=== PATIENT | female | born 1980 | race Caucasian/White ===

== ENCOUNTER → 2018-07-24 10:56 | Outpatient (CLI) | payer MEDICAID, SELFPAY ==
[2018-07-24 11:27] LABS: Hemoglobin A1C 5.3 % (0.0-7.0)
[2018-07-24 20:02] LABS: Alanine Aminotransferase 103 U/L (12-78); Albumin Level 3.3 gm/dL (3.4-5.0); Albumin/Globulin Ratio 0.9 (1.1-1.8); Alkaline Phosphatase 81 U/L (46-116); Anion Gap 16.6 mEq/L (5-15); Aspartate Amino Transferase 49 U/L (15-37); Bilirubin,Total 0.5 mg/dL (0.2-1.0); Blood Urea Nitrogen 13 mg/dL (7-18); Calcium 8.5 mg/dL (8.5-10.1); Carbon Dioxide 24 mmol/L (21.0-32.0); Chloride 104 mmol/L (98-107); Chol/HDL Ratio 2.3 (1-3.5); Cholesterol 99 mg/dL (140-200); Creatinine,Serum 0.69 mg/dL (0.55-1.02); Estimated Glomerular Filt Rate 94 ml/min (>60); GFR (African American) 114 ML/MIN (>60); Globulin 3.5 gm/dl (1.3-3.2); Glucose 91 mg/dL (74-106); HDL Cholesterol 44 mg/dL (29-89); LDL Cholesterol 49 mg/dL (0-130); Potassium 4.6 mmoL/L (3.5-5.1); Sodium 140 mmol/L (136-145); Total Protein,Serum 6.8 gm/dL (6.4-8.2); Triglycerides 32 mg/dL (30-200); VLDL Cholesterol 6 mg/dL (0-40)
[2018-07-26 12:36] LABS: Hepatitis C Antibody >11.0 s/co ratio (0.0-0.9)
[2018-07-28 08:26] LABS: HCV Genotype Charge YES; Hepatitis C Genotype 3 (.)
== END ==
PROVIDERS: Visit Provider Family Medicine
DX: B18.2 Chronic viral hepatitis C (principal); E66.01 Morbid (severe) obesity due to excess calories; Z13.220 Encounter for screening for lipoid disorders
CPT/HCPCS: 36415; 80053; 80061; 83036; 87380; 87522; 87902

== ENCOUNTER → 2018-08-14 16:25 | Outpatient (CLI) | payer MEDICAID, SELFPAY ==
--- NOTE | 2018-08-14 16:28 | MM_ITS ---
MM Dig screening mamm BI w/CAD ORDERING PHYSICIAN : Buster Stewart MD PATIENT AGE: 38 years GENDER: Female COMPARISON: No previous studies for comparison. Baseline mammogram. INDICATION: ITS.REASON: SCREENING no hormones no new complaints Family history. Mother with breast cancer in her 50s TECHNIQUE: Standard CC and MLO images were obtained. R2 CAD reviewed. Additional nipple profile cc views bilaterally are helpful FINDINGS: Normal residual fibroglandular elements with moderate fatty replacement the lower density breast overall with no focal area of significant concern either breast. RIGHT BREAST:No areas of concern LEFT BREAST:Small focal Area of density seen on initial cc view is not evident on MLO nor on the repeat nipple profile cc view.- And thus I believe is merely a summation shadow.. Otherwise unremarkable left breast IMPRESSION: No areas of significant concern No significant findings. Bilateral follow-up in one year recommended. BI-RADS Category: 2 Benign Finding(s) RECOMMENDED FOLLOW-UP: 1YR 1 YEAR FOLLOW-UP (A letter has been sent to the patient regarding results of the study.)
== END ==
PROVIDERS: PCP Family Medicine; Visit Provider Family Medicine
DX: Z12.31 Encounter for screening mammogram for malignant neoplasm of breast (principal)
CPT/HCPCS: 77067

== ENCOUNTER 2018-10-07 15:43 | Observation (INO) ==
--- NOTE | 2018-10-07 16:10 | Emergency Department Note ---
ED Disposition Clinical Impression: HCV (hepatitis C virus), Hx of intravenous drug use in remission, Unstable angina Disposition: Still a Patient Condition on Discharge: Fair Referrals: Buster Stewart MD [Primary Care Provider] - - Critical Care Critical Care Time: No Attestation: On , the high probability of a clinically significant, sudden or life threatening deterioration of the following system(s) required my full and direct attention, intervention and personal management. The time I documented below is in addition to time spent performing reported procedures but includes the following listed in this critical care notation. Medical Decision Making - Aly Inquiry Pt receiving controlled substance: No Aly was queried for this patient: No Vital Signs: 10/07/18 16:00 10/07/18 16:25 10/07/18 16:30 Temperature 98 F Temperature Source Oral Pulse Rate [Left Radial] 85 100 H 98 H Respiratory Rate 26 H 16 Blood Pressure [Right Arm] 129/90 113/78 112/60 Blood Pressure Mean [Right Arm] 103 89 77 Blood Pressure Source [Right Arm] Automatic Cuff Automatic Cuff Automatic Cuff Blood Pressure Position [Right Arm] Sitting Sitting Sitting 02 Sat by Pulse Oximetry 99 98 98 Oxygen Delivery Method Room Air Room Air Room Air 10/07/18 16:49 10/07/18 17:05 Temperature Temperature Source Pulse Rate [Left Radial] 77 70 Respiratory Rate 20 Blood Pressure [Right Arm] 100/66 L 118/77 Blood Pressure Mean [Right Arm] 77 90 Blood Pressure Source [Right Arm] Automatic Cuff Automatic Cuff Blood Pressure Position [Right Arm] Sitting Sitting 02 Sat by Pulse Oximetry 98 97 Oxygen Delivery Method Room Air Room Air - Lab Data Lab Results 10/07/18 15:50: WBC 5.2, RBC 5.13, Hgb 14.9, Hct 44.7, MCV 87.3, MCH 29.0, MCHC 33.2, RDW 13.3, Plt Count 202, MPV 7.4, Neut % (Auto) 61.2, Lymph % (Auto) 30.1, Emanuel % (Auto) 6.3, Eos % (Auto) 1.7, Baso % (Auto) 0.7, Neut # (Auto) 3.2, Lymph # (Auto) 1.6, Emanuel # (Auto) 0.3, Eos # (Auto) 0.1, Baso # (Auto) 0.0 10/07/18 15:50: D-Dimer < 100 10/07/18 15:50: Sodium 137, Potassium 4.1, Chloride 103, Carbon Dioxide 26, Anion Gap 12.1, BUN 17, Creatinine 0.80, Estimated Creat Clear 84, Estimated GFR 79, Est GFR ( Amer) 96, Glucose 78, Calcium 8.4 L, Total Bilirubin 0.4, AST 54 H, ALT 125 H, Alkaline Phosphatase 91, Troponin I < 0.02, Total Protein 6.9, Albumin 3.0 L, Globulin 3.9 H, Albumin/Globulin Ratio 0.8 L 10/07/18 15:50: B-Natriuretic Peptide 120 H 10/07/18 15:50: C-Reactive Protein 0.3 10/07/18 15:50: ESR 11 10/07/18 15:50: PT 9.4, INR 0.91, APTT 24.7 10/07/18 15:50: TSH 1.62, Free T4 1.01 10/07/18 17:12: Specimen Source R/r, O2 % R/a, ABG pH 7.45, ABG pCO2 39.9, ABG pO2 72.1 L, ABG HCO3 27.3 H, ABG Total CO2 28.5 H, ABG O2 Saturation 95, ABG Base Excess 3.4 H, Bryan Test Y 10/07/18 17:15: Troponin I < 0.02 Result diagrams: 10/07/18 15:50 10/07/18 15:50 Orders (Tests/Meds): ED MEDICATIONS Generic Name Dose Route Start Last Admin Trade Name Freq PRN Reason Stop Dose Admin Heparin Sodium/Dextrose 500 mls @ 20 mls/hr 10/07/18 18:15 Heparin 25,000 Units In D5w 500ml Premix IV 11/06/18 18:14 .Q25H JUANA 1,000 UNITS/HR Sodium Chloride 10 ml 10/07/18 16:06 10/07/18 16:42 Saline Flush 10ml Syringe IV 11/06/18 16:05 10 ml NEEDED PRN Administration Maintain IV Site Discontinued Medications Generic Name Dose Route Start Last Admin Trade Name Freq PRN Reason Stop Dose Admin Albuterol Sulfate 2.5 mg 10/07/18 15:58 10/07/18 16:14 Albuterol 0.083% 2.5mg/3ml Neb IH 10/07/18 15:59 2.5 mg ONCE ONE Administration Aspirin 324 mg 10/07/18 16:24 10/07/18 16:25 Aspirin 81mg Chewable Tablet PO 10/07/18 16:25 324 mg ONCE ONE Administration Famotidine 20 mg 10/07/18 17:16 10/07/18 17:23 Pepcid 20mg/2ml Vial IV 10/07/18 17:17 20 mg ONCE ONE Administration Heparin Sodium (Porcine) 5,000 unit 10/07/18 17:45 10/07/18 18:03 Heparin Sodium 5,000 Units/Ml Vial IV 10/07/18 17:46 Not Given ONCE ONE Heparin Sodium (Porcine) 4,000 unit 10/07/18 18:01 Heparin Sodium 5,000 Units/Ml Vial IV 10/07/18 18:02 ONCE ONE Heparin Sodium/Dextrose 500 mls @ 24 mls/hr 10/07/18 17:45 10/07/18 18:03 Heparin 25,000 Units In D5w 500ml Premix IV 11/06/18 17:44 Not Given .[id number] JUANA 1,200 UNITS/HR Ketorolac Tromethamine 30 mg 10/07/18 17:16 10/07/18 17:23 Toradol 30mg/Ml Vial IV 10/07/18 17:17 30 mg ONCE ONE Administration Methylprednisolone Sodium Succinate 125 mg 10/07/18 15:58 10/07/18 16:24 Solu-Medrol 125mg/2ml Vial IV 10/07/18 15:59 125 mg ONCE ONE Administration Morphine Sulfate 1 mg 10/07/18 16:34 10/07/18 16:42 Morphine 2mg/Ml Syringe IV 10/07/18 16:35 1 mg ONCE ONE Administration Morphine Sulfate 1 mg 10/07/18 18:11 10/07/18 18:16 Morphine 2mg/Ml Syringe IV 10/07/18 18:12 1 mg ONCE ONE Administration Nitroglycerin 0.4 mg 10/07/18 16:25 10/07/18 16:23 Nitrostat 0.4mg Sl Tablet SL 10/07/18 16:26 0.4 mg ONCE ONE Administration Ondansetron HCl 4 mg 10/07/18 15:59 10/07/18 15:59 Zofran 4mg/2ml Vial IV 10/07/18 16:00 4 mg ONCE ONE Administration Ondansetron HCl 4 mg 10/07/18 16:51 10/07/18 16:58 Zofran 4mg/2ml Vial IV 10/07/18 16:52 4 mg ONCE ONE Administration ORDERS Category Date Time Status ABG [Arterial Blood Gas] Stat RT 10/07/18 17:05 Ordered - Radiology Data #1 Image(s): Chest Image Reviewed: Yes I have reviewed radiologist's interpretation Preliminary Findings: Normal/NAD IMPRESSION: Negative chest, no acute finding Medical Decision Narrative: The patient received Solu-Medrol and DuoNeb with no improvement of her shortness of breath and chest pressure. She was given aspirin followed by nitroglycerin with worsening of her chest tightness. The patient given morphine with no relief herblood pressure became 100/50. Repeated EKG was unchanged first set of enzymes were negative. I called drive man aviation project manager Dr. De La O who recommended that the patient to be given Toradol repeat EKG and second set of troponins. 171 second EKG showed tall T waves in the upper lateral leads with no acute ST segment changes, Toradol did not relieve her chest pressure and her second set of troponin was negative at 0.02. 1815 the patient continued to complain of chest pressure rated 10/10 radiating to the left upper extremity, I notified Dr. De La O who recommended to take the patient to the [facility] due to persistent symptoms and failure of medical management. Resp/SOB HPI - General Chief Complaint: Chest Pain Stated Complaint: chest pain Time Seen by Provider: 10/07/18 16:00 Mode of Arrival: Ambulatory Limitations: No Limitations Description of Symptoms (Recalled from ER Triage Doc. 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 states pain worse with mo vement. pt denies cough, calf pain states mother with hx of "massive" SC at age 40. cpta none - History of Present Illness 38 years old white female with history of IVD use, depression and HCV. She denies current use of tobacco products. Today while she is sitting in the kitchen peeling potatoes being exposed to secondhand smoke by her significant other she developed sudden onset shortness of breath without wheezing, she felt chest pressure radiating to the left upper extremity, she arrived to the ED by private vehicle and underwent a normal EKG. The patient rated his chest pressure as 10/10. She was given a albuterol neb treatment with no improvement. MD Complaint: shortness of breath Onset (ago): minute(s) (20 minutes prior to arrival.) Severity: severe Consistency/Duration: constant Relieving factors: nothing, rest Exacerbating factors: nothing, exertion Known history of: IVDU Associated symptoms: chest pain Treatment prior to arrival: none - Related Data Home Medications Medication Instructions Recorded Confirmed Gabapentin [Gabapentin 300mg Cap] 300 mg PO TID 10/07/18 10/07/18 PARoxetine HCl [Paxil 20mg Tablet] 20 mg PO DAILY 10/07/18 10/07/18 Allergies Allergy/AdvReac Type Severity Reaction Status Date / Time ANACIN Allergy Mild I-HIVES Uncoded 06/11/18 20:00 From CLARITIN Allergy Unknown I-RASH Uncoded 09/06/17 14:35 [facility] History - Hepatitis A Screen Drug use history?: Yes High risk sexual behaviors?: No History of sexually transmitted infection?: No Currently employed?: No Childcare worker?: No Do you have indoor plumbing?: Yes Do you have electricity?: Yes Attestation statement:: This patient has been screened for Hepatitis A risk factors. I have reviewed the patient's past medical history: Yes Medical History: Denies:: Cancer, Diabetes Mellitus Type 1, Diabetes Mellitus Type 2, MRSA Amputation: No - Social History Alcohol Intake: never Occupational Status: other - Psychiatric History Expresses thoughts of harming self/others: None Suicide Plan Description: No Plan ROS Obtained: Yes All systems reviewed & no additional complaints Physical Exam - General General appearance: alert, in no apparent distress - Head Head exam: atraumatic, normocephalic, normal inspection - Eye Eye exam: Present: normal appearance, PERRL, EOMI. Absent: scleral icterus, nystagmus - ENT ENT exam: Present: normal exam, normal oropharynx, mucous membranes moist, TM's normal bilaterally, normal external ear exam - Neck Neck exam: Present: normal inspection, full ROM, trachea midline. Absent: tenderness, meningismus, lymphadenopathy - Chest Chest inspection: Present: normal inspection, symmetric chest wall rise. Absent: tenderness - Respiratory Respiratory exam: Present: normal lung sounds bilaterally. Absent: respiratory distress, wheezes - Cardiovascular Cardiovascular exam: Present: regular rate, normal rhythm, normal heart sounds. Absent: JVD - Abdominal Exam Abdominal exam: Present: soft, normal bowel sounds. Absent: distention, tenderness, guarding, rebound, rigidity - Extremities Exam Extremities exam: Present: normal inspection, full ROM, normal capillary refill, pedal edema. Absent: tenderness, calf tenderness - Back Exam Back exam: Present: normal inspection. Absent: tenderness, CVA tenderness (R), CVA tenderness (L) - Neurological Exam Neurological exam: Present: alert, oriented X3, CN II-XII intact, motor sensory deficit, reflexes normal - Psychiatric Psychiatric exam: Present: normal affect, normal mood - Skin Skin exam: Present: warm, dry, intact, normal color - Lymphatic Lymphatic Findings: no adenopathy
[2018-10-07 16:15] LABS: Basophils % 0.7 % (0.1-2.0); Eosinophils # 0.1 K/mm3 (0.0-0.4); Eosinophils % 1.7 % (0.1-12.0); Hematocrit 44.7 % (37.0-47.0); Hemoglobin 14.9 g/dL (12.2-16.2); Lymphocytes # 1.6 K/mm3 (0.7-4.5); Lymphocytes % 30.1 % (10-50); Mean Corpuscular HGB Conc 33.2 g/dL (31.8-35.4); Mean Corpuscular Volume 87.3 fl (81-99); Mean Platelet Volume 7.4 fl (7.4-10.4); Monocytes # 0.3 K/mm3 (0.1-1.0); Monocytes % 6.3 % (1.7-9.3); Neutrophils # 3.2 K/mm3 (1.8-7.8); Neutrophils % 61.2 % (37.0-80.0); Platelet Count 202 K/mm3 (142-424); Red Blood Count 5.13 M/mm3 (4.20-5.40); Red Cell Distribution Width 13.3 % (11.5-17.5); White Blood Count 5.2 K/mm3 (4.8-10.8)
[2018-10-07 16:29] LABS: Alanine Aminotransferase 125 U/L (12-78); Albumin/Globulin Ratio 0.8 (1.1-1.8); Alkaline Phosphatase 91 U/L (46-116); Anion Gap 12.1 mEq/L (5-15); Aspartate Amino Transferase 54 U/L (15-37); Bilirubin,Total 0.4 mg/dL (0.2-1.0); Blood Urea Nitrogen 17 mg/dL (7-18); Calcium 8.4 mg/dL (8.5-10.1); Carbon Dioxide 26 mmol/L (21.0-32.0); Chloride 103 mmol/L (98-107); Globulin 3.9 gm/dl (1.3-3.2); Glucose 78 mg/dL (74-106); Potassium 4.1 mmoL/L (3.5-5.1); Sodium 137 mmol/L (136-145); Total Protein,Serum 6.9 gm/dL (6.4-8.2)
[2018-10-07 17:14] LABS: ABG Base Excess 3.4 mmol/L (-2.4-2.3); ABG HCO3 27.3 mmhg (22.0-26.0); ABG Oxygen Saturation 95 % (90-100); ABG PCO2 39.9 mmhg (35.0-45.0); ABG PH 7.45 mmol/L (7.35-7.45); ABG PO2 72.1 mmhg (80-100); ABG TCO2 28.5 mmhg (23-27); Allen's Test Y; Oxygen R/A %
[2018-10-07 17:28] LABS: Activated Partial Thrombo Time 24.7 seconds (23.6-34.0); INR 0.91 (0.9-1.1); Prothrombin Time 9.4 seconds (9.4-11.8)
[2018-10-07 17:43] LABS: Free T4 (Free Thyroxine) 1.01 ng/dl (0.76-1.46); Thyroid Stimulating Hormone 1.62 uIU/ml (0.358-3.740)
[2018-10-08 05:50] LABS: Basophils % 0.1 % (0.1-2.0); Eosinophils % 0.1 % (0.1-12.0); Hematocrit 43.2 % (37.0-47.0); Hemoglobin 13.7 g/dL (12.2-16.2); Lymphocytes # 0.9 K/mm3 (0.7-4.5); Lymphocytes % 14.4 % (10-50); Mean Corpuscular HGB Conc 31.8 g/dL (31.8-35.4); Mean Corpuscular Hemoglobin 28.1 pg (27.0-31.2); Mean Corpuscular Volume 88.3 fl (81-99); Mean Platelet Volume 7.9 fl (7.4-10.4); Monocytes # 0.1 K/mm3 (0.1-1.0); Monocytes % 1.5 % (1.7-9.3); Neutrophils # 4.9 K/mm3 (1.8-7.8); Neutrophils % 83.8 % (37.0-80.0); Platelet Count 181 K/mm3 (142-424); Red Blood Count 4.88 M/mm3 (4.20-5.40); Red Cell Distribution Width 13.5 % (11.5-17.5); White Blood Count 5.9 K/mm3 (4.8-10.8)
[2018-10-08 06:18] LABS: Anion Gap 14.2 mEq/L (5-15); Potassium 4.2 mmoL/L (3.5-5.1)
--- NOTE | 2018-10-08 07:34 | H&P/Discharge Summary ---
General - General Admission date:: 10/07/18 Discharge date: 10/08/18 *Admission Date: 10/07/18 *Chief complaint: Chest pain *History of present illness: 2-year-old female with history of intravenous drug use and known diagnosis of hepatitis C presented to the emergency department yesterday evening after sudden onset of severe left-sided chest pain rating around the left of the chest and through the chest and back. Despite multiple measures in the emergency department to relieve pain including morphine, Toradol, nitroglycerin all attempts were unsuccessful. Patient eventually underwent left heart catheterization yesterday evening has been admitted posteriorly for further observation. She denies any obstructive urinary disease. She continues to have chest tightness this morning and at times has rated it as 10 out of 10. Patient herself claims a history of myocardial infarction when she was in her 30s. Apparently that was related to some drug use. [facility] History Medical History: Reports:: Myocardial Infarction (2008) Denies:: Cancer, Diabetes Mellitus Type 1, Diabetes Mellitus Type 2, MRSA Have you ever received a pneumonia vaccine?: No Have you received a flu vaccine this season?: Yes Comment:: Hepatitis C, history of depression, History of IV drug use Other Surgeries: Yes: Cholecystectomy, , Hysterectomy-Total Amputation: No - *Social History Educational Level: Completed High School Smoking Status: Former smoker Tobacco Type: cigarettes # Packs/Day (cigarettes): 1 #Yrs smoked (if former smoker): 5 Alcohol Intake: never Substance Use Type: opiates Occupational Status: unemployed Travel in the last 8 weeks: None - Psychiatric History Expresses thoughts of harming self/others: None Suicide Plan Description: No Plan *Family Hx:: Cancer, Coronary Artery Disease, Diabetes, Heart Attack, Hyperlipidemia, Hypertension, Kidney Disease, Stroke, Thyroid Disorder Review of Systems - Constitutional Denies body ache(s), Denies chills - Eyes Denies blurry vision, Denies change in vision - *Cardiovascular Reports chest pain, Reports chest pain at rest, Reports chest pain with activity - *Respiratory Denies change in phlegm color, Denies chest congestion, Denies cough, Denies shortness of breath Exam Vital signs and Labs for Last 24 Hours: Temp Pulse Resp BP Pulse Ox 98.1 F 67 20 113/69 91 L 10/08/18 04:14 10/08/18 04:14 10/08/18 04:14 10/08/18 04:14 10/08/18 04:14 Laboratory Results - last 24 hr 10/07/18 15:50: WBC 5.2, RBC 5.13, Hgb 14.9, Hct 44.7, MCV 87.3, MCH 29.0, MCHC 33.2, RDW 13.3, Plt Count 202, MPV 7.4, Neut % (Auto) 61.2, Lymph % (Auto) 30.1, [place] % (Auto) 6.3, Eos % (Auto) 1.7, Baso % (Auto) 0.7, Neut # (Auto) 3.2, Lymph # (Auto) 1.6, [place] # (Auto) 0.3, Eos # (Auto) 0.1, Baso # (Auto) 0.0 10/07/18 15:50: D-Dimer < 100 10/07/18 15:50: Sodium 137, Potassium 4.1, Chloride 103, Carbon Dioxide 26, Anion Gap 12.1, BUN 17, Creatinine 0.80, Estimated Creat Clear 84, Estimated GFR 79, Est GFR ( Amer) 96, Glucose 78, Calcium 8.4 L, Total Bilirubin 0.4, A ST 54 H, ALT 125 H, Alkaline Phosphatase 91, Troponin I < 0.02, Total Protein 6.9, Albumin 3.0 L, Globulin 3.9 H, Albumin/Globulin Ratio 0.8 L 10/07/18 15:50: B-Natriuretic Peptide 120 H 10/07/18 15:50: C-Reactive Protein 0.3 10/07/18 15:50: ESR 11 10/07/18 15:50: PT 9.4, INR 0.91, APTT 24.7 10/07/18 15:50: TSH 1.62, Free T4 1.01 10/07/18 17:12: Specimen Source R/r, O2 % R/a, ABG pH 7.45, ABG pCO2 39.9, ABG pO2 72.1 L, ABG HCO3 27.3 H, ABG Total CO2 28.5 H, ABG O2 Saturation 95, ABG Base Excess 3.4 H, Bryan Test Y 10/07/18 17:15: Troponin I < 0.02 10/08/18 05:20: WBC 5.9, RBC 4.88, Hgb 13.7, Hct 43.2, MCV 88.3, MCH 28.1, MCHC 31.8, RDW 13.5, Plt Count 181, MPV 7.9, Neut % (Auto) 83.8 H, Lymph % (Auto) 14.4, [place] % (Auto) 1.5 L, Eos % (Auto) 0.1, Baso % (Auto) 0.1, Neut # (Auto) 4.9, Lymph # (Auto) 0.9, [place] # (Auto) 0.1, Eos # (Auto) 0.0, Baso # (Auto) 0.0 10/08/18 05:20: Sodium 138, Potassium 4.2, Chloride 105, Carbon Dioxide 23, Anion Gap 14.2, BUN 18, Creatinine 0.78, Estimated Creat Clear 86, Estimated GFR 82, Est GFR ( Amer) 99, Glucose 150 H D, Calcium 8.0 L, Magnesium 1.7, Triglycerides 38, Cholesterol 114 L, LDL Cholesterol 49, VLDL Cholesterol 8, HDL Cholesterol 57, Cholesterol/HDL Ratio 2.0 I & O for Last 24 hours: Intake & Output 10/05/18 10/06/18 10/07/18 10/08/18 11:59 11:59 11:59 11:59 Intake Total 240 / 240 Balance 240 / 240 Weight 274 lb 2 oz Narrative: Patient appears comfortable sitting in bed. ENT exam reveals a moist oropharynx. The neck is without carotid bruit lymphadenopathy. Lungs are clear to auscultation. Heart has a regular rate and rhythm. Chest examination reveals some mild tenderness at the third caudal junction but patient indicates this is not her source of pain. Abdomen is soft, nontender, nondistended and obese. Neurologically there are no deficits. Hospital Course Hospital Course: Went cardiac catheterization without findings of obstructive disease. The following morning because of the patient's persistent complaint of pain CT angiogram was performed. Patient did have mild hypoxemia on blood gas on presentation, however her d-dimer was negative. CT scan revealed normal pulmonary vasclature without embolism. Patient continued to complain of pain that was not releived with NSAIDs, narcotics, or GI cocktail. As life threatening causes of chest pain had been ruled out patient was discharged to home and will follow up as an outpatient. Results Labs on day of discharge: Labs from last 24 hours 10/08/18 10/08/18 10/07/18 05:20 05:20 17:15 WBC 5.9 RBC 4.88 Hgb 13.7 Hct 43.2 MCV 88.3 MCH 28.1 MCHC 31.8 RDW 13.5 Plt Count 181 MPV 7.9 Neut % (Auto) 83.8 H Lymph % (Auto) 14.4 [place] % (Auto) 1.5 L Eos % (Auto) 0.1 Baso % (Auto) 0.1 Neut # (Auto) 4.9 Lymph # (Auto) 0.9 [place] # (Auto) 0.1 Eos # (Auto) 0.0 Baso # (Auto) 0.0 ESR PT INR APTT D-Dimer Specimen Source O2 % ABG pH ABG pCO2 ABG pO2 ABG HCO3 ABG Total CO2 ABG O2 Saturation ABG Base Excess Bryan Test Sodium 138 Potassium 4.2 Chloride 105 Carbon Dioxide 23 Anion Gap 14.2 BUN 18 Creatinine 0.78 Estimated Creat Clear 86 Estimated GFR 82 Est GFR ( Amer) 99 Glucose 150 H D Calcium 8.0 L Magnesium 1.7 Total Bilirubin AST ALT Alkaline Phosphatase Troponin I < 0.02 C-Reactive Protein B-Natriuretic Peptide Total Protein Albumin Globulin Albumin/Globulin Ratio Triglycerides 38 Cholesterol 114 L LDL Cholesterol 49 VLDL Cholesterol 8 HDL Cholesterol 57 Cholesterol/HDL Ratio 2.0 TSH Free T4 10/07/18 10/07/18 10/07/18 17:12 15:50 15:50 WBC RBC Hgb Hct MCV MCH MCHC RDW Plt Count MPV Neut % (Auto) Lymph % (Auto) [place] % (Auto) Eos % (Auto) Baso % (Auto) Neut # (Auto) Lymph # (Auto) [place] # (Auto) Eos # (Auto) Baso # (Auto) ESR PT 9.4 INR 0.91 APTT 24.7 D-Dimer Specimen Source R/r O2 % R/a ABG pH 7.45 ABG pCO2 39.9 ABG pO2 72.1 L ABG HCO3 27.3 H ABG Total CO2 28.5 H ABG O2 Saturation 95 ABG Base Excess 3.4 H Bryan Test Y Sodium Potassium Chloride Carbon Dioxide Anion Gap BUN Creatinine Estimated Creat Clear Estimated GFR Est GFR ( Amer) Glucose Calcium Magnesium Total Bilirubin AST ALT Alkaline Phosphatase Troponin I C-Reactive Protein B-Natriuretic Peptide Total Protein Albumin Globulin Albumin/Globulin Ratio Triglycerides Cholesterol LDL Cholesterol VLDL Cholesterol HDL Cholesterol Cholesterol/HDL Ratio TSH 1.62 Free T4 1.01 10/07/18 10/07/18 10/07/18 15:50 15:50 15:50 WBC RBC Hgb Hct MCV MCH MCHC RDW Plt Count MPV Neut % (Auto) Lymph % (Auto) [place] % (Auto) Eos % (Auto) Baso % (Auto) Neut # (Auto) Lymph # (Auto) [place] # (Auto) Eos # (Auto) Baso # (Auto) ESR 11 PT INR APTT D-Dimer Specimen Source O2 % ABG pH ABG pCO2 ABG pO2 ABG HCO3 ABG Total CO2 ABG O2 Saturation ABG Base Excess Bryan Test Sodium Potassium Chloride Carbon Dioxide Anion Gap BUN Creatinine Estimated Creat Clear Estimated GFR Est GFR ( Amer) Glucose Calcium Magnesium Total Bilirubin AST ALT Alkaline Phosphatase Troponin I C-Reactive Protein 0.3 B-Natriuretic Peptide 120 H Total Protein Albumin Globulin Albumin/Globulin Ratio Triglycerides Cholesterol LDL Cholesterol VLDL Cholesterol HDL Cholesterol Cholesterol/HDL Ratio TSH Free T4 10/07/18 10/07/18 10/07/18 15:50 15:50 15:50 WBC 5.2 RBC 5.13 Hgb 14.9 Hct 44.7 MCV 87.3 MCH 29.0 MCHC 33.2 RDW 13.3 Plt Count 202 MPV 7.4 Neut % (Auto) 61.2 Lymph % (Auto) 30.1 [place] % (Auto) 6.3 Eos % (Auto) 1.7 Baso % (Auto) 0.7 Neut # (Auto) 3.2 Lymph # (Auto) 1.6 [place] # (Auto) 0.3 Eos # (Auto) 0.1 Baso # (Auto) 0.0 ESR PT INR APTT D-Dimer < 100 Specimen Source O2 % ABG pH ABG pCO2 ABG pO2 ABG HCO3 ABG Total CO2 ABG O2 Saturation ABG Base Excess Bryan Test Sodium 137 Potassium 4.1 Chloride 103 Carbon Dioxide 26 Anion Gap 12.1 BUN 17 Creatinine 0.80 Estimated Creat Clear 84 Estimated GFR 79 Est GFR ( Amer) 96 Glucose 78 Calcium 8.4 L Magnesium Total Bilirubin 0.4 AST 54 H ALT 125 H Alkaline Phosphatase 91 Troponin I < 0.02 C-Reactive Protein B-Natriuretic Peptide Total Protein 6.9 Albumin 3.0 L Globulin 3.9 H Albumin/Globulin Ratio 0.8 L Triglycerides Cholesterol LDL Cholesterol VLDL Cholesterol HDL Cholesterol Cholesterol/HDL Ratio TSH Free T4 DS: Diagnosis - Discharge Diagnosis (1) Chest pain Status: Acute (2) History of myocardial infarction Status: Acute (3) HCV (hepatitis C virus) Status: Acute (4) Hx of intravenous drug use in remission Status: Acute Discharge Medications - Medications for Discharge Home Medication List at Discharge: Continue RX: PARoxetine HCl [Paxil 20mg Tablet] 20 mg PO DAILY RX: Gabapentin [Gabapentin 300mg Cap] 300 mg PO TID RX: Omeprazole Magnesium [Prilosec Otc 20mg Tab] 20 mg PO DAILY Disposition Disposition: Home, Self-Care
--- NOTE | 2018-10-08 10:58 | Pharmacy Consult Notes ---
[facility] Pharmacy VTE Monitoring - Patient Demographics Admission date: 10/07/18 Report Date: 10/08/18 Time: 10:58 Allergies/Adverse Reactions: Patient Allergies ANACIN Allergy (Mild, Uncoded 06/11/18 20:00) I-HIVES From CLARITIN Allergy (Unknown, Uncoded 09/06/17 14:35) I-RASH Height: 1.65 m Weight: 124.341 kg Patient Problems: Current Active Problems HCV (hepatitis C virus) (Acute) Hx of intravenous drug use in remission (Acute) Unstable angina (Acute) Chest pain (Acute) History of myocardial infarction (Acute) - VTE Risk Labs: VTE Related Lab Results Hgb 13.7 g/dL (12.2-16.2) 10/08/18 05:20 Hct 43.2 % (37.0-47.0) 10/08/18 05:20 Plt Count 181 K/mm3 (142-424) 10/08/18 05:20 PT 9.4 seconds (9.4-11.8) 10/07/18 15:50 INR 0.91 (0.9-1.1) 10/07/18 15:50 APTT 24.7 seconds (23.6-34.0) 10/07/18 15:50 BUN 18 mg/dL (7-18) 10/08/18 05:20 Creatinine 0.78 mg/dL (0.55-1.02) 10/08/18 05:20 Estimated Creat Clear 86 mL/min (50-200) 10/08/18 05:20 Was VTE Risk Assessment Performed: Yes VTE Score: 2 VTE Risk Level: Low Risk - Prophylaxis VTE Prophylaxis Ordered?: Yes Types of VTE Prophylaxis: TEDS Knee High Location of Applied Device: Bilateral Lower Extremeties - VTE Diagnosis Confirmed Treatment or plan recommended: Continue Current Treatment
== END 2018-10-08 13:20 | disposition home or self-care (01) ==
LOC: ER 15:43 → CATHLAB 18:40 → 2ND 18:40 → ER 18:48
PROVIDERS: ADMIT Emergency Medicine; ATTEND Family Medicine
CPT/HCPCS: 36415; 71010; 71045; 71275; 80048; 80053; 80061; 82803; 83735; 83880; 84439; 84443; 84484; 85025; 85378; 85610; 85651; 85730; 86140; 90732; 93005; 93458; 96365; 96375; 99152; 99285; C1725; C1760; C1769; G0378; J1644; J2405; Q9967

== ENCOUNTER → 2019-02-21 13:48 | Outpatient (CLI) | payer MEDICAID, SELFPAY ==
[2019-02-21 14:15] LABS: Basophils # 0.1 K/mm3 (0-0.2); Basophils % 0.7 % (0.1-2.0); Eosinophils # 0.1 K/mm3 (0.0-0.4); Eosinophils % 1.1 % (0.1-12.0); Hematocrit 42.3 % (37.0-47.0); Hemoglobin 13.6 g/dL (12.2-16.2); Lymphocytes # 1.8 K/mm3 (0.7-4.5); Mean Corpuscular HGB Conc 32.1 g/dL (31.8-35.4); Mean Corpuscular Hemoglobin 27.9 pg (27.0-31.2); Mean Corpuscular Volume 86.9 fl (81-99); Mean Platelet Volume 7.6 fl (7.4-10.4); Monocytes # 0.5 K/mm3 (0.1-1.0); Monocytes % 6.6 % (1.7-9.3); Neutrophils # 4.5 K/mm3 (1.8-7.8); Neutrophils % 65.5 % (37.0-80.0); Platelet Count 227 K/mm3 (142-424); Red Blood Count 4.87 M/mm3 (4.20-5.40); Red Cell Distribution Width 14.4 % (11.5-17.5); White Blood Count 6.9 K/mm3 (4.8-10.8)
[2019-02-21 15:55] LABS: Alanine Aminotransferase 98 U/L (12-78); Albumin Level 3.6 gm/dL (3.4-5.0); Alkaline Phosphatase 71 U/L (46-116); Anion Gap 14.6 mEq/L (5-15); Aspartate Amino Transferase 50 U/L (15-37); Bilirubin,Total 1.5 mg/dL (0.2-1.0); Blood Urea Nitrogen 21 mg/dL (7-18); Calcium 8.6 mg/dL (8.5-10.1); Carbon Dioxide 24 mmol/L (21.0-32.0); Chloride 103 mmol/L (98-107); Chol/HDL Ratio 2.3 (1-3.5); Cholesterol 100 mg/dL (140-200); Creatinine,Serum 1.07 mg/dL (0.55-1.02); Estimated Glomerular Filt Rate 57 ml/min (>60); Free T4 (Free Thyroxine) 1.49 ng/dl (0.76-1.46); GFR (African American) 69 ML/MIN (>60); Globulin 3.5 gm/dl (1.3-3.2); Glucose 104 mg/dL (74-106); HDL Cholesterol 44 mg/dL (29-89); LDL Cholesterol 47 mg/dL (0-130); Potassium 3.6 mmoL/L (3.5-5.1); Sodium 138 mmol/L (136-145); Total Protein,Serum 7.1 gm/dL (6.4-8.2); Triglycerides 43 mg/dL (30-200); VLDL Cholesterol 9 mg/dL (0-40)
[2019-02-23 20:47] LABS: Folate 19.3 ng/mL (>3.0); Vitamin B12 377 pg/mL (232-1245); Vitamin D 25 Hydroxy 18.2 ng/mL (30.0-100.0)
== END ==
PROVIDERS: Visit Provider Nurse Practitioner
DX: B18.2 Chronic viral hepatitis C (principal)
CPT/HCPCS: 36415; 80053; 80061; 82607; 82652; 82746; 83036; 84439; 84443; 85025

== ENCOUNTER 2020-01-03 15:02 | Emergency (ER) | payer OTHER, SELFPAY ==
[2020-01-03 15:04] VITALS: BP 116/83; PULSE 85; RESP 19; TEMP 36.7; O2SAT 97; BMI 38.2
--- NOTE | 2020-01-03 15:10 | HMH.EDUTC ---
[facility] [place] Clinical Impression: Right knee sprain Qualifiers: Encounter type: initial encounter Involved ligament of knee: unspecified ligament Qualified Code(s): S83.91XA - Sprain of unspecified site of right knee, initial encounter Disposition: Home, Self-Care Condition on Discharge: Good Instructions: Knee Sprain, DI for Knee Sprain Additional Instructions: Rest the extremity, apply ice for 15 minutes as tolerated three or four times per day, Wear the knee immobilizer, Elevate the extremity as tolerated while you are resting. Take ibuprofen for pain. I sent in a prescription to your pharmacy. Follow up with Dr. Marlow. I put in a referral but you need to call his office and schedule an appointment. Follow up with your regular doctor. GO TO THE ER FOR ANY WORSENING SYMPTOMS Prescriptions: Ibuprofen [Ibuprofen 800mg Tablet] 800 mg PO Q8HP PRN #30 tab PRN Reason: Moderate Pain Transmission Status: Received by [facility] Referrals: Buster Stewart MD [Primary Care Provider] - Mike Marlow MD [Staff Physician] - Forms: Work/School Release Time of Disposition: 16:01 Medical Decision Making - Medical Records Medical records reviewed: No: I reviewed the patient's medical records. - Aly Inquiry Pt receiving controlled substance: No Vital Signs: 01/03/20 15:04 01/03/20 16:06 Temperature 98.0 F 98.0 F Temperature Source Oral Oral Pulse Rate 85 Pulse Rate [Radial] 85 Respiratory Rate 19 19 Blood Pressure 116/83 Blood Pressure [Right Arm] 116/83 Blood Pressure Mean [Right Arm] 94 Blood Pressure Source Automatic Cuff Blood Pressure Source [Right Arm] Automatic Cuff Blood Pressure Position Sitting Blood Pressure Position [Right Arm] Sitting 02 Sat by Pulse Oximetry 97 Oxygen Delivery Method Room Air Room Air - Radiology Data #1 Image(s): Knee Image Reviewed: Yes I reviewed the patient's radiology image, Yes I have reviewed radiologist's interpretation Preliminary Findings: No Fracture Seen FINDINGS: No fracture or dislocation. No lytic or blastic change. There is normal mineralization. There are moderate osteoarthritic changes involving all 3 compartments Other findings:None. IMPRESSION: Moderate osteoarthritis [facility] [place] - General Stated complaint: hurt right knee Time Seen by Provider: 01/03/20 15:34 - History of Present Illness Provider Complaint: She states that yesterday day she twisted her left knee while getting out of her car. Since then her knee has been unstable and it has hurt to walk on it. - Related Data Home Medications Medication Instructions Recorded Confirmed Gabapentin [Gabapentin 300mg Cap] 600 mg PO TID 10/07/18 10/16/18 Omeprazole Magnesium [Prilosec Otc 40 mg PO DAILY 10/07/18 10/16/18 20mg Tab] Previous Rx's Medication Instructions Recorded Ciprofloxacin HCl [Cipro 500mg 500 mg PO BID 7 Days #14 tab 09/26/19 Tab] Ondansetron [Zofran 4mg ODT] 4 mg PO Q8HP PRN #20 tab.rapdis 09/26/19 Phenazopyridine HCl [Pyridium 200 pow PO TID #6 tab 09/26/19 200mg Tablet] Ibuprofen [Ibuprofen 800mg 800 mg PO Q8HP PRN #30 tab 01/03/20 Tablet] Allergies Allergy/AdvReac Type Severity Reaction Status Date / Time ANACIN Allergy Mild I-HIVES Uncoded 06/11/18 20:00 From CLARITIN Allergy Unknown I-RASH Uncoded 09/06/17 14:35 [facility] History - Hepatitis A Screen Attestation statement:: This patient has been screened for Hepatitis A risk factors. I have reviewed the patient's past medical history: Yes Medical History: Reports:: Gastroesophageal Reflux Disease(GERD), Myocardial Infarction Denies:: Cancer, Diabetes Mellitus Type 1, Diabetes Mellitus Type 2, Internal Pacemaker, MRSA Comment: Hepatitis C, history of depression, History of IV drug use Laterality Cases: Bilateral: Tonsillectomy Other Surgeries: Yes: Cholecystectomy, , Hysterectomy-Total. No: Pacemaker Amp
--- NOTE | 2020-01-03 15:16 | XR_ITS ---
PROCEDURE: XR KNEE RT 4V CLINICAL INDICATION: pain COMPARISON: No exams were available for comparison FINDINGS: No fracture or dislocation. No lytic or blastic change. There is normal mineralization. There are moderate osteoarthritic changes involving all 3 compartments Other findings:None. IMPRESSION: Moderate osteoarthritis Dictated by: Bryan Cooper MD 01/03/2020 15:53 Electronically signed by Bryan Cooper MD in [place] 01/03/2020 15:53
[2020-01-03 16:06] VITALS: BP 116/83; PULSE 85; RESP 19; TEMP 36.7; O2SAT 97
== END 2020-01-03 16:08 | disposition home or self-care (01) ==
PROVIDERS: Emergency Provider Nurse Practitioner Family; PCP Family Medicine
DX: S83.91XA Sprain of unspecified site of right knee, initial encounter (principal); X50.1XXA Overexertion from prolonged static or awkward postures, initial encounter; Y92.89 Other specified places as the place of occurrence of the external cause; K21.9 Gastro-esophageal reflux disease without esophagitis; Z87.891 Personal history of nicotine dependence; Z90.09 Acquired absence of other part of head and neck; Z90.49 Acquired absence of other specified parts of digestive tract; Z90.79 Acquired absence of other genital organ(s)
CPT/HCPCS: 29505; 73564; 99202

== ENCOUNTER → 2020-02-25 09:14 | Outpatient (CLI) | payer OTHER, SELFPAY | PROVIDERS: Visit Provider Family Medicine | DX: B19.20 Unspecified viral hepatitis C without hepatic coma (principal) ==

== ENCOUNTER → 2020-03-31 10:03 | Outpatient (CLI) | payer OTHER, SELFPAY ==
[2020-04-01 08:25] LABS: Hepatitis C Antibody >11.0 s/co ratio (0.0-0.9)
[2020-04-13 18:11] LABS: HCV Genotype 3
== END ==
PROVIDERS: Visit Provider Family Medicine
DX: B18.2 Chronic viral hepatitis C (principal)
CPT/HCPCS: 36415; 87380; 87522

== ENCOUNTER 2020-05-31 17:46 | Emergency (ER) | payer OTHER, SELFPAY ==
[2020-05-31 18:18] VITALS: BP 132/68; PULSE 107; RESP 20; TEMP 36.8; O2SAT 100; BMI 41.2
--- NOTE | 2020-05-31 18:36 | HMH.EDUTC ---
[facility] [place] Disposition Clinical Impression: Right flank pain, History of kidney stones Disposition: Home, Self-Care Condition on Discharge: Good Instructions: DI for Kidney Stones, DI for Abdominal Pain-Adult Additional Instructions: Drink plenty of water. If your symptoms get any worse or are not getting better within 24 hours please return and go thru the ER. Follow up with your primary care physician. GO TO THE ER FOR ANY WORSENING SYMPTOMS OR CONCERNS Prescriptions: Ibuprofen [Ibuprofen 800mg Tablet] 800 mg PO Q8HP PRN #30 tab PRN Reason: Moderate Pain Transmission Status: Received by [id number] Ciprofloxacin HCl [Cipro 500mg Tab] 500 mg PO BID 7 Days #14 tab Transmission Status: Received by [id number] Referrals: Buster Stewart MD [Primary Care Provider] - Forms: Work/School Release Time of Disposition: 18:50 Medical Decision Making - Medical Records Medical records reviewed: No: I reviewed the patient's medical records. - Aly Inquiry Pt receiving controlled substance: No Vital Signs: 05/31/20 18:18 05/31/20 18:51 Temperature 98.3 F 98 F Temperature Source Oral Pulse Rate 107 H Pulse Rate [Right Brachial] 107 H Respiratory Rate 20 20 Blood Pressure 132/68 Blood Pressure [Right Arm] 132/68 Blood Pressure Mean [Right Arm] 89 Blood Pressure Source [Right Arm] Automatic Cuff Blood Pressure Position [Right Arm] Sitting 02 Sat by Pulse Oximetry 100 Oxygen Delivery Method Room Air - Lab Data Lab results reviewed: Yes: I reviewed the patient's lab results. Lab Results 05/31/20 18:27: Urine Color Yellow, Urine Appearance Clear, Urine pH 6.0, Ur Specific [place] 1.025, Urine Protein Negative, Urine Glucose (UA) Negative, Urine Ketones Negative, Urine Blood Negative, Urine Nitrate Negative, Urine Bilirubin Negative, Urine Urobilinogen 0.2, Ur Leukocyte Esterase Negative Orders (Tests/Meds): ED MEDICATIONS Discontinued Medications Generic Name Dose Route Start Last Admin Trade Name Freq PRN Reason Stop Dose Admin Ketorolac Tromethamine 60 mg 05/31/20 18:44 05/31/20 18:49 Toradol 60mg/2ml Vial IM 05/31/20 18:45 60 mg ONCE ONE Administration Medical Decision Narrative: She does not want to be transferred to the ER at this time for further evaluation. She states that she has had multiple kidney stones in the past and this feels just like they have in the past. She would like a shot of toradol and to be allowed to go home to lie down. [facility] [place] HPI - General Stated complaint: possible kidney stones Time Seen by Provider: 05/31/20 18:36 Mode of Arrival: Ambulatory Source of Information: Patient Limitations: No Limitations Description of Symptoms (Recalled from Triage Doc. by RN): PATIENT C/O RIGHT LOWER BACK AND FLANK PAIN WITH NAUSEA; STATES SHE BELIEVES SHE HAS KIDNEY STONES OR A UTI HEENT Symptoms (Recalled from RN notes): No Resp Symptoms (Recalled from RN notes): No Skin Symptoms (Recalled from RN notes): No MS Symptoms (Recalled from RN notes): No Functional Status (Recalled from RN notes): WNL - History of Present Illness Provider Complaint: She c/o 2 to 3 days of left lower back pain. She states the pain radiates around to her right front abd. at times. She has a history of having kidney stones several times in the past. - Related Data Home Medications Medication Instructions Recorded Confirmed Gabapentin [Gabapentin 300mg Cap] 600 mg PO TID 10/07/18 10/16/18 Omeprazole Magnesium [Prilosec Otc 40 mg PO DAILY 10/07/18 10/16/18 20mg Tab] Previous Rx's Medication Instructions Recorded Ciprofloxacin HCl [Cipro 500mg 500 mg PO BID 7 Days #14 tab 09/26/19 Tab] Ondansetron [Zofran 4mg ODT] 4 mg PO Q8HP PRN #20 tab.rapdis 09/26/19 Phenazopyridine HCl [Pyridium 200 pow PO TID #6 tab 09/26/19 200mg Tablet] Ibuprofen [Ibuprofen 800mg 800 mg PO Q8HP PRN #30 tab 01/03/20 Tablet] Cipro
[2020-05-31 18:42] LABS: Apearance,Urine Clear (Clear); Color,Urine Yellow (Yellow)
[2020-05-31 18:43] LABS: Bilirubin,Urine Negative (Negative); Blood, Urine Negative (Negative); Glucose,Urine (UA) Negative (Negative); Ketones,Urine Negative (Negative); Protein,Urine Negative (Negative); Specific Gravity, Urine 1.025 (1.005-1.030); UTC Leukocyte Esterase,Urine Negative (Negative); Urobilinogen,Urine 0.2 EU/dl (0.2)
[2020-05-31 18:44] LABS: UTC Nitrate,Urine Negative (Negative)
[2020-05-31 18:51] VITALS: BP 132/68; PULSE 107; RESP 20; TEMP 36.6; O2SAT 100
== END 2020-05-31 19:05 | disposition home or self-care (01) ==
PROVIDERS: Emergency Provider Nurse Practitioner Family; PCP Family Medicine
DX: R10.31 Right lower quadrant pain (principal); Z87.442 Personal history of urinary calculi; I25.2 Old myocardial infarction; K21.9 Gastro-esophageal reflux disease without esophagitis; K73.9 Chronic hepatitis, unspecified; Z79.899 Other long term (current) drug therapy; F11.11 Opioid abuse, in remission; Z87.891 Personal history of nicotine dependence; Z90.09 Acquired absence of other part of head and neck; Z90.710 Acquired absence of both cervix and uterus; Z90.49 Acquired absence of other specified parts of digestive tract
CPT/HCPCS: 81003; 96372; 99202

== ENCOUNTER 2020-08-30 13:32 | Emergency (ER) | payer OTHER, SELFPAY ==
[2020-08-30 13:41] VITALS: BP 115/73; PULSE 97; RESP 18; TEMP 36.9; O2SAT 97; BMI 40.4
--- NOTE | 2020-08-30 13:58 | XR_ITS ---
PROCEDURE: XR FOREARM LT 2V CLINICAL INDICATION: jammed arm last night COMPARISON: CR XR KNEE RT 4V from 01/03/2020 FINDINGS: No fracture or dislocation. No lytic or blastic change. There is normal mineralization. The joint spaces are well-preserved. No significant degenerative/arthritic changes. No erosive changes evident. Other findings:None. IMPRESSION: No acute findings. Dictated by: Dr. Jer Moody MD 08/30/2020 15:20 Dr. Jer Moody MD in [place] 08/30/2020 15:20
--- NOTE | 2020-08-30 14:00 | HMH.EDUTC ---
[facility] [place] Clinical Impression: Viral upper respiratory illness Disposition: Home, Self-Care Condition on Discharge: Good Instructions: DI for Viral Upper Respiratory Infection -- Adult, Preventing the Spread of Coronavirus Discharge Instructions Additional Instructions: *Monitor Temp, Over the counter Motrin or Tylenol as directed/as needed Tylenol every 4 hours and Motrin every 6 hours (as long as your family doctor has told you that you can take it) for fever or pain. and straight to ER if unable to lower temp less than 101.0 after medication given *Warm salt water gargles may help to soothe the throat *Throat Lozenges *Warm fluids like tea with honey may help to soothe the throat *Sleep elevated *Humidifier/Vaporizer Follow up IMMEDIATELY for new or worsening symptoms or no Noticeable improvement over the next 48-72 hours. 911 for difficulty breathing or swallowing You were tested for today for COVID19 your test result should be back in the next 24-48 hours, you may call to the [facility] to see if your test results are back in the next 48 hours [phone] [facility] hours are 9am-9pm You was given a handout with instructions for Self Quarantine and Self isolation for while you wait on test results and what to do if they are positive If you are positive the Health Dept will be contacting you also Referrals: Erlin Baron MD [Primary Care Provider] - As needed Forms: Work/School Release Time of Disposition: 14:27 Medical Decision Making - Aly Inquiry Pt receiving controlled substance: No Aly was queried for this patient: No Vital Signs: 08/30/20 13:41 Temperature 98.4 F Temperature Source Oral Pulse Rate [Radial] 97 H Respiratory Rate 18 Blood Pressure [Right Arm] 115/73 Blood Pressure Mean [Right Arm] 87 Blood Pressure Source [Right Arm] Automatic Cuff Blood Pressure Position [Right Arm] Sitting 02 Sat by Pulse Oximetry 97 Oxygen Delivery Method Room Air Orders (Tests/Meds): ORDERS Category Date Time Status Forearm XR left 2 views [XR forearm LT 2V] Stat Exams 08/30/20 13:58 Taken Covid-19 Nasal PCR Sendout Stat Lab 08/30/20 13:40 Received - Radiology Data #1 Image(s): Forearm Image Reviewed: Yes I reviewed the patient's radiology image Preliminary Findings: No Fracture Seen [facility] [place] - General Stated complaint: ROSEN,SOB,Pain shoulder,back Time Seen by Provider: 08/30/20 14:00 Mode of Arrival: Ambulatory Source of Information: Patient Limitations: No Limitations Description of Symptoms (Recalled from Triage Doc. by RN): ROSEN, SOB, congestion x 3 days, left shoulder pain since tuesdayENT Symptoms (Recalled from RN notes): Yes Resp Symptoms (Recalled from RN notes): No Skin Symptoms (Recalled from RN notes): No MS Symptoms (Recalled from RN notes): No Functional Status (Recalled from RN notes): wnl - History of Present Illness Provider Complaint: Patient states that she has not been feeling well for several days State sthat she has been having body aches, chills and feeling like she may have had a fever States that she has had some clear drainage from her nose. State that last night at work she jammed her left arm and ever since has been having pain in her left forearm that shoots pain up to her shoulder State that she has had muscle problems in her shoulder before but pain is mostly in her forearm and feels like it may be pinched nerve - Related Data Home Medications Medication Instructions Recorded Confirmed phentermine 37.5 mg capsule 37.5 mg PO DAILY 07/23/20 08/06/20 Previous Rx's Medication Instructions Recorded escitalopram oxalate 10 mg tablet 10 mg PO DAILY #30 tab 07/23/20 gabapentin 300 mg capsule 600 mg PO TID #90 cap 07/23/20 hydroxyzine pamoate 25 mg capsule 25 mg PO TID PRN #60 cap 07/23/20 naproxen 500 mg tablet 500 mg PO BID #30 tab 08/06/20 prednisone 20 mg tablet 20 mg PO BID 5 Days #10 tab 08/06/20 omeprazole magnesium 20 mg 40 mg PO D
[2020-08-30 14:28] VITALS: BP 115/73; PULSE 97; RESP 18; TEMP 36.9; O2SAT 97
[2020-08-31 09:07] LABS: Covid-19 Nasal PCR Sendout UK Not Detected
== END 2020-08-30 14:32 | disposition home or self-care (01) ==
PROVIDERS: Emergency Provider Nurse Practitioner; PCP Emergency Medicine
DX: Z20.828 Contact with and (suspected) exposure to other viral communicable diseases (principal); J06.9 Acute upper respiratory infection, unspecified; K21.9 Gastro-esophageal reflux disease without esophagitis; I25.2 Old myocardial infarction; Z87.891 Personal history of nicotine dependence; Z90.49 Acquired absence of other specified parts of digestive tract; Z90.710 Acquired absence of both cervix and uterus; Z79.899 Other long term (current) drug therapy
CPT/HCPCS: 73090; 99202; U0003

== ENCOUNTER 2020-09-04 14:33 | Emergency (ER) | payer OTHER, SELFPAY ==
--- NOTE | 2020-09-04 14:24 | ECG_ITS ---
APPROVED REPORT Exam: Resting ECG HR:105 bpm ECG Measurements Heart Rate 105 AXES MT 116 P 67 QRSd 88 QRS 27 QT 324 T 42 QTc 428 Conclusion Sinus tachycardia Otherwise normal ECG Electronically signed by : Buster Diop, 09/05/2020 07:09:39
[2020-09-04 14:33] VITALS: BP 114/79; PULSE 100; RESP 18; TEMP 37.1; O2SAT 96; BMI 45.7
--- NOTE | 2020-09-04 14:34 | XR_ITS ---
PROCEDURE: XR CHEST 2V CLINICAL HISTORY: chest pain COMPARISON: CR CXR1 CHEST-PORTABLE from 03/25/2014 CR CXR1VP XR chest portable from 10/07/[address] angio chest from 10/08/2018 CR XR CHEST 2V from 08/07/2019 FINDINGS: The cardiomediastinal silhouette and pulmonary vascularity are within normal limits. The lungs are clear without infiltrates, suspicious nodules, or pleural effusions. No acute bony abnormalities. IMPRESSION: No acute findings. Dictated by: Bryan Cooper MD 09/04/2020 15:10 Bryan Cooper MD in [place] 09/04/2020 15:10
[2020-09-04 15:00] LABS: Basophils # 0.1 K/mm3 (0-0.2); Basophils % 0.8 % (0.1-2.0); Eosinophils # 0.2 K/mm3 (0.0-0.4); Eosinophils % 3.2 % (0.1-12.0); Hematocrit 45.4 % (37.0-47.0); Hemoglobin 15.3 g/dL (12.2-16.2); Lymphocytes # 1.5 K/mm3 (0.7-4.5); Lymphocytes % 25.5 % (10-50); Mean Corpuscular HGB Conc 33.8 g/dL (31.8-35.4); Mean Corpuscular Hemoglobin 29.1 pg (27.0-31.2); Mean Corpuscular Volume 86.2 fl (81-99); Monocytes # 0.4 K/mm3 (0.1-1.0); Monocytes % 6.1 % (1.7-9.3); Neutrophils # 3.7 K/mm3 (1.8-7.8); Neutrophils % 64.3 % (37.0-80.0); Platelet Count 192 K/mm3 (142-424); Red Blood Count 5.27 M/mm3 (4.20-5.40); Red Cell Distribution Width 14.7 % (11.5-17.5); White Blood Count 5.8 K/mm3 (4.8-10.8)
[2020-09-04 15:01] LABS: Chloride 107 mmol/L (98-107); Potassium 4.1 mmoL/L (3.5-5.1); Sodium 137 mmol/L (136-145)
[2020-09-04 15:04] LABS: Alanine Aminotransferase 55 U/L (12-78); Albumin Level 3.7 g/dl (3.5-5.0); Albumin/Globulin Ratio 1.2 (1.1-1.8); Alkaline Phosphatase 71 U/L (38-126); Anion Gap 11.1 mEq/L (5-15); Aspartate Amino Transferase 44 U/L (14-36); Bilirubin,Total 0.5 mg/dl (0.2-1.3); Blood Urea Nitrogen 16 mg/dl (7-17); Carbon Dioxide 23 mmol/L (22.0-30.0); Creatinine Clearance Estimated 83 mL/min (50-200); Estimated Glomerular Filt Rate 92 ml/min (>60); GFR (African American) 111 ML/MIN (>60); Globulin 3.2 g/dL (1.3-3.2); Glucose 98 mg/dl (74-100); Lipase 67 U/L (23-300); Total Protein,Serum 6.9 g/dl (6.3-8.2)
[2020-09-04 15:20] LABS: Troponin I < 0.01 ng/ml (0.00-0.034)
--- NOTE | 2020-09-04 15:27 | HMH.EDCP ---
ED Disposition Clinical Impression: Chest pain Qualifiers: Chest pain type: unspecified Qualified Code(s): R07.9 - Chest pain, unspecified Disposition: Home, Self-Care Condition on Discharge: Good Instructions: DI for Atypical Chest Pain Referrals: Reynaldo De La O MD [Staff Physician] - 3 days - Critical Care Critical Care Time: No Attestation: On , the high probability of a clinically significant, sudden or life threatening deterioration of the following system(s) required my full and direct attention, intervention and personal management. The time I documented below is in addition to time spent performing reported procedures but includes the following listed in this critical care notation. Medical Decision Making - Medical Records Medical records reviewed: Yes: I reviewed the patient's medical records. - Aly Inquiry Pt receiving controlled substance: No Vital Signs: 09/04/20 14:33 Temperature 98.7 F Temperature Source Oral Pulse Rate [Left Radial] 100 H Respiratory Rate 18 Blood Pressure [Right Arm] 114/79 Blood Pressure Mean [Right Arm] 90 02 Sat by Pulse Oximetry 96 Oxygen Delivery Method Room Air - Lab Data Lab results reviewed: Yes: I reviewed the patient's lab results. Lab Results 09/04/20 14:30: WBC 5.8, RBC 5.27, Hgb 15.3, Hct 45.4, MCV 86.2, MCH 29.1, MCHC 33.8, RDW 14.7, Plt Count 192, MPV 8.0, Neut % (Auto) 64.3, Lymph % (Auto) 25.5, [place] % (Auto) 6.1, Eos % (Auto) 3.2, Baso % (Auto) 0.8, Neut # (Auto) 3.7, Lymph # (Auto) 1.5, [place] # (Auto) 0.4, Eos # (Auto) 0.2, Baso # (Auto) 0.1 09/04/20 14:30: Sodium 137, Potassium 4.1, Chloride 107, Carbon Dioxide 23, Anion Gap 11.1, BUN 16, Creatinine 0.70, Estimated Creat Clear 83, Estimated GFR 92, Est GFR ( Amer) 111, Glucose 98, Calcium 9.0, Total Bilirubin 0.5, AST 44 H, ALT 55, Alkaline Phosphatase 71, Total Protein 6.9, Albumin 3.7, Globulin 3.2, Albumin/Globulin Ratio 1.2 09/04/20 14:30: Troponin I < 0.01, Lipase 67 Result diagrams: 09/04/20 14:30 09/04/20 14:30 Orders (Tests/Meds): ED MEDICATIONS Generic Name Dose Route Start Last Admin Trade Name Freq PRN Reason Stop Dose Admin Nitroglycerin 0.4 mg 09/04/20 14:34 Nitroglycerin 0.4mg Sl Tablet SL 09/05/20 14:34 Q5MINP PRN Chest Pain ORDERS Category Date Time Status Troponin I Q3H Lab 09/04/20 17:45 Ordered Troponin I Q3H Lab 09/04/20 20:45 Ordered ECG Request by /Nse Stat Y 09/04/20 14:34 Ordered - Radiology Data #1 Image(s): Chest Image Reviewed: Yes I reviewed the patient's radiology results, Yes I reviewed the patient's radiology image Preliminary Findings: Normal/NAD - JONY Score for Non-Stemi Age of Patient: 40-49 years old Heart Rate: 90-109 bpm Systolic Blood Pressure: 100-119 mmHg Serum Creatinine: 0.40-0.79 mg/dl CHF [place] Class: I-No CHF Other Risk Factors: None Non-Stemi Risk Score: 87 Medical Decision Narrative: Patient with 3 to 4 days of symptoms, negative troponin and EKG with no signs of acute ischemia. Chest x-ray shows no signs of pneumonia, pneumothorax, widened mediastinum would suggest dissection and no florid pulmonary edema. She is PERC negative with a heart rate of 94 on my exam. With 3 to 4 days of symptoms, she certainly should have an elevated troponin at this time and does not need a repeat. HEART score of <3, which puts her at a very low risk of major adverse cardiac event within the next 30 days. Low risk jony score. Discharged home to follow-up outpatient with Dr. De La O. Chest Pain HPI - General Chief Complaint: Chest Pain Stated Complaint: chest pain Time Seen by Provider: 09/04/20 15:28 Mode of Arrival: Ambulatory Limitations: No Limitations Description of Symptoms (Recalled from ER Triage Doc. by RN): c/o chest pain that started last night and continued into the day. Feels like something is sitting on her chest. - History of Present Illness HPI narrative: This is a 40-ye
[2020-09-04 15:49] VITALS: BP 113/70; PULSE 95; RESP 18; O2SAT 98
[2020-09-04 16:21] VITALS: BP 107/60; PULSE 99; RESP 19; TEMP 37.1; O2SAT 100
== END 2020-09-04 16:24 | disposition home or self-care (01) ==
PROVIDERS: Emergency Provider Emergency Medicine; PCP Emergency Medicine
DX: R07.9 Chest pain, unspecified (principal); K21.9 Gastro-esophageal reflux disease without esophagitis; I25.2 Old myocardial infarction; Z79.899 Other long term (current) drug therapy; Z87.891 Personal history of nicotine dependence; Z90.710 Acquired absence of both cervix and uterus; Z90.49 Acquired absence of other specified parts of digestive tract
CPT/HCPCS: 71046; 80053; 83690; 84484; 85025; 93005; 99283

== ENCOUNTER 2020-12-19 14:28 | Emergency (ER) | payer OTHER, SELFPAY ==
[2020-12-19 14:53] VITALS: BP 126/79; PULSE 107; RESP 16; TEMP 36.6; O2SAT 97; BMI 36.6
[2020-12-19 15:01] VITALS: BP 142/83; PULSE 105; RESP 18; TEMP 36.7; O2SAT 98; BMI 38.2
--- NOTE | 2020-12-19 15:16 | HMH.EDSKAF ---
ED Disposition Clinical Impression: Cellulitis Qualifiers: Site of cellulitis: extremity Site of cellulitis of extremity: upper extremity Laterality: left Qualified Code(s): L03.114 - Cellulitis of left upper limb Disposition: Home, Self-Care Condition on Discharge: Good Instructions: Cellulitis Prescriptions: Sulfamethoxazole/Trimethoprim [Bactrim DS tablet] 1 each PO BID 10 Days #20 tab Transmission Status: Pending to [facility] # cephALEXin [Cephalexin 500mg Tab] 500 mg PO QID 10 Days #40 tab Transmission Status: Pending to [facility] # Referrals: Porter Rose APRN [Primary Care Provider] - - Critical Care Critical Care Time: No Attestation: On 12/19/20, the high probability of a clinically significant, sudden or life threatening deterioration of the following system(s) required my full and direct attention, intervention and personal management. The time I documented below is in addition to time spent performing reported procedures but includes the following listed in this critical care notation. Medical Decision Making - Medical Records Medical records reviewed: Yes: I reviewed the patient's medical records. - Aly Inquiry Pt receiving controlled substance: No Vital Signs: 12/19/20 14:53 12/19/20 15:01 Temperature 97.9 F 98.1 F Temperature Source Tympanic Oral Pulse Rate [Right] 107 H 105 H Respiratory Rate 16 18 Blood Pressure [Right Arm] 126/79 142/83 H Blood Pressure Mean [Right Arm] 94 102 Blood Pressure Source [Right Arm] Automatic Cuff Blood Pressure Position [Right Arm] Sitting 02 Sat by Pulse Oximetry 97 98 Oxygen Delivery Method Room Air Medical Decision Narrative: This is a 40-year-old female presented to the emergency department with some swelling in her left arm. Findings are consistent with cellulitis. I did perform bedside ultrasound, however there is no large area of purulent material. There is some scar tissue from where the patient has been squeezing the lesion. The patient was instructed to discontinue doing this. No evidence of fever at this time. Patient be placed on dual antibiotic therapy. She is to complete all of her antibiotics. She does need repeat wound evaluation and 3 days. Patient was given strict return precautions. Verbalized understanding. Skin/Abscess/FB HPI - General Chief complaint: Skin/Abscess/Foreign Body Stated complaint: possible spider on Lt arm Time Seen by Provider: 12/19/20 15:00 Mode of Arrival: Family Vehicle Source of Information: Patient Limitations: No Limitations Description of Symptoms (Recalled from ER Triage Doc. by RN): PATIENT PRESENTS TO ED WITH AN ABSCESS IN HER LEFT ACTECUBITAL. PT DENIES IV DRUG USE. PT REPORTS SHE HAS A HX OF IV DRUG USE BUT REPORTS SHE HAS NOT USED SINCE 2012. UPON ASSESSMENT, PATIENT HAS REDNESS AND SWELLING IN THE AREA WITH YELLLOW PURLENT DRAINAGE. PT BELIEVES IT WAS A SPIDER BITE - History of Present Illness HPI narrative: This is a 40-year-old female presented to the emergency department with an abscess on her left arm. The patient states that has been there for last 3 days. She noticed some redness and a small head on her left arm that she thought was a pimple. She has been squeezing it over the last few days and has gotten a little bit of pus. She came in today because she has been having some pain. She denies any inoculation to the area. She does have a history of IV drug use, however states that she has been clean since 2012. She denies any fevers or chills. No chest pain or shortness of breath. No abdominal pain or vomiting. No headache or change in vision. - Related Data Home Medications Medication Instructions Recorded Confirmed phentermine 37.5 mg capsule 37.5 mg PO DAILY 07/23/20 08/06/20 Previous Rx's Medication Instructions Recorded escitalopram oxalate 10 mg tablet 10 mg PO DAILY #30 tab 07/23/20 gabapentin 300 mg capsule 600 mg PO T
[2020-12-19 15:45] VITALS: BP 126/69; PULSE 104; RESP 18; TEMP 36.8; O2SAT 99
== END 2020-12-19 15:47 | disposition home or self-care (01) ==
LOC: UTC 14:31 → ER 14:56
PROVIDERS: Emergency Provider Emergency Medicine; PCP Nurse Practitioner Family
DX: L03.114 Cellulitis of left upper limb (principal); K21.9 Gastro-esophageal reflux disease without esophagitis; I25.2 Old myocardial infarction; B19.20 Unspecified viral hepatitis C without hepatic coma; Z87.891 Personal history of nicotine dependence; Z87.898 Personal history of other specified conditions
CPT/HCPCS: 87070; 87077; 87186; 87205; 99282

== ENCOUNTER 2021-04-10 11:49 | Emergency (ER) | payer OTHER, SELFPAY ==
--- NOTE | 2021-04-10 12:20 | XR_ITS ---
PROCEDURE: XR CLAVICLE LT CLINICAL INDICATION: PAIN COMPARISON: No exams were available for comparison FINDINGS: No fracture or dislocation. No lytic or blastic change. There is normal mineralization. Minor degenerative changes of the acromioclavicular joint. Visualized left hemithorax is unremarkable. IMPRESSION: No acute findings. Dictated by: Leonarda Marlow 04/10/2021 13:08 Leonarda Marlow in [place] 04/10/2021 13:08
[2021-04-10 12:26] VITALS: BP 125/66; PULSE 110; RESP 16; TEMP 36.8; O2SAT 100; BMI 40.2
--- NOTE | 2021-04-10 12:41 | HMH.EDUTC ---
[facility] [place]ression: Pain of left clavicle Disposition: Home, Self-Care Condition on Discharge: Good Instructions: How To Perform RICE (Rest, Ice, Compress, Elevate), How to Use a Sling Additional Instructions: *RICE, Rest the extremity, Ice 15-20 minutes 3-4 times daily, Compress- wear the jo wrap as discussed as much as possible to help reduce swelling and pain, Elevate the extremity when at rest *Sling is for support and help control swelling, use it except in the shower. Be sure that is not to tight but not to loose either *Elevate when resting *Ibuprofen 600-800mg every 6-8 hours as needed for pain an inflammation. If need something more can take Tylenol in between doses of Ibuprofen to help Immediately follow up with your family doctor for new or worsening of symptoms, or no noticeable improvement over the next 3-5 days Call back to the [facility] later today for the official reading of your xray Return if needed Follow up with your Family Doctor if no improvement or any worsening of symptoms Referrals: Erlin Baron MD [Primary Care Provider] - As needed Time of Disposition: 12:59 Medical Decision Making - Aly Inquiry Pt receiving controlled substance: No Aly was queried for this patient: No Vital Signs: 04/10/21 12:26 Temperature 98.3 F Temperature Source Oral Pulse Rate [Right] 110 H Respiratory Rate 16 Blood Pressure [Right Arm] 125/66 Blood Pressure Mean [Right Arm] 85 Blood Pressure Source [Right Arm] Automatic Cuff Blood Pressure Position [Right Arm] Sitting 02 Sat by Pulse Oximetry 100 Oxygen Delivery Method Room Air Orders (Tests/Meds): ORDERS Category Date Time Status XR clavicle LT Stat Exams 04/10/21 12:20 Ordered - Radiology Data #1 Image(s): Clavicle Image Reviewed: Yes I reviewed the patient's radiology image Preliminary Findings: No Fracture [place] [facility] [place] - General Stated complaint: collar bone pain Time Seen by Provider: 04/10/21 12:41 Mode of Arrival: Ambulatory Source of Information: Patient Limitations: No Limitations Description of Symptoms (Recalled from Triage Doc. by RN): pt advises she was hanging clothes this am and felt a pop on her left side and thinks she injuried her collarbone HEENT Symptoms (Recalled from RN notes): No Resp Symptoms (Recalled from RN notes): No Skin Symptoms (Recalled from RN notes): No MS Symptoms (Recalled from RN notes): Yes (left collarbone pain) Functional Status (Recalled from RN notes): na - History of Present Illness Provider Complaint: Patient state that she was hanging her laundry and shaking it out when she felt a pop in her left collar bone area and states that she has been having pain there ever since Denies any other injury States that she broke her collar bone in almost the same place when she was a child - Related Data Home Medications Medication Instructions Recorded Confirmed phentermine 37.5 mg capsule 37.5 mg PO DAILY 07/23/20 08/06/20 Previous Rx's Medication Instructions Recorded escitalopram oxalate 10 mg tablet 10 mg PO DAILY #30 tab 07/23/20 gabapentin 300 mg capsule 600 mg PO TID #90 cap 07/23/20 hydroxyzine pamoate 25 mg capsule 25 mg PO TID PRN #60 cap 07/23/20 naproxen 500 mg tablet 500 mg PO BID #30 tab 08/06/20 prednisone 20 mg tablet 20 mg PO BID 5 Days #10 tab 08/06/20 Sulfamethoxazole/Trimethoprim 1 each PO BID 10 Days #20 tab 12/19/20 [Bactrim DS tablet] cephALEXin [Cephalexin 500mg Tab] 500 mg PO QID 10 Days #40 tab 12/19/20 omeprazole magnesium 20 mg 40 mg PO DAILY 30 Days #60 tab 12/29/20 tablet,delayed release Allergies Allergy/AdvReac Type Severity Reaction Status Date / Time aspirin [From Anacin] Allergy Verified 04/10/21 12:29 caffeine [From Anacin] Allergy Verified 04/10/21 12:29 loratadine [From Claritin] Allergy Verified 04/10/21 12:29 - Worker's Comp Is this a Worker's Comp case?: No [facility] History - Hepatitis A Screen Drug us
[2021-04-10 13:03] VITALS: BP 124/64; PULSE 84; RESP 16; TEMP 36.8; O2SAT 98
== END 2021-04-10 13:05 | disposition home or self-care (01) ==
PROVIDERS: Emergency Provider Nurse Practitioner; PCP Emergency Medicine
DX: M25.512 Pain in left shoulder (principal); X50.0XXA Overexertion from strenuous movement or load, initial encounter; Y92.018 Other place in single-family (private) house as the place of occurrence of the external cause; K21.9 Gastro-esophageal reflux disease without esophagitis; Z87.891 Personal history of nicotine dependence
CPT/HCPCS: 73000; 99202; G0463

== ENCOUNTER 2021-04-30 10:33 | Emergency (ER) | payer OTHER, SELFPAY ==
[2021-04-30 10:34] VITALS: BP 131/76; PULSE 93; RESP 19; TEMP 36.8; O2SAT 98; BMI 43.6
--- NOTE | 2021-04-30 11:11 | HMH.EDUTC ---
[facility] [place] Clinical Impression: Exposure to COVID-19 virus Disposition: Home, Self-Care Condition on Discharge: Good Instructions: DI for COVID-19 (Suspected or Confirmed ), Preventing the Spread of Coronavirus Discharge Instructions Additional Instructions: *Monitor Temp, Over the counter Motrin or Tylenol as directed/as needed Tylenol every 4 hours and Motrin every 6 hours (as long as your family doctor has told you that you can take it) for fever or pain. and straight to ER if unable to lower temp less than 101.0 after medication given Drink extra fluids with and between meals. If you have difficulty drinking, try very small amounts of water or suck on ice chips. ? Avoid fruit juices, as these do not replace minerals and can actually increase diarrhea. ? Children and adults can use sports drinks to replenish electrolytes. Younger children and infants should use products formulated for children, like oral rehydration solutions. ? Eat food in small amounts and let your stomach recover. ? Get lots of rest. You may feel tired or weak. ? No greasy or fried foods for the next 24-48 hours BRAT diet Bananas Rice Apples and [place] ? Make sure to drink plenty of liquids ? Return if needed ? Straight to ER if any life threatening symptoms ? Zofran as prescribed ? Follow up with family doctor in the next 48-72 hours if no improvement or any worsening of symptoms Follow up IMMEDIATELY for new or worsening symptoms or no Noticeable improvement over the next 48-72 hours. 911 for difficulty breathing or swallowing You were tested for today for COVID19 your test result should be back in the next 24-48 hours, you may call to the [facility] to see if your test results are back in the next 48 hours [phone] [facility] hours are 9am-9pm You was given a handout with instructions for Self Quarantine and Self isolation for while you wait on test results and what to do if they are positive If you are positive the Health Dept will be contacting you also Prescriptions: Ondansetron [Zofran 4mg ODT] 4 mg PO TIDP PRN #10 tab PRN Reason: Nausea Transmission Status: Pending to [id number] Referrals: Erlin Baron MD [Primary Care Provider] - As needed Forms: Work/School Release Time of Disposition: 11:21 Medical Decision Making - Aly Inquiry Pt receiving controlled substance: No Aly was queried for this patient: No Vital Signs: 04/30/21 10:34 Temperature 98.3 F Temperature Source Oral Pulse Rate [Left Radial] 93 H Respiratory Rate 19 Blood Pressure [Right Arm] 131/76 Blood Pressure Mean [Right Arm] 94 Blood Pressure Source [Right Arm] Automatic Cuff Blood Pressure Position [Right Arm] Sitting 02 Sat by Pulse Oximetry 98 Oxygen Delivery Method Room Air Orders (Tests/Meds): ORDERS Category Date Time Status Covid-19 Nasal PCR ([facility]) Routine Lab 04/30/21 10:50 Received [facility] [place] HPI - General Stated complaint: covid exposure, symptoms Time Seen by Provider: 04/30/21 11:11 Mode of Arrival: Ambulatory Source of Information: Patient Limitations: No Limitations Description of Symptoms (Recalled from Triage Doc. by RN): C/O tiredness, aches all over, nausea, ROSEN for 2 days, exposed on Tuesday HE Symptoms (Recalled from RN notes): Yes Resp Symptoms (Recalled from RN notes): No Skin Symptoms (Recalled from RN notes): No MS Symptoms (Recalled from RN notes): No Functional Status (Recalled from RN notes): na - History of Present Illness Provider Complaint: Patient state that she was around someone several days ago that tested positive for COVID State that for the last couple of days she has been feeling tired and achy all over, headache and having some nausea States that today she was having some chills so she came in to get tested for COVID - Related Data Home Medications Medication Instructions Recorded Confirmed phentermine 37.5 mg capsule 37.5 mg PO DAILY 07/23/20 08/06/20 Previous Rx's Medicatio
[2021-04-30 11:33] VITALS: BP 131/76; PULSE 93; RESP 19; TEMP 36.8; O2SAT 98
== END 2021-04-30 11:34 | disposition home or self-care (01) ==
PROVIDERS: Emergency Provider Nurse Practitioner; PCP Emergency Medicine
DX: Z20.822 Contact with and (suspected) exposure to COVID-19 (principal); R11.0 Nausea; R53.1 Weakness; K21.9 Gastro-esophageal reflux disease without esophagitis; I25.2 Old myocardial infarction; Z79.899 Other long term (current) drug therapy
CPT/HCPCS: 99202; G0463; U0003

== ENCOUNTER 2021-05-26 15:01 | Emergency (ER) | payer OTHER, SELFPAY ==
[2021-05-26 15:31] VITALS: BP 128/85; PULSE 102; RESP 18; TEMP 36.8; O2SAT 99; BMI 41.2
--- NOTE | 2021-05-26 15:45 | XR_ITS ---
PROCEDURE: XR FOOT LT MIN 3V CLINICAL INDICATION: FALL Pain COMPARISON: No exams were available for comparison FINDINGS: No fracture or dislocation. No lytic or blastic change. There is normal mineralization. There is a small calcaneal spur. Small anterior osteophytes are present at the navicular cuneiform joint. Mild degenerative changes 1st MTP joint Other findings:None. IMPRESSION: Chronic changes, no acute finding Dictated by: Bryan Cooper MD 05/26/2021 16:44 Bryan Cooper MD in [place] 05/26/2021 16:44
--- NOTE | 2021-05-26 15:45 | XR_ITS ---
PROCEDURE: XR ANKLE LT MIN 3V CLINICAL INDICATION: FALL COMPARISON: No exams were available for comparison FINDINGS: No fracture or dislocation. No lytic or blastic change. There is normal mineralization. The joint spaces are well-preserved. No significant degenerative/arthritic changes. No erosive changes evident. Other findings:None. IMPRESSION: No acute findings. Dictated by: Bryan Cooper MD 05/26/2021 16:45 Bryan Cooper MD in [place] 05/26/2021 16:45
[2021-05-26 16:54] VITALS: BP 129/87; PULSE 107; RESP 16; TEMP 37.1; O2SAT 99; BMI 41.3
--- NOTE | 2021-05-26 17:37 | HMH.EDUTC ---
[facility] [place] Dis[place] Clinical Impression: Left ankle sprain Qualifiers: Encounter type: initial encounter Involved ligament of ankle: unspecified ligament Qualified Code(s): S93.402A - Sprain of unspecified ligament of left ankle, initial encounter Disposition: Home, Self-Care Condition on Discharge: Good Instructions: Ankle Sprain, DI for Ankle Sprain Additional Instructions: Rest the extremity, apply ice for 15 minutes as tolerated three or four times per day, Elevate the extremity as tolerated while you are resting. Take ibuprofen for pain. Follow up with Dr. Jay (podiatry). I put in a referral but you need to call her office and schedule an appointment. Follow up with your regular doctor. GO TO THE ER FOR ANY WORSENING SYMPTOMS Prescriptions: Ibuprofen [Ibuprofen 600mg Tablet] 600 mg PO Q6HP PRN #30 tab PRN Reason: Mild Pain Transmission Status: Received by [id number] Referrals: Erlin Baron MD [Primary Care Provider] - Albertina Jay DPM [Staff Physician] - Forms: Work/School Release Time of Disposition: 17:59 Medical Decision Making - Medical Records Medical records reviewed: No: I reviewed the patient's medical records. - Aly Inquiry Pt receiving controlled substance: No Vital Signs: 05/26/21 15:31 05/26/21 16:54 05/26/21 18:18 Temperature 98.3 F 98.7 F 98.7 F Temperature Source Oral Oral Pulse Rate 107 H Pulse Rate [Left Radial] 102 H 107 H Respiratory Rate 18 16 16 Blood Pressure 129/87 Blood Pressure [Left Arm] 128/85 129/87 Blood Pressure Mean [Left Arm] 99 101 Blood Pressure Source [Left Arm] Automatic Cuff Blood Pressure Position [Left Arm] Sitting 02 Sat by Pulse Oximetry 99 99 Oxygen Delivery Method Room Air Orders (Tests/Meds): ED MEDICATIONS Discontinued Medications Generic Name Dose Route Start Last Admin Trade Name Freq PRN Reason Stop Dose Admin Ketorolac Tromethamine 60 mg 05/26/21 17:46 05/26/21 18:00 Ketorolac 60mg/2ml Vial IM 05/26/21 17:47 60 mg ONCE ONE Administration - Radiology Data #1 Image(s): Ankle Image Reviewed: Yes I reviewed the patient's radiology image, Yes I have reviewed radiologist's interpretation Preliminary Findings: No Fracture Seen #2 Image(s): Foot/Toes Image Reviewed: Yes I reviewed the patient's radiology image, Yes I have reviewed radiologist's interpretation Preliminary Findings: No Fracture Seen [facility] [place] HPI - General Stated complaint: left foot pain no ao Time Seen by Provider: 05/26/21 17:00 Mode of Arrival: Wheelchair Source of Information: Patient Limitations: No Limitations Description of Symptoms (Recalled from Triage Doc. by RN): pt states she is having sharp shooting pain in her L heel and ankle. this pain shoots up to her L foot. no injury noted. pt states the pain is worse when weight bearing. resting pain 8. HEENT Symptoms (Recalled from RN notes): No Resp Symptoms (Recalled from RN notes): No Skin Symptoms (Recalled from RN notes): No MS Symptoms (Recalled from RN notes): Yes (L heel and ankle pain) Functional Status (Recalled from RN notes): na - History of Present Illness Provider Complaint: She states that 2 days ago she stepped down from her steps to the ground and somehow pulled something in her left ankle. Since then she has had left ankle pain. The pain has got worse today. When she tries to walk or bear weight on it it hurts very bad. - Related Data Home Medications Medication Instructions Recorded Confirmed phentermine 37.5 mg capsule 37.5 mg PO DAILY 07/23/20 08/06/20 Previous Rx's Medication Instructions Recorded escitalopram oxalate 10 mg tablet 10 mg PO DAILY #30 tab 07/23/20 gabapentin 300 mg capsule 600 mg PO TID #90 cap 07/23/20 hydroxyzine pamoate 25 mg capsule 25 mg PO TID PRN #60 cap 07/23/20 naproxen 500 mg tablet 500 mg PO BID #30 tab 08/06/20 prednisone 20 mg tablet 20 mg PO BID 5 Days #10 tab 08/06/20 S
[2021-05-26 18:18] VITALS: BP 129/87; PULSE 107; RESP 16; TEMP 37.1
== END 2021-05-26 18:18 | disposition home or self-care (01) ==
PROVIDERS: Emergency Provider Nurse Practitioner Family; PCP Emergency Medicine
DX: S93.402A Sprain of unspecified ligament of left ankle, initial encounter (principal); K21.9 Gastro-esophageal reflux disease without esophagitis; I25.2 Old myocardial infarction; X50.9XXA Other and unspecified overexertion or strenuous movements or postures, initial encounter; Y92.89 Other specified places as the place of occurrence of the external cause
CPT/HCPCS: 73610; 73630; 96372; 99202; G0463

== ENCOUNTER → 2021-06-10 13:17 | Outpatient (CLI) | payer OTHER, SELFPAY | PROVIDERS: PCP Emergency Medicine; Visit Provider Podiatrist | DX: M76.62 Achilles tendinitis, left leg (principal) ==

== ENCOUNTER → 2021-06-12 12:34 | Outpatient (CLI) | payer OTHER, SELFPAY ==
--- NOTE | 2021-06-12 12:44 | MR_ITS ---
PROCEDURE INFORMATION: Exam: MR Left Lower Extremity Joint Without and With Contrast; Ankle Exam date and time: 06/12/2021 12:44 PM Age: 41 years old Clinical indication: Pain; Ankle; Left; Additional info: Achilles tendon pain. Lt ankle pain with swelling. Lt heel pain. Shooting pains up leg. Symptoms x1wk. 22ml prohance given. 17ml lot: [id number] exp: Mar 2023 5ml lot: [id number] exp: Nov 2022 prior x-ray 05-26-21 TECHNIQUE: Imaging protocol: MR of the Left lower extremity without and with contrast. Exam focused on the ankle. Contrast material: PROHANCE; Contrast volume: 22 ml; Contrast route: IV; COMPARISON: CR XR ANKLE LT MIN 3V 05/26/2021 3:50 PM FINDINGS: Bones and cartilage: There is an os trigonum measuring 6 x 10 x 6 mm. There is abnormal marrow edema in the os trigonum, as well as in the talus and calcaneus centered around the posterior subtalar joint. No fracture. Joint spaces: There is posterior subtalar joint synovitis with trace joint fluid present. LIGAMENTS: Distal tibiofibular syndesmosis: Unremarkable. No tear. Anterior talofibular ligament: Unremarkable. No tear. Posterior talofibular ligament: Unremarkable. No tear. Calcaneofibular ligament: Unremarkable. No tear. Deltoid ligament complex: Unremarkable. No tear. TENDONS: Flexor tendons of foot: There is a small amount of fluid within the flexor hallucis longus tendon sheath at the level of the ankle joint, with associated postcontrast enhancement, compatible with mild tenosynovitis. No tendon tear. Tibialis posterior tendon: Unremarkable as visualized. Peroneal tendons: Unremarkable as visualized. Extensor tendons of foot: Unremarkable as visualized. Tibialis anterior tendon: Unremarkable as visualized. Achilles tendon: Unremarkable as visualized. Tarsal canal (Sinus tarsi): There is edema within the posterior portion of the sinus tarsi, without loss of the accompanying T1 fat signal. This is probably related to posterior subtalar joint synovitis. Tarsal tunnel: Unremarkable. Muscles: Unremarkable. Soft tissues: There is abnormal soft tissue edema/enhancement around the os trigonum extending into Kager's fat pad. No organized fluid collection. Plantar fascia: Plantar fascia is unremarkable. IMPRESSION: 1. Constellation of findings compatible with posterior ankle impingement. Marrow edema is present within the os trigonum, posterior talus, and posterior calcaneus. Posterior subtalar joint synovitis. Mild flexor hallucis longus tenosynovitis. 2. Normal Achilles tendon, with neither tendinosis nor tear.
== END ==
PROVIDERS: PCP Emergency Medicine; Visit Provider Podiatrist
DX: M25.372 Other instability, left ankle (principal); M25.472 Effusion, left ankle; M76.62 Achilles tendinitis, left leg; S86.012A Strain of left Achilles tendon, initial encounter
CPT/HCPCS: 73723; A9576

== ENCOUNTER 2021-06-28 16:07 | Emergency (ER) | payer OTHER, SELFPAY ==
[2021-06-28 16:08] VITALS: BP 145/88; PULSE 102; RESP 18; TEMP 36.8; O2SAT 98; BMI 40.4
[2021-06-28 16:22] VITALS: PULSE 97; RESP 22; TEMP 36.9; O2SAT 100; BMI 41.2
--- NOTE | 2021-06-28 17:50 | HMH.EDUTC ---
[facility] [place]ression: Laceration of left thumb Qualifiers: Encounter type: initial encounter Damage to nail status: without damage Foreign body presence: without foreign body Qualified Code(s): S61.012A - Laceration without foreign body of left thumb without damage to nail, initial encounter Disposition: Home, Self-Care Condition on Discharge: Good Instructions: How to Care for a Laceration After Repair, DI for Laceration Repair -- Simple Additional Instructions: Keep the wound clean and dry. Keep a dressing on it if you are going to be getting it dirty. Watch the for signs of infection, such as redness, swelling, drainage, fever. etc. Take tylenol or ibuprofen for pain. Follow up with your regular doctor. Return in 10 days to have the sutures removed. GO TO THE ER FOR ANY WORSENING SYMPTOMS OR CONCERNS. Prescriptions: cephALEXin [cephALEXin 500mg capsule] 500 mg PO Q6H 7 Days #28 cap Transmission Status: Pending to [id number] Referrals: Erlin Baron MD [Primary Care Provider] - Forms: Work/School Release Time of Disposition: 18:07 Medical Decision Making - Medical Records Medical records reviewed: No: I reviewed the patient's medical records. - Aly Inquiry Pt receiving controlled substance: No Vital Signs: 06/28/21 16:08 06/28/21 16:22 Temperature 98.2 F 98.4 F Temperature Source Oral Oral Pulse Rate [Right Radial] 102 H 97 H Respiratory Rate 18 22 Blood Pressure [Right Arm] 145/88 H Blood Pressure Mean [Right Arm] 107 02 Sat by Pulse Oximetry 98 100 Orders (Tests/Meds): ED MEDICATIONS Discontinued Medications Generic Name Dose Route Start Last Admin Trade Name Freq PRN Reason Stop Dose Admin Lidocaine HCl 5 ml 06/28/21 16:25 Lidocaine 1% 5ml Pf Vial IJ 06/28/21 16:26 ONCE ONE Tetanus/Reduced Diphtheria/Acell Pertussis 0.5 ml 06/28/21 16:25 06/28/21 16:32 Tet/Diphth/Pert-Adult 0.5ml Syringe IM 06/28/21 16:26 0.5 ml .ONCE ONE Administration [facility] [place] - General Stated complaint: AO finger busted in car door Time Seen by Provider: 06/28/21 17:50 Mode of Arrival: Ambulatory Source of Information: Patient Limitations: No Limitations Description of Symptoms (Recalled from Triage Doc. by RN): pt went to oper her car door and something sharp on the handle caught her L thumb. pt has a lac on the inside of her thumb HEENT Symptoms (Recalled from RN notes): No Resp Symptoms (Recalled from RN notes): No Skin Symptoms (Recalled from RN notes): Yes (lac to L thumb) MS Symptoms (Recalled from RN notes): No Functional Status (Recalled from RN notes): na - History of Present Illness Provider Complaint: She was leaving her home on her way to work when something sharp on her car door handle caught her left thumb and cut it. She has a laceration on the medial aspect of her left thumb. Her tetanus immunization is up to date. - Related Data Home Medications Medication Instructions Recorded Confirmed phentermine 37.5 mg capsule 37.5 mg PO DAILY 07/23/20 06/15/21 Previous Rx's Medication Instructions Recorded escitalopram oxalate 10 mg tablet 10 mg PO DAILY #30 tab 07/23/20 gabapentin 300 mg capsule 600 mg PO TID #90 cap 07/23/20 hydroxyzine pamoate 25 mg capsule 25 mg PO TID PRN #60 cap 07/23/20 naproxen 500 mg tablet 500 mg PO BID #30 tab 08/06/20 prednisone 20 mg tablet 20 mg PO BID 5 Days #10 tab 08/06/20 omeprazole 40 mg capsule,delayed See Rx Instructions .ROUTE 04/13/21 release .COMPLEX #90 cap Ondansetron [Zofran 4mg ODT] 4 mg PO TIDP PRN #10 tab 04/30/21 ondansetron HCl 4 mg tablet 4 mg PO Q8H #30 tab 06/02/21 diazepam 2 mg tablet 2 mg PO ONCE #1 tab 06/11/21 meloxicam 7.5 mg tablet 7.5 mg PO DAILY 30 Days #30 tab 06/15/21 tramadol 50 mg tablet 50 mg PO BID PRN 10 Days #20 tab 06/15/21 cephALEXin [cephALEXin 500mg 500 mg PO Q6H 7 Days #28 cap 06/28/21 capsule] Allergies Allergy/AdvRe
[2021-06-28 18:03] VITALS: BP 145/88; PULSE 87; RESP 16; TEMP 36.6
== END 2021-06-28 18:21 | disposition home or self-care (01) ==
PROVIDERS: Emergency Provider Nurse Practitioner Family; PCP Emergency Medicine
DX: S61.012A Laceration without foreign body of left thumb without damage to nail, initial encounter (principal); Z23 Encounter for immunization; Z88.6 Allergy status to analgesic agent; Z88.8 Allergy status to other drugs, medicaments and biological substances; Z91.018 Allergy to other foods
CPT/HCPCS: 12002; 90715; 99202; G0463

== ENCOUNTER → 2021-07-13 08:44 | Outpatient (CLI) | payer OTHER, SELFPAY | PROVIDERS: PCP Emergency Medicine; Visit Provider Nurse Practitioner | DX: Z20.822 Contact with and (suspected) exposure to COVID-19 (principal) | CPT/HCPCS: C9803; U0003; U0005 ==

== ENCOUNTER → 2021-07-18 18:27 | Outpatient (CLI) | payer OTHER, SELFPAY | PROVIDERS: PCP Emergency Medicine; Visit Provider Nurse Practitioner Family | DX: Z20.822 Contact with and (suspected) exposure to COVID-19 (principal) | CPT/HCPCS: C9803; U0003; U0005 ==

== ENCOUNTER 2021-08-05 13:58 | Emergency (ER) | payer OTHER, SELFPAY ==
[2021-08-05 14:01] VITALS: BP 133/78; PULSE 87; RESP 22; TEMP 36.6; O2SAT 98; BMI 42.9
--- NOTE | 2021-08-05 14:27 | XR_ITS ---
PROCEDURE: XR ANKLE LT MIN 3V CLINICAL INDICATION: twisted after stepping off step to get into car COMPARISON: CR XR ANKLE LT MIN 3V from 05/26/2021 FINDINGS: No fracture or dislocation. No lytic or blastic change. There is normal mineralization. The joint spaces are well-preserved. No significant degenerative/arthritic changes. No erosive changes evident. Other findings:None. IMPRESSION: No acute findings. Dictated by: Bryan Cooper MD 08/05/2021 15:14 Bryan Cooper MD in [place] 08/05/2021 15:14
--- NOTE | 2021-08-05 14:27 | XR_ITS ---
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 No acute fracture or dislocation. The joint spaces are well-preserved. No significant degenerative/arthritic changes. No erosive changes evident. Other findings:None. IMPRESSION: No acute findings. Dictated by: Bryan Cooper MD 08/05/2021 15:13 Bryan Cooper MD in [place] 08/05/2021 15:13
--- NOTE | 2021-08-05 14:31 | XR_ITS ---
PROCEDURE: XR TIBIA FIBULA LT 2V CLINICAL INDICATION: pain COMPARISON: No exams were available for comparison FINDINGS: No fracture or dislocation. No lytic or blastic change. There is normal mineralization. Osteoarthritic changes are present involving all 3 compartments of the knee. 15 mm loose body noted in the popliteal fossa. Small benign-appearing cystic area along the proximal tibia centrally at 7 mm. Other findings:None. IMPRESSION: Degenerative changes with loose body at the popliteal fossa, no acute fracture Dictated by: Bryan Cooper MD 08/05/2021 15:11 Bryan Cooper MD in [place] 08/05/2021 15:11
--- NOTE | 2021-08-05 14:48 | HMH.EDEXTP ---
ED Disposition Clinical Impression: Ankle sprain and strain Disposition: Home, Self-Care Condition on Discharge: Fair Referrals: Erlin Baron MD [Primary Care Provider] - - Critical Care Critical Care Time: No Attestation: On 08/05/21, the high probability of a clinically significant, sudden or life threatening deterioration of the following system(s) required my full and direct attention, intervention and personal management. The time I documented below is in addition to time spent performing reported procedures but includes the following listed in this critical care notation. Medical Decision Making - Aly Inquiry Pt receiving controlled substance: No Vital Signs: 08/05/21 14:01 Temperature 97.9 F Temperature Source Oral Pulse Rate [Left Radial] 87 Respiratory Rate 22 Blood Pressure [Left Arm] 133/78 Blood Pressure Mean [Left Arm] 96 Blood Pressure Source [Left Arm] Automatic Cuff Blood Pressure Position [Left Arm] Sitting 02 Sat by Pulse Oximetry 98 Oxygen Delivery Method Room Air Medical Decision Narrative: Is a 41-year-old female with no past medical history presenting to the ED for left ankle pain. Patient is awake, alert, not in acute distress. Patient dynamically stable, afebrile. Patient's physical exam is remarkable for left ankle with tenderness to palpation, currently intact. X-rays of the left ankle, foot, leg were performed. X-rays were negative for any acute fractures. Patient was placed in a air splint. Patient was stable for discharge. Patient was given strict return precautions and follow-up instructions. Extremity Problem HPI - General Chief complaint: Extremity Injury, Lower Stated complaint: lt ankle pain/swollen Time Seen by Provider: 08/05/21 14:00 Mode of Arrival: Wheelchair Limitations: No Limitations Description of Symptoms (Recalled from ER Triage Doc. by RN): Pt c/o left ankle pain. States that approx 30 mins [employer] to ED, she rolled her ankle when stepping off a step to get to her car. Advises that it is shooting pain up my entire leg. It hasn't let up since it happened. I thought it would be better by now . - History of Present Illness HPI Narrative: Patient is a 41 yr old female with no past medical history presenting to the ED with left ankle pain. Patient states that earlier this month she had injured her left heel for which she was told she had a bruised heel and was placed in a hard soled boot. Patient states that after the hard soled boot was taken off she continued to have minor pain. Today when patient was stepping down from the curb she twisted her left ankle and is now having acute pain. She denies any other injuries she denies falling, she denies head trauma. Patient states that her pain is located around the ankle and she was unable to bear weight or ambulate. - Related Data Home Medications Medication Instructions Recorded Confirmed phentermine 37.5 mg capsule 37.5 mg PO DAILY 07/23/20 06/15/21 Previous Rx's Medication Instructions Recorded escitalopram oxalate 10 mg tablet 10 mg PO DAILY #30 tab 07/23/20 gabapentin 300 mg capsule 600 mg PO TID #90 cap 07/23/20 hydroxyzine pamoate 25 mg capsule 25 mg PO TID PRN #60 cap 07/23/20 naproxen 500 mg tablet 500 mg PO BID #30 tab 08/06/20 prednisone 20 mg tablet 20 mg PO BID 5 Days #10 tab 08/06/20 omeprazole 40 mg capsule,delayed See Rx Instructions .ROUTE 04/13/21 release .COMPLEX #90 cap Ondansetron [Zofran 4mg ODT] 4 mg PO TIDP PRN #10 tab 04/30/21 ondansetron HCl 4 mg tablet 4 mg PO Q8H #30 tab 06/02/21 diazepam 2 mg tablet 2 mg PO ONCE #1 tab 06/11/21 meloxicam 7.5 mg tablet 7.5 mg PO DAILY 30 Days #30 tab 06/15/21 tramadol 50 mg tablet 50 mg PO BID PRN 10 Days #20 tab 06/15/21 cephALEXin [cephALEXin 500mg 500 mg PO Q6H 7 Days #28 cap 06/28/21 capsule] Allergies Allergy/AdvReac Type Severity Reaction Status Date / Time aspirin [From Anacin] Allergy Verified 06/15/21 11:25
[2021-08-05 16:21] VITALS: BP 133/78; PULSE 87; RESP 20; TEMP 36.6; O2SAT 98
== END 2021-08-05 16:21 | disposition home or self-care (01) ==
PROVIDERS: Emergency Provider Emergency Medicine; PCP Emergency Medicine
DX: S93.402A Sprain of unspecified ligament of left ankle, initial encounter (principal); X50.1XXA Overexertion from prolonged static or awkward postures, initial encounter; Y92.89 Other specified places as the place of occurrence of the external cause; K21.9 Gastro-esophageal reflux disease without esophagitis; F41.8 Other specified anxiety disorders; I25.2 Old myocardial infarction; Z87.891 Personal history of nicotine dependence
CPT/HCPCS: 29515; 73590; 73610; 73630; 99282

== ENCOUNTER → 2021-09-07 11:15 | Outpatient (CLI) | payer OTHER, SELFPAY | PROVIDERS: PCP Emergency Medicine; Visit Provider Nurse Practitioner | DX: Z20.822 Contact with and (suspected) exposure to COVID-19 (principal) | CPT/HCPCS: C9803; U0003; U0005 ==

== ENCOUNTER → 2021-09-29 20:45 | Outpatient (CLI) | payer OTHER, SELFPAY ==
[2021-09-29 21:47] LABS: Basophils # 0.1 K/mm3 (0-0.2); Eosinophils # 0.1 K/mm3 (0.0-0.4); Eosinophils % 1.2 % (0.1-12.0); Hematocrit 49.9 % (37.0-47.0); Hemoglobin 15.7 g/dL (12.2-16.2); Lymphocytes # 1.2 K/mm3 (0.7-4.5); Lymphocytes % 21.3 % (10-50); Mean Corpuscular HGB Conc 31.5 g/dL (31.8-35.4); Mean Corpuscular Volume 88.7 fl (81-99); Mean Platelet Volume 9.3 fl (7.4-10.4); Monocytes # 0.3 K/mm3 (0.1-1.0); Monocytes % 5.9 % (1.7-9.3); Neutrophils % 70.5 % (37.0-80.0); Platelet Count 259 K/mm3 (142-424); Red Blood Count 5.62 M/mm3 (4.20-5.40); Red Cell Distribution Width 14.5 % (11.5-17.5); White Blood Count 5.7 K/mm3 (4.8-10.8)
[2021-09-29 22:06] LABS: Alanine Aminotransferase 67 U/L (12-78); Albumin Level 4.3 g/dl (3.5-5.0); Albumin/Globulin Ratio 1.4 (1.1-1.8); Alkaline Phosphatase 63 U/L (38-126); Anion Gap 14.1 mEq/L (5-15); Aspartate Amino Transferase 52 U/L (14-36); Bilirubin,Total 0.6 mg/dl (0.2-1.3); Blood Urea Nitrogen 14 mg/dl (7-17); Calcium 9.3 mg/dl (8.4-10.2); Carbon Dioxide 27 mmol/L (22.0-30.0); Chloride 100 mmol/L (98-107); Estimated Glomerular Filt Rate 91 ml/min (>60); GFR (African American) 111 ML/MIN (>60); Glucose 86 mg/dl (74-100); Potassium 4.1 mmoL/L (3.5-5.1); Sodium 137 mmol/L (136-145); Total Protein,Serum 7.3 g/dl (6.3-8.2)
[2021-10-02 07:18] LABS: Hep A Ab, IgM Negative (Negative); Hep A Ab, Total Positive (Negative); Hep B Core Ab, Total Positive (Negative); Hep B Surface Ab, Qual Reactive (.); Hepatitis B Surface Antigen Negative (Negative); Hepatitis C Antibody >11.0 s/co ratio (0.0-0.9)
[2021-10-02 21:08] LABS: ALT (SGPT) P5P 72 IU/L (0-40); Alpha 2-Macroglobulins, Qn 279 mg/dL (110-276); Apolipoprotein A-1 120 mg/dL (116-209); Bilirubin, Total 0.5 mg/dL (0.0-1.2); Fibrosis Score 0.26 (0.00-0.21); Fibrosis Stage F0-F1 (.); GGT 19 IU/L (0-60); Haptoglobin 141 mg/dL (42-296); Necroinflammat Activity Grade A1-A2 (.); Necroinflammat Activity Score 0.42 (0.00-0.17)
[2021-10-07 11:38] LABS: HCV Genotype Charge YES; Hepatitis C Genotype 3 (.)
== END ==
PROVIDERS: Visit Provider Emergency Medicine
DX: B19.20 Unspecified viral hepatitis C without hepatic coma (principal)
CPT/HCPCS: 80053; 81596; 85025; 86704; 86706; 86708; 87340; 87380; 87522; 87902

== ENCOUNTER → 2021-10-19 10:04 | Outpatient (CLI) | payer OTHER, SELFPAY ==
[2021-10-20 06:51] LABS: Covid-19 Nasal PCR Sendout Lex POSITIVE
== END ==
PROVIDERS: PCP Emergency Medicine; Visit Provider Nurse Practitioner
DX: U07.1 COVID-19 (principal)
CPT/HCPCS: C9803; U0004; U0005

== ENCOUNTER 2021-10-23 18:16 | Emergency (ER) | payer OTHER, SELFPAY ==
[2021-10-23 18:20] VITALS: BP 125/78; PULSE 89; RESP 18; TEMP 37.1; O2SAT 99; BMI 43.4
--- NOTE | 2021-10-23 19:05 | HMH.EDUTC ---
[facility] [place] Disposition Clinical Impression: COVID-19 Disposition: Home, Self-Care Condition on Discharge: Good Instructions: DI for COVID-19 (Suspected or Confirmed ), Preventing the Spread of Coronavirus Discharge Instructions Additional Instructions: Drink plenty of fluids. Take tylenol or ibuprofen for pain or fever. Take the medications as directed. Follow up with your regular doctor. GO TO THE ER FOR ANY WORSENING SYMPTOMS The cough medication (promethazine dm) will make you drowsy, so don't drive or operate heavy machinery after taking it. Prescriptions: Promethazine/Dextromethorphan [Promethazine-Dm Syrup] 5 ml PO Q6HP PRN #240 ml PRN Reason: Cough Transmission Status: Sent to [facility] Ondansetron [Zofran 4mg ODT] 4 mg PO Q8HP PRN #20 tab PRN Reason: Nausea Transmission Status: Sent to [facility] Naproxen [Naproxen 500mg tab] 500 mg PO BIDP PRN #30 tab PRN Reason: Moderate Pain Transmission Status: Pending to [facility] Referrals: Erlin Baron MD [Primary Care Provider] - Time of Disposition: 19:15 Medical Decision Making - Medical Records Medical records reviewed: No: I reviewed the patient's medical records. - Aly Inquiry Pt receiving controlled substance: No Vital Signs: 10/23/21 18:20 10/23/21 19:10 Temperature 98.7 F 98.7 F Temperature Source Oral Pulse Rate 89 Pulse Rate [Right Brachial] 89 Respiratory Rate 18 18 Blood Pressure 125/78 Blood Pressure [Right Arm] 125/78 Blood Pressure Mean [Right Arm] 93 Blood Pressure Source [Right Arm] Automatic Cuff Blood Pressure Position [Right Arm] Sitting 02 Sat by Pulse Oximetry 99 Oxygen Delivery Method Room Air Orders (Tests/Meds): ORDERS Category Date Time Status Covid-19 Nasal PCR ([facility]) Routine Lab 10/23/21 18:26 Received [facility] [place] HPI - General Stated complaint: covid test Time Seen by Provider: 10/23/21 19:10 Mode of Arrival: Ambulatory Source of Information: Patient Limitations: No Limitations Description of Symptoms (Recalled from Triage Doc. by RN): PATIENT NEEDING A FOLLOW-UP COVID TEST AFTER TESTING POSITIVE ON TUESDAY HEENT Symptoms (Recalled from RN notes): No Resp Symptoms (Recalled from RN notes): No Skin Symptoms (Recalled from RN notes): No MS Symptoms (Recalled from RN notes): No Functional Status (Recalled from RN notes): WNL - History of Present Illness Provider Complaint: She is here for a recheck on her covid-19 test. She states that she is feeling better. She needs a negative test to be allowed to go back to work. She does continue to have a cough at night and she has had nausea still. She has not ran a fever in 2 days. - Related Data Home Medications Medication Instructions Recorded Confirmed Gabapentin [Gabapentin 100mg Cap] 100 mg PO TID 10/23/21 10/23/21 Omeprazole 40 mg PO DAILY 10/23/21 10/23/21 ondansetron HCL [Zofran 4mg Tab*] 4 mg PO Q8H 10/23/21 10/23/21 Previous Rx's Medication Instructions Recorded Naproxen [Naproxen 500mg tab] 500 mg PO BIDP PRN #30 tab 10/23/21 Ondansetron [Zofran 4mg ODT] 4 mg PO Q8HP PRN #20 tab 10/23/21 Promethazine/Dextromethorphan 5 ml PO Q6HP PRN #240 ml 10/23/21 [Promethazine-Dm Syrup] Allergies Allergy/AdvReac Type Severity Reaction Status Date / Time aspirin [From Anacin] Allergy Verified 09/29/21 15:19 caffeine [From Anacin] Allergy Verified 09/29/21 15:19 loratadine [From Claritin] Allergy Verified 09/29/21 15:19 - Worker's Comp Is this a Worker's Comp case?: No [facility] History - Hepatitis A Screen Drug use history?: No High risk sexual behaviors?: No History of sexually transmitted infection?: No Currently employed?: No Childcare worker?: No Do you have indoor plumbing?: Yes Do you have electricity?: Yes Attestation statement:: This patient has been screened for Hepatitis A risk factors. I have reviewed the patient's past medical history: Yes Medic
[2021-10-23 19:10] VITALS: BP 125/78; PULSE 89; RESP 18; TEMP 37.1; O2SAT 99
== END 2021-10-23 19:30 | disposition home or self-care (01) ==
PROVIDERS: Emergency Provider Nurse Practitioner Family; PCP Emergency Medicine
DX: U07.1 COVID-19 (principal); K21.9 Gastro-esophageal reflux disease without esophagitis; F41.8 Other specified anxiety disorders; I25.2 Old myocardial infarction; Z87.891 Personal history of nicotine dependence
CPT/HCPCS: 99202; C9803; G0463; U0003; U0005

== ENCOUNTER 2022-01-24 18:05 | Emergency (ER) | payer OTHER, SELFPAY ==
[2022-01-24 18:21] VITALS: BP 136/86; PULSE 100; RESP 18; TEMP 37.2; O2SAT 97; BMI 40.2
--- NOTE | 2022-01-24 18:52 | HMH.EDUTC ---
[facility] [place] Disposition Clinical Impression: Abscess Cellulitis Qualifiers: Site of cellulitis: unspecified site Qualified Code(s): L03.90 - Cellulitis, unspecified Disposition: Home, Self-Care Condition on Discharge: Good Instructions: Cellulitis, DI for Skin Abscess Additional Instructions: *Start antibiotic(s) immediately and be sure to take as ordered for the FULL length of time although you may be feeling better or start to see improvement in the next 24-48 hours *Monitor closely. Outlined redness so that you can monitor easier. Follow up immediately for new or worsening symptoms including but not limited to redness, swelling, streaking from site fever or chills. *Warm compress 15 minutes 3-4 times day *Never squeeze or pop these on your own. Seek immediate medical attention next time this occurs *Monitor Temp. Tylenol every 4 hours as needed and ibuprofen every 6 hours as needed (as long as your primary care doctor has told you that it is ok to take both. For fever, aches, pain. ER if no less that 101 despite Tylenol and ibuprofen Follow up with your family doctor/primary care physician in the next 48-72 hours if no improvement Return if needed Straight to ER if any life threatening symptoms Prescriptions: Sulfamethoxazole/Trimethoprim [Bactrim DS tablet] 1 each PO BID 10 Days #20 tab Transmission Status: Received by [facility] cephALEXin [cephALEXin 500mg capsule*] 500 mg PO Q6H 10 Days #40 cap Transmission Status: Received by [facility] Mupirocin Calcium [Mupirocin 2% Cream 15gm] 1 applicatio TP TID #15 gm Transmission Status: Received by [facility] Referrals: Erlin Baron MD [Primary Care Provider] - As needed Time of Disposition: 18:58 Medical Decision Making - Aly Inquiry Pt receiving controlled substance: No Aly was queried for this patient: No Vital Signs: 01/24/22 18:21 Temperature 98.9 F Temperature Source Oral Pulse Rate [Radial] 100 H Respiratory Rate 18 Blood Pressure [Right Arm] 136/86 Blood Pressure Mean [Right Arm] 102 02 Sat by Pulse Oximetry 97 Medical Decision Narrative: Area on right forearm that is red, warm, hot where patient has stuck area with a needle and tried to mash it to get something out Patient educated not to do this as this could make infection worse Area marked for easy monitoring and medication started [facility] [place] HPI - General Stated complaint: possible spidder bite R Arm Time Seen by Provider: 01/24/22 18:52 Mode of Arrival: Ambulatory Source of Information: Patient Limitations: No Limitations Description of Symptoms (Recalled from Triage Doc. by RN): 3 days ago pt developed a place on right arm by elbow. thinks it may be a spider bite. place on skin is hot, red, and swollen HEENT Symptoms (Recalled from RN notes): No Resp Symptoms (Recalled from RN notes): No Skin Symptoms (Recalled from RN notes): Yes MS Symptoms (Recalled from RN notes): No Functional Status (Recalled from RN notes): wnl - Related Data Previous Rx's Medication Instructions Recorded Naproxen [Naproxen 500mg tab] 500 mg PO BIDP PRN #30 tab 10/23/21 Promethazine/Dextromethorphan 5 ml PO Q6HP PRN #240 ml 10/23/21 [Promethazine-Dm Syrup] gabapentin 100 mg capsule 100 mg PO TID 30 Days #90 cap 12/04/21 omeprazole 40 mg capsule,delayed 40 mg PO DAILY #90 cap 12/04/21 release ondansetron HCl 4 mg tablet 4 mg PO Q8H #20 tab 12/04/21 ondansetron HCl 4 mg tablet See Rx Instructions .ROUTE 12/04/21 .COMPLEX #30 tab ubrogepant 50 mg tablet See Rx Instructions .ROUTE 12/04/21 .COMPLEX #10 tab Mupirocin Calcium [Mupirocin 2% 1 applicatio TP TID #15 gm 01/24/22 Cream 15gm] Sulfamethoxazole/Trimethoprim 1 each PO BID 10 Days #20 tab 01/24/22 [Bactrim DS tablet] cephALEXin [cephALEXin 500mg 500 mg PO Q6H 10 Days #40 cap 01/24/22 capsule*] Allergies Allergy/AdvReac Type Severity Reaction Status Date / Time aspirin [From Anacin
[2022-01-24 19:23] VITALS: BP 136/86; PULSE 100; RESP 18; TEMP 37.2
== END 2022-01-24 19:24 | disposition home or self-care (01) ==
PROVIDERS: Emergency Provider Nurse Practitioner; PCP Emergency Medicine
DX: L03.90 Cellulitis, unspecified (principal); I25.2 Old myocardial infarction; K21.9 Gastro-esophageal reflux disease without esophagitis; B19.20 Unspecified viral hepatitis C without hepatic coma; Z79.1 Long term (current) use of non-steroidal anti-inflammatories (NSAID); Z79.899 Other long term (current) drug therapy; Z88.6 Allergy status to analgesic agent; Z88.8 Allergy status to other drugs, medicaments and biological substances; Z87.891 Personal history of nicotine dependence; Z82.49 Family history of ischemic heart disease and other diseases of the circulatory system; Z80.9 Family history of malignant neoplasm, unspecified; Z83.3 Family history of diabetes mellitus; Z83.438 Family history of other disorder of lipoprotein metabolism and other lipidemia; Z83.49 Family history of other endocrine, nutritional and metabolic diseases; Z84.1 Family history of disorders of kidney and ureter; W57.XXXA Bitten or stung by nonvenomous insect and other nonvenomous arthropods, initial encounter
CPT/HCPCS: 99213; G0463

== ENCOUNTER → 2022-01-26 19:18 | Outpatient (CLI) | payer OTHER, SELFPAY | PROVIDERS: Visit Provider Nurse Practitioner Family | DX: L02.413 Cutaneous abscess of right upper limb (principal) | CPT/HCPCS: 87070; 87077; 87186; 87205 ==

== ENCOUNTER 2022-01-27 15:46 | Emergency (ER) | payer OTHER, SELFPAY ==
[2022-01-27 16:08] VITALS: BP 145/101; PULSE 100; RESP 20; TEMP 36.6; O2SAT 99; BMI 41.9
[2022-01-27 16:40] VITALS: BP 0/0; PULSE 0; RESP 0; TEMP -17.7; TEMP 0
== END 2022-01-27 16:41 | disposition left against medical advice (07) ==
LOC: UTC 15:50
PROVIDERS: Emergency Provider Nurse Practitioner Family; PCP Emergency Medicine
DX: Z53.21 Procedure and treatment not carried out due to patient leaving prior to being seen by health care provider (principal)

== ENCOUNTER → 2022-03-24 07:10 | Outpatient (CLI) | payer OTHER, SELFPAY ==
[2022-03-23 20:10] LABS: Basophils # 0.1 K/mm3 (0-0.2); Eosinophils # 0.1 K/mm3 (0.0-0.4); Eosinophils % 2.3 % (0.1-12.0); Hematocrit 44.4 % (37.0-47.0); Hemoglobin 13.2 g/dL (12.2-16.2); Lymphocytes # 1.6 K/mm3 (0.7-4.5); Lymphocytes % 25.8 % (10-50); Mean Corpuscular HGB Conc 29.8 g/dL (31.8-35.4); Mean Corpuscular Hemoglobin 25.9 pg (27.0-31.2); Mean Platelet Volume 9.3 fl (7.4-10.4); Monocytes # 0.3 K/mm3 (0.1-1.0); Monocytes % 4.9 % (1.7-9.3); Neutrophils % 65.9 % (37.0-80.0); Platelet Count 231 K/mm3 (142-424); Red Blood Count 5.11 M/mm3 (4.20-5.40); White Blood Count 6.1 K/mm3 (4.8-10.8)
[2022-03-23 20:59] LABS: Alanine Aminotransferase 19 U/L (12-78); Albumin Level 3.8 g/dl (3.5-5.0); Albumin/Globulin Ratio 1.3 (1.1-1.8); Alkaline Phosphatase 89 U/L (38-126); Anion Gap 13.9 mEq/L (5-15); Aspartate Amino Transferase 23 U/L (14-36); Bilirubin,Total 0.3 mg/dl (0.2-1.3); Blood Urea Nitrogen 19 mg/dl (7-17); Calcium 9.1 mg/dl (8.4-10.2); Carbon Dioxide 23 mmol/L (22.0-30.0); Chloride 105 mmol/L (98-107); Estimated Glomerular Filt Rate 109 ml/min (>60); GFR (African American) 132 ML/MIN (>60); Glucose 102 mg/dl (74-100); Potassium 3.9 mmoL/L (3.5-5.1); Sodium 138 mmol/L (136-145); Total Protein,Serum 6.8 g/dl (6.3-8.2)
[2022-03-25 08:19] LABS: Hepatitis C Antibody >11.0 s/co ratio (0.0-0.9)
== END ==
PROVIDERS: PCP Emergency Medicine; Visit Provider Emergency Medicine
DX: B19.20 Unspecified viral hepatitis C without hepatic coma (principal)
CPT/HCPCS: 80053; 85025; 87380; 87522

== ENCOUNTER 2023-05-01 08:54 | Emergency (ER) | payer OTHER, SELFPAY ==
[2023-05-01 08:56] VITALS: BP 132/88; PULSE 110; RESP 18; TEMP 36.9; O2SAT 100; BMI 42.3
--- NOTE | 2023-05-01 09:06 | CT_ITS ---
PROCEDURE INFORMATION: Exam: CT Abdomen And Pelvis With Contrast Exam date and time: 05/01/2023 10:15 AM Age: 42 years old Clinical indication: Abdominal pain; Epigastric; Additional info: Severe christiano pain TECHNIQUE: Imaging protocol: Computed tomography of the abdomen and pelvis with contrast. Radiation optimization: All CT scans at this facility use at least one of these dose optimization techniques: automated exposure control; mA and/or kV adjustment per patient size (includes targeted exams where dose is matched to clinical indication); or iterative reconstruction. Contrast material: ISOVUE; Contrast volume: 75 ml; Contrast route: IV; REPORTING DATA: Count of CT and Cardiac NM exams in prior 12 months: This patient has received 0 known CTs and 0 known cardiac nuclear medicine studies in the 12 months prior to the current study. COMPARISON: [id number] CT abdomen pelvis wo/w con 07/02/2018 7:02 PM FINDINGS: Liver: Normal. No mass. Gallbladder and bile ducts: Cholecystectomy. Pancreas: Normal. No ductal dilation. Spleen: Normal. No splenomegaly. Adrenal glands: Normal. No mass. Kidneys and ureters: Normal. No hydronephrosis. Stomach and bowel: Unremarkable. No obstruction. No mucosal thickening. Appendix: No evidence of appendicitis. Intraperitoneal space: Unremarkable. No free air. No significant fluid collection. Vasculature: Unremarkable. No abdominal aortic aneurysm. Lymph nodes: Unremarkable. No enlarged lymph nodes. Urinary bladder: Unremarkable as visualized. Reproductive: Hysterectomy. Bones/joints: Unremarkable. No acute fracture. Soft tissues: Unremarkable. IMPRESSION: No acute findings.
--- NOTE | 2023-05-01 09:06 | CT_ITS ---
PROCEDURE INFORMATION: Exam: CT Chest With Contrast; Diagnostic Exam date and time: 05/01/2023 10:15 AM Age: 42 years old Clinical indication: Shortness of breath; Additional info: Lorene and mid chest pain TECHNIQUE: Imaging protocol: Diagnostic computed tomography of the chest with contrast. Radiation optimization: All CT scans at this facility use at least one of these dose optimization techniques: automated exposure control; mA and/or kV adjustment per patient size (includes targeted exams where dose is matched to clinical indication); or iterative reconstruction. Contrast material: ISOVUE; Contrast volume: 75 ml; Contrast route: IV; REPORTING DATA: Count of CT and Cardiac NM exams in prior 12 months: This patient has received 0 known CTs and 0 known cardiac nuclear medicine studies in the 12 months prior to the current study. COMPARISON: [facility] CT angio chest 10/08/2018 8:27 AM FINDINGS: Lungs: Unremarkable. No consolidation. No masses. Pleural spaces: Unremarkable. No pneumothorax. No pleural effusion. Heart: Unremarkable. No cardiomegaly. No pericardial effusion. Lymph nodes: Unremarkable. No enlarged lymph nodes. Vasculature: Unremarkable. No aortic aneurysm. Diaphragm: Moderate hiatal hernia. Bones/joints: Unremarkable. No acute fracture. Soft tissues: Unremarkable. IMPRESSION: No acute findings.
[2023-05-01 09:21] LABS: Basophils % 0.6 % (0.1-2.0); Eosinophils # 0.2 K/mm3 (0.0-0.4); Eosinophils % 2.7 % (0.1-12.0); Hematocrit 44.3 % (37.0-47.0); Hemoglobin 14.4 g/dL (12.2-16.2); Lymphocytes # 1.4 K/mm3 (0.7-4.5); Lymphocytes % 20.6 % (10-50); Mean Corpuscular HGB Conc 32.5 g/dL (31.8-35.4); Mean Corpuscular Hemoglobin 28.2 pg (27.0-31.2); Mean Corpuscular Volume 86.8 fl (81-99); Mean Platelet Volume 7.8 fl (7.4-10.4); Monocytes # 0.3 K/mm3 (0.1-1.0); Monocytes % 4.9 % (1.7-9.3); Neutrophils % 71.2 % (37.0-80.0); Platelet Count 242 K/mm3 (142-424); Red Cell Distribution Width 13.9 % (11.5-17.5)
--- NOTE | 2023-05-01 09:23 | ECG_ITS ---
APPROVED REPORT Exam: Resting ECG HR:87 bpm ECG Measurements Heart Rate 87 AXES TN 129 P 43 QRSd 90 QRS 43 QT 359 T 49 QTc 403 Conclusion SINUS RHYTHM NORMAL ECG UNCONFIRMED REPORT Electronically signed by : Buster Diop MD 05/02/2023 14:02:46
--- NOTE | 2023-05-01 09:29 | HMH.EDGENADL ---
Discharge Plan Disposition Patient Disposition: Home, Self-Care Condition: Good Prescriptions Prescriptions: New hydrocodone-acetaminophen 5-325 mg tablet 1 tab PO Q6H PRN (Reason: pain) Qty: 8 0RF famotidine [Pepcid] 20 mg tablet 20 mg PO BID 14 Days Qty: 28 0RF ondansetron 4 mg tablet,disintegrating 4 mg PO Q8H 4 Days Qty: 12 0RF cefadroxil 500 mg capsule 500 mg PO BID 5 Days Qty: 10 0RF No Action ibuprofen 600 mg tablet 600 mg PO Q6H PRN omeprazole 40 mg capsule,delayed release(DR/EC) 40 mg PO DAILY Qty: 90 2RF Rx Instructions: TAKE 1 CAPSULE BY MOUTH ONCE DAILY FOR HEARTBURN Ubrelvy 50 mg tablet See Rx Instructions .ROUTE .COMPLEX Qty: 10 1RF Dose Instruction: TAKE 1 TABLET BY MOUTH ONCE DAILY DIRECTED Rx Instructions: TAKE 1 TABLET BY MOUTH ONCE DAILY DIRECTED triamterene-hydrochlorothiazid [Maxzide-25mg] 37.5-25 mg tablet 1 tab PO DIRECTED Qty: 30 2RF Rx Instructions: take on Tue/tue/tuesday only as needed for swelling paroxetine HCl [Paxil] 20 mg tablet 20 mg PO DAILY Qty: 30 0RF diclofenac sodium [Voltaren Arthritis Pain] 1 % gel 2 g topical QID Qty: 100 2RF Rx Instructions: apply to single elbow, wrist or hand; for hand includes palm/fingers/back of hand acetaminophen 500 mg tablet 500 mg PO Q6H PRN (Reason: pain) Qty: 90 0RF Referrals Follow up/Referrals: Juilto Mac MD [Staff Physician] - 7-14 days (Moderate hiatal hernia) Erlin Baron MD [Primary Care Provider] - See instructions Activity Restrictions/Add. Instructions Additional Instructions/Restrictions: Please follow-up with your primary care provider. Please return to the emergency department if you develop any new or worsening symptoms or become concerned for your health. You have been given prescriptions for [place], Zofran, Pepcid, please take these as directed. Plan to follow-up in clinic with general surgery. Should you have any severe abdominal pain, inability to eat, intractable nausea vomiting despite taking Zofran, recommend that you return to the emergency department for further evaluation. Clinical Impressions Clinical Impression: Esophageal hiatal hernia Instructions Patient Instructions: DI for Acute Abdominal Pain Discharge ED Provider: Oscar Pickett I General Adult HPI General Chief complaint: Abdominal Pain Stated complaint: [id number] uppper stomach pain Time Seen by Provider: 05/01/23 08:59 Mode of Arrival: Ambulatory Source of Information: Patient Limitations: No Limitations Description of Symptoms (Recalled from ER Triage Doc. by RN): 10 days ago pt was loading lumber and felt a pop in her epigastric area and ever since has had pain,n/v, it hurts to take a deep breath. pt has tried to take tylenol and motrin at home to help with no relief. pt is alox4 with stable vitals , er md at bedside History of Present Illness HPI narrative: Patient is a 42-year-old female with history of CAD with prior AL, fatty liver, HTN, HLD presenting to the emergency department with severe midepigastric pain for the past 10 days. History was conducted with the patient at bedside. Patient reports that she was loading lumber into the back of her truck, states that she was lifting when she felt a tearing sensation in her epigastric region. Since that time, patient has minimally been able to eat secondary to pain when eating. Patient states she has also been nauseous with 2 episodes of nonbloody nonbilious emesis. She reports that she was febrile with a Tmax of 101.22 days ago. Has not had any fever over the past 24 hours. Denies cough, congestion, runny nose. She does report that this pain radiates up into her chest that has progressively worsened since onset 10 days ago. She does also report dysuria, denies urinary urgency or frequency. Is otherwise having normal bowel movements. Related Data Home Medications Medication Instructions
[2023-05-01 09:31] VITALS: BP 123/68; PULSE 92; O2SAT 99
[2023-05-01 09:32] LABS: Alanine Aminotransferase 18 U/L (12-78); Albumin Level 4.2 g/dl (3.5-5.0); Albumin/Globulin Ratio 1.2 (1.1-1.8); Alkaline Phosphatase 91 U/L (38-126); Anion Gap 12.9 mEq/L (5-15); Aspartate Amino Transferase 26 U/L (14-36); Bilirubin,Total 0.7 mg/dl (0.2-1.3); Blood Urea Nitrogen 14 mg/dl (7-17); Calcium 9.3 mg/dl (8.4-10.2); Carbon Dioxide 25 mmol/L (22.0-30.0); Chloride 107 mmol/L (98-107); Creatinine Clearance Estimated 92 mL/min (50-200); Estimated Glomerular Filt Rate 91 ml/min (>60); GFR (African American) 110 ML/MIN (>60); Globulin 3.6 g/dL (1.3-3.2); Glucose 105 mg/dl (74-100); Lipase 46 U/L (23-300); Potassium 3.9 mmoL/L (3.5-5.1); Sodium 141 mmol/L (136-145); Total Protein,Serum 7.8 g/dl (6.3-8.2)
[2023-05-01 09:33] LABS: Lactic Acid 0.9 mmol/L (0.7-2.1)
[2023-05-01 09:35] LABS: HCG Qualitative, Serum Negative (Negative)
[2023-05-01 09:45] LABS: Troponin I < 0.01 ng/ml (0.00-0.034)
[2023-05-01 10:01] VITALS: BP 97/52; O2SAT 98
[2023-05-01 10:30] VITALS: BP 113/49; PULSE 90; O2SAT 98
[2023-05-01 11:21] LABS: Microscopic, Urine URINE MICROSCOPIC (MICROSCOPIC)
[2023-05-01 11:22] LABS: Appearance,Urine CLOUDY (Clear); Bilirubin,Urine Negative (Negative); Blood, Urine Negative (Negative); Color,Urine YELLOW (Yellow); Glucose,Urine (UA) Negative (Negative); Ketones,Urine Negative (Negative); Leukocyte Esterase,Urine TRACE (Negative); Nitrate,Urine POSITIVE (Negative); Protein,Urine Negative (Negative); Specific Gravity, Urine 1.015 (1.005-1.030)
[2023-05-01 11:40] LABS: Bacteria,Urine 4+ /lpf; Squamous Epithelial Cell,Urine Occasional #/hpf (0-5)
[2023-05-01 12:22] VITALS: BP 112/62; PULSE 81; RESP 18; O2SAT 100
[2023-05-01 12:45] VITALS: BP 122/65; PULSE 85; RESP 20; TEMP 36.7; O2SAT 98
== END 2023-05-01 12:51 | disposition home or self-care (01) ==
PROVIDERS: Emergency Provider Emergency Medicine; PCP Emergency Medicine
DX: K44.9 Diaphragmatic hernia without obstruction or gangrene; I25.2 Old myocardial infarction; K76.0 Fatty (change of) liver, not elsewhere classified; Z87.891 Personal history of nicotine dependence
CPT/HCPCS: 71260; 74177; 80053; 81001; 83605; 83690; 84484; 84703; 85025; 87086; 87186; 93005; 96361; 96374; 96375; 96376; 99285; J2405; Q9967

== ENCOUNTER 2023-05-10 08:38 | Emergency (ER) | payer OTHER, SELFPAY ==
[2023-05-10 08:39] VITALS: BP 112/72; PULSE 98; RESP 18; TEMP 36.6; O2SAT 99; BMI 42.3
--- NOTE | 2023-05-10 09:18 | CT_ITS ---
PROCEDURE INFORMATION: Exam: CT Abdomen And Pelvis With Contrast Exam date and time: 05/10/2023 10:09 AM Age: 42 years old Clinical indication: Abdominal pain; Additional info: Diffuse abd pain TECHNIQUE: Imaging protocol: Computed tomography of the abdomen and pelvis with contrast. Radiation optimization: All CT scans at this facility use at least one of these dose optimization techniques: automated exposure control; mA and/or kV adjustment per patient size (includes targeted exams where dose is matched to clinical indication); or iterative reconstruction. Contrast material: ISOVUE; Contrast volume: 75 ml; Contrast route: IV; REPORTING DATA: Count of CT and Cardiac NM exams in prior 12 months: This patient has received 2 known CTs and 0 known cardiac nuclear medicine studies in the 12 months prior to the current study. COMPARISON: CT ABDOMEN PELVIS W CON 05/01/2023 10:15 AM FINDINGS: Liver: Normal. No mass. Gallbladder and bile ducts: Surgical clips are noted in the gallbladder fossa compatible with a prior cholecystectomy. Pancreas: Normal. No ductal dilation. Spleen: Normal. No splenomegaly. Adrenal glands: Normal. No mass. Kidneys and ureters: The kidneys enhance symmetrically and there is no hydronephrosis. Stomach and bowel: There is a large hiatal hernia containing the majority of the stomach. Scattered colonic diverticula are noted. There is moderate stool noted in the colon, mainly in the proximal. Appendix: No evidence of appendicitis. Intraperitoneal space: Unremarkable. No free air. No significant fluid collection. Vasculature: Unremarkable. No abdominal aortic aneurysm. Lymph nodes: Unremarkable. No enlarged lymph nodes. Urinary bladder: The urinary bladder partially contracted. Reproductive: The uterus appears to be surgically absent. Left adnexa is somewhat prominent measuring 4.9 x 2.0 cm. Consider pelvic ultrasound to further assess. Bones/joints: Unremarkable. No acute fracture. Soft tissues: Unremarkable. IMPRESSION: Large hiatal hernia. Constipation and diverticulosis. Somewhat prominent left adnexa. Suggest pelvic duplex ultrasound to further assess.
--- NOTE | 2023-05-10 09:19 | XR_ITS ---
PROCEDURE INFORMATION: Exam: XR Chest Exam date and time: 05/10/2023 10:13 AM Age: 42 years old Clinical indication: Dyspnea TECHNIQUE: Imaging protocol: Radiologic exam of the chest. Views: 1 view. COMPARISON: CT CHEST W CON 05/01/2023 10:15 AM FINDINGS: Lungs: Unremarkable. No consolidation. Pleural spaces: Unremarkable. No pleural effusion. No pneumothorax. Heart/Mediastinum: Unremarkable. No cardiomegaly. Bones/joints: Unremarkable. IMPRESSION: No acute findings.
--- NOTE | 2023-05-10 09:21 | HMH.EDGENADL ---
Discharge Plan Disposition Patient Disposition: Home, Self-Care Prescriptions Prescriptions: No Action diclofenac sodium [Voltaren Arthritis Pain] 1 % gel 2 g topical QID Qty: 100 2RF Rx Instructions: apply to single elbow, wrist or hand; for hand includes palm/fingers/back of hand hydrocodone-acetaminophen 5-325 mg tablet 1 tab PO Q6H PRN (Reason: pain) Qty: 12 0RF omeprazole 40 mg capsule,delayed release(DR/EC) 40 mg PO DAILY Qty: 90 2RF Rx Instructions: TAKE 1 CAPSULE BY MOUTH ONCE DAILY FOR HEARTBURN paroxetine HCl [Paxil] 20 mg tablet 20 mg PO DAILY Qty: 90 2RF Ubrelvy 50 mg tablet See Rx Instructions .ROUTE .COMPLEX Qty: 10 1RF Dose Instruction: TAKE 1 TABLET BY MOUTH ONCE DAILY DIRECTED Rx Instructions: TAKE 1 TABLET BY MOUTH ONCE DAILY DIRECTED CAD with CT famotidine [Pepcid] 20 mg tablet 20 mg PO BID 14 Days Qty: 28 0RF ondansetron 4 mg tablet,disintegrating 4 mg PO Q8H 4 Days Qty: 12 0RF cefadroxil 500 mg capsule 500 mg PO BID 5 Days Qty: 10 0RF Referrals Follow up/Referrals: Erlin Baron MD [Primary Care Provider] - See instructions Activity Restrictions/Add. Instructions Additional Instructions/Restrictions: Please follow-up with Dr. Mac on as previously instructed to discuss your hiatal hernia further. Return with any significant worsening of your symptoms. Continue take your nausea medications and you may take [id number] antacids such as Maalox or Pepcid etc. Additionally there is some nonspecific abnormality in her left adnexa which is not near the location of your pain. An outpatient duplex ultrasound of your pelvis has been recommended you may follow-up with primary care doctor to have this test followed up. Clinical Impressions Clinical Impression: Hernia, hiatal Instructions Patient Instructions: DI for Acute Abdominal Pain Discharge ED Provider: Ilda Lozano General Adult HPI General Chief complaint: Abdominal Pain Stated complaint: stomach pain Time Seen by Provider: 05/10/23 09:15 Mode of Arrival: Ambulatory Source of Information: Patient Limitations: No Limitations Description of Symptoms (Recalled from ER Triage Doc. by RN): Patient complaint of upper abdomen pain that has been ongoing. States she was supposed to see Dr. Mac today but her appointment got cancelled due to an emergent procedure. Presents today because the pain is no better. History of Present Illness HPI narrative: 42-year-old female here with epigastric and diffuse abdominal pain over the last several weeks. States she came to the emergency department last Tuesday had a CT scan which showed hiatal hernia and she was supposed to follow-up with Dr. Mac this morning at [address] Mac had to go to the operating room emergently therefore her appointment was canceled. She therefore came to the emergency department. No nausea vomiting no blood in her stool. No melena. No acute or sudden worsening of this pain. Related Data Previous Rx's Medication Instructions Recorded diclofenac sodium 1 % topical gel 2 g topical QID #100 grams 11/17/22 (Voltaren Arthritis Pain) cefadroxil 500 mg capsule 500 mg PO BID 5 days #10 caps 05/01/23 famotidine 20 mg tablet (Pepcid) 20 mg PO BID 2 weeks #28 tabs 05/01/23 ondansetron 4 mg disintegrating 4 mg PO Q8H 4 days #12 tabs 05/01/23 tablet hydrocodone 5 mg-acetaminophen 325 1 tab PO Q6H PRN pain #12 tabs 05/05/23 mg tablet omeprazole 40 mg capsule,delayed 40 mg PO DAILY GERD #90 caps 05/05/23 release paroxetine HCl 20 mg tablet (Paxil) 20 mg PO DAILY #90 tabs 05/05/23 ubrogepant 50 mg tablet (Ubrelvy) See Rx Instructions .Route 05/05/23 .COMPLEX #10 tabs Allergies Allergy/AdvReac Type Severity Reaction Status Date / Time aspirin [From Anacin] Allergy Verified 05/04/23 15:19 caffeine [From Anacin] Allergy Verified 05/04/23 15:19 loratadine
--- NOTE | 2023-05-10 09:27 | PC.NURSE ---
warm blanket given to patient; SO at BS and call beasley within reach
--- NOTE | 2023-05-10 09:27 | ECG_ITS ---
APPROVED REPORT Exam: Resting ECG HR:75 bpm ECG Measurements Heart Rate 75 AXES CA 128 P 46 QRSd 85 QRS 41 QT 358 T 49 QTc 388 Conclusion SINUS RHYTHM NORMAL ECG UNCONFIRMED REPORT Electronically signed by : Buster Diop MD 05/10/2023 19:41:20
[2023-05-10 09:32] VITALS: BP 119/74; PULSE 79; O2SAT 100
[2023-05-10 09:32] LABS: Basophils % 0.5 % (0.1-2.0); Eosinophils # 0.1 K/mm3 (0.0-0.4); Eosinophils % 2.2 % (0.1-12.0); Hematocrit 42.9 % (37.0-47.0); Hemoglobin 14.3 g/dL (12.2-16.2); Lymphocytes # 1.2 K/mm3 (0.7-4.5); Lymphocytes % 22.4 % (10-50); Mean Corpuscular HGB Conc 33.3 g/dL (31.8-35.4); Mean Corpuscular Hemoglobin 29.4 pg (27.0-31.2); Mean Corpuscular Volume 88.2 fl (81-99); Mean Platelet Volume 8.3 fl (7.4-10.4); Monocytes # 0.2 K/mm3 (0.1-1.0); Monocytes % 4.3 % (1.7-9.3); Neutrophils # 3.9 K/mm3 (1.8-7.8); Neutrophils % 70.6 % (37.0-80.0); Platelet Count 235 K/mm3 (142-424); Red Blood Count 4.87 M/mm3 (4.20-5.40); Red Cell Distribution Width 13.7 % (11.5-17.5); White Blood Count 5.5 K/mm3 (4.8-10.8)
[2023-05-10 09:37] LABS: Chloride 106 mmol/L (98-107); Potassium 3.9 mmoL/L (3.5-5.1); Sodium 139 mmol/L (136-145)
[2023-05-10 09:39] LABS: Blood Urea Nitrogen 12 mg/dl (7-17); Creatinine Clearance Estimated 92 mL/min (50-200); Estimated Glomerular Filt Rate 91 ml/min (>60); GFR (African American) 110 ML/MIN (>60); Lactic Acid 1.7 mmol/L (0.7-2.1)
[2023-05-10 09:40] LABS: Alanine Aminotransferase 21 U/L (12-78); Albumin Level 3.5 g/dl (3.5-5.0); Albumin/Globulin Ratio 1.2 (1.1-1.8); Alkaline Phosphatase 67 U/L (38-126); Anion Gap 14.9 mEq/L (5-15); Aspartate Amino Transferase 24 U/L (14-36); Bilirubin,Total 0.6 mg/dl (0.2-1.3); Calcium 9.1 mg/dl (8.4-10.2); Carbon Dioxide 22 mmol/L (22.0-30.0); Glucose 108 mg/dl (74-100); Lipase 68 U/L (23-300); Total Protein,Serum 6.5 g/dl (6.3-8.2)
--- NOTE | 2023-05-10 10:04 | PC.NURSE ---
pt's IV to LAC infiltrated. New PIV (20g) placed to L upper Arm with 4x attempts
--- NOTE | 2023-05-10 10:05 | PC.NURSE ---
Radiology notified of new IV established
[2023-05-10 10:06] LABS: Troponin I < 0.01 ng/ml (0.00-0.034)
--- NOTE | 2023-05-10 10:12 | PC.NURSE ---
pt to ct scan, via wheelchair
[2023-05-10 10:44] VITALS: BP 112/65; PULSE 68; RESP 16; TEMP 36.6; O2SAT 99
== END 2023-05-10 10:53 | disposition home or self-care (01) ==
PROVIDERS: Emergency Provider Student in an Organized Health Care Education/Training Program; PCP Emergency Medicine
DX: R10.13 Epigastric pain (principal); K44.9 Diaphragmatic hernia without obstruction or gangrene; K76.0 Fatty (change of) liver, not elsewhere classified; I25.2 Old myocardial infarction
CPT/HCPCS: 71045; 74177; 80053; 83605; 83690; 84484; 85025; 93005; 96361; 96374; 96375; 99285; J2405; Q9967

== ENCOUNTER 2023-09-14 13:32 | Emergency (ER) | payer OTHER, SELFPAY ==
[2023-09-14 13:33] VITALS: BP 164/96; PULSE 112; RESP 20; O2SAT 99; BMI 43.6
--- NOTE | 2023-09-14 13:46 | PC.NURSE ---
Pt unable to obtain urine sample at this time
[2023-09-14 14:01] VITALS: BP 124/95; PULSE 108; O2SAT 98
--- NOTE | 2023-09-14 14:09 | CT_ITS ---
FINAL REPORT TECHNIQUE: Routine axial images were obtained from the lung apices to below the diaphragm following IV contrast administration. Individualized dose reduction techniques using automated exposure control or adjustment of the mA and/or kV according to the patient size were employed. CLINICAL HISTORY: vomiting, hiatal hernia, severe pain COMPARISON: 05/01/2023 FINDINGS: Mediastinal vasculature is well opacified. No acute lung disease is present. No pleural or pericardial effusion is seen. No adenopathy or mass lesion is present. There is a moderate hiatal hernia. IMPRESSION: Moderate hiatal hernia. Reviewed, Interpreted and Dictated by David Marroquin MD Transcribed by Hollie Gutierrez Authenticated and [facility]
--- NOTE | 2023-09-14 14:09 | CT_ITS ---
FINAL REPORT TECHNIQUE: After the administration of intravenous contrast, axial images were obtained through the abdomen and pelvis by computed tomography. The study was performed with techniques to keep radiation dose as low as reasonably achievable, (ALARA). Individual dose reduction techniques using automated exposure control or adjustment of mA and/or kV according to the patient's size were employed. CLINICAL HISTORY: large hiatal hernia,vomiting severe pain COMPARISON: 05/10/2023 FINDINGS: Abdomen: There is a moderate hiatal hernia with sliding and paraesophageal components. The liver parenchyma is homogeneous. The gallbladder is absent. The spleen, pancreas, adrenals and kidneys appear unremarkable. The aorta is normal in caliber. There is no free fluid or adenopathy. Pelvis: The appendix is normal. The urinary bladder is unremarkable. The uterus is not identified. The right ovary is not seen. There is a cystic lesion in the left ovary measuring 2.5 x 1.9 cm which may be a physiologic cyst. There is no free fluid or adenopathy. IMPRESSION: Sliding and paraesophageal hiatal hernia. Left ovarian cyst. Reviewed, Interpreted and Dictated by David Marroquin MD Transcribed by Hollie Gutierrez Authenticated and [facility]
--- NOTE | 2023-09-14 14:11 | ED_ITS ---
Discharge Plan Disposition Patient Disposition: Home, Self-Care Prescriptions Prescriptions: New dicyclomine 20 mg tablet 20 mg PO TID PRN (Reason: abdominal pain or spasm) 7 Days Qty: 21 0RF ondansetron 4 mg tablet,disintegrating 4 mg PO Q6H PRN (Reason: nausea and vomiting) 5 Days Qty: 20 0RF No Action diclofenac sodium [Voltaren Arthritis Pain] 1 % gel 2 g topical QID Qty: 100 2RF Rx Instructions: apply to single elbow, wrist or hand; for hand includes palm/fingers/back of hand paroxetine HCl [Paxil] 20 mg tablet 20 mg PO DAILY Qty: 90 2RF Ubrelvy 50 mg tablet See Rx Instructions .ROUTE .COMPLEX Qty: 10 1RF Dose Instruction: TAKE 1 TABLET BY MOUTH ONCE DAILY DIRECTED Rx Instructions: TAKE 1 TABLET BY MOUTH ONCE DAILY DIRECTED CAD with [place] metoclopramide HCl [Reglan] 10 mg tablet 10 mg PO QAC Qty: 90 1RF Rx Instructions: administer 30 minutes before meals famotidine [Pepcid] 20 mg tablet 20 mg PO BID 14 Days Qty: 28 0RF Referrals Follow up/Referrals: Porter Rose APRN [Primary Care Provider] - See instructions Activity Restrictions/Add. Instructions Additional Instructions/Restrictions: No evidence of any emergency associate with your hiatal hernia. You also have viral conjunctivitis your left eye antibiotic drops have been given to you please do cool compresses several times a day as discussed return to the emergency department any other worsening symptoms otherwise follow-up with Dr. Patel as previously instructed. Clinical Impressions Clinical Impression: Hernia, hiatal, Abdominal pain, Vomiting, Acute viral conjunctivitis of left eye Instructions Patient Instructions: DI for Acute Abdominal Pain Discharge ED Provider: Ghanshyam Gagnon General Adult HPI <Ghanshyam Gagnon MD - Last Filed: 09/14/23 16:07> General Chief complaint: Abdominal Pain Stated complaint: Hernia, vomiting blood Time Seen by Provider: 09/14/23 14:02 Mode of Arrival: Ambulatory Source of Information: Patient Limitations: No Limitations Description of Symptoms (Recalled from ER Triage Doc. by RN): Patient reports she is supposed to have hiatal hernia repair surgery sep 19 at but started having abdominal pain and bloody emesis yesterday. Patient states she is unable to keep anything down. History of Present Illness HPI narrative: Patient is a 43-year-old female past medical history of hiatal hernia pending surgical repair who presents emergency department for evaluation of vomiting. Patient states that over the last 24 hours she has developed severe epigastric pain, vomiting tinged blood, inability tolerate p.o. Due to persistent symptoms she presents here for continued evaluation. No other acute complaints at this time. Related Data Previous Rx's Medication Instructions Recorded diclofenac sodium 1 % topical gel 2 g topical QID #100 grams 11/17/22 (Voltaren Arthritis Pain) famotidine 20 mg tablet (Pepcid) 20 mg PO BID 2 weeks #28 tabs 05/01/23 paroxetine HCl 20 mg tablet (Paxil) 20 mg PO DAILY #90 tabs 05/05/23 ubrogepant 50 mg tablet (Ubrelvy) See Rx Instructions .Route 05/05/23 .COMPLEX #10 tabs metoclopramide HCl 10 mg tablet 10 mg PO QAC #90 tabs 05/11/23 (Reglan) dicyclomine 20 mg tablet 20 mg PO TID PRN abdominal pain or 09/14/23 spasm 7 days #21 tabs ondansetron 4 mg disintegrating 4 mg PO Q6H PRN nausea and 09/14/23 tablet vomiting 5 days #20 tabs Allergies Allergy/AdvReac Type Severity Reaction Status Date / Time aspirin [From Anacin] Allergy Verified 05/11/23 14:21 caffeine [From Anacin] Allergy Verified 05/11/23 14:21 loratadine [From Claritin] Allergy Verified 05/11/23 14:21 PFS <Ghanshyam Gagnon MD - Last Filed: 09/14/23 16:07> [facility] Disclaimer: The information contained in this section may have been updated after the patient was seen, as this information can be updated by other users. Medical History (Updated 09/14/23 @ 17:18 by Ilda Lozano MD) COVID-19 Fatty liver Heart attack Surgical History History of History of cholecystectomy History of hysterectomy History of tonsillectomy [place] teeth extracted Family History Grandmother Cancer Mother Coronary artery disease Diabetes Heart attack Kidney disease Stroke Sister Diabetes Social History Smoking Status: Current some day smoker tobacco type: cigarettes packs per day: 1 second hand exposure: No alcohol intake: never substance use type: opiates current occupational status: other Travel in the last 8 weeks: Inside the [place] household members: significant other housing: apartment caffeine: Yes <Ghanshyam Gagnon MD - Last Filed: 09/14/23 16:07> ROS Obtained: Yes Systems reviewed as appropriate & no additional complaints except as documented Physical Exam <Ghanshyam Gagnon MD - Last Filed: 09/14/23 16:07> General General appearance: alert and in no apparent distress Head Head exam: atraumatic and normocephalic Eye Eye exam: Present PERRL and EOMI ENT ENT exam: Present mucous membranes moist Neck Neck exam: Present normal inspection Chest Chest inspection: Present normal inspection and symmetric chest wall rise Respiratory Respiratory exam: Present normal lung sounds bilaterally; Absent respiratory distress Cardiovascular Cardiovascular exam: Present normal rhythm and tachycardia Abdominal Exam Abdominal exam: Present soft, tenderness (Epigastric) and guarding (Voluntary) Extremities Exam Extremities exam: Present normal inspection Neurological Exam Neurological exam: Present alert Psychiatric Psychiatric exam: Present normal affect Skin Skin exam: Present warm and dry Medical Decision Making <Ghanshyam Gagnon MD - Last Filed: 09/14/23 16:07> Aly Inquiry Pt receiving controlled substance: No Vital Signs: 09/14/23 13:33 09/14/23 14:01 09/14/23 16:21 Pulse Rate 108 H 100 H Pulse Rate [Right] 112 H Respiratory Rate 20 Blood Pressure 124/95 H 130/86 Blood Pressure [Right Arm] 164/96 H Blood Pressure Mean [Right Arm] 118 Blood Pressure Source [Right Arm] Automatic Cuff 02 Sat by Pulse Oximetry 99 98 99 Oxygen Delivery Method Room Air Room Air Room Air Lab Data Lab Results 09/14/23 14:34: WBC 8.1, RBC 5.45 H, Hgb 16.2, Hct 46.8, MCV 85.9, MCH 29.7, MCHC 34.5, RDW 13.9, Plt Count 202, MPV 8.2, Neut % (Auto) 77.0, Lymph % (Auto) 15.6, [place] % (Auto) 5.9, Eos % (Auto) 0.9, Baso % (Auto) 0.6, Neut # (Auto) 6.2, Lymph # (Auto) 1.3, [place] # (Auto) 0.5, Eos # (Auto) 0.1, Baso # (Auto) 0.1, Sodium 137, Potassium 3.5, Chloride 106, Carbon Dioxide 20 L, Anion Gap 14.5, BUN 22 H, Creatinine 0.80, Estimated Creat Clear 80, Estimated GFR 78, Est GFR ( Amer) 94, Glucose 111 H, Calcium 9.4, Total Bilirubin 1.2, AST 48 H, ALT 26, Alkaline Phosphatase 69, Total Protein 9.0 H D, Albumin 5.0, Globulin 4.0 H, Albumin/Globulin Ratio 1.3, Lipase 50 09/14/23 15:13: SARS-CoV-2 (PCR) Not detected, Influenza A Untype (PCR) Not detected, Influenza Type B (PCR) Not detected 09/14/23 14:34 09/14/23 14:34 Orders (Tests/Meds): ED MEDICATIONS Generic Name Dose Route Start Last Admin Trade Name Freq PRN Reason Stop Dose Admin Sodium Chloride 10 ml 09/14/23 15:57 09/14/23 15:59 Sodium Chloride 0.9% 10ml Syr (Rad Only) IV 10/14/23 15:56 10 ml NEEDED PRN Administration Maintain IV Site Discontinued Medications Generic Name Dose Route Start Last Admin Trade Name Freq PRN Reason Stop Dose Admin Acetaminophen 1,000 mg 09/14/23 14:11 09/14/23 14:48 Acetaminophen 1,000mg/100ml Vial IV 09/14/23 14:12 1,000 mg ONCE ONE Administration Lactated Ringer's 1,000 mls @ 999 mls/hr 09/14/23 14:09 09/14/23 14:47 Lactated Ringer's 1000 Ml Bag IV 09/14/23 15:09 999 mls/hr .Q1H1M ONE Administration Iopamidol 75 ml 09/14/23 15:57 09/14/23 15:58 Iopamidol-370 (76%);100ml Bottle IV 09/14/23 15:58 75 ml ONCE ONE Administration Morphine Sulfate 4 mg 09/14/23 14:09 09/14/23 14:46 Morphine 4mg/Ml Syringe IV 09/14/23 14:10 4 mg ONCE ONE Administration Ondansetron HCl 4 mg 09/14/23 14:09 09/14/23 14:46 Ondansetron 4mg/2ml Vial IV 09/14/23 14:10 4 mg ONCE ONE Administration ORDERS Category Date Time Status CT abdomen pelvis w con Stat Cat Scan 09/14/23 14:[address] chest w con Stat Cat Scan 09/14/23 14:09 Completed CBC w/Auto Diff [Complete Blood Count Auto Diff] Stat Lab 09/14/23 14:34 Completed CMP [Comprehensive Metabolic Panel] Stat Lab 09/14/23 14:34 Completed Lactic Acid Stat Lab 09/14/23 14:11 Ordered Lipase Stat Lab 09/14/23 14:34 Completed Rapid PCR Covid and Flu A/B Stat Lab 09/14/23 15:13 Completed Medical Decision Narrative: Patient is a 43-year-old female past medical history described above presents emergency department for evaluation abdominal pain and vomiting in the setting of large hiatal hernia pending surgery. Patient is hemodynamically stable nontoxic-appearing upon arrival, appearing in pain, tachycardic. Differential diagnosis includes gastric volvulus, incarcerated hernia, among others. Workup will be conducted with hematologic labs, emergent CT imaging of the abdomen pelvis, lipase, urinalysis. Initial interventions include crystalloid bolus, IV Tylenol, morphine. Workup reviewed by me, hematologic labs are nonactionable, no critical electrolyte abnormalities or BYRON. CT imaging conducted and pending at time of transfer of care to the oncoming physician, Dr. Lozano. <Ilda Lozano MD - Last Filed: 09/14/23 17:20> Vital Signs: 09/14/23 13:33 09/14/23 14:01 09/14/23 16:21 Pulse Rate 108 H 100 H Pulse Rate [Right] 112 H Respiratory Rate 20 Blood Pressure 124/95 H 130/86 Blood Pressure [Right Arm] 164/96 H Blood Pressure Mean [Right Arm] 118 Blood Pressure Source [Right Arm] Automatic Cuff 02 Sat by Pulse Oximetry 99 98 99 Oxygen Delivery Method Room Air Room Air Room Air Lab Data Lab results reviewed: Yes I reviewed the patient's lab results. Lab Results 09/14/23 14:34: WBC 8.1, RBC 5.45 H, Hgb 16.2, Hct 46.8, MCV 85.9, MCH 29.7, M CHC 34.5, RDW 13.9, Plt Count 202, MPV 8.2, Neut % (Auto) 77.0, Lymph % (Auto) 15.6, [place] % (Auto) 5.9, Eos % (Auto) 0.9, Baso % (Auto) 0.6, Neut # (Auto) 6.2, Lymph # (Auto) 1.3, [place] # (Auto) 0.5, Eos # (Auto) 0.1, Baso # (Auto) 0.1, Sodium 137, Potassium 3.5, Chloride 106, Carbon Dioxide 20 L, Anion Gap 14.5, BUN 22 H, Creatinine 0.80, Estimated Creat Clear 80, Estimated GFR 78, Est GFR ( Amer) 94, Glucose 111 H, Calcium 9.4, Total Bilirubin 1.2, AST 48 H, ALT 26, Alkaline Phosphatase 69, Total Protein 9.0 H D, Albumin 5.0, Globulin 4.0 H, Albumin/Globulin Ratio 1.3, Lipase 50 09/14/23 15:13: SARS-CoV-2 (PCR) Not detected, Influenza A Untype (PCR) Not detected, Influenza Type B (PCR) Not detected Orders (Tests/Meds): ED MEDICATIONS Generic Name Dose Route Start Last Admin Trade Name Freq PRN Reason Stop Dose Admin Sodium Chloride 10 ml 09/14/23 15:57 09/14/23 15:59 Sodium Chloride 0.9% 10ml Syr (Rad Only) IV 10/14/23 15:56 10 ml NEEDED PRN Administration Maintain IV Site Discontinued Medications Generic Name Dose Route Start Last Admin Trade Name Freq PRN Reason Stop Dose Admin Acetaminophen 1,000 mg 09/14/23 14:11 09/14/23 14:48 Acetaminophen 1,000mg/100ml Vial IV 09/14/23 14:12 1,000 mg ONCE ONE Administration Lactated Ringer's 1,000 mls @ 999 mls/hr 09/14/23 14:09 09/14/23 14:47 Lactated Ringer's 1000 Ml Bag IV 09/14/23 15:09 999 mls/hr .Q1H1M ONE Administration Iopamidol 75 ml 09/14/23 15:57 09/14/23 15:58 Iopamidol-370 (76%);100ml Bottle IV 09/14/23 15:58 75 ml ONCE ONE Administration Morphine Sulfate 4 mg 09/14/23 14:09 09/14/23 14:46 Morphine 4mg/Ml Syringe IV 09/14/23 14:10 4 mg ONCE ONE Administration Ondansetron HCl 4 mg 09/14/23 14:09 09/14/23 14:46 Ondansetron 4mg/2ml Vial IV 09/14/23 14:10 4 mg ONCE ONE Administration ORDERS Category Date Time Status CT abdomen pelvis w con Stat Cat Scan 09/14/23 14:[address] chest w con Stat Cat Scan 09/14/23 14:09 Completed CBC w/Auto Diff [Complete Blood Count Auto Diff] Stat Lab 09/14/23 14:34 Completed CMP [Comprehensive Metabolic Panel] Stat Lab 09/14/23 14:34 Completed Lactic Acid Stat Lab 09/14/23 14:11 Ordered Lipase Stat Lab 09/14/23 14:34 Completed Rapid PCR Covid and Flu A/B Stat Lab 09/14/23 15:13 Completed Medical Decision Narrative: Patient is a 43-year-old female past medical history described above presents emergency department for evaluation abdominal pain and vomiting in the setting of large hiatal hernia pending surgery. Patient is hemodynamically stable nontoxic-appearing upon arrival, appearing in pain, tachycardic. Differential diagnosis includes gastric volvulus, incarcerated hernia, among others. Workup will be conducted with hematologic labs, emergent CT imaging of the abdomen pelvis, lipase, urinalysis. Initial interventions include crystalloid bolus, IV Tylenol, morphine. Workup reviewed by me, hematologic labs are nonactionable, no critical electrolyte abnormalities or BYRON. CT imaging conducted and pending at time of transfer of care to the oncoming physician, Dr. Lozano. Reassessment 5:19 PM patient serial abdominal exams are benign this is Dr. Lozano I took over for Dr. Gagnon pending final workup. CT scans performed which showed no emergency associated with hiatal hernia specifically no evidence of any volvulus. Of note on physical exam patient has conjunctivitis in the left eye she has been advised to take antibiotic drops which were provided in the emergency department and she also has been told to do cool compresses. She was prescribed Bentyl and Zofran and she will follow-up with Dr. Patel previously instructed. Return precautions were provided for the patient she was discharged in improved and stable condition. Critical Care <Ghanshyma Gagnon MD - Last Filed: 09/14/23 16:07> Critical Care Time Critical Care Time: No
[2023-09-14] MEDS: ONDANSETRON 4MG/2ML VIAL 4 MG IV (14:46)
[2023-09-14] MEDS: MORPHINE 4MG/ML SYRINGE 4 MG IV (14:46)
[2023-09-14] MEDS: LACTATED RINGERS 1000ML 1,000 ML 999 ML IV (14:47)
[2023-09-14] MEDS: ACETAMINOPHEN 1,000MG/100ML VIAL 1000 MG IV (14:48)
[2023-09-14 14:53] LABS: Basophils # 0.1 K/mm3 (0-0.2); Basophils % 0.6 % (0.1-2.0); Eosinophils # 0.1 K/mm3 (0.0-0.4); Eosinophils % 0.9 % (0.1-12.0); Hematocrit 46.8 % (37.0-47.0); Hemoglobin 16.2 g/dL (12.2-16.2); Lymphocytes # 1.3 K/mm3 (0.7-4.5); Lymphocytes % 15.6 % (10-50); Mean Corpuscular HGB Conc 34.5 g/dL (31.8-35.4); Mean Corpuscular Hemoglobin 29.7 pg (27.0-31.2); Mean Corpuscular Volume 85.9 fl (81-99); Mean Platelet Volume 8.2 fl (7.4-10.4); Monocytes # 0.5 K/mm3 (0.1-1.0); Monocytes % 5.9 % (1.7-9.3); Neutrophils # 6.2 K/mm3 (1.8-7.8); Platelet Count 202 K/mm3 (142-424); Red Blood Count 5.45 M/mm3 (4.20-5.40); Red Cell Distribution Width 13.9 % (11.5-17.5); White Blood Count 8.1 K/mm3 (4.8-10.8)
[2023-09-14 15:08] LABS: Alanine Aminotransferase 26 U/L (12-78); Albumin/Globulin Ratio 1.3 (1.1-1.8); Alkaline Phosphatase 69 U/L (38-126); Anion Gap 14.5 mEq/L (5-15); Aspartate Amino Transferase 48 U/L (14-36); Bilirubin,Total 1.2 mg/dl (0.2-1.3); Blood Urea Nitrogen 22 mg/dl (7-17); Calcium 9.4 mg/dl (8.4-10.2); Carbon Dioxide 20 mmol/L (22.0-30.0); Chloride 106 mmol/L (98-107); Creatinine Clearance Estimated 80 mL/min (50-200); Estimated Glomerular Filt Rate 78 ml/min (>60); GFR (African American) 94 ML/MIN (>60); Glucose 111 mg/dl (74-100); Lipase 50 U/L (23-300); Potassium 3.5 mmoL/L (3.5-5.1); Sodium 137 mmol/L (136-145)
[2023-09-14 15:17] LABS: Coronavirus 19, PCR Not Detected (NotDetected); Influenza A, PCR Not Detected (NotDetected); Influenza B, PCR Not Detected (NotDetected)
--- NOTE | 2023-09-14 15:31 | PC.NURSE ---
Pt gone to RAD via stretcher
--- NOTE | 2023-09-14 15:51 | PC.NURSE ---
Pt returned from RAD
[2023-09-14] MEDS: IOPAMIDOL-370 (76%);100ML BOTTLE 75 ML IV (15:58)
[2023-09-14] MEDS: SODIUM CHLORIDE 0.9% 10ML SYR (RAD ONLY) 10 ML IV (15:59)
[2023-09-14 16:21] VITALS: BP 130/86; PULSE 100; O2SAT 99
--- NOTE | 2023-09-14 16:21 | PC.NURSE ---
Rounded on pt. No needs voiced at this time.
--- NOTE | 2023-09-14 17:14 | PC.NURSE ---
Dr. Lozano at BS to update pt on results and POC
[2023-09-14 17:22] VITALS: BP 130/86; PULSE 108; RESP 20; TEMP 36.8; O2SAT 97
== END 2023-09-14 17:23 | disposition home or self-care (01) ==
PROVIDERS: Emergency Provider Emergency Medicine; PCP Nurse Practitioner Family
DX: R10.13 Epigastric pain (principal); R11.10 Vomiting, unspecified; B30.8 Other viral conjunctivitis; F17.210 Nicotine dependence, cigarettes, uncomplicated
CPT/HCPCS: 71260; 74177; 80053; 83690; 85025; 87636; 96361; 96374; 96375; 99285; J0131; J2405; Q9967

== ENCOUNTER 2024-09-30 13:51 | Emergency (ER) | payer OTHER, SELFPAY ==
--- NOTE | 2024-09-30 14:06 | XR_ITS ---
PROCEDURE INFORMATION: Exam: XR Right Ribs with PA Chest Exam date and time: 09/30/2024 2:01 PM Age: 44 years old Clinical indication: Injury or trauma; Fall; Rib area; Blunt trauma (contusions or hematomas) TECHNIQUE: Imaging protocol: Radiologic exam of the right ribs with PA chest. Views: 3 views COMPARISON: CT CHEST W CON 09/14/2023 3:39 PM FINDINGS: Lungs: Unremarkable. No consolidation. Pleural spaces: Unremarkable. No pleural effusion. No pneumothorax. Heart/Mediastinum: Unremarkable. No cardiomegaly. Bones/joints: Unremarkable. Cholecystectomy clips. IMPRESSION: No acute findings.
[2024-09-30 14:08] VITALS: BP 129/63; PULSE 92; RESP 18; TEMP 36.6; O2SAT 95; BMI 43.6
--- NOTE | 2024-09-30 14:56 | ED_ITS ---
Discharge Plan Disposition Patient Disposition: Home, Self-Care Condition: Good Prescriptions Prescriptions: New ibuprofen [IBU] 800 mg tablet 800 mg PO Q8HP PRN (Reason: Moderate Pain) Qty: 30 0RF Referrals Follow up/Referrals: Porter Rose APRN [Primary Care Provider] - See instructions Activity Restrictions/Add. Instructions Additional Instructions/Restrictions: Go home and rest. It would be best if you rested tomorrow too. No heavy lifting & No twisting for the next few days. Take ibuprofen (if you can take this) for pain. I sent in a prescription for ibuprofen 800 mg tablets to your pharmacy. If you can't take ibuprofen, then take tylenol. Follow up with your regular doctor. GO TO THE ER FOR ANY WORSENING SYMPTOMS OR CONCERN, ESPECIALLY BOWEL OR BLADDER ISSUES, SADDLE AREA NUMBNESS, FEVER, ETC Use the incentive spirometer as directed (10 times every 2 hours while awake for the next 2 weeks). Clinical Impressions Clinical Impression: Contusion of rib on right side, Rib pain on right side, Fall Instructions Patient Instructions: How to Use an Incentive Spirometer, DI for Rib Contusion, Ibuprofen Print Language Print Language: [place] Discharge ED Provider: Elfego Arenas [facility] HPI General Stated complaint: AO Fall 09/29 1130 right side pain Mode of Arrival: Ambulatory Source of Information: Patient Time Seen by Provider: 09/30/24 14:17 Description of Symptoms (Recalled from Triage Doc. by RN): FELL ON RIGHT SIDE, C/O STABBING PAIN IN RIBS HEENT Symptoms (Recalled from RN notes): No Resp Symptoms (Recalled from RN notes): No Skin Symptoms (Recalled from RN notes): No MS Symptoms (Recalled from RN notes): Yes Functional Status (Recalled from RN notes): WNL History of Present Illness Provider Complaint: She states that 1 day ago she fell on the ice and came down on her right ribs. She states that she is having right lower rib pain with coughing and deep breathing since the fall. She denies any other injury or complaints. She denies any shortness of breath. Related Data Previous Rx's ?Medication ?Instructions ?Recorded ibuprofen 800 mg tablet (IBU) 800 mg PO Q8HP PRN Moderate Pain 09/30/24 #30 tabs Allergies Allergy/AdvReac Type Severity Reaction Status Date / Time aspirin (From Anacin) Allergy Verified 05/11/23 14:21 caffeine (From Anacin) Allergy Verified 05/11/23 14:21 loratadine (From Claritin) Allergy Verified 05/11/23 14:21 Worker's Comp Is this a Worker's Comp case?: No [facility] Disclaimer: The information contained in this section may have been updated after the patient was seen, as this information can be updated by other users. Medical History (Updated 09/30/24 @ 15:11 by Elfego Arenas APRN) Heart attack COVID-19 Fatty liver Surgical History History of hysterectomy History of History of tonsillectomy [place] teeth extracted History of cholecystectomy Family History Grandmother Cancer Mother Coronary artery disease Diabetes Heart attack Kidney disease Stroke Sister Diabetes Social History Smoking Status: Current some day smoker tobacco type: cigarettes packs per day: 1 second hand exposure: No alcohol intake: never substance use type: opiates current occupational status: other Travel in the last 8 weeks: Inside the [place] household members: significant other housing: apartment caffeine: Yes Have you lived/traveled outside US in past 30 days?: No Contact w/someone who lives/traveled outside US past 30 days?: No Exposure to someone with infectious disease in past 14 days?: No Do you have a fever (greater than 100.4 F or 38 C)?: No Have you tested positive for COVID-19: No Exposed to someone with COVID-19 in past 14 days?: No Do you have a sore throat?: No Do you have a cough?: No Do you have any weakness?: No Do you have any diarrhea?: No Are you experiencing any unusual bleeding?: No Do you have any muscle aches/pain?: No Do you have any abdominal pain?: No Are you experiencing loss of taste or smell?: No ROS Obtained: Yes All systems reviewed & no additional complaints except as documented Constitutional Constitutional: Denies chills and Denies fever(s) Eyes Eyes: Denies eye discharge ENT Ears, Nose, Mouth, and Throat: Denies dizziness, Denies otalgia and Denies sore throat Cardiovascular Cardiovascular: Denies chest pain Respiratory Respiratory: Denies shortness of breath, Denies chest congestion, Denies cough, Denies stridor and Denies wheezing Gastrointestinal Gastrointestingal: Denies nausea or vomiting Musculoskeletal Musculoskeletal: Reports system reviewed and no additional complaints, except as documented and Denies arthralgias Integumentary/Breasts Skin/Breast: Denies rash Neurologic Neurologic: Denies dizziness and Denies paresthesias Allergic/Immunologic Allergic/Immunologic: Denies wheezing Physical Exam General General appearance: alert and in no apparent distress Head Head exam: atraumatic, normocephalic and normal inspection Eye Eye exam: Present normal appearance, PERRL and EOMI ENT ENT exam: Present normal exam, normal oropharynx, mucous membranes moist, TM's normal bilaterally and normal external ear exam Neck Neck exam: Present normal inspection, full ROM and trachea midline; Absent meningismus or lymphadenopathy Chest Chest inspection: Present symmetric chest wall rise and tenderness Respiratory Respiratory exam: Present normal lung sounds bilaterally; Absent respiratory distress Cardiovascular Cardiovascular exam: Present regular rate and normal rhythm; Absent JVD Abdominal Exam Abdominal exam: Present soft and normal bowel sounds; Absent distention, tenderness or guarding Extremities Exam Extremities exam: Present normal inspection, full ROM and normal capillary refill; Absent calf tenderness Back Exam Back exam: Present normal inspection; Absent tenderness Neurological Exam Neurological exam: Present alert and oriented X3 Psychiatric Psychiatric exam: Present normal affect and normal mood Skin Skin exam: Present warm, dry, intact and normal color Lymphatic Lymphatic Findings: no adenopathy Medical Decision Making Medical Records Medical records reviewed: No I reviewed the patient's medical records. Screening: Per USPSTF and CDC recommendations, given the prevalence of disease in our region, it is our hospital?s policy to screen for HIV and viral Hepatitis for all patients aged 18 and over and those with ongoing risk factors. Aly Inquiry Pt receiving controlled substance: No Vital Signs: 09/30/24 14:08 Temperature 97.9 F Temperature Source Oral Pulse Rate [Left Radial] 92 H Respiratory Rate 18 Blood Pressure [Left Arm] 129/63 Blood Pressure Mean [Left Arm] 85 02 Sat by Pulse Oximetry 95 Orders (Tests/Meds): ORDERS Category Date Time Status XR ribs RT min 3V w CXR1V Stat Exams 09/30/24 14:06 Completed Radiology Data #1: Image(s): Chest (and ribs) Image Reviewed: Yes I reviewed the patient's radiology image and Yes I have reviewed radiologist's interpretation Preliminary Findings: No Fracture Seen Accession No. : [id number] Patient Name / ID : BASHIR AMEZCUA / [id number] Exam Date : 09/30/2024 14:01:37 ( Final ) Study Comment : Sex / Age : F / 44Y Creator : OTILIO POWELL Dictator : Sharples Machine Operator : Cement Rubber : OTILIO POWELL Approver2 : Report Date : 09/30/2024 14:46:03 My Comment : PROCEDURE INFORMATION: Exam: XR Right Ribs with PA Chest Exam date and time: 09/30/2024 2:01 PM Age: 44 years old Clinical indication: Injury or trauma; Fall; Rib area; Blunt trauma (contusions or hematomas) TECHNIQUE: Imaging protocol: Radiologic exam of the right ribs with PA chest. Views: 3 views COMPARISON: CT CHEST W CON 09/14/2023 3:39 PM FINDINGS: Lungs: Unremarkable. No consolidation. Pleural spaces: Unremarkable. No pleural effusion. No pneumothorax. Heart/Mediastinum: Unremarkable. No cardiomegaly. Bones/joints: Unremarkable. Cholecystectomy clips. IMPRESSION: No acute findings.
[2024-09-30 15:14] VITALS: BP 129/63; PULSE 92; RESP 18; TEMP 36.6
== END 2024-09-30 15:17 | disposition home or self-care (01) ==
PROVIDERS: Emergency Provider Nurse Practitioner Family; PCP Nurse Practitioner Family
DX: R07.81 Pleurodynia (principal); S20.211A Contusion of right front wall of thorax, initial encounter; W19.XXXA Unspecified fall, initial encounter
CPT/HCPCS: 71101; 99213; G0381

== ENCOUNTER 2024-11-01 12:26 | Outpatient (CLI) | payer OTHER, SELFPAY ==
[2024-11-01 12:56] LABS: Basophils % 0.6 % (0.1-2.0); Eosinophils # 0.2 K/mm3 (0.0-0.4); Eosinophils % 2.2 % (0.1-12.0); Hematocrit 41.1 % (37.0-47.0); Hemoglobin 13.7 g/dL (12.2-16.2); Lymphocytes # 1.2 K/mm3 (0.7-4.5); Lymphocytes % 17.8 % (10-50); Mean Corpuscular HGB Conc 33.3 g/dL (31.8-35.4); Mean Corpuscular Hemoglobin 28.2 pg (27.0-31.2); Mean Corpuscular Volume 84.7 fl (81-99); Mean Platelet Volume 9.7 fl (7.4-10.4); Monocytes # 0.5 K/mm3 (0.1-1.0); Monocytes % 7.7 % (1.7-9.3); Neutrophils # 4.8 K/mm3 (1.8-7.8); Neutrophils % 71.4 % (37.0-80.0); Platelet Count 303 K/mm3 (142-424); Red Blood Count 4.85 M/mm3 (4.20-5.40); Red Cell Distribution Width 13.6 % (11.5-17.5); White Blood Count 6.8 K/mm3 (4.8-10.8)
[2024-11-01 13:36] LABS: Alanine Aminotransferase 20 U/L (12-78); Albumin Level 4.3 g/dl (3.5-5.0); Albumin/Globulin Ratio 1.7 (1.1-1.8); Alkaline Phosphatase 99 U/L (38-126); Anion Gap 17.2 mEq/L (5-15); Aspartate Amino Transferase 19 U/L (14-36); Bilirubin,Total 0.8 mg/dl (0.2-1.3); Blood Urea Nitrogen 12 mg/dl (7-17); Calcium 9.5 mg/dl (8.4-10.2); Carbon Dioxide 22 mmol/L (22.0-30.0); Chloride 102 mmol/L (98-107); Chol/HDL Ratio 3.4 (1-3.5); Cholesterol 150 mg/dl (140-200); Estimated Glomerular Filt Rate 90 ml/min (>60); GFR (African American) 109 ML/MIN (>60); Globulin 2.5 g/dL (1.3-3.2); Glucose 113 mg/dl (74-100); HDL Cholesterol 44 mg/dl (40-60); Potassium 4.2 mmoL/L (3.5-5.1); Sodium 137 mmol/L (136-145); Total Protein,Serum 6.8 g/dl (6.3-8.2); Triglycerides 93 mg/dl (30-150); VLDL Cholesterol 19 mg/dL (0-40)
[2024-11-01 13:46] LABS: Direct LDL Cholesterol 78.02 mg/dL (100-129)
[2024-11-01 14:09] LABS: 25-OH Vitamin D, Total 14.3 ng/mL (30-100)
[2024-11-01 14:11] LABS: Free T4 (Free Thyroxine) 1.75 ng/dl (0.78-2.19)
[2024-11-01 14:21] LABS: Thyroid Stimulating Hormone 0.77 uIU/mL (0.465-4.68)
== END 2024-11-01 23:59 | disposition home or self-care (01) ==
LOC: LAB 12:27
PROVIDERS: PCP Nurse Practitioner Family; Visit Provider Nurse Practitioner Family
DX: I10 Essential (primary) hypertension (principal); R60.0 Localized edema; R53.83 Other fatigue; E66.01 Morbid (severe) obesity due to excess calories; Z68.41 Body mass index [BMI] 40.0-44.9, adult
CPT/HCPCS: 36415; 80053; 80061; 82306; 84439; 84443; 85025

== ENCOUNTER 2025-02-06 15:15 | Outpatient (CLI) | payer OTHER, SELFPAY ==
--- NOTE | 2025-02-06 | CA_ITS ---
FINAL REPORT TECHNIQUE: Compression ge scale and Doppler evaluation CLINICAL HISTORY: 2 weeks post op-right knee, pain swelling, nicotine use FINDINGS: Femoral and popliteal veins show normal compressibility and flow. Visualized portion of the calf veins are patent by Doppler exam. IMPRESSION: No evidence of right lower extremity deep venous thrombosis Reviewed, Interpreted and Dictated by Regan Peraza MD Transcribed by Juana Sherwood Authenticated and . [facility]
--- OUTSIDE RECORDS SUMMARY | 2025-02-06 15:17 | XMS_ITS | Data Portability ---
Author Organization [facility] [place] & [facility] Address [address] [place] [id number] Assessment No assessment recorded. Plan of Treatment Reminders Order Date Submit Date Provider Last Modified By Organization Details Last Modified Time Details Appointments None recorde d. Lab None recorde d. Referral None recorde d. Procedures None recorde d. Surgeries None recorde d. Imaging XR, ribs, unilate ral, w/ PA chest 025 10/08/19 [facility], [address], [place], [address], 13:34:26 Medication Orders None recorde d. Patient TargetsNo targets recorded. Patient InstructionsNo instructions recorded. Reason for Referral None Reported. Results Created Date Observation Date Name Description Value Unit Range Abnormal Flag Note LastModifiedBy Organization Detail LastModifiedTime 10/08/19 25 10/08/2024 XR, ribs, unila teral , w/ PA chest No observ ation record ed. [email or web address] [facility] [address], [place], [address], 10/08/2024 13:52:23 10/08/19 25 10/08/2024 XR, ribs, unila teral , w/ PA chest No observ ation record ed. [facility] [address], [place], [address], 10/08/2024 15:01:43 Result Notes None recorded. Procedures Surgical History None recorded. Imaging Results Imaging Date Name Status LastModified by Organiz [facility] Details LastModified Time 10/08/2024 XR, ribs, unilateral, w/ PA chest completed [facility] [address], [place], [address], 10/08/2024 13:52:23 10/08/2024 XR, ribs, unilateral, w/ PA chest completed [facility] [address], [place], [address], 10/08/2024 15:01:43 Procedure Notes None recorded. Medical Equipment None Reported. Allergies No known drug allergies Medications Name Sig Start Date Stop Date Status Note LastModified by Organization Details LastModified Time clonidine HCl 0.1 mg tablet active Not Available Not Available Not Available ibuprofen 800 mg tablet active Not Available Not Available Not Available levetiraceta m 500 mg tablet active Not Available Not Available Not Available prazosin 1 mg capsule active Not Available Not Available N ot Available ondansetron HCl 4 mg tablet active Not Available Not Available Not Available hydroxyzine pamoate 50 mg capsule active Not Available Not Available N ot Available acetaminophe n 500 mg tablet active Not Available Not Available Not Available pantoprazole 20 mg tablet,delay ed release active Not Available Not Available N ot Available meloxicam 7.5 mg tablet active Not Available Not Available Not Available propranolol 10 mg tablet active Not Available Not Available Not Available methocarbamo l 750 mg tablet active Not Available Not Available Not Available paroxetine 20 mg tablet active Not Available Not Available Not Available pantoprazole 40 mg tablet,delay ed release active Not Available Not Available N ot Available lidocaine 5 % topical patch active Not Available Not Available Not Available mupirocin 2 % topical ointment active Not Available Not Available Not Available Vivitrol 380 mg intramuscula r suspension,e xtended release INJECT 380MG INTRAMUSCUL LUIZA MONTHLY active Not Available Not Available No t Available hydrochlorot hiazide 12.5 mg tablet active Not Available Not Available No t Available diclofenac 1 % topical gel active Not Available Not Available Not Available melatonin 5 mg tablet active Not Available Not Available No t Available Vitals Date Recorded Body weight Body temperature Oxygen saturation Oxygen saturation in Arterial blood by Pulse oximetry Heart rate Systolic blood pressure Diastolic blood pressure Provider Name and Address Organization Details Last Updated DateTime 886284. 8 g 98.2 [degF] 98 % 98 % 98 /min 122 mm[Hg] 66 mm[Hg] Laura Kwan [place] [facility] [place] & [place] 12:10:57 Social History None recorded. Functional Status None recorded. Mental Status None recorded. Family History Nothing Reported. Medical History No medical history recorded. Gynecological HistoryNo gynecological history recorded. Obstetrics History GPAL:G 0 P 0 0 0 0 Past Encounters Encounter ID Performer Location Encounter Start Date Encounter Closed Date Diagnosis/Indication Diagnosis SNOMED-CT Code Diagnosis ICD10 Code Diagnosis Note [id number] Phi Diaz MD [facility] [address] [place] [address] 10/08/2024 12:02:03 10/08/2024 12:41:53 Injury of ribs 312687286 S29.9XXA Based on my viewing of the xray, I cannot appreciate any acute abnormalit y. Await official report. Rest, ice, ibuprofen. Monitor and return PRN. Health Concerns Section Related Observation LastModified by Organization Detai ls LastModified Time None Recorded Concern Status LastModified by Organization Details LastModified Time None Recorded Advance Directives Directive None Recorded Payers Insurance Date Sequence Insurance Name Policy Number Policy Webb Covered Member ID Webb Member ID Guarantor Name 01/01/2025 1 [employer] [facility] (MEDICAID HMO) Mayra Miranda [id number] Mayra Miranda Notes Date Note Type Note Provider Name and Address Organization Details Recorded Time 10/08/2024 text/html Fell on ice yesterday morning, landed on right side. Pain in right lower ribs particularly with movement, deep breathing, etc. Phi Diaz MD [address] [facility], [place], [address], [place] [facility] [place] & [place] 10/08/2024 12:41:00 OBGyn Episode No OBEpisode recorded.
== END 2025-02-06 23:59 | disposition home or self-care (01) ==
LOC: RT 15:16
PROVIDERS: PCP Nurse Practitioner Family; Visit Provider Specialist/Technologist Athletic Trainer
DX: M25.561 Pain in right knee (principal); M25.461 Effusion, right knee; Z72.0 Tobacco use; Z98.890 Other specified postprocedural states
CPT/HCPCS: 93971

== ENCOUNTER 2025-04-13 20:40 | Emergency (ER) | payer OTHER, SELFPAY ==
--- OUTSIDE RECORDS SUMMARY | 2024-03-28 07:15 | XMS_ITS | Continuity of Care Document ---
Author Organization [facility] Address [address] [place] [address] Phone Care Team Providers Care Rn Intern Name Role Phone Suri Dinh MD Unavailable Unavailable Allergies, Adverse Reactions, Alerts Substance Reaction Status Criticality No Known Allergies Active No Inform ation Medications Medication Instructions Dosage Effective Dates (start - stop) Status Comments Vivitrol 380 mg intramuscular suspension,extended release inject 4 milliliter by intramuscular route every 4 weeks 380 MG - Active Procedures Procedure Date OFFICE/OUTPATIENT VISIT, EST Advance Directives Directive Yes / No Effective Date File Name No Information Encounters Encounter Description Practice Location Reason(s) For Visit Diagnoses Date Provider OFFICE/OUTPATI ENT VISIT, EST [facility], [address] [place] [address], [address], tel:[phone] [facility] MAT Follow-up (chief complaint) Opioid use disorder, moderate, dependence 2023 Allegra Mccord. [address] [place] [address], [id number], . tel:[phone] [facility], [address] [place] [address], [address], [place] tel:[phone] [facility] MAT Follow-up (chief complaint) Opioid use disorder, moderate, dependence 2023 Allegra Mccord. [address] [place] [address], [id number], . tel:[phone] [facility], [address] [place] [address], [address], tel:[phone] [facility] MAT Follow-up (chief complaint) No Information 2023 Zach Cardozo. [address], [place], [id number], [place]. tel:[phone] [facility], [address] [place], [address], [place] tel:[phone] [facility] [place] MAT Follow-up (chief complaint) Opioid use disorder, moderate, dependence 2023 Allegra Mccord. [address], [place], [id number], [place]. tel:[phone] Family History Family Member Type Diagnosis Age At Onset No Information Payers Payer name Insurance type Covered alliance party ID Dayday gutierrez(s) [facility] Medicaid [id number] Medicaid Wrap Payer [id number] Social History Type Description Quantity Date Captured Comments Alcohol Use Details Unknown Caffeine Use Details Unknown Tobacco Use Status No Information Smoking Status No Information Sex Female Chief Complaint And Reason For Visit From encounter dated '03/28/2024 11:15'. MAT Follow-up (chief complaint). Description: MAT follow-up. Induction date: 03/28/2024. Current medication/dose VIVITROL. Last fill date: 03/28/2024. No associated medication side effect. No withrawal symptoms. Patient progress: treatment phase: maintenance. Compliance: Drug Test completed, Monthly HCG and UDS today WNL. Aberrant behavior includes Anxiety. No aberrant behavior. Comments: PT PRESENTED FOR FOLLOW UP VIA TELEHEALTH. PT CONSENTED TO TELEHEALTH SERVICES. PT CURRENTLY IN INPATIENT RESIDENTIAL TREATMENT [facility]. PT UDS WNL. PT DENIED ANY ADVERSE REACTIONS TO PREVIOUSE INJECTIONS OR COMPLICATIONS WITH VIVITROL. PT TO RECEIVE VIVITROL INJECTION ON THIS DATE. PT TO FOLLOW UP WITH RESIDENTIAL MEDICAL STAFF WITH ANY URGENT MEDICAL NEEDS OR ADVERSE RESPONSES TO INJECTION. PT RETURN IN ONE MONTH. #5, SOB 08/06/23. Plan Of Treatment Date Type Action Status Goal FOBT. Due on due Goal Preventive Visit. Due on Mar due Goal Depression screening. Due on due Goal Sigmoidoscopy. Due on due Goal Colonoscopy. Due on due Goal PAP. Due on due Goal FIT-DNA. Due on due Goal Mammogram. Due on due Goal Colonoscopy. Due on due Goal FIT-DNA. Due on due Goal Sigmoidoscopy. Due on due Goal Depression screening. Due on due Goal Preventive Visit. Due on Feb due Goal Mammogram. Due on due Goal FOBT. Due on due Goal PAP. Due on due Goal Colonoscopy. Due on due Goal Sigmoidoscopy. Due on due Goal FOBT. Due on due Goal Depression screening. Due on due Goal Preventive Visit. Due on January due Goal PAP. Due on due Goal FIT-DNA. Due on due Goal Mammogram. Due on due Goal Colonoscopy. Due on due Goal Sigmoidoscopy. Due on due Goal FOBT. Due on due Goal Depression screening. Due on due Goal Preventive Visit. Due on Nov due Goal PAP. Due on due Goal FIT-DNA. Due on due Goal Mammogram. Due on due History Of Present Illness Encounter Date Complaint History Of Prese nt Illness MAT Follow-up MAT follow-up. I nduction date: 03/28/2024. Current medication/dose VIVITROL. Last fill date: 03/28/2024. No associated medication side effect. No withrawal symptoms. Patient progress: treatment phase: maintenance. Compliance: Drug Test completed, Monthly HCG and UDS today WNL. Aberrant behavior includes Anxiety. No aberrant behavior. Comments: PT PRESENTED FOR FOLLOW UP VIA TELEHEALTH. PT CONSENTED TO TELEHEALTH SERVICES. PT CURRENTLY IN INPATIENT RESIDENTIAL TREATMENT [facility]. PT UDS WNL. PT DENIED ANY ADVERSE REACTIONS TO PREVIOUSE INJECTIONS OR COMPLICATIONS WITH VIVITROL. PT TO RECEIVE VIVITROL INJECTION ON THIS DATE. PT TO FOLLOW UP WITH RESIDENTIAL MEDICAL STAFF WITH ANY URGENT MEDICAL NEEDS OR ADVERSE RESPONSES TO INJECTION. PT RETURN IN ONE MONTH. #5, SOB 08/06/23. MAT Follow-up MAT follow-up. I nduction date: 02/29/2024. Current medication/dose VIVITROL. Last fill date: 02/29/2024. No associated medication side effect. No withrawal symptoms. Patient progress: treatment phase: maintenance. Compliance: Drug Test completed and UDS today WNL. Aberrant behavior includes Anxiety. No aberrant behavior. Comments: PT PRESENTED FOR FOLLOW UP VIA TELEHEALTH. PT CONSENTED TO TELEHEALTH SERVICES. PT CURRENTLY IN INPATIENT RESIDENTIAL TREATMENT [facility]. PT UDS WNL. PT DENIED ANY ADVERSE REACTIONS TO PREVIOUSE INJECTIONS OR COMPLICATIONS WITH VIVITROL. PT TO RECEIVE VIVITROL INJECTION ON THIS DATE. PT TO FOLLOW UP WITH RESIDENTIAL MEDICAL STAFF WITH ANY URGENT MEDICAL NEEDS OR ADVERSE RESPONSES TO INJECTION. PT RETURN IN ONE MONTH. #4, SOB 10/16/23. MAT Follow-up MAT Follow-up MAT follow-up. I nduction date: 12/14/2023. Current medication/dose VIVITROL. Last fill date: 12/14/2023. No associated medication side effect. No withrawal symptoms. Patient progress: treatment phase: maintenance. Compliance: Drug Test completed, Monthly HCG and UDS today WNL. No aberrant behavior. Comments: Pt presented for visit via telehealth. Pt consented for telehealth services. Pt reported a history of (substance use/alcohol use). Pt reported using _OPIOID for 33 YEARS. Pt reported last use was 10/16/23. Pt currently enrolled in inpatient residential treatment [facility]T [facility] Y/[facility] _. Pt UDS WNL . Pt completed naltrexone challenge on _09/10. No adverse reactions noted. Pt reported medication treatment assistance with Vivitrol injection to aid with mitigating cravings and managing (KIMBERLY/AUD) symptoms, with initial injection one 08/26/23_, last injection received_11/12_. Pt requesting to continue utilization of Vivitrol with this provider. Vivitrol injection ordered this date to be administered in one month. Pt to follow up with identified staff with [facility] and/or [facility] with any urgent medical needs or adverse responses to injection. Pt to return in one month for review and continuation of treatment services. Instructions Date Instruction Additional Infor mation No Information Assessments Type Assessment Date assessment Opioid use disorder, moderate, d ependence Mental Status Date Cognitive Assessment Orientation - [place] ed to time, place, person, situation.
[2025-04-13 20:42] VITALS: BP 105/66; PULSE 75; RESP 18; TEMP 36.8; O2SAT 99; BMI 44.4
--- OUTSIDE RECORDS SUMMARY | 2025-04-13 20:49 | XMS_ITS | Encounter Summary ---
Author Organization Healthcare Address [address] [place] [address] Care Team Providers Care Video Game Developer Name Role Phone Buster Stewart MD Primary Care Provider [phone] Encounter Details Date Type Department Care Team ([facility] st Contact Info) Description 05/01/2023 Orders Only External Location [address] [place] [address] Provider, External Social History Tobacco Use Types Packs/Day Years Used Date Smoking Tobacco: Former Alcohol Use Standard Drinks/Week Comments Not Currently 0 (1 standard drink = 0.6 oz pure alcohol) Alcoholic Drinks/day: Former consumption of alcohol Comments Unknown Sex and Gender Information Value Date Recorded Sex Assigned at Female 05/19/2023 3:41 AM EDT Legal Sex Female 8:36 PM EDT Gender Identity Female 05/19/2023 3:41 AM EDT Sexual Orientation Straight 05/19/2023 3: 41 AM EDT documented as of this encounter Plan of Treatment Not on file documented as of this encounter Procedures Procedure Name Priority Date/Time Associated Diagnosis Comments CT ABDOMEN PELVIS W IV CONTRAST 05/01/2023 10:15 AM EDT documented in this encounter Results * CT Abdomen Pelvis w IV Contrast (05/01/2023 10:15 AM EDT) Anatomical Region Laterality Modality Abdomen, Pelvis Computed Tomogra phy 05/01/2023 10:1 5 AM EDT us External Provider IMG CT PROCEDURES Final Result documented in this encounter Visit Diagnoses Not on filedocumented in this encounter Care Teams Video Game Developer Relationship Specialty Start Date End Date Buster Stewart MD [address] [facility] [address] PCP - General 01/30/21 documented as of this encounter
--- OUTSIDE RECORDS SUMMARY | 2025-04-13 20:49 | XMS_ITS | Data Portability ---
Author Organization ID - [facility] & [facility]ERMIN [facility] ADMIN Address [address] [place] [id number] Assessment No assessment recorded. Plan of Treatment Reminders Order Date Submit Date Provider Last Modified By Organization Details Last Modified Time Details Appointments None recorde d. Lab None recorde d. Referral None recorde d. Procedures None recorde d. Surgeries None recorde d. Imaging XR, ribs, unilate ral, w/ PA chest 025 10/08/19 [place] [facility], [address], [place], [id number], 13:34:26 Medication Orders None recorde d. Patient TargetsNo targets recorded. Patient InstructionsNo instructions recorded. Reason for Referral None Reported. Results Created Date Observation Date Name Description Value Unit Range Abnormal Flag Note LastModifiedBy Organization Detail LastModifiedTime 10/08/19 25 10/08/2024 XR, ribs, unila teral , w/ PA chest No observ ation record ed. [email or web address] [facility] [address], [place], [id number], 10/08/2024 13:52:23 10/08/19 25 10/08/2024 XR, ribs, unila teral , w/ PA chest No observ ation record ed. [facility] [address], [place], [id number], 10/08/2024 15:01:43 Result Notes None recorded. Medical Equipment None Reported. [...] blood by Pulse oximetry Heart rate Systolic And Diastolic Provider Name and Address Organization Details Last Updated DateTime 5 [id number]. 8 g 98.2 [degF] 98 % 98 % 98 /min 122/66 mm[Hg] Laura [facility] & [place] 5 12:10:57 Social History None recorded. Functional Status None recorded. Mental Status None recorded. Family History Nothing Reported. Medical History No medical history recorded. Gynecological HistoryNo gynecological history recorded. Obstetrics History GPAL:G 0 P 0 0 0 0 Past Encounters Encounter ID Performer Location Encounter Start Date Encounter Closed Date Diagnosis/Indication Diagnosis SNOMED-CT Code Diagnosis ICD10 Code Diagnosis Note [id number] MD ONEL Salas [facility] [address] [place] [facility] [place] [id number] 10/08/2024 12:02:03 10/08/2024 12:41:53 Injury of ribs [id number] S29.9XXA Based on my viewing of the [...] Member ID Webb Member ID Guarantor Name 02/20/2025 1 [employer] [facility] (MEDICAID HMO) Mayra Miranda [id number] Mayra Miranda Notes Date Note Type Note Provider Name and Address Organization Details Recorded Time 10/08/2024 text/html ROS as noted in the HPI Fell on ice yesterday morning, landed on right side. Pain in right lower ribs particularly with movement, deep breathing, etc. Phi Diaz MD [address] [facility], [place], [address], [facility] - [place] - [place] & [place] 10/08/2024 12:41:00 OBGyn Episode No OBEpisode recorded.
--- OUTSIDE RECORDS SUMMARY | 2025-04-13 20:49 | XMS_ITS | Referral Summary ---
Author Organization [employer] ([place], [place], [place], [place]) Address [address] [place] [address] Care Team Providers Care Electricians Top Helper Name Role Phone Porter Rose APRN Primary Care Provider [phone] Encounters Date Type Department Care Team Description 01/23/2025 Surgery Prep [facility] Surgery Department [address] [place] [address] Mt Vargas MD 01/23/2025 Travel 01/23/2025 8:00 AM EDT - 01/23/2025 10:18 AM EDT Surgery [facility] Surgery Department [address] [place] [phone] Mt Vargas MD RIGHT TOTAL KNEE ARTHROPLASTY 01/23/2025 8:10 AM EDT Anesthesia Event [facility] Surgery Department [address] [place] [phone] Mathieu Tinoco CRNA Booker, Philip Craig, MD 01/23/2025 5:56 AM EDT - 01/23/2025 1:49 PM EDT Hospital Encounter [facility] Surgery Department [address] [place] [phone] Mt Vargas MD Discharge Disposition: Home or Self Care from Last 3 Months Allergies Active Allergy Reactions Criticality Noted Date Comments Adhesive Bandage Hives High 01/11/2025 Medications mupirocin (BACTROBAN) 2 % nasal ointment Apply 1 application. to affected nostril(s) 3 (three) times daily Use one-half of tube in each nostril three times daily for five (5) days. After application, press sides of nose together and gently massage.. Active omeprazole (PriLOSEC) 20 MG capsule Take 1 capsule (20 mg total) by mouth daily. 06/19/2024 Active ibuprofen (MOTRIN) 800 MG tablet Take 1 tablet (800 mg total) by mouth 3 (three) times daily. 08/03/2024 Active Active Problems Problem Noted Date Diagnosed Date Smoker 10/17/2024 Pre-op exam 10/02/2024 Vapes nicotine containing substance 10/02/2024 GERD (gastroesophageal reflux disease) Hx of substance abuse 10/02/2024 Social History Tobacco Use Types Packs/Day Years Used Date Smoking Tobacco: Former Cigarettes Smokeless Tobacco: Never Tobacco Cessation:Counseling Given: Not Answered Comments:Quit smoking cigarettes 2006 - Patient vaps nicotine Alcohol Use Standard Drinks/Week Comments Never 0 (1 standard drink = 0.6 oz pur e alcohol) Comments No Sex and Gender Information Value Date Recorded Sex Assigned at Not on file Legal Sex Female 6:49 PM CDT Gender Identity Not on file Sexual Orientation Not on file Last Filed Vital Signs Vital Sign Reading Time Taken Comments Blood Pressure 101/64 01/23/2025 1:00 PM EDT Pulse 83 01/23/2025 1:00 PM EDT Temperature 36.3 C (97.4 F) 01/23/2025 11:11 AM EDT Respiratory Rate 16 01/23/2025 1:00 PM EDT Oxygen Saturation 96% 01/23/2025 1:00 PM EDT Inhaled Oxygen Concentration - - Weight 117.9 kg (260 lb) 01/23/2025 6:29 AM EDT Height 165.1 cm (5' 5 ) 01/11/2025 11:41 AM EDT Body Mass Index 43.27 01/11/2025 11:41 AM EDT Plan of Treatment Not on file Medical Devices Implanted Type Area Pattern Fitter Device Identifier Shelf Expiration Date Model / Serial / Lot Cement Bone Smplx Tobra 40gm 6197-9-001 - [id number] Implanted:Qty : 2 on 10/17/2024 by Mt Vargas MD at [facility] IMPLANTS Left: Knee [employer]ITA:[employer] 01/16/2026 1 / / [id number] Cement Bone Smplx Tobra [facility] 6197-9-001 - [id number] Implanted:Qty : 1 on 01/23/2025 by Mt Vargas MD at [facility] IMPLANTS Right: Knee [employer]ITA:[employer] 01/16/2026 1 / / [id number] Cement Bone Smplx Tobra [facility] 6197-9-001 - [id number] Implanted:Qty : 1 on 01/23/2025 by Mt Vargas MD at [facility] IMPLANTS Right: Knee [employer]ITA:[employer] 03/18/2026 1 / / [id number] Pwdr Cellerate Clgn 1gm Strl Cla-29-Ftmhpc - [id number] Implanted:Qty : 1 on 01/23/2025 at [facility] IMPLANTS Right: Knee [employer] 01/31/2027 [facility]-01-SA CRXP / / [id number] Imp Patella Itotal 35x7mm [id number] - [id number] Implanted:Qty : 1 on 10/17/2024 by Mt Vargas MD at [facility] TOTAL JOINT CONSTRUCT Left: Knee CONFORMIS 03/18/2025 [id number] / / [id number] Kt Itotal Id Ps Full Xe Itps-Xe-1pc - [id number] Implanted:Qty : 1 on 10/17/2024 by Mt Vargas MD at [facility] TOTAL JOINT CONSTRUCT Left: Knee CONFORMIS ITPS-XE-1 PC / / [id number] Ty Itotal Id Ps Tib Evaristo Lt [id number] - [id number] Implanted:Qty : 1 on 10/17/2024 by Mt Vargas MD at [facility] TOTAL JOINT CONSTRUCT Left: Knee CONFORMIS 10/19/2025 [id number] / / [id number] Imp Itotal Id Ps Fem Evaristo Lt [id number] - [id number] Implanted:Qty : 1 on 10/17/2024 by Mt Vargas MD at [facility] TOTAL JOINT CONSTRUCT Left: Knee CONFORMIS 10/19/2025 [id number] / / [id number] Kt Cr Full Itotal Id 2pc Itcr-Xe-2pc - [id number] Implanted:Qty : 1 on 01/23/2025 by Mt Vargas MD at [facility] TOTAL JOINT CONSTRUCT Right: Knee CONFORMIS 07/19/2026 ITCR-XE-2 PC / [id number] / Ty Cr Tib Itotal Id Right [id number] - [id number] Implanted:Qty : 1 on 01/23/2025 by Mt Vargas MD at [facility] TOTAL JOINT CONSTRUCT Right: Knee CONFORMIS 01/16/2026 [id number] / [id number] / Imp Cr Fem Itotal Id Evaristo Right [id number] - [id number] Implanted:Qty : 1 on 01/23/2025 by Mt Vargas MD at [facility] TOTAL JOINT CONSTRUCT Right: Knee CONFORMIS 01/16/2026 [id number] 2 / [id number] / Imp Patella Itotal 35x7mm [id number] - [id number] Implanted:Qty : 1 on 01/23/2025 by Mt Vargas MD at [facility] TOTAL JOINT CONSTRUCT Right: Knee CONFORMIS 07/19/2026 [id number] Procedures Procedure Name Priority Date/Time Associated Diagnosis Comments ANESTHESIA INTUBATION Routine 01/23/2025 8:19 AM EDT IN ARTHRP KNE CONDYLE&PLATU MEDIAL&LAT COMPARTMENTS 01/23/2025 8:18 AM EDT Primary osteoarthritis of right knee Case Notes CONFORMIS HC PERIPHERAL NERVE BLOCK SINGLE SHOT Routine 01/23/2025 7:57 AM EDT HC PERIPHERAL NERVE BLOCK SINGLE SHOT Routine 01/23/2025 7:54 AM EDT EKG-SCANNED 01/23/2025 from Last 3 Months Results * AN SINGLE LUMEN INTUBATION (01/23/2025 8:19 AM EDT) Narrative Mathieu Tinoco CRNA - 01/23/2025 8:19 AM EDT Mathieu Tinoco CRNA 01/23/2025 8:23 AM Intubation Authorized by: Mathieu Tinoco CRNA Performed by: Mathieu Tinoco CRNA Date/Time: 01/23/2025 8:19 AM Urgency: elective Indications and Patient Condition Indications for airway management: anesthesia and airway protection Spontaneous Ventilation: absent Sedation level: general anesthesia Preoxygenated: yes Patient position: sniffing no Mask difficulty assessment: 2 - vent by mask + OA or adjuvant +/- NMBA no Final Airway Details Final airway type: endotracheal airway Endotracheal tube type: ETT Cuffed: yes Successful intubation technique: direct laryngoscopy Endotracheal tube insertion site: oral Blade: Barroso Blade size: #2 ETT size (mm): 7.5 Cormack-Lehane Classification: grade IIa - partial view of glottis Placement verified by: chest auscultation and capnometry Measured from: lips ETT to lips (cm): 21 Number of attempts at approach: 1 Ventilation between attempts: none Number of other approaches attempted: 0 Mathieu Tinoco YOUTH CORRECTIONS OFFICER ANESTHESIA ORDERABLES Fin al Result * HC PERIPHERAL NERVE BLOCK SINGLE SHOT (01/23/2025 7:57 AM EDT) Narrative Sascha Rashid MD - 01/23/2025 7:57 AM EDT Sascha Rashid MD 01/23/2025 8:16 AM Peripheral Nerve Block Authorized by: Mt Vargas MD Performed by: Sascha Rashid MD Patient location during procedure: pre-op Start time: 01/23/2025 7:57 AM End time: 01/23/2025 8:00 AM Reason for block: at surgeon's request and post-op pain management Preanesthetic Checklist Completed: patient identified, IV checked, site marked, risks and benefits discussed, surgical consent, monitors and equipment checked, pre-op evaluation and timeout performed Peripheral Block Patient position: supine Prep: ChloraPrep Patient monitoring: heart rate, surveillance monitor and continuous pulse ox Block type: IPACK Laterality: right Injection technique: single-shot Guidance: ultrasound guided Local infiltration: lidocaine Needle Needle type: short-bevel Needle gauge: 20 G Needle length: 10 cm Needle localization: ultrasound guidance Test dose: negative Medications Administered ropivacaine PF (NAROPIN) injection 0.5 % - perineural 10 mL - 01/23/2025 7:57:00 AM Assessment Injection assessment: negative aspiration for heme, no paresthesia on injection, incremental injection and local visualized surrounding nerve on ultrasound Paresthesia pain: none Heart rate change: no Slow fractionated injection: yes Mt Vargas MD ANESTHESIA ORDERABLES Final Resu lt * HC PERIPHERAL NERVE BLOCK SINGLE SHOT (01/23/2025 7:54 AM EDT) Narrative Sascha Rashid MD - 01/23/2025 7:54 AM EDT Sascha Rashid MD 01/23/2025 8:16 AM Peripheral Nerve Block Authorized by: Mt Vargas MD Performed by: Sascha Rahsid MD Patient location during procedure: pre-op Start time: 01/23/2025 7:54 AM End time: 01/23/2025 7:57 AM Reason for block: at surgeon's request and post-op pain management Preanesthetic Checklist Completed: patient identified, IV checked, site marked, risks and benefits discussed, surgical consent, monitors and equipment checked, pre-op evaluation and timeout performed Peripheral Block Patient position: supine Prep: ChloraPrep Patient monitoring: heart rate, surveillance monitor and continuous pulse ox Block type: adductor canal Laterality: right Injection technique: single-shot Guidance: ultrasound guided Local infiltration: lidocaine Needle Needle type: short-bevel Needle gauge: 20 G Needle length: 10 cm Needle localization: ultrasound guidance Test dose: negative Medications Administered ropivacaine PF (NAROPIN) injection 0.5 % - perineural 20 mL - 01/23/2025 7:54:00 AM bupivacaine (PF) (MARCAINE, SENSORCAINE) injection 5 mg/mL 0.5% - perineural 20 mL - 01/23/2025 7:54:00 AM Assessment Injection assessment: negative aspiration for heme, no paresthesia on injection, incremental injection and local visualized surrounding nerve on ultrasound Paresthesia pain: none Heart rate change: no Slow fractionated injection: yes Additional Notes Procedural sedation given. Mt Vargas MD ANESTHESIA ORDERABLES Edited Res ult - Final * EKG-SCANNED (01/23/2025) Narrative 01/23/2025 Ordered by an unspecified provider. us Default Scanning Provider SCAN ORDERS Final Result from Last 3 [place] [address] [employer] [facility] Advance Directives For more information, please contact: [phone] * Full Code (Latest Code Status on File) Date Activated Date Inactivated Comments 01/23/2025 6:11 AM 01/23/2025 3:03 PM * Full Code Date Activated Date Inactivated Comments 10/17/2024 5:23 AM 10/19/2024 4:07 PM Care Teams Electricians Top Helper Relationship Specialty Start Date End Date Porter Rose APRN [address] [place] [address] PCP - General Nurse Practitioner 10/02/24
--- OUTSIDE RECORDS SUMMARY | 2025-04-13 20:49 | XMS_ITS | Clinical Summary ---
Author Organization [facility] Address [address] [place] [address] Care Team Providers Care Weed Sprayer Name Role Phone Buster Stewart MD Primary Care Provider [phone] Allergies Active Allergy Reactions Criticality Noted Date Comments Loratadine Hives,Rash Medium 10/25/2018 Medications Acetaminophen Extra Strength 500 MG tablet 2 Active diclofenac (Voltaren) 1 % topical gel APPLY 2 GRAMS 4 TIMES EACH DAY TO A SINGLE ELBOW, WRIST OR HAND 3 Active DULoxetine (Cymbalta) [address] capsule 2 Active DULoxetine (Cymbalta) [address] capsule 2 Active famotidine (Pepcid) 20 MG tablet TAKE 1 TABLET 2 TIMES EACH DAY 3 Active lisinopril 20 MG tablet 2 Active metoclopramide (Reglan) 10 MG tablet TAKE 1 TABLET 3 TIMES EACH DAY, 30 MINUTES BEFORE MEALS 3 Active omeprazole (PriLOSEC) [address] capsule TAKE 1 CAPSULE 1 TIME EACH DAY FOR HEARTBURN. 3 Active ondansetron ODT (Zofran-ODT) [address] 1 TABLET UNDER THE TONGUE AND ALLOW TO DISSOLVE EVERY 8 HOURS 3 Active potassium chloride CR (Klor-Con) 10 MEQ ER tablet 2 Active prazosin (Minipress) 2 MG capsule 2 Active Ubrelvy 50 MG tablet TAKE 1 TABLET DIRECTED FOR MIGRAINE 3 Active Family History Medical History Relation Name Comments Addiction problem Brother Breast cancer Mother Arabella Grullon Cardiac disorder Mother Arabella Grullon Depression Mother Arabella Grullon Diabetes Mother Arabella Grullon Heart disease Mother Arabella Grullon Kidney disease Mother Arabella Grullon Stroke Mother Arabella Grullon Relation Name Status Comments Brother Mother Arabella Grullon Social History Tobacco Use Types Packs/Day Years Used Date Smoking Tobacco: Former Cigarettes 1.5 5 0 11/01/2003 - 06/18/2006 Smokeless Tobacco: Never Tobacco Cessation:Counseling Given: Not Answered Alcohol Use Standard Drinks/Week Comments Never 0 (1 standard drink = 0.6 oz pure alcohol) Alcoholic Drinks/day: Former consumption of alcohol PHQ-2 Answer Date Recorded Patient Health Questionnaire-2 Score 2 05/20/2023 PHQ-2A Answer Date Recorded Patient Health Questionnaire-2 Score 2 05/20/2023 Comments Unknown Sex and Gender Information Value Date Recorded Sex Assigned at Female 05/19/2023 3:41 AM EDT Legal Sex Female 8:36 PM EDT Gender Identity Female 05/19/2023 3:41 AM EDT Sexual Orientation Straight 05/19/2023 3: 41 AM EDT Last Filed Vital Signs Vital Sign Reading Time Taken Comments Blood Pressure 120/73 05/20/2023 1:30 PM EDT Pulse 100 05/20/2023 1:30 PM EDT Temperature 36.6 C (97.8 F) 05/20/2023 1:30 PM EDT Respiratory Rate - - Oxygen Saturation - - Inhaled Oxygen Concentration - - Weight 115 kg (253 lb 6.4 oz) 05/20/2023 1:30 PM EDT Height 165.1 cm (5' 5 ) 05/20/2023 1:30 PM EDT Body Mass Index 42.17 05/20/2023 1:30 PM EDT Plan of Treatment Health Maintenance Due Date Last Done Comments [facility]-Depression Screening 1978 [facility]-Infant/Child/Adol SDOH Screenings 1978 [facility]- SDOH Screenings 1996 [facility]-Adult SDOH Screenings 1996 [facility]-Pap Smear 1999 [facility]-Cervical Cancer Screening 2008 [facility]-HPV/Cotest 2008 [facility]-Hepatitis B Vaccines (2 of 3 - 19+ 3-dose series) 01/19/2019 12/22/2018 CT Colonography 2023 Colonoscopy 2023 FIT-DNA 2023 FIT 2023 FOBT 2023 Sigmoidoscopy 2023 [facility]-Colorectal Cancer Screening 2023 [id number] Vaccine ( season) 2024 06/28/2023, 06/17/2021, 05/07/2021 [facility]-Influenza Vaccine (#1) 2025 07/23/2020, [facility]-Zoster Vaccines (1 of 2) 2028 12/22/2018 [facility]-DTaP,Tdap,and Td Vaccines (8 - Td or Tdap) 06/28/2031 06/28/2021, 12/22/2018, 05/08/2002, Additional history exists [facility]-IPV Vaccines Aged Out 11/25/1982, , 1978, Additional history exists No longer eligible based on patient's age to complete this topic [facility]-Pneumococcal Vaccine: Pediatrics (0 to 5 Years) and At-Risk Patients (6 to 49 Years) Aged Out 10/08/2018 No longer eligible based on patient's age to complete this topic [facility]-Hepatitis A Vaccines Completed 020, 12/22/2018, 01/20/2018 HPV Vaccines Aged Out No longer eligi ble based on patient's age to complete this topic [facility]-HIB Vaccines Aged Out No longer e ligible based on patient's age to complete this topic [facility]-Rotavirus Vaccines Aged Out No lo nger eligible based on patient's age to complete this topic Insurance [employer] Care Teams Weed Sprayer Relationship Specialty Start Date End Date Buster Stewart MD [address] [facility] [place] [address] PCP - General 01/30/21
--- OUTSIDE RECORDS SUMMARY | 2025-04-13 20:49 | XMS_ITS | Encounter Summary ---
Author Organization [facility] ([place], [place], [place], [place]) Address [address] [place] [address] Care Team Providers Care Audio Tape Librarian Name Role Phone Porter Rose APRN Primary Care Provider [phone] Encounter Details Date Type Department Care Team (Late st Contact Info) Description 01/23/2025 Surgery Prep [facility] Surgery Department [address] [place] [address] Mt Vargas MD [address] [facility] 2nd [place] [address] Social History Tobacco Use Types Packs/Day Years Used Date Smoking Tobacco: Former Cigarettes Smokeless Tobacco: Never Comments:Quit smoking cigare ttes 2006 - Patient vaps nicotine Alcohol Use Standard Drinks/Week Comments Never 0 (1 standard drink = 0.6 oz pur e alcohol) Comments No Sex and Gender Information Value Date Recorded Sex Assigned at Not on file Legal Sex Female 6:49 PM CDT Gender Identity Not on file Sexual Orientation Not on file documented as of this encounter Progress Notes * Mt Vargas MD - 01/23/2025 6:47 AM EDT Subjective Review of Systems Objective Last Recorded Vitals There were no vitals taken for this visit. Physical Exam Labs: No results found for this visit on 01/23/25 (from the past 24 hours). CT lower extremity without IV contrast right Narrative: CT SCAN RIGHT LOWER EXTREMITY 12/06/2024 10:14 AM HISTORY: Knee osteoarthritis. Conformis protocol. COMPARISON: None. PROCEDURE: Axial images were obtained through the lower extremity by computed tomography. Sagittal and coronal reconstruction images were performed . This study was performed with techniques to keep radiation doses as low as reasonably achievable, (ALARA). Individualized dose reduction techniques using automated exposure control or adjustment of mA and/or kV according to the patient size were employed. FINDINGS: There is no fracture or joint effusion . There is significant degenerative change . Impression: Degenerative joint disease. Images reviewed, interpreted, and dictated by Dr. Clotilde Martinez. Transcribed by Nidia Rod PA-C. Assessment Plan Discharge Planning: documented in this encounter Plan of Treatment Not on file documented as of this encounter Visit Diagnoses Not on filedocumented in this encounter Care Teams Audio Tape Librarian Relationship Specialty Start Date End Date Porter Rose APRN [address] [place] [address] PCP - General Nurse Practitioner 10/02/24 documented as of this encounter
--- OUTSIDE RECORDS SUMMARY | 2025-04-13 20:49 | XMS_ITS | Clinical Summary ---
Author Organization [employer] ([place], [place], [place], [place]) Address [address] [place] [address] Care Team Providers Care Video Production Coordinator Name Role Phone Porter Rose APRN Primary Care Provider [phone] Allergies Active Allergy Reactions Criticality Noted Date [...] reflux disease) Hx of substance abuse 10/02/2024 Encounters Date Type Department Care Team Description 01/23/2025 8:10 AM EDT Anesthesia Event [facility] Surgery Department [address] [place] [address] Mathieu Tinoco CRNA Booker, Philip Craig, MD 01/23/2025 8:00 AM EDT - 01/23/2025 10:18 AM EDT Surgery [facility] Surgery Department [address] [place] [address] Mt Vargas MD RIGHT TOTAL KNEE ARTHROPLASTY 01/23/2025 5:56 AM EDT - 01/23/2025 1:49 PM EDT Hospital Encounter [facility] Surgery Department [address] [place] [address] Mt Vargas MD Discharge Disposition: Home or Self Care 01/23/2025 Surgery Prep [facility] Surgery Department [address] [place] [address] Mt Vargas MD 01/23/2025 Travel from Last 3 Months Social History Tobacco Use Types Packs/Day Years [...] 01/11/2025 11:41 AM EDT Plan of Treatment Health Maintenance Due Date Last Done Comments CT Colonography 1978 Colonoscopy 1978 Colorectal Cancer Screening 1978 FOBT/FIT 1978 Fit-DNA (Cologuard) 1978 Sigmoidoscopy 1978 Depression Screening (12+) 1990 HIV Screening 1993 Hepatitis C Screening 1996 Pap Smear 1999 Breast Cancer Screening 2018 Lipid Panel 2023 COVID-19 VACCINE ( season) 2024 06/28/2023, 06/17/2021, 05/07/2021 Influenza Vaccine (#1) 2025 Tobacco Cessation Counseling and Screening (12+) 01/11/2026 01/11/2025 DTAP/TDAP/TD VACCINES (10 - Td or Tdap) 06/28/2031 06/28/2021, 12/22/2018, 05/08/2002, Additional history exists Pneumococcal Vaccine: 0-49 Years Aged Out 10/08/2018 No longer eligible based on patient's age to complete this topic Medical Devices Implanted Type Area Shipbuilding Draftsperson Device Identifier Shelf Expiration Date Model / Serial / Lot Cement Bone Smplx [facility] 6197-9-001 - [id number] Implanted:Qty : 2 on 10/17/2024 by Mt Vargas MD at [facility] IMPLANTS Left: Knee [employer]ITA:[employer] 01/16/2026 6197-9-00 1 / / [id number] Cement Bone Smplx [facility] 6197-9-001 - [id number] Implanted:Qty : 1 on 01/23/2025 by Mt Vargas MD at [facility] IMPLANTS Right: Knee [employer] 01/16/2026 61979-00 1 / / [id number] Cement Bone Smplx [facility] 6197-9-001 - [id number] Implanted:Qty : 1 on 01/23/2025 by Mt Vargas MD at [facility] IMPLANTS Right: Knee [employer] 03/18/2026 61979-00 1 / / [id number] Pwdr Cellerate Clgn 1gm Strl Fzg-[id number] - [id number] Implanted:Qty : 1 on 01/23/2025 at [facility] IMPLANTS Right: Knee [employer] 01/31/2027 [facility] CRXP / / [id number] Imp Patella Itotal 35x7mm [id number] - [id number] Implanted:Qty : 1 on 10/17/2024 by Mt Vargas MD at [facility] TOTAL JOINT CONSTRUCT Left: Knee [employer] 03/18/2025 [id number] / / [id number] Kt Itotal Id Ps Full Xe Itps-Xe-1pc - [id number] Implanted:Qty : 1 on 10/17/2024 by Mt Vargas MD at [facility] TOTAL JOINT CONSTRUCT Left: Knee [employer]FORMIS ITPS-XE-1 PC / / [id number] Ty Itotal Id Ps Tib Evaristo Lt [id number] - [id number] Implanted:Qty : 1 on 10/17/2024 by Mt Vargas MD at [facility] TOTAL [employer] Left: Knee [employer]FORMIS 10/19/2025 [id number] / [id number] Imp Itotal Id Ps Fem Evaristo Lt [id number] - [id number] Implanted:Qty : 1 on 10/17/2024 by Mt Vargas MD at [facility] TOTAL [employer] Left: Knee [employer] 10/19/2025 [id number] / [id number] Kt Cr Full Itotal Id 2pc Itcr-Xe-2pc - [id number] Implanted:Qty : 1 on 01/23/2025 by Mt Vargas MD at [facility] [employer] Right: Knee [employer]FORMIS 07/19/2026 ITCR-XE-2 PC / [id number] / Ty Cr Tib Itotal Id Right [id number] - [id number] Implanted:Qty : 1 on 01/23/2025 by Mt Vargas MD at [facility] [employer] Right: Knee [employer] 01/16/2026 [id number] / [id number] / Imp Cr Fem Itotal Id Evaristo Right [id number] - [id number] Implanted:Qty : 1 on 01/23/2025 by Mt Vargas MD at [facility] [employer] Right: Knee [employer] 01/16/2026 [id number] / [id number] / Imp Patella Itotal 35x7mm [id number] - [id number] Implanted:Qty : 1 on 01/23/2025 by Mt Vargas MD at [facility] [employer] Right: Knee [employer]FORMIS 07/19/2026 [id number] Procedures Procedure Name Priority Date/Time Associated Diagnosis Comments ANESTHESIA INTUBATION Routine 01/23/2025 8:19 AM EDT IA ARTHRP KNE CONDYLE&PLATU MEDIAL&LAT COMPARTMENTS 01/23/2025 8:18 [...] none Number of other approaches attempted: 0 us Mathieu Tinoco CRNA ANESTHESIA ORDERABLES Fin al Result * HC PERIPHERAL NERVE BLOCK SINGLE SHOT (01/23/2025 7:57 AM EDT) Sascha Abad MD - 01/23/2025 7:57 AM EDT Sascha [...] supine Prep: ChloraPrep Patient monitoring: heart rate, monitoring tech and continuous pulse ox Block type: IPACK [...] rate change: no Slow fractionated injection: yes us Mt Vargas MD ANESTHESIA ORDERABLES Final Resu lt * HC PERIPHERAL NERVE BLOCK SINGLE SHOT (01/23/2025 7:54 AM EDT) Sascha Abad MD - 01/23/2025 7:54 AM EDT Sascha [...] supine Prep: ChloraPrep Patient monitoring: heart rate, monitoring tech and continuous pulse ox Block type: adductor [...] injection: yes Additional Notes Procedural sedation given. us Mt Vargas MD ANESTHESIA ORDERABLES Edited Res ult - Final * EKG-SCANNED (01/23/2025) Narrative 01/23/2025 Ordered by an unspecified provider. us Default Scanning Provider SCAN ORDERS Final Result from Last 3 Months Insurance [employer] [facility] Advance Directives For more information, please contact: [phone] * Full Code (Latest Code Status on File) Date Activated Date Inactivated Comments 01/23/2025 6:11 AM 01/23/2025 3:03 PM * Full Code Date Activated Date Inactivated Comments 10/17/2024 5:23 AM 10/19/2024 4:07 PM Care Teams Video Production Coordinator Relationship Specialty Start Date End Date Porter Rose, BED OPERATOR [address] [place] [address] PCP - General Nurse Practitioner 10/02/24
--- OUTSIDE RECORDS SUMMARY | 2025-04-13 20:49 | XMS_ITS | Encounter Summary ---
Author Organization [employer] ([place], [place], [place], [place]) Address [address] [place] [address] Care Team Providers Care Channel Partners Name Role Phone Porter Rsoe APRN Primary Care Provider [phone] Encounter Details Date Type Department Care Team (Late st Contact Info) Description 10/10/2024 Surgery Prep [facility] Surgery Department [address] [place] [address] Mt Vargas MD [address] [facility] 2nd [place] [address] Social History Tobacco Use Types Packs/Day Years Used Date Smoking Tobacco: Never Assessed Smokeless Tobacco: Never Comments:Quit smoking cigare ttes 2006 - Patient vaps nicotine Alcohol Use Standard Drinks/Week Comments Never 0 (1 standard drink = 0.6 oz pur e alcohol) Comments Unknown Sex and Gender Information Value Date Recorded Sex Assigned at Not on file Legal Sex Female 6:49 PM CDT Gender Identity Not on file Sexual Orientation Not on file documented as of this encounter Plan of Treatment Not on file documented as of this encounter Visit Diagnoses Not on filedocumented in this encounter Care Teams Channel Partners Relationship Specialty Start Date End Date Porter Rose APRN [address] [place] [id number] PCP - General Nurse Practitioner 10/02/24 documented as of this encounter
--- OUTSIDE RECORDS SUMMARY | 2025-04-13 20:49 | XMS_ITS | Patient Health Record ---
Author Organization [facility] Address [address] [facility] [place] [address] Care Team Providers Care Machine Maintenance Supervisor Name Role Phone Shea Cobb Primary Care Provider Noah Harrishanie Unavailable [phone] Allergies No Known Allergies Reason For Referral No Information Medications Medication SIG (Take, Route, Fr equency, Duration) Notes Start Date End Date Status Omeprazole 40 MG 1 capsule 30 minutes before morning meal Orally Once a day A ctive Lisinopril 20 MG 1 tablet Orally Once a day Active Prazosin HCl 1 MG 1 capsule at bedtime Orally Once a day Active Pepcid 40 MG 1 tablet at bedtime Orally Once a day Active Lasix 40 MG 1 tablet Orally Once a day Active Potassium Active Cymbalta Active traZODone HCl 50 MG 1 tablet at bedtime as needed Orally Once a day Active Vivitrol 380 MG 4 ml Intramuscular m onthly; Duration: 28 days 12/07/2023 Active Social History Tobacco Use: Social History Observation Description Date Details (start date - stop date) Former Smoker NA - NA Tobacco Use/Smoking Question Answer Notes Are you a former smoker How long has it been since you last smoked? > 10 years Section Notes: OD x1 OD x1 OD x1 OD x1 OD x1 Problems Problem Type SNOMED Code ICD Code Onset Dates Problem Status W/U Status Risk Notes Problem Alcohol dependence (15360090) Uncomplicated alcohol dependence (F10.20) Active confirmed Problem Opioid dependence (05771884) Uncomplicated opioid dependence (F11.20) Active confirmed Encounters Encounter Location Date Provider Diagnosis [facility] [address] [place] [id number] 04/25/2024 Mayra Harris Uncomplicated opioid dependence F11.[address] [address] 05/23/2024 Shea Reza Uncomplicated opioid dependence F11.[address] [place] [address] 04/18/2024 Mayra Harris Substance use disorder F19.90 Assessments Encounter Date Diagnosis (ICD Code) Assessment Notes Treatment Notes Treatment Clinical Notes Section Notes 05/23/2024 Uncomplicated opioid dependence (ICD-10 - F11.20) Risks and benefits of Vivitrol administration discussed with patient. Written consent obtained by [facility]/ [facility] staff. UDS obtained and confirmed to be negative for opiates. Oral challenge (naltrexone 50mg) administered previously and was tolerated well without adverse s/e or signs of withdrawal. Vivitrol injection administered by [facility] staff, patient tolerated well without signs of adverse reaction or withdrawal. Patient advised to notify close family member/support system and any medical providers of Vivitrol use and keep documentation in wallet indicating Vivitrol use in case of emergency. RTC approx. 28 days for next injection. Pt understands to contact our office/[facility] staff promptly for adverse s/e, questions, or concern for relapse. Continue with counseling/treatme nt for addiction and recovery. 04/25/2024 Uncomplicated opioid dependence (ICD-10 - F11.20) Risks and benefits of Vivitrol administration discussed with patient. Written consent obtained by [facility]/ [facility] staff. UDS obtained and confirmed to be negative for opiates. Oral challenge (naltrexone 50mg) administered previously and was tolerated well without adverse s/e or signs of withdrawal. Vivitrol injection administered by [facility] staff, patient tolerated well without signs of adverse reaction or withdrawal. Patient advised to notify close family member/support system and any medical providers of Vivitrol use and keep documentation in wallet indicating Vivitrol use in case of emergency. RTC approx. 28 days for next injection. Pt understands to contact our office/[facility] staff promptly for adverse s/e, questions, or concern for relapse. Continue with counseling/treatme nt for addiction and recovery. 04/18/2024 Substance use disorder (ICD-10 - F19.90) Plan Of Treatment No Information Insurance Providers Payer Name Payer Address Payer Phone Subscriber Number Group Number Insured Name Patient Relationship to Insured Coverage Start Date Coverage End Date [employer] [facility] [address] [place], [place] [id number] Mayra Miranda Self - patient is the insured 2 Medical (General) History Medical History History ICD Code hepatitis C seizures myocardial infarction hypertension GERD depression BLE edema Gastrointestinal CA Suicidal ideations Surgical History Surgery Date(Month/Year) section 1995, 2005 hysterectomy 2008 tonsillectomy 2010 cholecystectomy 1998 Hospitalization History Reason Date(Month/Year) childbirth
--- NOTE | 2025-04-13 21:00 | ECG_ITS ---
APPROVED REPORT Exam: Resting ECG HR:69 bpm ECG Measurements Heart Rate 69 AXES ME 150 P 39 QRSd 92 QRS 39 QT 362 T 49 QTc 382 Conclusion SINUS RHYTHM NORMAL ECG Electronically signed by : MIRNA SHARPE, 04/14/2025 07:25:04
--- NOTE | 2025-04-13 21:22 | XR_ITS ---
PROCEDURE INFORMATION: Exam: XR Chest Exam date and time: 04/13/2025 9:32 PM Age: 44 years old Clinical indication: Shortness of breath; Additional info: Soa/cp TECHNIQUE: Imaging protocol: Radiologic exam of the chest. Views: 1 view. COMPARISON: CR XR RIBS RT MIN 3V W CXR1V 09/30/2024 2:01 PM FINDINGS: Lungs: Unremarkable. No consolidation. Pleural spaces: Unremarkable. No pleural effusion. No pneumothorax. Heart/Mediastinum: Unremarkable. No cardiomegaly. Vasculature: Unremarkable. Bones/joints: Unremarkable. IMPRESSION: No acute findings.
--- NOTE | 2025-04-13 21:25 | [facility].EDCP ---
Discharge Plan Disposition Patient Disposition: Home, Self-Care Prescriptions Prescriptions: No Action aspirin [Adult Low Dose Aspirin] 81 mg tablet,delayed release (DR/EC) 81 mg PO DAILY docusate sodium [Colace] 100 mg capsule 100 mg PO DAILY Referrals Follow up/Referrals: Reynaldo De La O MD [Staff Physician, Cardiology] - See instructions Provider,MD Sonya [Primary Care Provider, Medical] - See instructions Activity Restrictions/Add. Instructions Additional Instructions/Restrictions: Please follow-up with your primary care provider. Please return to the emergency department if you develop any new or worsening symptoms or become concerned for your health. Clinical Impressions Clinical Impression: Chest pain Qualifiers: Chest pain type: unspecified Qualified Code(s): R07.9 - Chest pain, unspecified Print Language Print Language: Kittitian Discharge ED Provider: Jose M Simpson HPI <LUCY Singh - Last Filed: 04/13/25 22:12> General Chief Complaint: Chest Pain Stated Complaint: chest pain Time Seen by Provider: 04/13/25 20:54 Mode of Arrival: EMS Source of Information: Patient and EMS Description of Symptoms (Recalled from ER Triage Doc. by RN): patient was outside all day and didn't eat or drink much. patient states that she was at work and started to feel dizzy and having chest tightness and just didn't feel good History of Present Illness HPI narrative: 44-year-old female presents the emergency department EMS, accompanied by relative for lightheadedness, chest tightness, that is located substernally, with radiation into the arm, with no associated numbness or tingling, did have some diaphoresis and what sound like a presyncopal episode, states that she just did not feel good . Also states that she was outside , in the heat , and did not have much p.o. 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 Initial triage vitals are unremarkable. Of note, patient is status post bilateral knee replacements, first was in September 2024, the most recent one was in January 2025. Related Data Home Medications ?Medication ?Instructions ?Recorded ?Confirmed aspirin 81 mg tablet,delayed 81 mg PO DAILY 10/30/24 10/30/24 release (Adult Low Dose Aspirin) docusate sodium 100 mg capsule 100 mg PO DAILY 10/30/24 10/30/24 (Colace) Allergies Allergy/AdvReac Type Severity Reaction Status Date / Time No Known Allergies Allergy Verified 10/30/24 10:38 [facility] <LUCY Singh - Last Filed: 04/13/25 22:12> [facility] Disclaimer: The information contained in this section may have been updated after the patient was seen, as this information can be updated by other users. Medical History (Updated 04/14/25 @ 00:00 by Felicia Alex DO) Hernia Heart attack COVID-19 Fatty liver Surgical History (Updated 10/30/24 @ 10:45 by Carolynn Rodríguez MA) History of knee replacement H/O hernia repair History of hysterectomy History of History of tonsillectomy [place] teeth extracted History of cholecystectomy Family History Grandmother Cancer Mother Coronary artery disease Diabetes Heart attack Kidney disease Stroke Sister Diabetes Social History (Updated 10/30/24 @ 10:42 by Carolynn Rodríguez MA) Smoking Status: Current every day smoker tobacco type: cigarettes packs per day: 1 second hand exposure: No alcohol intake: never substance use type: opiates current occupational status: other Travel in the last 8 weeks?: Inside the [place] household members: significant other housing: apartment caffeine: Yes Have you lived/traveled outside US in past 30 days?: No Contact w/someone who lives/traveled outside US past 30 days?: No Exposure to someone with infectious disease in past 14 days?: No Do you have a fever (greater than 100.4 F or 38 C)?: No Have you tested positive for COVID-19?: No Exposed to someone with COVID-19 in past 14 days?: No Do you have a sore throat?: No Do you have a cough?: No Do you have any weakness?: No Do you have any diarrhea?: No Are you experiencing any unusual bleeding?: No Do you have any muscle aches/pain?: No Do you have any abdominal pain?: No Are you experiencing loss of taste or smell?: No Other Medical History Have you received the Flu Vaccine for this season: No Have you received the Pneumonia Vaccine: Yes <LUCY Singh - Last Filed: 04/13/25 22:12> ROS Obtained: Yes All systems reviewed & no additional complaints except as documented Physical Exam <LUCY Singh - Last Filed: 04/13/25 22:12> General General appearance: alert and in no apparent distress Head Head exam: atraumatic and normocephalic Eye Eye exam: Present PERRL and EOMI ENT ENT exam: Present mucous membranes moist Neck Neck exam: Present normal inspection Chest Chest inspection: Present normal inspection and symmetric chest wall rise Respiratory Respiratory exam: Present normal lung sounds bilaterally; Absent respiratory distress, wheezes or stridor Cardiovascular Cardiovascular exam: Present regular rate and normal rhythm Abdominal Exam Abdominal exam: Present soft; Absent tenderness Extremities Exam Extremities exam: Present normal inspection Neurological Exam Neurological exam: Present alert and oriented X3 Psychiatric Psychiatric exam: Present normal affect Skin Skin exam: Present warm and dry HEART Score <LUCY Singh - Last Filed: 04/13/25 22:12> HEART Score HEART Score assessment performed?: No Critical Care <LUCY Singh - Last Filed: 04/13/25 22:12> Critical Care Time Critical Care Time: No Medical Decision Making <LUCY Singh - Last Filed: 04/13/25 22:12> Medical Records Medical records reviewed: Yes I reviewed the patient's medical records. Aly Inquiry Pt receiving controlled substance: Yes Aly was queried for this patient: No Reason not queried -: Emergent pt cond-no time Risks and benefits of using a controlled substance: were discussed with pt by me Vital Signs Vital Signs: 04/13/25 20:42 04/13/25 21:50 04/13/25 22:01 Temperature 98.2 F Temperature Source Oral Pulse Rate 72 82 Pulse Rate [Left] 75 Respiratory Rate 18 42 H 18 Blood Pressure 108/67 L 119/50 L Blood Pressure [Right Arm] 105/66 L Blood Pressure Mean Blood Pressure Mean [Right Arm] 79 Blood Pressure Source [Right Arm] Automatic Cuff Blood Pressure Position [Right Arm] Sitting 02 Sat by Pulse Oximetry 99 99 99 Oxygen Delivery Method Room Air 04/13/25 22:44 04/13/25 23:01 04/13/25 23:30 Temperature Temperature Source Pulse Rate 68 74 70 Pulse Rate [Left] Respiratory Rate 19 10 L Blood Pressure 105/65 L 123/102 H 112/54 L Blood Pressure [Right Arm] Blood Pressure Mean Blood Pressure Mean [Right Arm] Blood Pressure Source [Right Arm] Blood Pressure Position [Right Arm] 02 Sat by Pulse Oximetry 100 99 99 Oxygen Delivery Method 04/14/25 00:01 04/14/25 00:30 04/14/25 01:01 Temperature Temperature Source Pulse Rate 69 71 68 Pulse Rate [Left] Respiratory Rate 13 19 14 Blood Pressure 97/76 L 106/66 L 104/66 L Blood Pressure [Right Arm] Blood Pressure Mean 71 Blood Pressure Mean [Right Arm] Blood Pressure Source [Right Arm] Blood Pressure Position [Right Arm] 02 Sat by Pulse Oximetry 98 98 Oxygen Delivery Method 04/14/25 01:31 04/14/25 01:45 Temperature 97.8 F Temperature Source Pulse Rate 66 70 Pulse Rate [Left] Respiratory Rate 17 15 Blood Pressure 87/48 L 110/60 Blood Pressure [Right Arm] Blood Pressure Mean 61 Blood Pressure Mean [Right Arm] Blood Pressure Source [Right Arm] Blood Pressure Position [Right Arm] 02 Sat by Pulse Oximetry 98 Oxygen Delivery Method Lab Data Lab results reviewed: Yes I reviewed the patient's lab results. Labs: Lab Results 04/13/25 21:08: WBC 8.3, RBC 4.77, Hgb 12.8, Hct 40.1, MCV 84.1, MCH 26.8 L, MCHC 31.9, RDW 14.1, Plt Count 236, MPV 10.2, Neut % (Auto) 65.5, Lymph % (Auto) 25.0, [place] % (Auto) 7.2, Eos % (Auto) 1.8, Baso % (Auto) 0.4, Neut # (Auto) 5.4, Lymph # (Auto) 2.1, [place] # (Auto) 0.6, Eos # (Auto) 0.2, Baso # (Auto) 0.0, PT 10.3, INR 0.92, D-Dimer 0.81 H, Sodium 135 L, Potassium 3.8, Chloride 106, Carbon Dioxide 22, Anion Gap 10.8, BUN 22 H, Creatinine 0.70, Estimated Creat Clear 90, Estimated GFR 90, Est GFR ( Amer) 109, Glucose 89, Calcium 9.3, Total Bilirubin 0.4, AST 35, ALT 12, Alkaline Phosphatase 94, Troponin I < 0.01, NT-Pro-B Natriuret Pep 175 H, Total Protein 7.3, Albumin 4.1, Globulin 3.2, Albumin/Globulin Ratio 1.3, Lipase 47 04/14/25 00:49: Troponin I < 0.01 04/13/25 21:08 04/13/25 21:08 Response Orders (Tests/Meds): ED MEDICATIONS Generic Name Dose Route Start Last Admin Trade Name Freq PRN Reason Stop Dose Admin Sodium Chloride 10 ml 04/13/25 22:31 04/13/25 22:32 Sodium Chloride 0.9% 10ml Syr (Rad Only) IV 05/13/25 22:30 10 ml NEEDED PRN Administration Maintain IV Site Discontinued Medications Generic Name Dose Route Start Last Admin Trade Name Freq PRN Reason Stop Dose Admin Aspirin 324 mg 04/13/25 21:54 04/13/25 21:57 Aspirin 81mg Chewable Tablet PO 04/13/25 21:55 324 mg ONCE ONE Administration Belladonna Alkaloids 60 ml 04/13/25 23:33 04/13/25 23:35 Belladonna Alkaloids 60 Ml Ml PO 04/13/25 23:34 60 ml ONCE ONE Administration Lactated Ringer's 1,000 mls @ 999 mls/hr 04/13/25 21:52 04/13/25 21:54 Lactated Ringer's 1000 Ml Bag IV 04/13/25 22:52 999 mls/hr .Q1H1M ONE Administration Iopamidol 70 ml 04/13/25 22:31 04/13/25 22:32 Iopamidol-370 (76%);100ml Bottle IV 04/13/25 22:32 70 ml ONCE ONE Administration Morphine Sulfate 4 mg 04/13/25 21:24 04/13/25 21:32 Morphine 4mg/Ml Syringe IV 04/13/25 21:25 4 mg ONCE ONE Administration Nitroglycerin 0.4 mg 04/13/25 21:50 04/13/25 21:54 Nitroglycerin 0.4mg Sl Tablet SL 04/13/25 21:51 0.4 mg ONCE ONE Administration Ondansetron HCl 4 mg 04/13/25 21:25 04/13/25 21:32 Ondansetron 4mg/2ml Vial IV 04/13/25 21:26 4 mg ONCE ONE Administration Promethazine HCl 12.5 mg 04/13/25 22:55 04/13/25 22:59 Promethazine Hcl 25mg/Ml 1ml Vial IV 04/13/25 22:56 12.5 mg ONCE ONE Administration Sodium Chloride 40 ml 04/13/25 22:31 04/13/25 22:32 0.9 % Sodium Chloride 50 Ml Vial IV 04/13/25 22:32 40 ml ONCE ONE Administration Sodium Chloride 25 ml 04/13/25 22:55 04/13/25 22:58 Sodium Chloride 0.9% 25ml Bag IV 04/13/25 22:56 25 ml ONCE ONE Administration ORDERS Category Date Time Status CTA Chest [CT angio chest PE protocol] Stat Cat Scan 04/13/25 22:11 Completed XR chest portable Stat Exams 04/13/25 21:22 Completed Complete Blood Count Auto Diff Stat Lab 04/13/25 21:08 Completed Comprehensive Metabolic Panel Stat Lab 04/13/25 21:08 Completed D-Dimer Stat Lab 04/13/25 21:08 Completed Lipase Stat Lab 04/13/25 21:08 Completed NT Pro Brain Natriuretic Pep. Stat Lab 04/13/25 21:08 Completed PT/INR [Prothrombin Time INR] Stat Lab 04/13/25 21:08 Completed Troponin I Q3H Lab 04/14/25 00:49 Completed Troponin I Q3H Lab 04/14/25 03:30 Ordered Troponin I Stat Lab 04/13/25 21:08 Completed MDM Narrative Medical Decision Narrative: 44-year-old female points emerged part with chest pain/chest tightness lightheadedness and presyncopal episode, differential diagnose include but not limited to, heat exhaustion, hypovolemia, ACS, cardiac arrhythmia, electrolyte disturbance, costochondritis, anxiety type reaction, gastritis, GERD, PE, pneumonia among others. Will obtain basic laboratory studies, CXR, D-dimer, lipase level, proBNP, coags, troponin, EKG, give 4 mg IV Zofran for nausea and 4 mg IV morphine, 324 mg p.o. aspirin, as well as 0.4 mg sublingual nitroglycerin, will give 1 L LR IV. CBC unremarkable CMP is notable for elevated BNP at 22, troponin initial is within normal limits at less than 0.01, proBNP is mildly elevated at 175, lipase within normal limits. Coags normal limits D-dimer is elevated at 0.81, thus will obtain CTA chest with without contrast due to the patient's chest pain, and recent surgical history. I discussed this case with attending physician Dr. Alex at shift change she will be assuming remainder the patient's care/workup. <Felicia Alex, DO - Last Filed: 04/14/25 00:00> Vital Signs Vital Signs: 04/13/25 20:42 04/13/25 21:50 04/13/25 22:01 Temperature 98.2 F Temperature Source Oral Pulse Rate 72 82 Pulse Rate [Left] 75 Respiratory Rate 18 42 H 18 Blood Pressure 108/67 L 119/50 L Blood Pressure [Right Arm] 105/66 L Blood Pressure Mean Blood Pressure Mean [Right Arm] 79 Blood Pressure Source [Right Arm] Automatic Cuff Blood Pressure Position [Right Arm] Sitting 02 Sat by Pulse Oximetry 99 99 99 Oxygen Delivery Method Room Air 04/13/25 22:44 04/13/25 23:01 04/13/25 23:30 Temperature Temperature Source Pulse Rate 68 74 70 Pulse Rate [Left] Respiratory Rate 19 10 L Blood Pressure 105/65 L 123/102 H 112/54 L Blood Pressure [Right Arm] Blood Pressure Mean Blood Pressure Mean [Right Arm] Blood Pressure Source [Right Arm] Blood Pressure Position [Right Arm] 02 Sat by Pulse Oximetry 100 99 99 Oxygen Delivery Method 04/14/25 00:01 04/14/25 00:30 04/14/25 01:01 Temperature Temperature Source Pulse Rate 69 71 68 Pulse Rate [Left] Respiratory Rate 13 19 14 Blood Pressure 97/76 L 106/66 L 104/66 L Blood Pressure [Right Arm] Blood Pressure Mean 71 Blood Pressure Mean [Right Arm] Blood Pressure Source [Right Arm] Blood Pressure Position [Right Arm] 02 Sat by Pulse Oximetry 98 98 Oxygen Delivery Method 04/14/25 01:31 04/14/25 01:45 Temperature 97.8 F Temperature Source Pulse Rate 66 70 Pulse Rate [Left] Respiratory Rate 17 15 Blood Pressure 87/48 L 110/60 Blood Pressure [Right Arm] Blood Pressure Mean 61 Blood Pressure Mean [Right Arm] Blood Pressure Source [Right Arm] Blood Pressure Position [Right Arm] 02 Sat by Pulse Oximetry 98 Oxygen Delivery Method Lab Data Labs: Lab Results 04/13/25 21:08: WBC 8.3, RBC 4.77, Hgb 12.8, Hct 40.1, MCV 84.1, MCH 26.8 L, MCHC 31.9, RDW 14.1, Plt Count 236, MPV 10.2, Neut % (Auto) 65.5, Lymph % (Auto) 25.0, [place] % (Auto) 7.2, Eos % (Auto) 1.8, Baso % (Auto) 0.4, Neut # (Auto) 5.4, Lymph # (Auto) 2.1, [place] # (Auto) 0.6, Eos # (Auto) 0.2, Baso # (Auto) 0.0, PT 10.3, INR 0.92, D-Dimer 0.81 H, Sodium 135 L, Potassium 3.8, Chloride 106, Carbon Dioxide 22, Anion Gap 10.8, BUN 22 H, Creatinine 0.70, Estimated Creat Clear 90, Estimated GFR 90, Est GFR ( Amer) 109, Glucose 89, Calcium 9.3, Total Bilirubin 0.4, AST 35, ALT 12, Alkaline Phosphatase 94, Troponin I < 0.01, NT-Pro-B Natriuret Pep 175 H, Total Protein 7.3, Albumin 4.1, Globulin 3.2, Albumin/Globulin Ratio 1.3, Lipase 47 04/14/25 00:49: Troponin I < 0.01 Response Orders (Tests/Meds): ED MEDICATIONS Generic Name Dose Route Start Last Admin Trade Name Freq PRN Reason Stop Dose Admin Sodium Chloride 10 ml 04/13/25 22:31 04/13/25 22:32 Sodium Chloride 0.9% 10ml Syr (Rad Only) IV 05/13/25 22:30 10 ml NEEDED PRN Administration Maintain IV Site Discontinued Medications Generic Name Dose Route Start Last Admin Trade Name Freq PRN Reason Stop Dose Admin Aspirin 324 mg 04/13/25 21:54 04/13/25 21:57 Aspirin 81mg Chewable Tablet PO 04/13/25 21:55 324 mg ONCE ONE Administration Belladonna Alkaloids 60 ml 04/13/25 23:33 04/13/25 23:35 Belladonna Alkaloids 60 Ml Ml PO 04/13/25 23:34 60 ml ONCE ONE Administration Lactated Ringer's 1,000 mls @ 999 mls/hr 04/13/25 21:52 04/13/25 21:54 Lactated Ringer's 1000 Ml Bag IV 04/13/25 22:52 999 mls/hr .Q1H1M ONE Administration Iopamidol 70 ml 04/13/25 22:31 04/13/25 22:32 Iopamidol-370 (76%);100ml Bottle IV 04/13/25 22:32 70 ml ONCE ONE Administration Morphine Sulfate 4 mg 04/13/25 21:24 04/13/25 21:32 Morphine 4mg/Ml Syringe IV 04/13/25 21:25 4 mg ONCE ONE Administration Nitroglycerin 0.4 mg 04/13/25 21:50 04/13/25 21:54 Nitroglycerin 0.4mg Sl Tablet SL 04/13/25 21:51 0.4 mg ONCE ONE Administration Ondansetron HCl 4 mg 04/13/25 21:25 04/13/25 21:32 Ondansetron 4mg/2ml Vial IV 04/13/25 21:26 4 mg ONCE ONE Administration Promethazine HCl 12.5 mg 04/13/25 22:55 04/13/25 22:59 Promethazine Hcl 25mg/Ml 1ml Vial IV 04/13/25 22:56 12.5 mg ONCE ONE Administration Sodium Chloride 40 ml 04/13/25 22:31 04/13/25 22:32 0.9 % Sodium Chloride 50 Ml Vial IV 04/13/25 22:32 40 ml ONCE ONE Administration Sodium Chloride 25 ml 04/13/25 22:55 04/13/25 22:58 Sodium Chloride 0.9% 25ml Bag IV 04/13/25 22:56 25 ml ONCE ONE Administration ORDERS Category Date Time Status CTA Chest [CT angio chest PE protocol] Stat Cat Scan 04/13/25 22:11 Completed XR chest portable Stat Exams 04/13/25 21:22 Completed Complete Blood Count Auto Diff Stat Lab 04/13/25 21:08 Completed Comprehensive Metabolic Panel Stat Lab 04/13/25 21:08 Completed D-Dimer Stat Lab 04/13/25 21:08 Completed Lipase Stat Lab 04/13/25 21:08 Completed NT Pro Brain Natriuretic Pep. Stat Lab 04/13/25 21:08 Completed PT/INR [Prothrombin Time INR] Stat Lab 04/13/25 21:08 Completed Troponin I Q3H Lab 04/14/25 00:49 Completed Troponin I Q3H Lab 04/14/25 03:30 Ordered Troponin I Stat Lab 04/13/25 21:08 Completed ECG Data Tracing #1: Attestation: I reviewed this ECG and interpreted as documented below: ECG Narrative: Sinus rhythm with a ventricular to 69 bpm. Some motion artifact noted. No acute ST changes concerning for STEMI. ECG initial impression date: 04/13/25 ECG initial impression time: 20:42 MDM Narrative Medical Decision Narrative: 44-year-old female points emerged part with chest pain/chest tightness lightheadedness and presyncopal episode, differential diagnose include but not limited to, heat exhaustion, hypovolemia, ACS, cardiac arrhythmia, electrolyte disturbance, costochondritis, anxiety type reaction, gastritis, GERD, PE, pneumonia among others. Will obtain basic laboratory studies, CXR, D-dimer, lipase level, proBNP, coags, troponin, EKG, give 4 mg IV Zofran for nausea and 4 mg IV morphine, 324 mg p.o. aspirin, as well as 0.4 mg sublingual nitroglycerin, will give 1 L LR IV. CBC unremarkable CMP is notable for elevated BNP at 22, troponin initial is within normal limits at less than 0.01, proBNP is mildly elevated at 175, lipase within normal limits. Coags normal limits D-dimer is elevated at 0.81, thus will obtain CTA chest with without contrast due to the patient's chest pain, and recent surgical history. I discussed this case with attending physician Dr. Alex at shift change she will be assuming remainder the patient's care/workup. Isai DO: I was consulted by the CAROLYN, and we discussed the complexity of the problems being addressed. I approved the treatment and management plan for this patient's care in the emergency department, thus performing a substantive portion of the medical decision making. CBC is reassuring with no significant leukocytosis or anemia, chemistry is reassuring with negative initial troponin. D-dimer is mildly elevated, so CTA PE protocol was ordered. This was independently interpreted by myself prior to radiology read and noted no PE. Please radiology for final interpretation. Patient care was signed out to the oncoming provider, Dr. Simpson, pending second troponin Felicia Alex DO <Jose M Simpson MD - Last Filed: 04/14/25 02:01> Vital Signs Vital Signs: 04/13/25 20:42 04/13/25 21:50 04/13/25 22:01 Temperature 98.2 F Temperature Source Oral Pulse Rate 72 82 Pulse Rate [Left] 75 Respiratory Rate 18 42 H 18 Blood Pressure 108/67 L 119/50 L Blood Pressure [Right Arm] 105/66 L Blood Pressure Mean Blood Pressure Mean [Right Arm] 79 Blood Pressure Source [Right Arm] Automatic Cuff Blood Pressure Position [Right Arm] Sitting 02 Sat by Pulse Oximetry 99 99 99 Oxygen Delivery Method Room Air 04/13/25 22:44 04/13/25 23:01 04/13/25 23:30 Temperature Temperature Source Pulse Rate 68 74 70 Pulse Rate [Left] Respiratory Rate 19 10 L Blood Pressure 105/65 L 123/102 H 112/54 L Blood Pressure [Right Arm] Blood Pressure Mean Blood Pressure Mean [Right Arm] Blood Pressure Source [Right Arm] Blood Pressure Position [Right Arm] 02 Sat by Pulse Oximetry 100 99 99 Oxygen Delivery Method 04/14/25 00:01 04/14/25 00:30 04/14/25 01:01 Temperature Temperature Source Pulse Rate 69 71 68 Pulse Rate [Left] Respiratory Rate 13 19 14 Blood Pressure 97/76 L 106/66 L 104/66 L Blood Pressure [Right Arm] Blood Pressure Mean 71 Blood Pressure Mean [Right Arm] Blood Pressure Source [Right Arm] Blood Pressure Position [Right Arm] 02 Sat by Pulse Oximetry 98 98 Oxygen Delivery Method 04/14/25 01:31 04/14/25 01:45 Temperature 97.8 F Temperature Source Pulse Rate 66 70 Pulse Rate [Left] Respiratory Rate 17 15 Blood Pressure 87/48 L 110/60 Blood Pressure [Right Arm] Blood Pressure Mean 61 Blood Pressure Mean [Right Arm] Blood Pressure Source [Right Arm] Blood Pressure Position [Right Arm] 02 Sat by Pulse Oximetry 98 Oxygen Delivery Method Lab Data Labs: Lab Results 04/13/25 21:08: WBC 8.3, RBC 4.77, Hgb 12.8, Hct 40.1, MCV 84.1, MCH 26.8 L, MCHC 31.9, RDW 14.1, Plt Count 236, MPV 10.2, Neut % (Auto) 65.5, Lymph % (Auto) 25.0, [place] % (Auto) 7.2, Eos % (Auto) 1.8, Baso % (Auto) 0.4, Neut # (Auto) 5.4, Lymph # (Auto) 2.1, [place] # (Auto) 0.6, Eos # (Auto) 0.2, Baso # (Auto) 0.0, PT 10.3, INR 0.92, D-Dimer 0.81 H, Sodium 135 L, Potassium 3.8, Chloride 106, Carbon Dioxide 22, Anion Gap 10.8, BUN 22 H, Creatinine 0.70, Estimated Creat Clear 90, Estimated GFR 90, Est GFR ( Amer) 109, Glucose 89, Calcium 9.3, Total Bilirubin 0.4, AST 35, ALT 12, Alkaline Phosphatase 94, Troponin I < 0.01, NT-Pro-B Natriuret Pep 175 H, Total Protein 7.3, Albumin 4.1, Globulin 3.2, Albumin/Globulin Ratio 1.3, Lipase 47 04/14/25 00:49: Troponin I < 0.01 Response Orders (Tests/Meds): ED MEDICATIONS Generic Name Dose Route Start Last Admin Trade Name Freq PRN Reason Stop Dose Admin Sodium Chloride 10 ml 04/13/25 22:31 04/13/25 22:32 Sodium Chloride 0.9% 10ml Syr (Rad Only) IV 05/13/25 22:30 10 ml NEEDED PRN Administration Maintain IV Site Discontinued Medications Generic Name Dose Route Start Last Admin Trade Name Freq PRN Reason Stop Dose Admin Aspirin 324 mg 04/13/25 21:54 04/13/25 21:57 Aspirin 81mg Chewable Tablet PO 04/13/25 21:55 324 mg ONCE ONE Administration Belladonna Alkaloids 60 ml 04/13/25 23:33 04/13/25 23:35 Belladonna Alkaloids 60 Ml Ml PO 04/13/25 23:34 60 ml ONCE ONE Administration Lactated Ringer's 1,000 mls @ 999 mls/hr 04/13/25 21:52 04/13/25 21:54 Lactated Ringer's 1000 Ml Bag IV 04/13/25 22:52 999 mls/hr .Q1H1M ONE Administration Iopamidol 70 ml 04/13/25 22:31 04/13/25 22:32 Iopamidol-370 (76%);100ml Bottle IV 04/13/25 22:32 70 ml ONCE ONE Administration Morphine Sulfate 4 mg 04/13/25 21:24 04/13/25 21:32 Morphine 4mg/Ml Syringe IV 04/13/25 21:25 4 mg ONCE ONE Administration Nitroglycerin 0.4 mg 04/13/25 21:50 04/13/25 21:54 Nitroglycerin 0.4mg Sl Tablet SL 04/13/25 21:51 0.4 mg ONCE ONE Administration Ondansetron HCl 4 mg 04/13/25 21:25 04/13/25 21:32 Ondansetron 4mg/2ml Vial IV 04/13/25 21:26 4 mg ONCE ONE Administration Promethazine HCl 12.5 mg 04/13/25 22:55 04/13/25 22:59 Promethazine Hcl 25mg/Ml 1ml Vial IV 04/13/25 22:56 12.5 mg ONCE ONE Administration Sodium Chloride 40 ml 04/13/25 22:31 04/13/25 22:32 0.9 % Sodium Chloride 50 Ml Vial IV 04/13/25 22:32 40 ml ONCE ONE Administration Sodium Chloride 25 ml 04/13/25 22:55 04/13/25 22:58 Sodium Chloride 0.9% 25ml Bag IV 04/13/25 22:56 25 ml ONCE ONE Administration ORDERS Category Date Time Status CTA Chest [CT angio chest PE protocol] Stat Cat Scan 04/13/25 22:11 Completed XR chest portable Stat Exams 04/13/25 21:22 Completed Complete Blood Count Auto Diff Stat Lab 04/13/25 21:08 Completed Comprehensive Metabolic Panel Stat Lab 04/13/25 21:08 Completed D-Dimer Stat Lab 04/13/25 21:08 Completed Lipase Stat Lab 04/13/25 21:08 Completed NT Pro Brain Natriuretic Pep. Stat Lab 04/13/25 21:08 Completed PT/INR [Prothrombin Time INR] Stat Lab 04/13/25 21:08 Completed Troponin I Q3H Lab 04/14/25 00:49 Completed Troponin I Q3H Lab 04/14/25 03:30 Ordered Troponin I Stat Lab 07/26/25 21:08 Completed MDM Narrative Medical Decision Narrative: 44-year-old female points emerged part with chest pain/chest tightness lightheadedness and presyncopal episode, differential diagnose include but not limited to, heat exhaustion, hypovolemia, ACS, cardiac arrhythmia, electrolyte disturbance, costochondritis, anxiety type reaction, gastritis, GERD, PE, pneumonia among others. Will obtain basic laboratory studies, CXR, D-dimer, lipase level, proBNP, coags, troponin, EKG, give 4 mg IV Zofran for nausea and 4 mg IV morphine, 324 mg p.o. aspirin, as well as 0.4 mg sublingual nitroglycerin, will give 1 L LR IV. CBC unremarkable CMP is notable for elevated BNP at 22, troponin initial is within normal limits at less than 0.01, proBNP is mildly elevated at 175, lipase within normal limits. Coags normal limits D-dimer is elevated at 0.81, thus will obtain CTA chest with without contrast due to the patient's chest pain, and recent surgical history. I discussed this case with attending physician Dr. Alex at shift change she will be assuming remainder the patient's care/workup. DO Isai: I was consulted by the CAROLYN, and we discussed the complexity of the problems being addressed. I approved the treatment and management plan for this patient's care in the emergency department, thus performing a substantive portion of the medical decision making. CBC is reassuring with no significant leukocytosis or anemia, chemistry is reassuring with negative initial troponin. D-dimer is mildly elevated, so CTA PE protocol was ordered. This was independently interpreted by myself prior to radiology read and noted no PE. Please radiology for final interpretation. Patient care was signed out to the oncoming provider, Dr. Simpson, pending second troponin Felicia DO Tatiana Alex MD: I assumed care of the patient at the time of handoff from the prior provider. On reassessment patient reports some symptomatic improvement. Her repeat troponin returns undetectably low. Given totally negative workup, there is low concern for acute cardiac pathology at this time. Recommended she follow-up with her PCP and with cardiology for further assessment. Return precautions given.
[2025-04-13 21:26] LABS: Hematocrit 40.1 % (37.0-47.0); Hemoglobin 12.8 g/dL (12.2-16.2); Immature Granulocytes % 0.1 %; Mean Corpuscular HGB Conc 31.9 g/dL (31.8-35.4); Mean Corpuscular Hemoglobin 26.8 pg (27.0-31.2); Mean Corpuscular Volume 84.1 fl (81-99); Nucleated Red Blood Cells % 0 %; Platelet Count 236 K/mm3 (142-424); Red Blood Count 4.77 M/mm3 (4.20-5.40); Red Cell Distribution Width-SD 42.8 fL; White Blood Count 8.3 K/mm3 (4.8-10.8)
[2025-04-13 21:29] LABS: Albumin Level 4.1 g/dl (3.5-5.0); Chloride 106 mmol/L (98-107); Potassium 3.8 mmoL/L (3.5-5.1); Sodium 135 mmol/L (136-145)
[2025-04-13 21:31] LABS: Blood Urea Nitrogen 22 mg/dl (7-17); Creatinine Clearance Estimated 90 mL/min (50-200); Creatinine,Serum 0.70 mg/dl (0.52-1.04); Estimated Glomerular Filt Rate 90 ml/min (>60); GFR (African American) 109 ML/MIN (>60)
[2025-04-13 21:32] LABS: Alanine Aminotransferase 12 U/L (12-78); Albumin/Globulin Ratio 1.3 (1.1-1.8); Alkaline Phosphatase 94 U/L (38-126); Anion Gap 10.8 mEq/L (5-15); Aspartate Amino Transferase 35 U/L (14-36); Bilirubin,Total 0.4 mg/dl (0.2-1.3); Calcium 9.3 mg/dl (8.4-10.2); Carbon Dioxide 22 mmol/L (22.0-30.0); Globulin 3.2 g/dL (1.3-3.2); Glucose 89 mg/dl (74-100); Lipase 47 U/L (23-300); Total Protein,Serum 7.3 g/dl (6.3-8.2)
[2025-04-13] MEDS: MORPHINE 4MG/ML SYRINGE 4 MG IV (21:32)
[2025-04-13] MEDS: ONDANSETRON 4MG/2ML VIAL 4 MG IV (21:32)
[2025-04-13 21:42] LABS: NT Pro Brain Natriuretic Pep. 175 pg/mL (0-125)
[2025-04-13 21:50] VITALS: BP 108/67; PULSE 72; RESP 42; O2SAT 99
[2025-04-13 21:50] LABS: Troponin I < 0.01 ng/ml (0.00-0.034)
[2025-04-13] MEDS: NITROGLYCERIN 0.4MG SL TABLET 0.4 MG SL (21:54)
[2025-04-13] MEDS: LACTATED RINGERS 1000ML 1,000 ML 999 ML IV (21:54)
[2025-04-13 21:56] LABS: INR 0.92 (0.9-1.1); Prothrombin Time 10.3 seconds (10.1-12.5)
[2025-04-13] MEDS: ASPIRIN 81MG CHEWABLE TABLET 324 MG PO (21:57)
[2025-04-13 22:01] VITALS: BP 119/50; PULSE 82; RESP 18; O2SAT 99
[2025-04-13 22:08] LABS: D-Dimer 0.81 ug/mL (0.0-0.5)
--- NOTE | 2025-04-13 22:11 | CT_ITS ---
PROCEDURE INFORMATION: Exam: CTA Chest With Contrast Exam date and time: 04/13/2025 10:32 PM Age: 44 years old Clinical indication: Pain and abnormal findings; Abnormal diagnostic tests; Elevated d-dimer; Sternal or substernal pain; Additional info: Chest pain, elevated dimer TECHNIQUE: Imaging protocol: Computed tomographic angiography of the chest with contrast. Exam focused on the arteries. 3D rendering (Not supervised by radiologist): MIP and/or 3D reconstructed images were created by the technologist. Radiation optimization: All CT scans at this facility use at least one of these dose optimization techniques: automated exposure control; mA and/or kV adjustment per patient size (includes targeted exams where dose is matched to clinical indication); or iterative reconstruction. Contrast material: ISOUVE 370; Contrast volume: 70 ml; Contrast route: INTRAVENOUS (IV); COMPARISON: CT - [facility] CT angio chest 10/08/2018 8:27 AM FINDINGS: Pulmonary arteries: Normal. No pulmonary emboli. Aorta: Unremarkable. No aortic aneurysm. No aortic dissection. Lungs: There is a calcified granuloma within the left lung. No consolidation. No mass. Pleural spaces: Unremarkable. No pneumothorax. No pleural effusion. Heart: Unremarkable. No cardiomegaly. No pericardial effusion. Lymph nodes: There are calcified left hilar mediastinal lymph nodes. Diaphragm: A small hiatal hernia is present. Gallbladder and biliary ducts: The gallbladder is absent. Bones/joints: There are rpgr-[id number] degenerative changes of the thoracic spine. No acute fracture. Soft tissues: Unremarkable. Other findings: Respiratory motion artifact degrades the images. IMPRESSION: 1. No acute findings. No pulmonary embolus. 2. Nonurgent findings as noted.
[2025-04-13] MEDS: IOPAMIDOL-370 (76%);100ML BOTTLE 70 ML IV (22:32)
[2025-04-13] MEDS: SODIUM CHLORIDE 0.9% 10ML SYR (RAD ONLY) 10 ML IV (22:32)
[2025-04-13] MEDS: 0.9 % SODIUM CHLORIDE 50 ML VIAL 40 ML IV (22:32)
[2025-04-13 22:44] VITALS: BP 105/65; PULSE 68; RESP 19; O2SAT 100
[2025-04-13] MEDS: SODIUM CHLORIDE 0.9% 25ML BAG 25 ML IV (22:58)
[2025-04-13] MEDS: PROMETHAZINE HCL 25MG/ML 1ML VIAL 12.5 MG IV (22:59)
[2025-04-13 23:01] VITALS: BP 123/102; PULSE 74; RESP 10; O2SAT 99
[2025-04-13 23:30] VITALS: BP 112/54; PULSE 70; O2SAT 99
[2025-04-13] MEDS: BELLADONNA ALKALOIDS 60 ML ML PO (23:35)
--- NOTE | 2025-04-13 23:39 | PC.NURSE ---
pt assisted to tiana at this time, urine sample collected
[2025-04-14 00:01] VITALS: BP 97/76; PULSE 69; RESP 13; O2SAT 98
[2025-04-14 00:30] VITALS: BP 106/66; PULSE 71; RESP 19; O2SAT 98
[2025-04-14 01:01] VITALS: BP 104/66; PULSE 68; RESP 14
[2025-04-14 01:31] VITALS: BP 87/48; PULSE 66; RESP 17
[2025-04-14 01:34] LABS: Troponin I < 0.01 ng/ml (0.00-0.034)
[2025-04-14 01:45] VITALS: BP 110/60; PULSE 70; RESP 15; TEMP 36.6; O2SAT 98
[2025-04-14 02:08] VITALS: BP 110/60; PULSE 70; RESP 15; TEMP 36.6; O2SAT 98
== END 2025-04-14 02:09 | disposition home or self-care (01) ==
PROVIDERS: Physician Assistant; Emergency Provider Emergency Medicine
DX: R07.9 Chest pain, unspecified (principal); F17.210 Nicotine dependence, cigarettes, uncomplicated
CPT/HCPCS: 71045; 71275; 80053; 83690; 83880; 84484; 85025; 85378; 85610; 93005; 96361; 96374; 96375; 99285; J2270; J2405; J2550; J7120; Q9967

== ENCOUNTER 2025-04-21 20:48 | Emergency (ER) | payer OTHER, SELFPAY ==
[2025-04-21] VITALS (11 sets, daily range): BP systolic 99–135; BP diastolic 64–90; PULSE 63–104; RESP 11–23; TEMP 36.8; O2SAT 95–100; BMI 43.6
--- NOTE | 2025-04-21 20:51 | ECG_ITS ---
APPROVED REPORT Exam: Resting ECG HR:99 bpm ECG Measurements Heart Rate 99 AXES NH 137 P 43 QRSd 85 QRS 33 QT 326 T 32 QTc 383 Conclusion SINUS RHYTHM NORMAL ECG UNCONFIRMED REPORT Electronically signed by : CEDRIC MARTIN, 04/23/2025 04:18:59
--- OUTSIDE RECORDS SUMMARY | 2025-04-21 20:52 | XMS_ITS | Clinical Summary ---
Author Organization [facility] Address [address] [place] [address] Care Team Providers Care Derrick Boat Runner Name Role Phone Physician, No Primary Care Primary Care Provider Unavailable Miky Bateman MD Unavailable [phone] Allergies No known active allergies Medications DULoxetine (CYMBALTA) 30 MG capsule Take 30 mg by mouth daily. Active propranoloL (INDERAL) 10 MG tablet Take 10 mg by mouth daily. 12/15/2023 Active prazosin (MINIPRESS) 5 MG capsule Take 5 mg by mouth nightly. 08/18/2023 Active paroxetine (PAXIL) 40 MG tablet Take 40 mg by mouth every morning. 08/18/2023 Active VIVITROL 380 mg SSRR Inject into the muscle. 12/07/2023 Active methocarbamoL (ROBAXIN) 750 MG tablet Take 750 mg by mouth 3 (three) times daily. 12/29/2023 Active levETIRAcetam (KEPPRA) 500 MG tablet Take 500 mg by mouth daily. 12/29/2023 Active hydrOXYzine (VISTARIL) 50 MG capsule Take 50 mg by mouth 3 (three) times daily. 12/15/2023 Active hydroCHLOROthiaz paulina (HYDRODIURIL) 12.5 MG tablet Take 12.5 mg by mouth 2 (two) times daily. 12/27/2023 Active ondansetron (ZOFRAN) 4 MG tablet Take 1 tablet (4 mg total) by mouth every 8 (eight) hours as needed for Nausea. 20 tablet 09/05/2024 Active scopolamine (TRANSDERM-SCOP) 1 mg over [address] 1 patch (1.5 mg total) onto the skin every third day. 10 patch 11 09/05/2024 Active Active Problems Problem Noted Date Diagnosed Date Nausea and vomiting 02/07/2024 Gastric volvulus 02/07/2024 Gastric outlet obstruction 02/07/2024 Gastroesophageal reflux dise ase, unspecified whether esophagitis present 01/02/2024 Hiatal hernia 01/02/2024 Family History Medical History Relation Comments Breast cancer Mother Diabetes Mother Heart disease Mother Relation Status Comments Father Alive Mother Social History Tobacco Use Types Packs/Day Years Used Date Smoking Tobacco: Former Cigarettes 1.5 19.6 2 006 - 1990 Passive Smoke Exposure: Past Smokeless Tobacco: Never Tobacco Cessation:Counseling Given: Not Answered Alcohol Use Standard Drinks/Week Comments Not Currently 0 (1 standard drink = 0.6 oz pur e alcohol) [facility] Utilities Answer Date Recorded In the past 12 months has e electric, gas, oil or water company threatened to shut off services in your home? Unrecognized value 02/08/2024 AUDIT-C Answer Date Recorded Q1: How often do you have a drink containing alcohol? Never 02/07/2024 Q2: How many drinks containi ng alcohol do you have on a typical day when you are drinking? Patient does not drink Q3: How often do you have si x or more drinks on one occasion? Never 02/07/2024 Overall Financial Resource Strain (CARDIA) Answe r Date Recorded How hard is it for you to pa y for the very basics like food, housing, medical care, and heating? Not very hard 02/08/2024 [facility] - Occupational Stress Questionnaire Answer Date Recorded Do you feel stress - tense, restless, nervous, or anxious, or unable to sleep at night because your mind is troubled all the time - these days? To some extent 02/08/2024 Exercise Vital Sign Answer Date Recorde d On average, how many days pe r week do you engage in moderate to strenuous exercise (like a brisk walk)? 0 days 02/08/2024 On average, how many minutes do you engage in exercise at this level? 0 min 02/08/2024 Hunger Vital Sign Answer Date Recorded Within the past 12 months, y ou worried that your food would run out before you got the money to buy more. Never true 02/08/20 24 Within the past 12 months, t he food you bought just didn't last and you didn't have money to get more. Never true 02/08/2024 PRAPARE - Transportation Answer Date Re corded In the past 12 months, has l ack of transportation kept you from medical appointments or from getting medications? No 01/18 In the past 12 months, has l ack of transportation kept you from meetings, work, or from getting things needed for daily living? No 02/08/2024 Utilities Answer Date Recorded In the past 12 months has th e electric, gas, oil or water company threatened to shut off services in your home? no 02/08/2024 [place] Housing Stability Vital Sign Answer Date Recorded What is your living situation today? steady plac e to live 02/08/[address] you li ve. Do you have problems with any of the following? N/A 02/08/2024 Safety and Environment Answer Date Uday rded How often does anyone, raymond oshea family and friends, physically hurt you? never 02/08/2024 How often does anyone, raymond oshea family and friends, insult or talk down to you? never 02/08/2024 How often does anyone, raymond oshea family and friends, threaten you with harm? never 02/08/2024 How often does anyone, raymond oshea family and friends, scream or curse at you? 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 Gender Identity Not on file Sexual Orientation Not on file Last Filed Vital Signs Vital Sign Reading Time Taken Comments Blood Pressure 117/69 05/25/2024 1:54 PM CDT Pulse 89 05/25/2024 1:54 PM CDT Temperature 36.8 C (98.2 F) 05/25/2024 12:10 PM CDT Respiratory Rate 18 05/25/2024 1:00 PM CDT Oxygen Saturation 96% 05/25/2024 1:54 PM CDT Inhaled Oxygen Concentration - - Weight 121 kg (267 lb) 05/25/2024 11:39 AM CDT Height 165.1 cm (5' 5 ) 05/25/2024 11:39 AM CDT Body Mass Index 44.43 05/25/2024 11:39 AM CDT Plan of Treatment Health Maintenance Due Date Last Done Comments IMM Schedule: Hepatitis B (2 of 3 - 19+ 3-dose series) 01/19/2019 12/22/2018 IMM Schedule: Varicella (2 of 2 - 13+ 2-dose series) 01/19/2019 12/22/2018 BREAST CANCER SCREENING EVERY 2 YEARS 2019 Colon Cancer Screening Colonoscopy 2023 Colon Cancer Screening FIT-DNA (Cologuard) (3 year) 2023 Colon Cancer Screening FOBT/FIT (1 year) 2023 Colon Cancer Screening 2023 Sigmoidoscopy (5 year) Colon Cancer Screening 2023 COVID-19 Vaccine ( season) 2024 06/28/2023, 06/17/2021, 05/07/2021 IMM Schedule: Influenza (#1) 05/20/202512/2019, 12/22/2018, 08/02/2014 IMM Schedule: Zoster (1 of 2) 2028 IMM Schedule: Diphtheria, Tetanus, and Pertussis (8 - Td or Tdap) 06/28/2031 06/28/2021, 12/22/2018, 05/08/2002, Additional history exists IMM Schedule: Pneumococcal (0-49 yrs) Aged Out 10/08/2018 No longer eligible based on patient's age to complete this topic IMM Schedule: Hepatitis A Completed 2019, 12/22/2018, 01/20/2018 IMM Schedule: Meningococcal ACWY (Menhibrix/Menomune) Aged Out No longer elig ible based on patient's age to complete this topic IMM Schedule: Meningococcal B Aged Out No longer eligible based on patient's age to complete this topic IMM Schedule: RSV <20 Months Aged Out No longer eligible based on patient's age to complete this topic Insurance AETNA [facility] Advance Directives For more information, please contact: [phone] * Full Code (Latest Code Status on File) Date Activated Date Inactivated Comments 02/07/2024 5:18 PM 02/14/2024 2:07 PM Care Teams Derrick Boat Runner Relationship Specialty Start Date End Date Physician, No Primary Care PCP - General Internal Medicine 11/26/23 Miky Bateman MD General Surgery 01/05/24 Additional Source Comments IMPORTANT NOTICES REGARDING PATIENT RECORDS DISCLOSED THROUGH CARE EVERYWHERE:1. If the informationreleased to you contains information about AIDs or HIVtest results, that information has been disclosed to you from records whoseconfidentiality is protected by state law ([place]RS 214.625). State law proh ibitsyou from making any further disclosure of such information relating to AIDS orHIV without the specific written consent of the person to whom such informationpertains, or as otherwise permitted by state law. A general authorization forthe release of medical or other information is NOT sufficient for this purpose.2. If the information released to you contains information about alcohol ordrug abuse diagnosis, treatment for such abuse, or referrals for treatment, andif the release was made by a program as defined in 42 CFR 2.11, thisinformation has been disclosed to you from records protected by Federalconfidentiality rules ( TheFederal rules restrict any use of the information to criminally investigate orprosecute any alcohol or drug abuse patient.3. If the information released to you contains information about a person'smental health or chemical dependency, you may not redisclose or otherwisereveal information concerning the mental health or chemical dependency of thatperson, beyond the purpose for which the disclosure was made, without firstobtaining that person's specific written consent to the redisclosure. [id number].[facility]
--- OUTSIDE RECORDS SUMMARY | 2025-04-21 20:53 | XMS_ITS | Encounter Summary ---
Author Organization Healthcare Address [address] [place] [address] Care Team Providers Care Funeral Home Manager Name Role Phone Buster Stewart MD Primary Care Provider [phone] Encounter Details Date Type Department Care Team ([facility] st Contact Info) Description 05/01/2023 Orders Only External Location [address] [place] [address] Provider, External Social History Tobacco Use Types [...] on filedocumented in this encounter Care Teams Funeral Home Manager Relationship Specialty Start Date End Date Buster Stewart MD [address] [facility] [place] [address] PCP - General 01/30/21 documented as of this encounter
--- OUTSIDE RECORDS SUMMARY | 2025-04-21 20:53 | XMS_ITS | Patient Health Record ---
Author Organization [facility] Address [address] [facility] [place] [address] Care Team Providers Care Informatics Application Analyst Name Role Phone Shea Cobb Primary Care Provider Noah Harrishanie Unavailable [phone] Allergies No Known Allergies Reason For Referral [...] W/U Status Risk Notes Problem Alcohol dependence (89220073) Uncomplicated alcohol dependence (F10.20) Active confirmed Problem Opioid dependence (35152162) Uncomplicated opioid dependence (F11.20) Active confirmed Encounters Encounter Location Date Provider Diagnosis [facility] [address] [place] [phone] 04/25/2024 Mayra Steven Uncomplicated opioid dependence F11.20 [facility] [address] [place] [phone] 05/23/2024 Shea Reza Uncomplicated opioid dependence F11.20 Assessments Encounter Date Diagnosis (ICD Code) Assessment Notes Treatment Notes Treatment Clinical Notes Section Notes 04/25/2024 Uncomplicated opioid dependence (ICD-10 - F11.20) [...] with counseling/treatme nt for addiction and recovery. 05/23/2024 Uncomplicated opioid dependence (ICD-10 - F11.20) [...] with counseling/treatme nt for addiction and recovery. Plan Of Treatment No Information Insurance Providers Payer Name Payer Address Payer Phone Subscriber Number Group Number Insured Name Patient Relationship to Insured Coverage Start Date Coverage End Date [employer] [facility] [address] [place], [place] [id number] [phone] [id number] Mayra Miranda Self - patient is the insured 2 Medical (General) History Medical History History ICD Code hepatitis C seizures myocardial infarction hypertension GERD depression BLE edema Gastrointestinal CA Suicidal ideations Surgical History Surgery Date(Month/Year) section 1995, 2006 hysterectomy 2007 tonsillectomy 2010 cholecystectomy 1998 Hospitalization History Reason Date(Month/Year) childbirth
--- OUTSIDE RECORDS SUMMARY | 2025-04-21 20:53 | XMS_ITS | Encounter Summary ---
Author Organization [facility] ([place], [place], [place], [place]) Address [address] [place] [address] Care Team Providers Care Educational Consultant Name Role Phone Porter Rose APRN Primary Care Provider [phone] Encounter Details Date Type Department Care Team (Late st Contact Info) Description 10/10/2024 Surgery Prep [facility] Surgery Department [address] [place] [address] Mt Vargas MD [address] [facility] 2nd [place] [address] Social History Tobacco Use Types Packs/Day Years [...] on filedocumented in this encounter Care Teams Educational Consultant Relationship Specialty Start Date End Date Porter Rose APRN [address] [place] [id number] PCP - General Nurse Practitioner 10/02/24 documented as of this encounter
--- OUTSIDE RECORDS SUMMARY | 2025-04-21 20:53 | XMS_ITS | Referral Summary ---
Author Organization [facility] ([place], [place], [place], [place]) Address [address] [place] [address] Care Team Providers Care College Recruiter Name Role Phone Porter Rose APRN Primary Care Provider [phone] Encounters Date Type Department Care Team Description 01/23/2025 Surgery Prep [facility] Surgery Department [address] [place] [address] Mt Vargas MD 01/23/2025 Travel 01/23/2025 8:00 AM EDT - 01/23/2025 10:18 AM EDT Surgery [facility] Surgery Department [address] [place] [phone] Mt Vargas MD RIGHT TOTAL KNEE ARTHROPLASTY 01/23/2025 8:10 AM EDT Anesthesia Event [facility] Surgery Department [address] [place] [phone] Mathieu Tinoco CRNA Booker, Philip Craig, MD 01/23/2025 5:56 AM EDT - 01/23/2025 1:49 PM EDT Hospital Encounter [facility] Surgery Department [address] [place] [phone] Mt Vargas MD Discharge Disposition: Home or [...] on file Medical Devices Implanted Type Area Body Cleaner Device Identifier Shelf Expiration Date Model / Serial / Lot Cement Bone Smplx Tobra 40gm 6197-9-001 - [id number] Implanted:Qty : 2 on 10/17/2024 by Mt Vargas MD at [facility] IMPLANTS Left: Knee [employer]ARTITA:[employer] 01/16/2026 1 / / [id number] Cement Bone Smplx Tobra [facility] 6197-9-001 - [id number] Implanted:Qty : 1 on 01/23/2025 by Mt Vargas MD at [facility] IMPLANTS Right: Knee [employer]ITA:[employer] 01/16/2026 1 / / [id number] Cement Bone Smplx Tobra [facility] 6197-9-001 - [id number] Implanted:Qty : 1 on 01/23/2025 by Mt Vargas MD at [facility] IMPLANTS Right: Knee [employer]ITA:[employer] 03/18/2026 1 / / [id number] Pwdr Cellerate Clgn 1gm Strl Etd-17-Foxrqh - [id number] Implanted:Qty : 1 on 01/23/2025 at [facility] IMPLANTS Right: Knee [employer] 01/31/2027 [facility]-01-SA CRXP / / [id number] Imp Patella Itotal 35x7mm [id number] - [id number] Implanted:Qty : 1 on 10/17/2024 by Mt Vargas MD at [facility] TOTAL JOINT CONSTRUCT Left: Knee CONFORMIS 03/18/2025 [id number] / / [id number] Kt Itotal Id Ps Full Xe Itps-Xe-1pc - [id number] Implanted:Qty : 1 on 10/17/2024 by Mt Vargas MD at [facility] TOTAL JOINT CONSTRUCT Left: Knee CONFORMIS ITPS-XE-1 PC / / [id number] Ty Itotal Id Ps Tib Evaristo Lt [id number] - [id number] Implanted:Qty : 1 on 10/17/2024 by Mt Vargas MD at [facility] TOTAL [employer] Left: Knee CONFORMIS 10/19/2025 [id number] / / [id number] Imp Itotal Id Ps Fem Evaristo Lt [id number] - [id number] Implanted:Qty : 1 on 10/17/2024 by Mt Vargas MD at [facility] TOTAL JOINT CONSTRUCT Left: Knee CONFORMIS 10/19/2025 [id number] / / [id number] Kt Cr Full Itotal Id 2pc Itcr-Xe-2pc - [id number] Implanted:Qty : 1 on 01/23/2025 by Mt Vargas MD at [facility] TOTAL JO[employer] Right: Knee CONFORMIS 07/19/2026 ITCR-XE-2 PC / [id number] / Ty Cr Tib Itotal Id Right [id number] - [id number] Implanted:Qty : 1 on 01/23/2025 by Mt Vargas MD at [facility] TOTAL [employer] Right: Knee CONFORMIS 01/16/2026 [id number] / [id number] / Imp Cr Fem Itotal Id Evaristo Right [id number] - [id number] Implanted:Qty : 1 on 01/23/2025 by Mt Vargas MD at [facility] [employer] Right: Knee CONFORMIS 01/16/2026 [id number] 2 / [id number] / Imp Patella Itotal 35x7mm [id number] - [id number] Implanted:Qty : 1 on 01/23/2025 by Mt Vargas MD at [facility] [employer] Right: Knee CONFORMIS 07/19/2026 [id number] Procedures Procedure Name Priority Date/Time Associated Diagnosis Comments ANESTHESIA INTUBATION Routine 01/23/2025 8:19 AM EDT FL ARTHRP KNE CONDYLE&PLATU MEDIAL&LAT COMPARTMENTS 01/23/2025 8:18 [...] of other approaches attempted: 0 Mathieu Tinoco REGIONAL FACILITIES MANAGER ANESTHESIA ORDERABLES Fin al Result * HC [...] supine Prep: ChloraPrep Patient monitoring: heart rate, threat monitoring analyst and continuous pulse ox Block type: IPACK [...] supine Prep: ChloraPrep Patient monitoring: heart rate, threat monitoring analyst and continuous pulse ox Block type: adductor [...] Result from Last 3 [place] [address] AETNA [facility] Advance Directives For more information, please contact: [phone] * Full Code (Latest Code Status on File) Date Activated Date Inactivated Comments 01/23/2025 6:11 AM 01/23/2025 3:03 PM * Full Code Date Activated Date Inactivated Comments 10/17/2024 5:23 AM 10/19/2024 4:07 PM Care Teams College Recruiter Relationship Specialty Start Date End Date Porter Rose APRN [address] [place] [address] PCP - General Nurse Practitioner 10/02/24
--- OUTSIDE RECORDS SUMMARY | 2025-04-21 20:53 | XMS_ITS | Clinical Summary ---
Author Organization [facility] Address [address] [place] [address] Care Team Providers Care Project Engineering Director Name Role Phone Buster Stewart MD Primary Care Provider [phone] Allergies Active Allergy Reactions Criticality Noted Date [...] Date Last Done Comments [facility]-Depression Screening 1978 [facility]-/Child/Adol SDOH Screenings 1978 [facility]- SDOH Screenings 1996 [facility]-Adult SDOH Screenings 1996 [facility]-Pap Smear 1999 [facility]-Cervical Cancer Screening 2008 [facility]-HPV/Cotest 2008 [facility]-Hepatitis B Vaccines (2 of 3 - 19+ 3-dose series) 01/19/2019 12/22/2018 CT Colonography 2023 Colonoscopy 2023 FIT-DNA 2023 FIT 2023 FOBT 2023 Sigmoidoscopy 2023 [facility]-Colorectal Cancer Screening 2023 [id number] Vaccine ( season) 2024 06/28/2023, 06/17/2021, 05/07/2021 [...] Insurance [employer] Care Teams Project Engineering Director Relationship Specialty Start Date End Date Buster Stewart MD [address] [facility] [place] [address] PCP - General 01/30/21
--- OUTSIDE RECORDS SUMMARY | 2025-04-21 20:53 | XMS_ITS | Encounter Summary ---
Author Organization [employer] ([place]) Address [address] [place] [address] Care Team Providers Care Resident Services Manager Name Role Phone Porter Rose APRN Primary Care Provider [phone] Encounter Details Date Type Department Care Team (Late st Contact Info) Description 01/23/2025 Surgery Prep [facility] Surgery Department [address] [place] [address] Mt Vargas MD [address] [facility] 2nd [place] [address] Social History Tobacco Use Types Packs/Day Years [...] on filedocumented in this encounter Care Teams Resident Services Manager Relationship Specialty Start Date End Date Porter Rose APRN [address] [place] [address] PCP - General Nurse Practitioner 10/02/24 documented as of this encounter
--- OUTSIDE RECORDS SUMMARY | 2025-04-21 20:53 | XMS_ITS | Clinical Summary ---
Author Organization [employer] ([place], [place], [place], [place]) Address [address] [place] [address] Care Team Providers Care Caser In Name Role Phone Porter Rose APRN Primary Care Provider [phone] Allergies Active Allergy Reactions Criticality Noted Date [...] Description 01/23/2025 8:10 AM EDT Anesthesia Event [facility] [address] [place] [address] Mathieu Tinoco CRNA Booker, Philip Craig, MD 01/23/2025 8:00 AM EDT - 01/23/2025 10:18 AM EDT Surgery [facility] [address] [place] [address] Mt Vargas MD RIGHT TOTAL KNEE ARTHROPLASTY 01/23/2025 5:56 AM EDT - 01/23/2025 1:49 PM EDT Hospital Encounter [facility] [address] [place] [address] Mt Vargas MD Discharge Disposition: Home or Self Care 01/23/2025 Surgery Prep [facility] Surgery Department [address] [place] [address] Mt Vargas MD 01/23/2025 Travel from Last [...] this topic Medical Devices Implanted Type Area Production Specialist Device Identifier Shelf Expiration Date Model / Serial / Lot Cement Bone Smplx [facility] 6197-9-001 - [id number] Implanted:Qty : 2 on 10/17/2024 by Mt Vargas MD at [facility] IMPLANTS Left: Knee [employer] 01/16/2026 6197-9-00 1 / / [id number] Cement Bone Smplx [facility] 6197-9-001 - [id number] Implanted:Qty : 1 on 01/23/2025 by Mt Vargas MD at [facility] IMPLANTS Right: Knee [employer] 01/16/2026 61979-00 1 / / [id number] Cement Bone Smplx [facility] 6197-9-001 - [id number] Implanted:Qty : 1 on 01/23/2025 by Mt Vargas MD at [facility] IMPLANTS Right: Knee [employer] 03/18/2026 61979-00 1 / / [id number] Pwdr Cellerate Clgn 1gm Strl Anc-18-Hjtyyw - [id number] Implanted:Qty : 1 on 01/23/2025 at [facility] IMPLANTS Right: Knee [employer] 01/31/2027 [facility] CRXP / / [id number] Imp Patella Itotal 35x7mm [id number] - [id number] Implanted:Qty : 1 on 10/17/2024 by Mt Vargas MD at [facility] TOTAL JOINT [employer]STRUCT Left: Knee [employer] 03/18/2025 [id number] / / [id number] Kt Itotal Id Ps Full Xe Itps-Xe-1pc - [id number] Implanted:Qty : 1 on 10/17/2024 by Mt Vargas MD at [facility] TOTAL [employer] Left: Knee CONFORMIS ITPS-XE-1 PC / / [id number] Ty Itotal Id Ps Tib Evaristo Lt [id number] - [id number] Implanted:Qty : 1 on 10/17/2024 by Mt Vargas MD at [facility] [employer] Left: Knee [employer]IS 10/19/2025 [id number] / [id number] Imp Itotal Id Ps Fem Evaristo Lt [id number] - [id number] Implanted:Qty : 1 on 10/17/2024 by Mt Vargas MD at [facility] [employer] Left: Knee [employer]IS 10/19/2025 [id number] / [id number] Kt Cr Full Itotal Id 2pc Itcr-Xe-2pc - [id number] Implanted:Qty : 1 on 01/23/2025 by Mt Vargas MD at [facility] [employer] Right: Knee [employer]FORMIS 07/19/2026 ITCR-XE-2 PC / [id number] / Ty Cr Tib Itotal Id Right [id number] - [id number] Implanted:Qty : 1 on 01/23/2025 by Mt Vargas MD at [facility] [employer] Right: Knee [employer] 01/16/2026 [id number] / [id number] / Imp Cr Fem Itotal Id Evaristo Right [id number] - [id number] Implanted:Qty : 1 on 01/23/2025 by Mt Vargas MD at [facility] [employer] Right: Knee [employer] 01/16/2026 [id number] / [id number] / Imp Patella Itotal 35x7mm [id number] - [id number] Implanted:Qty : 1 on 01/23/2025 by Mt Vargas MD at [facility] [employer] Right: Knee CONFORMIS 07/19/2026 [id number] Procedures Procedure Name Priority Date/Time Associated Diagnosis Comments ANESTHESIA INTUBATION Routine 01/23/2025 8:19 AM EDT NE ARTHRP KNE CONDYLE&PLATU MEDIAL&LAT COMPARTMENTS 01/23/2025 8:18 [...] supine Prep: ChloraPrep Patient monitoring: heart rate, teletypesetter monitor and continuous pulse ox Block type: [...] by: Mt Vargas MD Performed by: Sascha Rashdi MD Patient location during procedure: pre-op Start time: 01/23/2025 7:54 AM End time: 01/23/2025 7:57 AM Reason for block: at surgeon's request and post-op pain management Preanesthetic Checklist Completed: patient identified, IV checked, site marked, risks and benefits discussed, surgical consent, monitors and equipment checked, pre-op evaluation and timeout performed Peripheral Block Patient position: supine Prep: ChloraPrep Patient monitoring: heart rate, teletypesetter monitor and continuous pulse ox Block type: [...] Result from Last 3 Months Insurance [employer] [facility] Advance Directives For more information, please contact: [phone] * Full Code (Latest Code Status on File) Date Activated Date Inactivated Comments 01/23/2025 6:11 AM 01/23/2025 3:03 PM * Full Code Date Activated Date Inactivated Comments 10/17/2024 5:23 AM 10/19/2024 4:07 PM Care Teams Caser In Relationship Specialty Start Date End Date Porter Rose, [employer]PORATE [employer] PROGRAM COORDINATOR [address] [place] [address] PCP - General Nurse Practitioner 10/02/24
--- NOTE | 2025-04-21 21:03 | XR_ITS ---
PROCEDURE INFORMATION: Exam: XR Chest Exam date and time: 04/21/2025 9:29 PM Age: 44 years old Clinical indication: Other: Chest pain; Additional info: Cp TECHNIQUE: Imaging protocol: Radiologic exam of the chest. Views: 1 view. COMPARISON: CT ANGIO CHEST PE PROTOCOL 04/13/2025 10:32 PM FINDINGS: Lungs: Unremarkable. No consolidation. Pleural spaces: Unremarkable. No pleural effusion. No pneumothorax. Heart/Mediastinum: Unremarkable. No cardiomegaly. Bones/joints: Unremarkable. IMPRESSION: No acute findings.
--- NOTE | 2025-04-21 21:05 | [facility].EDCP ---
Discharge Plan Disposition Patient Disposition: Home, Self-Care Prescriptions Prescriptions: No Action aspirin [Adult Low Dose Aspirin] 81 mg tablet,delayed release (DR/EC) 81 mg PO DAILY docusate sodium [Colace] 100 mg capsule 100 mg PO DAILY Referrals Follow up/Referrals: Reynaldo De La O MD [Staff Physician, Cardiology] - See instructions Provider,MD Sonya [Primary Care Provider, Medical] - See instructions Activity Restrictions/Add. Instructions Additional Instructions/Restrictions: Please follow-up with your primary care provider and with cardiology. Please return to the emergency department if you develop any new or worsening symptoms or become concerned for your health. Clinical Impressions Clinical Impression: Chest pain Qualifiers: Chest pain type: unspecified Qualified Code(s): R07.9 - Chest pain, unspecified Print Language Print Language: Bol[place]ian Discharge ED Provider: Jose M Simpson HPI <Eryn Portillo APRN - Last Filed: 04/21/25 22:24> General Chief Complaint: Chest Pain Stated Complaint: Chest Pain Time Seen by Provider: 04/21/25 21:03 History of Present Illness HPI narrative: patient is a 44-year-old female PMHx GERD, hypertension who presents to the ED for complaints of centrally located chest pressure. Patient states her chest pain started approximately 20 minutes prior to arrival and is centrally located. Related Data Home Medications ?Medication ?Instructions ?Recorded ?Confirmed aspirin 81 mg tablet,delayed 81 mg PO DAILY 10/30/24 10/30/24 release (Adult Low Dose Aspirin) docusate sodium 100 mg capsule 100 mg PO DAILY 10/30/24 10/30/24 (Colace) Allergies Allergy/AdvReac Type Severity Reaction Status Date / Time No Known Allergies Allergy Verified 10/30/24 10:38 PFSH <Eryn Portillo APRN - Last Filed: 04/21/25 22:24> PFS Disclaimer: The information contained in this section may have been updated after the patient was seen, as this information can be updated by other users. Medical History (Updated 04/22/25 @ 00:57 by Jose M Simpson MD) Hernia Heart attack COVID-19 Fatty liver Surgical History (Updated 10/30/24 @ 10:45 by Carolynn Rodríguez MA) History of knee replacement H/O hernia repair History of hysterectomy History of History of tonsillectomy [place] teeth extracted History of cholecystectomy Family History Grandmother Cancer Mother Coronary artery disease Diabetes Heart attack Kidney disease Stroke Sister Diabetes Social History (Updated 10/30/24 @ 10:42 by Carolynn Rodríguez MA) Smoking Status: Current every day smoker tobacco type: cigarettes packs per day: 1 second hand exposure: No alcohol intake: never substance use type: opiates current occupational status: other Travel in the last 8 weeks?: Inside the [place] household members: significant other housing: apartment caffeine: Yes Have you lived/traveled outside [place] in past 30 days?: No Contact w/someone who lives/traveled outside US past 30 days?: No Exposure to someone with infectious disease in past 14 days?: No Do you have a fever (greater than 100.4 F or 38 C)?: No Have you tested positive for COVID-19?: No Exposed to someone with COVID-19 in past 14 days?: No Do you have a sore throat?: No Do you have a cough?: No Do you have any weakness?: No Do you have any diarrhea?: No Are you experiencing any unusual bleeding?: No Do you have any muscle aches/pain?: No Do you have any abdominal pain?: No Are you experiencing loss of taste or smell?: No Other Medical History Have you received the Flu Vaccine for this season: No Have you received the Pneumonia Vaccine: Yes <Eryn Portillo APRN - Last Filed: 04/21/25 22:24> ROS Obtained: Yes Systems reviewed as appropriate & no additional complaints except as documented Physical Exam <Eryn Portillo APRN - Last Filed: 04/21/25 22:24> General General appearance: alert and in no apparent distress Head Head exam: atraumatic Neck Neck exam: Present full ROM Respiratory Respiratory exam: Present normal lung sounds bilaterally; Absent respiratory distress Cardiovascular Cardiovascular exam: Present regular rate Abdominal Exam Abdominal exam: Present soft Neurological Exam Neurological exam: Present alert and oriented X3 HEART Score <Eryn Portillo APRN - Last Filed: 04/21/25 22:24> HEART Score HEART Score assessment performed?: Yes History (anamnesis): Slightly suspicious ECG: Normal Age: 45-65 years Risk factors: 1-2 risk factors Troponin: </= normal limit HEART Score: 2 <Ilda Lozano MD - Last Filed: 04/21/25 23:12> HEART Score HEART Score: 2 <Jose M Simpson MD - Last Filed: 04/22/25 01:02> HEART Score HEART Score: 2 Critical Care <Eryn Portillo APRN - Last Filed: 04/21/25 22:24> Critical Care Time Critical Care Time: No Medical Decision Making <Eryn Portillo APRN - Last Filed: 04/21/25 22:24> Aly Inquiry Pt receiving controlled substance: No Vital Signs Vital Signs: 04/21/25 20:54 04/21/25 21:09 04/21/25 21:20 Temperature 98.2 F Temperature Source Oral Pulse Rate 99 H 85 Pulse Rate [Left] 104 H Respiratory Rate 18 21 Blood Pressure 110/90 Blood Pressure [Right Arm] 135/77 Blood Pressure Mean [Right Arm] 96 02 Sat by Pulse Oximetry 100 99 Oxygen Delivery Method Room Air 04/21/25 22:01 04/21/25 22:30 04/21/25 22:45 Temperature Temperature Source Pulse Rate 80 74 70 Pulse Rate [Left] Respiratory Rate 23 15 12 Blood Pressure 110/64 110/68 Blood Pressure [Right Arm] Blood Pressure Mean [Right Arm] 02 Sat by Pulse Oximetry 97 97 100 Oxygen Delivery Method 04/21/25 23:00 04/21/25 23:01 04/21/25 23:15 Temperature Temperature Source Pulse Rate 68 73 63 Pulse Rate [Left] Respiratory Rate 14 11 L 16 Blood Pressure 99/75 L 106/75 L Blood Pressure [Right Arm] Blood Pressure Mean [Right Arm] 02 Sat by Pulse Oximetry 97 97 98 Oxygen Delivery Method 04/21/25 23:30 04/21/25 23:45 04/22/25 00:15 Temperature Temperature Source Pulse Rate 66 67 58 L Pulse Rate [Left] Respiratory Rate 12 12 18 Blood Pressure 94/60 L Blood Pressure [Right Arm] Blood Pressure Mean [Right Arm] 02 Sat by Pulse Oximetry 95 97 97 Oxygen Delivery Method 04/22/25 00:30 Temperature Temperature Source Pulse Rate 60 Pulse Rate [Left] Respiratory Rate 16 Blood Pressure 112/68 Blood Pressure [Right Arm] Blood Pressure Mean [Right Arm] 02 Sat by Pulse Oximetry Oxygen Delivery Method Lab Data Labs: Lab Results 04/21/25 20:57: WBC 6.2, RBC 4.87, Hgb 13.2, Hct 40.5, MCV 83.2, MCH 27.1, MCHC 32.6, RDW 14.4, Plt Count 228, MPV 10.4, Neut % (Auto) 63.4, Lymph % (Auto) 24.7, [place] % (Auto) 7.8, Eos % (Auto) 3.4, Baso % (Auto) 0.5, Neut # (Auto) 3.9, Lymph # (Auto) 1.5, [place] # (Auto) 0.5, Eos # (Auto) 0.2, Baso # (Auto) 0.0, Sodium 141, Potassium 3.8, Chloride 113 H, Carbon Dioxide 20 L, Anion Gap 11.8, BUN 20 H, Creatinine 0.80, Estimated Creat Clear 79, Estimated GFR 77, Est GFR ( Amer) 93, Glucose 78, Calcium 9.3, Total Bilirubin 0.3, AST 24, ALT 14, Alkaline Phosphatase 104, Troponin I < 0.01, Total Protein 6.8, Albumin 4.1, Globulin 2.7, Albumin/Globulin Ratio 1.5, HCV Ab ANDREIA w/Rflx PCR Qn Reactive, HIV Ag/Ab Combo Qual Negative 04/21/25 21:16: Urine Color Yellow, Urine Appearance Clear, Urine pH 6.0, Ur Specific [place] >= 1.030, Urine Protein Trace, Urine Glucose (UA) Negative, Urine Ketones Negative, Urine Blood Negative, Urine Nitrate Negative, Urine Bilirubin 1+ A, Urine Urobilinogen 0.2, Ur Leukocyte Esterase Negative, Urine RBC None, Urine WBC Occasional, Ur Squamous Epith Cells 3-5, Urine Bacteria Trace, Urine HCG, Qual Negative 04/22/25 00:00: Troponin I < 0.01 04/21/25 20:57 04/21/25 20:57 Response Orders (Tests/Meds): ED MEDICATIONS Discontinued Medications Generic Name Dose Route Start Last Admin Trade Name Freq PRN Reason Stop Dose Admin Acetaminophen 1,000 mg 04/22/25 00:06 04/22/25 00:10 Acetaminophen 500mg Tab PO 04/22/25 00:07 1,000 mg ONCE ONE Administration Belladonna Alkaloids 60 ml 04/21/25 21:12 04/21/25 21:20 Belladonna Alkaloids 60 Ml Ml PO 04/21/25 21:13 60 ml ONCE ONE Administration Ketorolac Tromethamine 30 mg 04/22/25 00:06 04/22/25 00:10 Ketorolac 30mg/Ml Vial IV 04/22/25 00:07 30 mg ONCE ONE Administration Morphine Sulfate 4 mg 04/21/25 21:12 04/21/25 21:20 Morphine 4mg/Ml Syringe IV 04/21/25 21:13 4 mg ONCE ONE Administration Ondansetron HCl 4 mg 04/21/25 21:12 04/21/25 21:20 Ondansetron 4mg/2ml Vial IV 04/21/25 21:13 4 mg ONCE ONE Administration ORDERS Category Date Time Status CXR --portable [XR chest portable] Stat Exams 04/21/25 21:03 Completed CBC w/Auto Diff [Complete Blood Count Auto Diff] Stat Lab 04/21/25 20:57 Completed CMP [Comprehensive Metabolic Panel] Stat Lab 04/21/25 20:57 Completed HCV RNA PCR, Quant Stat Lab 04/21/25 20:57 Received HIV Combo Stat Lab 04/21/25 20:57 Completed Hepatitis C Ab Qual. W/ RFX Stat Lab 04/21/25 20:57 Completed Trop I [Troponin I] Stat Lab 04/21/25 20:57 Completed Troponin I Q3H Lab 04/22/25 00:00 Completed Troponin I Q3H Lab 04/22/25 03:15 Ordered Urinalysis and Microscopic Stat Lab 04/21/25 21:16 Completed Urine , HCG Qual. Stat Lab 04/21/25 21:16 Completed MDM Narrative Medical Decision Narrative: In summary, patient is a 44-year-old female PMHx GERD, hypertension who presents to the ED for complaints of centrally located chest pressure. Patient states her chest pain started approximately 20 minutes prior to arrival and is centrally located. She states that she is been evaluated for chest pain last Tuesday, has not experienced any since then. Patient states she is currently nauseated, no vomiting. Denies fever, chills, body aches, headache, posterior neck pain, abdominal pain, dysuria. 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 Upon initial evaluation patient is alert, oriented and cooperative. She is hemodynamically stable. Physical exam is unremarkable. Patient was symptomatically managed with morphine and Zofran. Patient consented to the morphine and stated that she had this at her last visit as well, states it helped her chest pain. CBC unremarkable for any leukocytosis, stable H&H. CMP unremarkable for any actionable abnormalities. First troponin < 0.01. Urinalysis unremarkable for nitrite. hCG negative. Informal review of the chest x-ray, no acute findings. Upon reassessment, patient states her pain has improved. Pending second troponin. Care transferred to attending. <Ilda Lozano MD - Last Filed: 04/21/25 23:12> Vital Signs Vital Signs: 04/21/25 20:54 04/21/25 21:09 04/21/25 21:20 Temperature 98.2 F Temperature Source Oral Pulse Rate 99 H 85 Pulse Rate [Left] 104 H Respiratory Rate 18 21 Blood Pressure 110/90 Blood Pressure [Right Arm] 135/77 Blood Pressure Mean [Right Arm] 96 02 Sat by Pulse Oximetry 100 99 Oxygen Delivery Method Room Air 04/21/25 22:01 04/21/25 22:30 04/21/25 22:45 Temperature Temperature Source Pulse Rate 80 74 70 Pulse Rate [Left] Respiratory Rate 23 15 12 Blood Pressure 110/64 110/68 Blood Pressure [Right Arm] Blood Pressure Mean [Right Arm] 02 Sat by Pulse Oximetry 97 97 100 Oxygen Delivery Method 04/21/25 23:00 04/21/25 23:01 04/21/25 23:15 Temperature Temperature Source Pulse Rate 68 73 63 Pulse Rate [Left] Respiratory Rate 14 11 L 16 Blood Pressure 99/75 L 106/75 L Blood Pressure [Right Arm] Blood Pressure Mean [Right Arm] 02 Sat by Pulse Oximetry 97 97 98 Oxygen Delivery Method 04/21/25 23:30 04/21/25 23:45 04/22/25 00:15 Temperature Temperature Source Pulse Rate 66 67 58 L Pulse Rate [Left] Respiratory Rate 12 12 18 Blood Pressure 94/60 L Blood Pressure [Right Arm] Blood Pressure Mean [Right Arm] 02 Sat by Pulse Oximetry 95 97 97 Oxygen Delivery Method 04/22/25 00:30 Temperature Temperature Source Pulse Rate 60 Pulse Rate [Left] Respiratory Rate 16 Blood Pressure 112/68 Blood Pressure [Right Arm] Blood Pressure Mean [Right Arm] 02 Sat by Pulse Oximetry Oxygen Delivery Method Lab Data Lab results reviewed: Yes I reviewed the patient's lab results. Labs: Lab Results 04/21/25 20:57: WBC 6.2, RBC 4.87, Hgb 13.2, Hct 40.5, MCV 83.2, MCH 27.1, MCHC 32.6, RDW 14.4, Plt Count 228, MPV 10.4, Neut % (Auto) 63.4, Lymph % (Auto) 24.7, [place] % (Auto) 7.8, Eos % (Auto) 3.4, Baso % (Auto) 0.5, Neut # (Auto) 3.9, Lymph # (Auto) 1.5, [place] # (Auto) 0.5, Eos # (Auto) 0.2, Baso # (Auto) 0.0, Sodium 141, Potassium 3.8, Chloride 113 H, Carbon Dioxide 20 L, Anion Gap 11.8, BUN 20 H, Creatinine 0.80, Estimated Creat Clear 79, Estimated GFR 77, Est GFR ( Amer) 93, Glucose 78, Calcium 9.3, Total Bilirubin 0.3, AST 24, ALT 14, Alkaline Phosphatase 104, Troponin I < 0.01, Total Protein 6.8, Albumin 4.1, Globulin 2.7, Albumin/Globulin Ratio 1.5, HCV Ab ANDREIA w/Rflx PCR Qn Reactive, HIV Ag/Ab Combo Qual Negative 04/21/25 21:16: Urine Color Yellow, Urine Appearance Clear, Urine pH 6.0, Ur Specific [place] >= 1.030, Urine Protein Trace, Urine Glucose (UA) Negative, Urine Ketones Negative, Urine Blood Negative, Urine Nitrate Negative, Urine Bilirubin 1+ A, Urine Urobilinogen 0.2, Ur Leukocyte Esterase Negative, Urine RBC None, Urine WBC Occasional, Ur Squamous Epith Cells 3-5, Urine Bacteria Trace, Urine HCG, Qual Negative 04/22/25 00:00: Troponin I < 0.01 Response Orders (Tests/Meds): ED MEDICATIONS Discontinued Medications Generic Name Dose Route Start Last Admin Trade Name Freq PRN Reason Stop Dose Admin Acetaminophen 1,000 mg 04/22/25 00:06 04/22/25 00:10 Acetaminophen 500mg Tab PO 04/22/25 00:07 1,000 mg ONCE ONE Administration Belladonna Alkaloids 60 ml 04/21/25 21:12 04/21/25 21:20 Belladonna Alkaloids 60 Ml Ml PO 04/21/25 21:13 60 ml ONCE ONE Administration Ketorolac Tromethamine 30 mg 04/22/25 00:06 04/22/25 00:10 Ketorolac 30mg/Ml Vial IV 04/22/25 00:07 30 mg ONCE ONE Administration Morphine Sulfate 4 mg 04/21/25 21:12 04/21/25 21:20 Morphine 4mg/Ml Syringe IV 04/21/25 21:13 4 mg ONCE ONE Administration Ondansetron HCl 4 mg 04/21/25 21:12 04/21/25 21:20 Ondansetron 4mg/2ml Vial IV 04/21/25 21:13 4 mg ONCE ONE Administration ORDERS Category Date Time Status CXR --portable [XR chest portable] Stat Exams 04/21/25 21:03 Completed CBC w/Auto Diff [Complete Blood Count Auto Diff] Stat Lab 04/21/25 20:57 Completed CMP [Comprehensive Metabolic Panel] Stat Lab 04/21/25 20:57 Completed HCV RNA PCR, Quant Stat Lab 04/21/25 20:57 Received HIV Combo Stat Lab 04/21/25 20:57 Completed Hepatitis C Ab Qual. W/ RFX Stat Lab 04/21/25 20:57 Completed Trop I [Troponin I] Stat Lab 04/21/25 20:57 Completed Troponin I Q3H Lab 04/22/25 00:00 Completed Troponin I Q3H Lab 04/22/25 03:15 Ordered Urinalysis and Microscopic Stat Lab 04/21/25 21:16 Completed Urine , HCG Qual. Stat Lab 04/21/25 21:16 Completed MDM Narrative Medical Decision Narrative: In summary, patient is a 44-year-old female PMHx GERD, hypertension who presents to the ED for complaints of centrally located chest pressure. Patient states her chest pain started approximately 20 minutes prior to arrival and is centrally located. She states that she is been evaluated for chest pain last Tuesday, has not experienced any since then. Patient states she is currently nauseated, no vomiting. Denies fever, chills, body aches, headache, posterior neck pain, abdominal pain, dysuria. 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 Upon initial evaluation patient is alert, oriented and cooperative. She is hemodynamically stable. Physical exam is unremarkable. Patient was symptomatically managed with morphine and Zofran. Patient consented to the morphine and stated that she had this at her last visit as well, states it helped her chest pain. CBC unremarkable for any leukocytosis, stable H&H. CMP unremarkable for any actionable abnormalities. First troponin < 0.01. Urinalysis unremarkable for nitrite. hCG negative. Informal review of the chest x-ray, no acute findings. Upon reassessment, patient states her pain has improved. Pending second troponin. Care transferred to attending. I was consulted by the CAROLYN, and we discussed the complexity of the problems being addressed. I approved the treatment and management plan for this patient's care in the emergency department, thus performing a substantive portion of the medical decision making. Ilda Lozaon MD, DELL, FACEP This is Dr. Lozano I took over from Lorene Portillo primarily patient is still pending her second troponin. Patient is PERC negative I reviewed the remainder of her workup including her EKG which is all unremarkable. Care will be transitioned to Dr. Simpson at 11 PM to follow-up on her final troponin and advised her again to follow-up with Dr. De La O <Jose M Simpson MD - Last Filed: 04/22/25 01:02> Vital Signs Vital Signs: 04/21/25 20:54 04/21/25 21:09 04/21/25 21:20 Temperature 98.2 F Temperature Source Oral Pulse Rate 99 H 85 Pulse Rate [Left] 104 H Respiratory Rate 18 21 Blood Pressure 110/90 Blood Pressure [Right Arm] 135/77 Blood Pressure Mean [Right Arm] 96 02 Sat by Pulse Oximetry 100 99 Oxygen Delivery Method Room Air 04/21/25 22:01 04/21/25 22:30 04/21/25 22:45 Temperature Temperature Source Pulse Rate 80 74 70 Pulse Rate [Left] Respiratory Rate 23 15 12 Blood Pressure 110/64 110/68 Blood Pressure [Right Arm] Blood Pressure Mean [Right Arm] 02 Sat by Pulse Oximetry 97 97 100 Oxygen Delivery Method 04/21/25 23:00 04/21/25 23:01 04/21/25 23:15 Temperature Temperature Source Pulse Rate 68 73 63 Pulse Rate [Left] Respiratory Rate 14 11 L 16 Blood Pressure 99/75 L 106/75 L Blood Pressure [Right Arm] Blood Pressure Mean [Right Arm] 02 Sat by Pulse Oximetry 97 97 98 Oxygen Delivery Method 04/21/25 23:30 04/21/25 23:45 04/22/25 00:15 Temperature Temperature Source Pulse Rate 66 67 58 L Pulse Rate [Left] Respiratory Rate 12 12 18 Blood Pressure 94/60 L Blood Pressure [Right Arm] Blood Pressure Mean [Right Arm] 02 Sat by Pulse Oximetry 95 97 97 Oxygen Delivery Method 04/22/25 00:30 Temperature Temperature Source Pulse Rate 60 Pulse Rate [Left] Respiratory Rate 16 Blood Pressure 112/68 Blood Pressure [Right Arm] Blood Pressure Mean [Right Arm] 02 Sat by Pulse Oximetry Oxygen Delivery Method Lab Data Labs: Lab Results 04/21/25 20:57: WBC 6.2, RBC 4.87, Hgb 13.2, Hct 40.5, MCV 83.2, MCH 27.1, MCHC 32.6, RDW 14.4, Plt Count 228, MPV 10.4, Neut % (Auto) 63.4, Lymph % (Auto) 24.7, [place] % (Auto) 7.8, Eos % (Auto) 3.4, Baso % (Auto) 0.5, Neut # (Auto) 3.9, Lymph # (Auto) 1.5, [place] # (Auto) 0.5, Eos # (Auto) 0.2, Baso # (Auto) 0.0, Sodium 141, Potassium 3.8, Chloride 113 H, Carbon Dioxide 20 L, Anion Gap 11.8, BUN 20 H, Creatinine 0.80, Estimated Creat Clear 79, Estimated GFR 77, Est GFR ( Amer) 93, Glucose 78, Calcium 9.3, Total Bilirubin 0.3, AST 24, ALT 14, Alkaline Phosphatase 104, Troponin I < 0.01, Total Protein 6.8, Albumin 4.1, Globulin 2.7, Albumin/Globulin Ratio 1.5, HCV Ab ANDREIA w/Rflx PCR Qn Reactive, HIV Ag/Ab Combo Qual Negative 04/21/25 21:16: Urine Color Yellow, Urine Appearance Clear, Urine pH 6.0, Ur Specific [place] >= 1.030, Urine Protein Trace, Urine Glucose (UA) Negative, Urine Ketones Negative, Urine Blood Negative, Urine Nitrate Negative, Urine Bilirubin 1+ A, Urine Urobilinogen 0.2, Ur Leukocyte Esterase Negative, Urine RBC None, Urine WBC Occasional, Ur Squamous Epith Cells 3-5, Urine Bacteria Trace, Urine HCG, Qual Negative 04/22/25 00:00: Troponin I < 0.01 Response Orders (Tests/Meds): ED MEDICATIONS Discontinued Medications Generic Name Dose Route Start Last Admin Trade Name Arun PRN Reason Stop Dose Admin Acetaminophen 1,000 mg 04/22/25 00:06 04/22/25 00:10 Acetaminophen 500mg Tab PO 04/22/25 00:07 1,000 mg ONCE ONE Administration Belladonna Alkaloids 60 ml 04/21/25 21:12 04/21/25 21:20 Belladonna Alkaloids 60 Ml Ml PO 04/21/25 21:13 60 ml ONCE ONE Administration Ketorolac Tromethamine 30 mg 04/22/25 00:06 04/22/25 00:10 Ketorolac 30mg/Ml Vial IV 04/22/25 00:07 30 mg ONCE ONE Administration Morphine Sulfate 4 mg 04/21/25 21:12 04/21/25 21:20 Morphine 4mg/Ml Syringe IV 04/21/25 21:13 4 mg ONCE ONE Administration Ondansetron HCl 4 mg 04/21/25 21:12 04/21/25 21:20 Ondansetron 4mg/2ml Vial IV 04/21/25 21:13 4 mg ONCE ONE Administration ORDERS Category Date Time Status CXR --portable [XR chest portable] Stat Exams 04/21/25 21:03 Completed CBC w/Auto Diff [Complete Blood Count Auto Diff] Stat Lab 04/21/25 20:57 Completed CMP [Comprehensive Metabolic Panel] Stat Lab 04/21/25 20:57 Completed HCV RNA PCR, Quant Stat Lab 04/21/25 20:57 Received HIV Combo Stat Lab 04/21/25 20:57 Completed Hepatitis C Ab Qual. W/ RFX Stat Lab 04/21/25 20:57 Completed Trop I [Troponin I] Stat Lab 04/21/25 20:57 Completed Troponin I Q3H Lab 04/22/25 00:00 Completed Troponin I Q3H Lab 04/22/25 03:15 Ordered Urinalysis and Microscopic Stat Lab 04/21/25 21:16 Completed Urine , HCG Qual. Stat Lab 04/21/25 21:16 Completed MDM Narrative Medical Decision Narrative: In summary, patient is a 44-year-old female PMHx GERD, hypertension who presents to the ED for complaints of centrally located chest pressure. Patient states her chest pain started approximately 20 minutes prior to arrival and is centrally located. She states that she is been evaluated for chest pain last Tuesday, has not experienced any since then. Patient states she is currently nauseated, no vomiting. Denies fever, chills, body aches, headache, posterior neck pain, abdominal pain, dysuria. 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 Upon initial evaluation patient is alert, oriented and cooperative. She is hemodynamically stable. Physical exam is unremarkable. Patient was symptomatically managed with morphine and Zofran. Patient consented to the morphine and stated that she had this at her last visit as well, states it helped her chest pain. CBC unremarkable for any leukocytosis, stable H&H. CMP unremarkable for any actionable abnormalities. First troponin < 0.01. Urinalysis unremarkable for nitrite. hCG negative. Informal review of the chest x-ray, no acute findings. Upon reassessment, patient states her pain has improved. Pending second troponin. Care transferred to attending. I was consulted by the CAROLYN, and we discussed the complexity of the problems being addressed. I approved the treatment and management plan for this patient's care in the emergency department, thus performing a substantive portion of the medical decision making. Ilda Lozano MD, DELL, FACEP This is Dr. Lozano I took over from [facility] primarily patient is still pending her second troponin. Patient is PERC negative I reviewed the remainder of her workup including her EKG which is all unremarkable. Care will be transitioned to Dr. Simpson at 11 PM to follow-up on her final troponin and advised her again to follow-up with Dr. Jaylyn Simpson MD: I assumed care of the patient at the time of handoff from the prior provider. On reassessment patient reports symptomatic improvement. Repeat troponin returned and is undetectably low. Interactive discussion was had with patient regarding her presentation. No evidence of emergent or cardiac pathology on her workup at this time. Especially given symptomatic improvement, I am reassured. Recommended she can follow-up with Dr. De La O for further assessment. Return precautions given.
[2025-04-21 21:10] LABS: Hematocrit 40.5 % (37.0-47.0); Hemoglobin 13.2 g/dL (12.2-16.2); Immature Granulocytes % 0.2 %; Mean Corpuscular HGB Conc 32.6 g/dL (31.8-35.4); Mean Corpuscular Hemoglobin 27.1 pg (27.0-31.2); Mean Corpuscular Volume 83.2 fl (81-99); Nucleated Red Blood Cells % 0 %; Platelet Count 228 K/mm3 (142-424); Red Blood Count 4.87 M/mm3 (4.20-5.40); Red Cell Distribution Width-SD 43.5 fL; White Blood Count 6.2 K/mm3 (4.8-10.8)
[2025-04-21 21:16] LABS: Alanine Aminotransferase 14 U/L (12-78); Albumin Level 4.1 g/dl (3.5-5.0); Albumin/Globulin Ratio 1.5 (1.1-1.8); Alkaline Phosphatase 104 U/L (38-126); Anion Gap 11.8 mEq/L (5-15); Aspartate Amino Transferase 24 U/L (14-36); Bilirubin,Total 0.3 mg/dl (0.2-1.3); Blood Urea Nitrogen 20 mg/dl (7-17); Calcium 9.3 mg/dl (8.4-10.2); Carbon Dioxide 20 mmol/L (22.0-30.0); Chloride 113 mmol/L (98-107); Creatinine Clearance Estimated 79 mL/min (50-200); Creatinine,Serum 0.80 mg/dl (0.52-1.04); Estimated Glomerular Filt Rate 77 ml/min (>60); GFR (African American) 93 ML/MIN (>60); Globulin 2.7 g/dL (1.3-3.2); Glucose 78 mg/dl (74-100); Potassium 3.8 mmoL/L (3.5-5.1); Sodium 141 mmol/L (136-145); Total Protein,Serum 6.8 g/dl (6.3-8.2)
[2025-04-21] MEDS: MORPHINE 4MG/ML SYRINGE 4 MG IV (21:20)
[2025-04-21] MEDS: ONDANSETRON 4MG/2ML VIAL 4 MG IV (21:20)
[2025-04-21] MEDS: BELLADONNA ALKALOIDS 60 ML ML PO (21:20)
[2025-04-21 21:21] LABS: Microscopic, Urine URINE MICROSCOPIC (MICROSCOPIC)
[2025-04-21 21:23] LABS: Color,Urine YELLOW (Yellow); Glucose,Urine (UA) Negative (Negative); Ketones,Urine Negative (Negative); Leukocyte Esterase,Urine Negative (Negative); PH,Urine 6.0 (5.0-8.5); Protein,Urine TRACE (Negative); Specific Gravity, Urine >= 1.030 (1.005-1.030); Urobilinogen,Urine 0.2 EU/dl (0.2)
[2025-04-21 21:25] LABS: Bilirubin,Urine 1+ (Negative); Urine Pregnancy, HCG Qual. Negative (Negative)
[2025-04-21 21:30] LABS: Troponin I < 0.01 ng/ml (0.00-0.034)
[2025-04-21 21:35] LABS: Bacteria,Urine Trace /lpf; WBC,Urine Occasional #/hpf (0-3)
[2025-04-21 22:12] LABS: Hepatitis C Ab Qual. W/ RFX REACTIVE (Negative)
[2025-04-22] MEDS: KETOROLAC 30MG/ML VIAL 30 MG IV (00:10)
[2025-04-22] MEDS: ACETAMINOPHEN 500MG TAB 1000 MG PO (00:10)
[2025-04-22 00:15] VITALS: BP 94/60; PULSE 58; RESP 18; O2SAT 97
[2025-04-22 00:30] VITALS: BP 112/68; PULSE 60; RESP 16
[2025-04-22 00:37] LABS: Troponin I < 0.01 ng/ml (0.00-0.034)
[2025-04-22 00:45] VITALS: RESP 14
[2025-04-22 01:00] VITALS: RESP 16
[2025-04-22 01:02] VITALS: BP 112/68; PULSE 60; RESP 16; TEMP 36.8; O2SAT 99
== END 2025-04-22 01:04 | disposition home or self-care (01) ==
PROVIDERS: Nurse Practitioner; Student in an Organized Health Care Education/Training Program; Emergency Provider Emergency Medicine
DX: R07.9 Chest pain, unspecified (principal)
CPT/HCPCS: 71045; 80053; 81001; 81025; 84484; 85025; 86803; 87389; 87522; 93005; 96374; 96375; 99285; J1885; J2270; J2405

== ENCOUNTER 2025-05-06 13:50 | Emergency (ER) | payer OTHER, SELFPAY ==
--- NOTE | 2025-05-06 13:53 | ECG_ITS ---
APPROVED REPORT Exam: Resting ECG HR:85 bpm ECG Measurements Heart Rate 85 AXES CO 141 P 26 QRSd 86 QRS 2 QT 360 T 6 QTc 403 Conclusion Normal sinus rhythm Normal [place] Normal Intervals NO STEMI Electronically signed by : Live Zuñiga, 05/06/2025 17:32:00
[2025-05-06 14:01] VITALS: BP 130/77; PULSE 84; RESP 13; O2SAT 94
[2025-05-06 14:06] VITALS: BP 130/77; PULSE 82; RESP 16; TEMP 36.9; O2SAT 94; BMI 41.2
--- NOTE | 2025-05-06 14:07 | CT_ITS ---
FINAL REPORT TECHNIQUE: NASCET technique utilized for stenosis evaluation. CLINICAL HISTORY: ROSEN sudden onset COMPARISON: None FINDINGS: RIGHT CAROTID: No significant stenosis is seen of the cervical common or internal carotid artery. LEFT CAROTID: No significant stenosis seen of the cervical common or internal carotid artery. VERTEBRALS: The vertebrals are patent. The vertebral arteries are codominant. No significant stenosis is present. IMPRESSION: No significant arterial abnormality. Reviewed, Interpreted and Dictated by David Marroquin MD Transcribed by Hollie Gutierrez Authenticated and [facility]
--- NOTE | 2025-05-06 14:07 | CT_ITS ---
FINAL REPORT TECHNIQUE: thin section axial CT with and without IV contrast supplemented with multiplanar 3-D reconstruction of the head. This study was performed with techniques to keep radiation doses as low as reasonably achievable, (ALARA)individualized dose reduction techniques using automated exposure control or adjustment of mA and/or kV according to the patient's size were employed. CLINICAL HISTORY: worse jordan / sudden onset COMPARISON: None FINDINGS: CTA: The cranial circulation is unremarkable. There is no significant stenosis, aneurysm or occlusion. There is mild mucosal thickening in the right maxillary sinus consistent with chronic sinusitis. IMPRESSION: No acute process. Reviewed, Interpreted and Dictated by David Marroquin MD Transcribed by Hollie Gutierrez Authenticated and [facility]
--- NOTE | 2025-05-06 14:07 | CT_ITS ---
FINAL REPORT TECHNIQUE: Axial CT images were performed through the head. Coronal reformatted images were submitted. This study was performed with techniques to keep radiation doses as low as reasonably achievable (ALARA). Individualized dose reduction techniques using automated exposure control or adjustment of mA and/or kV according to the patient's size were employed. CLINICAL HISTORY: Acute headache COMPARISON: None FINDINGS: The ventricles are normal in size. There is no evidence of hemorrhage. There is no mass or edema identified. There is no abnormal extra-axial fluid seen. Paranasal sinuses demonstrate mild mucosal thickening of the maxillary sinuses. IMPRESSION: No acute intracranial process. Reviewed, Interpreted and Dictated by David Marroquin MD Transcribed by Hollie Gutierrez Authenticated and [facility]
--- NOTE | 2025-05-06 14:07 | XR_ITS ---
FINAL REPORT CLINICAL HISTORY: Nonspecific chest pain COMPARISON: 04/21/2025 FINDINGS: The heart size is normal. The mediastinum is normal. There is no focal infiltrate or edema. There are no pleural effusions. There is no pneumothorax. There is no osseous abnormality. IMPRESSION: No acute cardiopulmonary process Reviewed, Interpreted and Dictated by David Marroquin MD Transcribed by Hollie Gutierrez Authenticated and [facility]
--- OUTSIDE RECORDS SUMMARY | 2025-05-06 14:08 | XMS_ITS | Referral Summary ---
Author Organization [employer] ([place], [place], [place], [place]) Address [address] [place] [address] Care Team Providers Care Ship Self Defense System Mk1 Operator Name Role Phone Porter Rose APRN Primary Care Provider [phone] Allergies Active Allergy Reactions Criticality Noted Date [...] on file Medical Devices Implanted Type Area Telecommunications Field Technician Device Identifier Shelf Expiration Date Model / Serial / Lot Cement Bone Smplx Tobra [facility] 6197-9-001 - [id number] Implanted:Qty : 2 on 10/17/2024 by Mt Vargas MD at [facility] IMPLANTS Left: Knee [employer]ITA:[employer] 01/16/2026 [id number] 1 / / [id number] Cement Bone Smplx Tobra [facility] 6197-9-001 - [id number] Implanted:Qty : 1 on 01/23/2025 by Mt Vargas MD at [facility] IMPLANTS Right: Knee [employer] 01/16/20269700 1 / / [id number] Cement Bone Smplx Tobra [facility] 6197-9-001 - [id number] Implanted:Qty : 1 on 01/23/2025 by Mt Vargas MD at [facility] IMPLANTS Right: Knee [employer]ITA:[employer] 03/18/20269700 1 / / [id number] Pwdr Cellerate Clgn 1gm Strl Xlb-40-Vtukll - [id number] Implanted:Qty : 1 on 01/23/2025 at [facility] IMPLANTS Right: Knee [employer] 01/31/2027 I-01-SA CRXP / / [id number] Imp Patella Itotal 35x7mm [id number] - [id number] Implanted:Qty : 1 on 10/17/2024 by Mt Vargas MD at [facility] TOTAL JOINT CONSTRU[employer] Left: Knee CONFORMIS 03/18/2025 [id number] / / [id number] Kt Itotal Id Ps Full Xe Itps-Xe-1pc - [id number] Implanted:Qty : 1 on 10/17/2024 by Mt Vargas MD at [facility] TOTAL JO[employer] Left: Knee CONFORMIS ITPS-XE-1 PC / / [id number] Ty Itotal Id Ps Tib Evaristo Lt [id number] - [id number] Implanted:Qty : 1 on 10/17/2024 by Mt Vargas MD at [facility] [employer] Left: Knee CONFORMIS 10/19/2025 [id number] / / [id number] Imp Itotal Id Ps Fem Evaristo Lt [id number] - [id number] Implanted:Qty : 1 on 10/17/2024 by Mt Vargas MD at [facility] [employer] Left: Knee CONFORMIS 10/19/2025 [id number] / / [id number] Kt Cr Full Itotal Id 2pc Itcr-Xe-2pc - [id number] Implanted:Qty : 1 on 01/23/2025 by Mt Vargas MD at [facility] [employer] Right: Knee CONFORMIS 07/19/2026 ITCR-XE-2 PC / [id number] / Ty Cr Tib Itotal Id Right [id number] - [id number] Implanted:Qty : 1 on 01/23/2025 by Mt Vargas MD at [facility] [employer] Right: Knee CONFORMIS 01/16/2026 [id number] / [id number] / Imp Cr Fem Itotal Id Evaristo Right [id number] - [id number] Implanted:Qty : 1 on 01/23/2025 by Mt Vargas MD at [facility] [employer] Right: Knee CONFORMIS 01/16/2026 [id number] / [id number] / Imp Patella Itotal 35x7mm [id number] - [id number] Implanted:Qty : 1 on 01/23/2025 by Mt Vargas MD at [facility] T[employer] Right: Knee CONFORMIS 07/19/2026 [id number] Insurance [employer] [facility] Advance Directives For more information, please contact: [phone] * Full Code (Latest Code Status on File) Date Activated Date Inactivated Comments 01/23/2025 6:11 AM 01/23/2025 3:03 PM * Full Code Date Activated Date Inactivated Comments 10/17/2024 5:23 AM 10/19/2024 4:07 PM Care Teams Ship Self Defense System Mk1 Operator Relationship Specialty Start Date End Date Porter Rose APRN [address] [place] [address] PCP - General Nurse Practitioner 10/02/24
--- OUTSIDE RECORDS SUMMARY | 2025-05-06 14:08 | XMS_ITS | Clinical Summary ---
Author Organization [facility] Address [address] [place] [address] Care Team Providers Care Network Admin Name Role Phone Buster Stewart MD Primary Care Provider Allergies Active Allergy Reactions Criticality Noted Date [...] 2023 Sigmoidoscopy 2023 UKY-Colorectal Cancer Screening 2023 [id number] Vaccine ( season) 2024 06/28/2023, 06/17/2021, 05/07/2021 [...] Insurance [employer] MEDICAID Care Teams Network Admin Relationship Specialty Start Date End Date Buster Stewart MD [address] [facility] [place] [address] PCP - General 01/30/21
--- OUTSIDE RECORDS SUMMARY | 2025-05-06 14:08 | XMS_ITS | Clinical Summary ---
Author Organization [employer] ([place], [place], [place], [place]) Address [address] [place] [address] Care Team Providers Care Clinching Machine Operator Name Role Phone Porter Rose APRN Primary Care Provider [phone] Allergies Active Allergy Reactions Criticality Noted Date [...] this topic Medical Devices Implanted Type Area Resume Writer Device Identifier Shelf Expiration Date Model / Serial / Lot Cement Bone Smplx Tobra 40gm 6197-9-001 - [id number] Implanted:Qty : 2 on 10/17/2024 by Mt Vargas MD at [facility] IMPLANTS Left: Knee [employer] 01/16/2026 1 / / [id number] Cement Bone Smplx Tobra [facility] 6197-9-001 - [id number] Implanted:Qty : 1 on 01/23/2025 by Mt Vargas MD at [facility] IMPLANTS Right: Knee [employer] 01/16/2026 1 / / [id number] Cement Bone Smplx Tobra [facility] 6197-9-001 - [id number] Implanted:Qty : 1 on 01/23/2025 by Mt Vargas MD at [facility] IMPLANTS Right: Knee [employer] 03/18/2026 1 / / [id number] Pwdr Cellerate Clgn 1gm Strl Zqj-18-Emclbr - [id number] Implanted:Qty : 1 on 01/23/2025 at [facility] IMPLANTS Right: Knee [employer] 01/31/2027 [facility]-01-SA CRXP / / [id number] Imp Patella Itotal 35x7mm [id number] - [id number] Implanted:Qty : 1 on 10/17/2024 by Mt Vargas MD at [facility] TOTAL [employer] Left: Knee CONFORMIS 03/18/2025 [id number] / / [id number] Kt Itotal Id Ps Full Xe Itps-Xe-1pc - [id number] Implanted:Qty : 1 on 10/17/2024 by Mt Vargas MD at [facility] TOTAL [employer] Left: Knee CONFORMIS ITPS-XE-1 PC / / [id number] Ty Itotal Id Ps Tib Evaristo Lt [id number] - [id number] Implanted:Qty : 1 on 10/17/2024 by Mt Vargas MD at [facility] [employer] Left: Knee CONFORMIS 10/19/2025 [id number] / / [id number] Imp Itotal Id Ps Fem Evaristo Lt [id number] - [id number] Implanted:Qty : 1 on 10/17/2024 by Mt Vargas MD at [facility] [employer] Left: Knee CONFORMIS 10/19/2025 [id number] Kt Cr Full Itotal Id 2pc Itcr-Xe-2pc - [id number] Implanted:Qty : 1 on 01/23/2025 by Mt Vargas MD at [facility] [employer] Right: Knee CONFORMIS 07/19/2026 ITCR-XE-2 PC / [id number] / Ty Cr Tib Itotal Id Right [id number] - [id number] Implanted:Qty : 1 on 01/23/2025 by Mt Vargas MD at [facility] [employer] Right: Knee CONFORMIS 01/16/2026 [id number] / [id number] / Imp Cr Fem Itotal Id Evaristo Right [id number] - [id number] Implanted:Qty : 1 on 01/23/2025 by Mt Vargas MD at [facility] [employer] Right: Knee CONFORMIS 01/16/2026 [id number] 2 / [id number] / Imp Patella Itotal 35x7mm [id number] - [id number] Implanted:Qty : 1 on 01/23/2025 by Mt Vargas MD at [facility] [employer] Right: Knee CONFORMIS 07/19/2026 [id number] Insurance [facility] Advance Directives For more information, please contact: [phone] * Full Code (Latest Code Status on File) Date Activated Date Inactivated Comments 01/23/2025 6:11 AM 01/23/2025 3:03 PM * Full Code Date Activated Date Inactivated Comments 10/17/2024 5:23 AM 10/19/2024 4:07 PM Care Teams Clinching Machine Operator Relationship Specialty Start Date End Date Porter Rose APRN [address] [place] [address] PCP - General Nurse Practitioner 10/02/24
--- OUTSIDE RECORDS SUMMARY | 2025-05-06 14:08 | XMS_ITS | Clinical Summary ---
Author Organization [employer] Address [address] [place] [address] Care Team Providers Care Transit Bus Driver Name Role Phone Physician, No Primary Care Primary Care Provider Unavailable Miky Bateman MD Unavailable [phone] Allergies No known active allergies Medications DULoxetine [...] drink = 0.6 oz pur e alcohol) [facility] Code Rebelities Answer Date Recorded In the past 12 months has e [employer], gas, oil, or water company threatened to shut off [...] care, and heating? Not very hard 02/08/2024 [facility] - Occupational [...] on file Legal Sex Female 9:14 PM [employer] W[employer] Gender Identity Not on file Sexual Orientation [...] patient's age to complete this topic Insurance [facility] Advance Directives For more information, please contact: [phone] * Full Code (Latest Code Status on File) Date Activated Date Inactivated Comments 02/07/2024 5:18 PM 02/14/2024 2:07 PM Care Teams Transit Bus Driver Relationship Specialty Start Date End Date Physician, [...] person's specific written consent to the redisclosure. [id number].[facility]
--- OUTSIDE RECORDS SUMMARY | 2025-05-06 14:08 | XMS_ITS | Encounter Summary ---
Author Organization [employer] ([place], [place], [place], [place]) Address [address] [place] [address] Care Team Providers Care Instrumentation Chemist Name Role Phone Porter Rose APRN Primary Care Provider [phone] Encounter Details Date Type Department Care Team (Late st Contact Info) Description 10/10/2024 Surgery Prep [facility] Surgery Department [address] [place] [address] Mt Vargas MD [address] [facility] 2nd [place] [address] Social History Tobacco Use Types Packs/Day Years [...] on filedocumented in this encounter Care Teams Instrumentation Chemist Relationship Specialty Start Date End Date Porter Rose APRN [address] [place] [address] PCP - General Nurse Practitioner 10/02/24 documented as of this encounter
--- OUTSIDE RECORDS SUMMARY | 2025-05-06 14:08 | XMS_ITS | Encounter Summary ---
Author Organization [facility] Address [address] [place] [address] Care Team Providers Care Craft Center Director Name Role Phone Buster Stewart MD Primary Care Provider [phone] Encounter Details Date Type Department Care Team ([facility] st Contact Info) Description 05/01/2023 Orders Only External Location [address] [place] [address] Provider, External Social History Tobacco Use Types [...] on filedocumented in this encounter Care Teams Craft Center Director Relationship Specialty Start Date End Date Buster Stewart MD [address] [facility] [place] [address] PCP - General 01/30/21 documented as of this encounter
--- OUTSIDE RECORDS SUMMARY | 2025-05-06 14:08 | XMS_ITS | Patient Health Record ---
Author Organization [facility] [facility] Address [address] [facility] [place] [address] Care Team Providers Care Stock Unloader Name Role Phone Shea Cobb Primary Care Provider Allergies No Known Allergies Reason For Referral [...] W/U Status Risk Notes Problem Alcohol dependence (04394379) Uncomplicated alcohol dependence (F10.20) Active confirmed Problem Opioid dependence (49915102) Uncomplicated opioid dependence (F11.20) Active confirmed Encounters Encounter Location Date Provider Diagnosis [address] [address] 05/23/2024 Shea Cobb Uncomplicated opioid dependence F11.20 Assessments Encounter Date [...] Coverage Start Date Coverage End Date [employer] [address] [place], [place] [id number] Mayra Miranda Self - patient is the insured 2 Medical (General) History Medical History History ICD Code hepatitis C seizures myocardial infarction hypertension GERD depression BLE edema Gastrointestinal CA Suicidal ideations Surgical History Surgery Date(Month/Year) section 1995, 2006 hysterectomy 2008 tonsillectomy 2010 cholecystectomy 1998 Hospitalization History Reason Date(Month/Year) childbirth
--- OUTSIDE RECORDS SUMMARY | 2025-05-06 14:08 | XMS_ITS | Encounter Summary ---
Author Organization [employer] ([place], [place], [place], [place]) Address [address] [place] [address] Care Team Providers Care End Trimmer Name Role Phone Porter Rose APRN Primary Care Provider [phone] Encounter Details Date Type Department Care Team (Late st Contact Info) Description 01/23/2025 Surgery Prep [facility] Surgery Department [address] [place] [address] Mt Vargas MD [address] [facility] 2nd [place] [address] Social History Tobacco Use Types Packs/Day Years [...] on filedocumented in this encounter Care Teams End Trimmer Relationship Specialty Start Date End Date Porter Rose APRN [address] [place] [address] PCP - General Nurse Practitioner 10/02/24 documented as of this encounter
--- NOTE | 2025-05-06 14:10 | ED_ITS ---
<Statement entered by Live Zuñiga DO - 05/07/25 22:38> I was consulted by the CAROLYN, and we discussed the complexity of problems being addressed. I approved the treatment and management plan for this patient's care in the emergency department, thus performing a substantive portion of the medical decision making. I did independently evaluate and obtain history from this patient. Agree with CAROLYN summary. Essentially, she developed sudden onset chest pain and headache at the same time. Headaches seems to be far more bothersome to the patient than her chest pain. Head pain is described as the worst headache of her life. Not necessarily thunderclap, as it did not reach maximal intensity in < 30 seconds. Headache was onset within 6 hours of arrival. She tells me her headache worsens when she lays flat and is associated with vomiting when it reaches maximal intensity. We initially proceeded with a CT head w/o, as well as a CTA head and neck. These studies were fortunately normal, but she was still having pain. Given the symptoms reported, I had the CAROLYN add on a CTV. This last study was also negative for acute pathology. We administered a migraine cocktail to the patient, including droperidol and her symptoms resolved. At this time I felt it was safe to discharge the patient home. We did discuss follow up with neurology given the severity of this headache. All questions answered, and all parties agreeable with the decision to discharge home. Live Zuñiga DO Discharge Plan Disposition Patient Disposition: Home, Self-Care Condition: Good Prescriptions Prescriptions: No Action aspirin [Adult Low Dose Aspirin] 81 mg tablet,delayed release (DR/EC) 81 mg PO DAILY docusate sodium [Colace] 100 mg capsule 100 mg PO DAILY Referrals Follow up/Referrals: Regla Mcqueen MD [Staff Physician, Neurology] - See instructions ProviderSonya MD [Referring, Medical] - See instructions Activity Restrictions/Add. Instructions Additional Instructions/Restrictions: Today you were evaluated in the emergency department for headache and chest pain. We performed multiple CT scans of your head which were unremarkable for any acute process. Your chest x-ray was unremarkable. Your lab work looks good. For your headache, I will place a neurology referral phone number on your discharge papers, please call this tomorrow for an appointment. Please follow- up with your PCP within 48 hours. Please return to the ED for any worsening of your condition Clinical Impressions Clinical Impression: Headache Chest pain Qualifiers: Chest pain type: unspecified Qualified Code(s): R07.9 - Chest pain, unspecified Instructions Patient Instructions: DI for Chest Pain Print Language Print Language: Mexican Discharge ED Provider: Live Zuñiga HPI <Eryn Portillo APRN - Last Filed: 05/06/25 19:01> General Chief Complaint: Chest Pain Stated Complaint: Chest Pain Time Seen by Provider: 05/06/25 14:02 History of Present Illness HPI narrative: patient is a 44-year-old female PMHx obesity and substance abuse who presents to the ED for complaints of centrally located chest pain and sudden onset headache which is the worst headache of her life that started abruptly today approximately 2 hours ago while watching TV. Patient states that her headache and chest pain started at the same time. She states her chest pain is a stabbing pain. She has had a few episodes of chest pain this month. Has not followed up with cardiology. Related Data Home Medications ?Medication ?Instructions ?Recorded ?Confirmed aspirin 81 mg tablet,delayed 81 mg PO DAILY 10/30/24 0 10/30/24 release (Adult Low Dose Aspirin) docusate sodium 100 mg capsule 100 mg PO DAILY 5 10/30/24 (Colace) Allergies Allergy/AdvReac Type Severity Reaction Status Date / Time No Known Allergies Allergy Verified 10/30/24 10:38 PFSH <Eryn Portillo APRN - Last Filed: 05/06/25 19:01> PFS Disclaimer: The information contained in this section may have been updated after the patient was seen, as this information can be updated by other users. Medical History (Updated 05/06/25 @ 17:33 by Eryn Portillo APRN) Hernia Heart attack COVID-19 Fatty liver Surgical History History of knee replacement H/O hernia repair History of hysterectomy History of History of tonsillectomy [place] teeth extracted History of cholecystectomy Family History Grandmother Cancer Mother Coronary artery disease Diabetes Heart attack Kidney disease Stroke Sister Diabetes Social History Smoking Status: Current every day smoker tobacco type: cigarettes packs per day: 1 second hand exposure: No alcohol intake: never substance use type: opiates current occupational status: other Travel in the last 8 weeks?: Inside the [place] household members: significant other housing: apartment caffeine: Yes Have you lived/traveled outside [place] in past 30 days?: No Contact w/someone who lives/traveled outside [place] past 30 days?: No Exposure to someone with infectious disease in past 14 days?: No Do you have a fever (greater than 100.4 F or 38 C)?: No Have you tested positive for COVID-19?: No Exposed to someone with COVID-19 in past 14 days?: No Do you have a sore throat?: No Do you have a cough?: No Do you have any weakness?: No Do you have any diarrhea?: No Are you experiencing any unusual bleeding?: No Do you have any muscle aches/pain?: No Do you have any abdominal pain?: No Are you experiencing loss of taste or smell?: No Other Medical History Have you received the Flu Vaccine for this season: No Have you received the Pneumonia Vaccine: Yes <Eryn Portillo APRN - Last Filed: 05/06/25 19:01> ROS Obtained: Yes Systems reviewed as appropriate & no additional complaints except as documented Physical Exam <Eryn Portillo APRN - Last Filed: 05/06/25 19:01> General General appearance: alert Head Head exam: atraumatic and normocephalic Eye Eye exam: Present PERRL and EOMI; Absent nystagmus ENT ENT exam: Present normal exam Neck Neck exam: Present full ROM; Absent tenderness Respiratory Respiratory exam: Present normal lung sounds bilaterally Cardiovascular Cardiovascular exam: Present regular rate Abdominal Exam Abdominal exam: Present soft; Absent tenderness Extremities Exam Extremities exam: Present full ROM Back Exam Back exam: Present normal inspection and full ROM Neurological Exam Neurological exam: Present alert, oriented X3 and normal gait; Absent motor sensory deficit Skin Skin exam: Present dry HEART Score <Eryn Portillo APRN - Last Filed: 05/06/25 19:01> HEART Score HEART Score assessment performed?: Yes History (anamnesis): Slightly suspicious ECG: Normal Age: 45-65 years Risk factors: No known risk factors Troponin: </= normal limit HEART Score: 1 <Live Zuñiga DO - Last Filed: 05/07/25 22:34> HEART Score HEART Score: 1 Critical Care <Eryn Portillo APRN - Last Filed: 05/06/25 19:01> Critical Care Time Critical Care Time: No Medical Decision Making <Eryn Portillo SPANISH TUTOR - Last Filed: 05/06/25 19:01> Aly Inquiry Pt receiving controlled substance: No Vital Signs Vital Signs: 05/06/25 14:01 05/06/25 14:06 05/06/25 14:06 Temperature 98.4 F 98.4 F Temperature Source Oral Pulse Rate 84 82 Pulse Rate [Right] 82 Respiratory Rate 13 16 16 Blood Pressure 130/77 130/77 Blood Pressure [Left Arm] 130/77 Blood Pressure Mean [Left Arm] 94 Blood Pressure Source Blood Pressure Position 02 Sat by Pulse Oximetry 94 L 94 L 94 L Oxygen Delivery Method Room Air 05/06/25 14:47 05/06/25 15:00 05/06/25 18:19 Temperature 98.0 F Temperature Source Oral Pulse Rate 78 85 61 Pulse Rate [Right] Respiratory Rate 19 15 20 Blood Pressure 119/82 114/71 95/68 L Blood Pressure [Left Arm] Blood Pressure Mean [Left Arm] Blood Pressure Source Automatic Cuff Blood Pressure Position Sitting 02 Sat by Pulse Oximetry 98 98 Oxygen Delivery Method Room Air Lab Data Labs: Lab Results 05/06/25 14:00: WBC 6.1, RBC 4.81, Hgb 13.0, Hct 39.5, MCV 82.1, MCH 27.0, MCHC 32.9, RDW 14.4, Plt Count 212, MPV 10.1, Neut % (Auto) 59.9, Lymph % (Auto) 30.1, Rains % (Auto) 7.6, Eos % (Auto) 1.7, Baso % (Auto) 0.5, Neut # (Auto) 3.6, Lymph # (Auto) 1.8, Rains # (Auto) 0.5, Eos # (Auto) 0.1, Baso # (Auto) 0.0, Sodium 138, Potassium 3.6, Chloride 108 H, Carbon Dioxide 21 L, Anion Gap 12.6, BUN 16, Creatinine 0.50 L, Estimated Creat Clear 127, Estimated GFR 133, Est GFR ( Amer) 161, Glucose 106 H, Calcium 8.6, Total Bilirubin 0.4, AST 23, ALT 17, Alkaline Phosphatase 88, Troponin I < 0.01, Total Protein 6.9, Albumin 4.1, Globulin 2.8, Albumin/Globulin Ratio 1.5 05/06/25 17:15: Troponin I < 0.01 05/06/25 14:00 05/06/25 14:00 Response Orders (Tests/Meds): ED MEDICATIONS Discontinued Medications Generic Name Dose Route Start Last Admin Trade Name Arun PRN Reason Stop Dose Admin Acetaminophen 1,000 mg 05/06/25 15:28 05/06/25 15:35 Acetaminophen 500mg Tab PO 05/06/25 15:29 1,000 mg ONCE ONE Administration Droperidol 2.5 mg 05/06/25 15:28 05/06/25 15:34 Droperidol 5mg/2ml Vial IV 05/06/25 15:29 2.5 mg ONCE ONE Administration Sodium Chloride 1,000 mls @ 999 mls/hr 05/06/25 15:28 05/06/25 17:46 Sod Chlor 0.9% 1000ml Bag IV 05/06/25 16:28 Infused .Q1H1M ONE Infusion Iopamidol 80 ml 05/06/25 14:40 05/06/25 14:42 Iopamidol-370 (76%);100ml Bottle IV 05/06/25 14:41 80 ml ONCE ONE Administration Iopamidol 80 ml 05/06/25 16:01 05/06/25 16:02 Iopamidol-370 (76%);100ml Bottle IV 05/06/25 16:02 80 ml ONCE ONE Administration Morphine Sulfate 4 mg 05/06/25 14:07 05/06/25 14:47 Morphine 4mg/Ml Syringe IV 05/06/25 14:08 4 mg ONCE ONE Administration Ondansetron HCl 4 mg 05/06/25 14:07 05/06/25 14:47 Ondansetron 4mg/2ml Vial IV 05/06/25 14:08 4 mg ONCE ONE Administration Sodium Chloride 10 ml 05/06/25 14:07 Sodium Chloride 0.9% 10ml Flush Syringe IV 06/05/25 14:06 NEEDED PRN Maintain IV Site Sodium Chloride 40 ml 05/06/25 14:40 05/06/25 14:41 0.9 % Sodium Chloride 50 Ml Vial IV 05/06/25 14:41 40 ml ONCE ONE Administration Sodium Chloride 10 ml 05/06/25 14:40 05/06/25 14:41 Sodium Chloride 0.9% 10ml Syr (Rad Only) IV 05/06/25 14:41 10 ml ONCE ONE Administration Sodium Chloride 50 ml 05/06/25 16:01 05/06/25 16:02 0.9 % Sodium Chloride 50 Ml Vial IV 05/06/25 16:02 50 ml ONCE ONE Administration Sodium Chloride 10 ml 05/06/25 16:01 05/06/25 16:02 Sodium Chloride 0.9% 10ml Syr (Rad Only) IV 06/05/25 16:00 10 ml NEEDED PRN Administration Maintain IV Site ORDERS Category Date Time Status CT Venogram head Stat Cat Scan 05/06/25 15:[address] angio head Stat Cat Scan 05/06/25 14:[address] angio neck Stat Cat Scan 05/06/25 14:[address] head/brain wo con Stat Cat Scan 05/06/25 14:07 Completed CXR --portable [XR chest portable] Stat Exams 05/06/25 14:07 Completed CBC w/Auto Diff [Complete Blood Count Auto Diff] Stat Lab 05/06/25 14:00 Completed CMP [Comprehensive Metabolic Panel] Stat Lab 05/06/25 14:00 Completed Trop I [Troponin I] Stat Lab 05/06/25 14:00 Completed Troponin I Q3H Lab 05/06/25 17:15 Completed MDM Narrative Medical Decision Narrative: In summary, patient is a 44-year-old female PMHx obesity and substance abuse who presents to the ED for complaints of centrally located chest pain and sudden onset headache which is the worst headache of her life that started abruptly today approximately 2 hours ago while watching TV. Patient states that her headache and chest pain started at the same time. She states her chest pain is a stabbing pain. She has had a few episodes of chest pain this month. Has not followed up with cardiology. Has not followed up with her PCP. She has not taken any medication prior to arrival. Denies alcohol, drug or tobacco use currently. She states she has not used substances in 2 years. Denies fever, chills, body aches, visual disturbances, shortness of breath, abdominal pain, nausea, vomiting, dysuria. Differential diagnosis include ACS, dissection, pulmonary embolism, ICH, mass, thrombus, among others. Upon initial evaluation patient is alert, oriented and cooperative. She is hemodynamically stable. PERRLA. No nystagmus. No posterior C-spine tenderness. Chest wall is nontender. Discussed with patient we will proceed with CT scans, chest x-ray, EKG and labs. She is agreeable to plan of care at this time. Patient was symptomatically managed with morphine and Zofran initially. CBC unremarkable for any leukocytosis, stable H&H. CMP unremarkable for any infectious process. First troponin < 0.01. Second troponin < 0.01. Imaging studies reviewed. Chest x-ray unremarkable for any acute findings. Head CT unremarkable for any acute intracranial process. Head CTA unremarkable for any acute process. Neck CTA unremarkable for any significant arterial abnormality. CTV unremarkable. Patient states she has continued pain, IV fluids and droperidol administered. Upon reassessment at discharge, patient is asleep, she awakens to verbal stimuli. Her chest pain has resolved. Her headache has resolved. I discussed with her for her headache she will need to follow-up with neurology. I advised her I placed a referral on her discharge papers but she will need to make the appointment. We discussed return precautions to the ED and she verbalized understanding. She was hemodynamically stable and ambulatory without difficulty from the ED peer <Live Zuñiga, - Last Filed: 05/07/25 22:34> Vital Signs Vital Signs: 05/06/25 14:01 05/06/25 14:06 05/06/25 14:06 Temperature 98.4 F 98.4 F Temperature Source Oral Pulse Rate 84 82 Pulse Rate [Right] 82 Respiratory Rate 13 16 16 Blood Pressure 130/77 130/77 Blood Pressure [Left Arm] 130/77 Blood Pressure Mean [Left Arm] 94 Blood Pressure Source Blood Pressure Position 02 Sat by Pulse Oximetry 94 L 94 L 94 L Oxygen Delivery Method Room Air 05/06/25 14:47 05/06/25 15:00 05/06/25 18:19 Temperature 98.0 F Temperature Source Oral Pulse Rate 78 85 61 Pulse Rate [Right] Respiratory Rate 19 15 20 Blood Pressure 119/82 114/71 95/68 L Blood Pressure [Left Arm] Blood Pressure Mean [Left Arm] Blood Pressure Source Automatic Cuff Blood Pressure Position Sitting 02 Sat by Pulse Oximetry 98 98 Oxygen Delivery Method Room Air Lab Data Labs: Lab Results 05/06/25 14:00: WBC 6.1, RBC 4.81, Hgb 13.0, Hct 39.5, MCV 82.1, MCH 27.0, MCHC 32.9, RDW 14.4, Plt Count 212, MPV 10.1, Neut % (Auto) 59.9, Lymph % (Auto) 30.1, Rains % (Auto) 7.6, Eos % (Auto) 1.7, Baso % (Auto) 0.5, Neut # (Auto) 3.6, Lymph # (Auto) 1.8, Rains # (Auto) 0.5, Eos # (Auto) 0.1, Baso # (Auto) 0.0, Sodium 138, Potassium 3.6, Chloride 108 H, Carbon Dioxide 21 L, Anion Gap 12.6, BUN 16, Creatinine 0.50 L, Estimated Creat Clear 127, Estimated GFR 133, Est GFR ( Amer) 161, Glucose 106 H, Calcium 8.6, Total Bilirubin 0.4, AST 23, ALT 17, Alkaline Phosphatase 88, Troponin I < 0.01, Total Protein 6.9, Albumin 4.1, Globulin 2.8, Albumin/Globulin Ratio 1.5 05/06/25 17:15: Troponin I < 0.01 Response Orders (Tests/Meds): ED MEDICATIONS Discontinued Medications Generic Name Dose Route Start Last Admin Trade Name Freq PRN Reason Stop Dose Admin Acetaminophen 1,000 mg 05/06/25 15:28 05/06/25 15:35 Acetaminophen 500mg Tab PO 05/06/25 15:29 1,000 mg ONCE ONE Administration Droperidol 2.5 mg 05/06/25 15:28 05/06/25 15:34 Droperidol 5mg/2ml Vial IV 05/06/25 15:29 2.5 mg ONCE ONE Administration Sodium Chloride 1,000 mls @ 999 mls/hr 05/06/25 15:28 05/06/25 17:46 Sod Chlor 0.9% 1000ml Bag IV 05/06/25 16:28 Infused .Q1H1M ONE Infusion Iopamidol 80 ml 05/06/25 14:40 05/06/25 14:42 Iopamidol-370 (76%);100ml Bottle IV 05/06/25 14:41 80 ml ONCE ONE Administration Iopamidol 80 ml 05/06/25 16:01 05/06/25 16:02 Iopamidol-370 (76%);100ml Bottle IV 05/06/25 16:02 80 ml ONCE ONE Administration Morphine Sulfate 4 mg 05/06/25 14:07 05/06/25 14:47 Morphine 4mg/Ml Syringe IV 05/06/25 14:08 4 mg ONCE ONE Administration Ondansetron HCl 4 mg 05/06/25 14:07 05/06/25 14:47 Ondansetron 4mg/2ml Vial IV 05/06/25 14:08 4 mg ONCE ONE Administration Sodium Chloride 10 ml 05/06/25 14:07 Sodium Chloride 0.9% 10ml Flush Syringe IV 06/05/25 14:06 NEEDED PRN Maintain IV Site Sodium Chloride 40 ml 05/06/25 14:40 05/06/25 14:41 0.9 % Sodium Chloride 50 Ml Vial IV 05/06/25 14:41 40 ml ONCE ONE Administration Sodium Chloride 10 ml 05/06/25 14:40 05/06/25 14:41 Sodium Chloride 0.9% 10ml Syr (Rad Only) IV 05/06/25 14:41 10 ml ONCE ONE Administration Sodium Chloride 50 ml 05/06/25 16:01 05/06/25 16:02 0.9 % Sodium Chloride 50 Ml Vial IV 05/06/25 16:02 50 ml ONCE ONE Administration Sodium Chloride 10 ml 05/06/25 16:01 05/06/25 16:02 Sodium Chloride 0.9% 10ml Syr (Rad Only) IV 06/05/25 16:00 10 ml NEEDED PRN Administration Maintain IV Site ORDERS Category Date Time Status CT Venogram head Stat Cat Scan 05/06/25 15:[address] angio head Stat Cat Scan 05/06/25 14:[address] angio neck Stat Cat Scan 05/06/25 14:[address] head/brain wo con Stat Cat Scan 05/06/25 14:07 Completed CXR --portable [XR chest portable] Stat Exams 05/06/25 14:07 Completed CBC w/Auto Diff [Complete Blood Count Auto Diff] Stat Lab 05/06/25 14:00 Completed CMP [Comprehensive Metabolic Panel] Stat Lab 05/06/25 14:00 Completed Trop I [Troponin I] Stat Lab 05/06/25 14:00 Completed Troponin I Q3H Lab 05/06/25 17:15 Completed ECG Data Tracing #1: Attestation: I reviewed this ECG and interpreted as documented below: ECG Narrative: EKG personally interpreted by me demonstrates normal sinus rhythm with a rate of 85 bpm, normal axis, no TX prolongation, narrow QRS, no QTc prolongation. No ST elevation or depression. No overt signs of ischemia or arrhythmia
[2025-05-06 14:16] LABS: Hematocrit 39.5 % (37.0-47.0); Hemoglobin 13.0 g/dL (12.2-16.2); Immature Granulocytes % 0.2 %; Mean Corpuscular HGB Conc 32.9 g/dL (31.8-35.4); Mean Corpuscular Hemoglobin 27.0 pg (27.0-31.2); Mean Corpuscular Volume 82.1 fl (81-99); Nucleated Red Blood Cells % 0 %; Platelet Count 212 K/mm3 (142-424); Red Blood Count 4.81 M/mm3 (4.20-5.40); Red Cell Distribution Width-SD 42.8 fL; White Blood Count 6.1 K/mm3 (4.8-10.8)
[2025-05-06 14:17] LABS: Chloride 108 mmol/L (98-107)
[2025-05-06 14:18] LABS: Albumin Level 4.1 g/dl (3.5-5.0); Potassium 3.6 mmoL/L (3.5-5.1); Sodium 138 mmol/L (136-145)
[2025-05-06 14:20] LABS: Alanine Aminotransferase 17 U/L (12-78); Anion Gap 12.6 mEq/L (5-15); Aspartate Amino Transferase 23 U/L (14-36); Blood Urea Nitrogen 16 mg/dl (7-17); Carbon Dioxide 21 mmol/L (22.0-30.0); Creatinine Clearance Estimated 127 mL/min (50-200); Creatinine,Serum 0.50 mg/dl (0.52-1.04); Estimated Glomerular Filt Rate 133 ml/min (>60); GFR (African American) 161 ML/MIN (>60)
[2025-05-06 14:21] LABS: Albumin/Globulin Ratio 1.5 (1.1-1.8); Alkaline Phosphatase 88 U/L (38-126); Bilirubin,Total 0.4 mg/dl (0.2-1.3); Calcium 8.6 mg/dl (8.4-10.2); Globulin 2.8 g/dL (1.3-3.2); Glucose 106 mg/dl (74-100); Total Protein,Serum 6.9 g/dl (6.3-8.2)
[2025-05-06 14:37] LABS: Troponin I < 0.01 ng/ml (0.00-0.034)
[2025-05-06] MEDS: 0.9 % SODIUM CHLORIDE 50 ML VIAL 40 ML IV (14:41)
[2025-05-06] MEDS: SODIUM CHLORIDE 0.9% 10ML SYR (RAD ONLY) 10 ML IV ×2 (14:41→16:02)
[2025-05-06] MEDS: IOPAMIDOL-370 (76%);100ML BOTTLE 80 ML IV ×2 (14:42→16:02)
[2025-05-06 14:47] VITALS: BP 119/82; PULSE 78; RESP 19; O2SAT 98
[2025-05-06] MEDS: ONDANSETRON 4MG/2ML VIAL 4 MG IV (14:47)
[2025-05-06] MEDS: MORPHINE 4MG/ML SYRINGE 4 MG IV (14:47)
[2025-05-06 15:00] VITALS: BP 114/71; PULSE 85; RESP 15; O2SAT 98
--- NOTE | 2025-05-06 15:31 | CT_ITS ---
FINAL REPORT TECHNIQUE: Axial, sagittal, and coronal images were obtained with delayed imaging to allow for opacification of the venous system. This study was performed with techniques to keep radiation doses as low as reasonably achievable (ALARA). Individualized dose reduction techniques using automated exposure control or adjustment of mA and/or kV according to the patient's size were employed. CLINICAL HISTORY: headache, positional changes COMPARISON: None FINDINGS: No evidence of acute hemorrhage or infarct. There is opacification of the superior sagittal sinus. The transverse and sigmoid sinuses are patent. No evidence of dural venous sinus thrombosis. IMPRESSION: No acute intracranial process. Reviewed, Interpreted and Dictated by David Marroquin MD Transcribed by Hollie Gutierrez Authenticated and [facility][1]
[2025-05-06] MEDS: droPERidol 5MG/2ML VIAL 2.5 MG IV (15:34)
[2025-05-06] MEDS: ACETAMINOPHEN 500MG TAB 1000 MG PO (15:35)
[2025-05-06] MEDS: 0.9 % SODIUM CHLORIDE 1000ML 1,000 ML 999 ML IV (15:35)
[2025-05-06] MEDS: 0.9 % SODIUM CHLORIDE 50 ML VIAL IV (16:02)
[2025-05-06 18:12] LABS: Troponin I < 0.01 ng/ml (0.00-0.034)
[2025-05-06 18:19] VITALS: BP 95/68; PULSE 61; RESP 20; TEMP 36.7; O2SAT 97
== END 2025-05-06 18:29 | disposition home or self-care (01) ==
PROVIDERS: Nurse Practitioner; Emergency Provider Student in an Organized Health Care Education/Training Program; PCP Nurse Practitioner Family
DX: R07.9 Chest pain, unspecified (principal); R51.9 Headache, unspecified; F17.210 Nicotine dependence, cigarettes, uncomplicated
CPT/HCPCS: 70450; 70496; 70498; 71045; 80053; 84484; 85025; 93005; 96361; 96374; 96375; 99285; J1790; J2270; J2405; J7030; Q9967

== ENCOUNTER 2025-08-07 16:14 | Emergency (ER) | payer OTHER, SELFPAY ==
[2025-08-07] VITALS (13 sets, daily range): BP systolic 100–135; BP diastolic 66–85; PULSE 44–95; RESP 13–25; TEMP 36.9; O2SAT 97–100; BMI 45.9
--- NOTE | 2025-08-07 16:18 | ECG_ITS ---
APPROVED REPORT Exam: Resting ECG HR:86 bpm ECG Measurements Heart Rate 86 AXES AZ 136 P 54 QRSd 93 QRS 29 QT 342 T 31 QTc 385 Conclusion SINUS RHYTHM NORMAL ECG UNCONFIRMED REPORT Electronically signed by : Elfego Lozano, 08/07/2025 21:56:25
--- NOTE | 2025-08-07 16:27 | XR_ITS ---
PROCEDURE INFORMATION: Exam: XR Chest Exam date and time: 08/07/2025 4:32 PM Age: 45 years old Clinical indication: Dyspnea TECHNIQUE: Imaging protocol: Radiologic exam of the chest. Views: 1 view. Total images: 1 COMPARISON: CR XR CHEST PORTABLE 05/06/2025 2:38 PM FINDINGS: Lungs: No consolidation. Pleural spaces: No pleural effusion. No pneumothorax. Heart/Mediastinum: No cardiomegaly. Bones/joints: Unremarkable. IMPRESSION: No acute cardiopulmonary abnormalities.
--- NOTE | 2025-08-07 16:29 | ED_ITS ---
Discharge Plan Disposition Patient Disposition: Home, Self-Care Prescriptions Prescriptions: No Action omeprazole magnesium [Acid Agent Producer (omeprazole)] 20 mg capsule,delayed release(DR/EC) 20 mg PO DAILY Referrals Follow up/Referrals: Porter Rose APRN [Primary Care Provider, Family Practice] - See instructions Reynaldo De La O MD [Staff Physician, Cardiology] - See instructions Activity Restrictions/Add. Instructions Additional Instructions/Restrictions: No emergent medical condition identified today please follow-up closely with Dr. De La O as discussed. Clinical Impressions Clinical Impression: Atypical chest pain, Headache Print Language Print Language: Bahamian Discharge ED Provider: Ilda Lozano HPI General Chief Complaint: Chest Pain Stated Complaint: chest pain Time Seen by Provider: 08/07/25 16:23 Mode of Arrival: Ambulatory Source of Information: Patient Description of Symptoms (Recalled from ER Triage Doc. by RN): anusha presents from work with 10/10 chest pain that radiates into her back, and down her left arm. patient stated it started last night and progressed once she got to work. History of Present Illness HPI narrative: Patient is a 45-year-old female without any significant cardiovascular risk factors presents today with chest discomfort and a headache. Primarily she has some chest pressure rating to her left arm started about 30 minutes prior to arrival she took 4 aspirin prior to arrival today. Also complains of a mild headache no thunderclap component to this or neurologic complaints or fever. She has never had a stress test or heart cath. She does have a history of a repaired hiatal hernia in the past had similar symptoms but that is since been repaired. Related Data Home Medications ?Medication ?Instructions ?Recorded ?Confirmed omeprazole magnesium 20 mg 20 mg PO DAILY 05/21/2511/13 capsule,delayed release (Acid Agent Producer (omeprazole)) Allergies Allergy/AdvReac Type Severity Reaction Status Date / Time No Known Allergies Allergy Verified 05/21/25 09:59 [facility] Disclaimer: The information contained in this section may have been updated after the patient was seen, as this information can be updated by other users. Medical History Hernia Heart attack COVID-19 Fatty liver Surgical History History of knee replacement H/O hernia repair History of hysterectomy History of History of tonsillectomy [place] teeth extracted History of cholecystectomy Family History Grandmother Cancer Mother Coronary artery disease Diabetes Heart attack Kidney disease Stroke Sister Diabetes Social History Smoking Status: Light tobacco smoker tobacco type: cigarettes packs per day: 1 second hand exposure: No alcohol intake: never substance use type: opiates current occupational status: other Travel in the last 8 weeks?: Inside the [facility] household members: significant other housing: apartment caffeine: Yes Have you lived/traveled outside US in past 30 days?: No Contact w/someone who lives/traveled outside US past 30 days?: No Exposure to someone with infectious disease in past 14 days?: No Do you have a fever (greater than 100.4 F or 38 C)?: No Have you tested positive for COVID-19?: No Exposed to someone with COVID-19 in past 14 days?: No Do you have a sore throat?: No Do you have a cough?: No Do you have any weakness?: No Do you have any diarrhea?: No Are you experiencing any unusual bleeding?: No Do you have any muscle aches/pain?: No Do you have any abdominal pain?: No Are you experiencing loss of taste or smell?: No Other Medical History Have you received the Flu Vaccine for this season: No Have you received the Pneumonia Vaccine: Yes ROS Obtained: Yes All systems reviewed & no additional complaints except as documented Physical Exam General General appearance: alert and in no apparent distress Respiratory Respiratory exam: Present normal lung sounds bilaterally; Absent respiratory distress Cardiovascular Cardiovascular exam: Present regular rate and normal rhythm Abdominal Exam Abdominal exam: Present soft; Absent distention or tenderness Neurological Exam Neurological exam: Present alert and oriented X3 HEART Score HEART Score HEART Score assessment performed?: Yes History (anamnesis): Slightly suspicious ECG: Normal Age: 45-65 years Risk factors: No known risk factors Troponin: </= normal limit HEART Score: 1 Procedures Miscellaneous Procedure Procedure Performed: Ultrasound-guided IV Indication difficult IV access Patient was placed in the supine position was prepped and draped in sterile fashion. 20-gauge 48 mm Angiocath was used with axial and long axis planes on the ultrasound under direct visual guidance. The tip of the needle was observed being inserted directly into the vein itself and catheter was advanced under direct guidance. No significant complications. Critical Care Critical Care Time Critical Care Time: No Medical Decision Making Aly Inquiry Pt receiving controlled substance: No Vital Signs Vital Signs: 08/07/25 16:17 08/07/25 17:00 08/07/25 17:31 Temperature 98.5 F Temperature Source Oral Pulse Rate 75 44 L Pulse Rate [Right Radial] 93 H Respiratory Rate 18 21 25 H Blood Pressure 133/83 120/85 Blood Pressure [Right Arm] 135/81 Blood Pressure Mean Blood Pressure Mean [Right Arm] 99 Blood Pressure Source [Right Arm] Automatic Cuff Blood Pressure Position [Right Arm] Sitting 02 Sat by Pulse Oximetry 100 98 97 Oxygen Delivery Method Room Air Room Air Room Air 08/07/25 18:00 08/07/25 19:00 08/07/25 19:00 Temperature Temperature Source Pulse Rate 65 65 Pulse Rate [Right Radial] Respiratory Rate 20 18 Blood Pressure 114/69 111/71 Blood Pressure [Right Arm] Blood Pressure Mean 84 Blood Pressure Mean [Right Arm] Blood Pressure Source [Right Arm] Blood Pressure Position [Right Arm] 02 Sat by Pulse Oximetry 98 99 Oxygen Delivery Method Room Air Room Air 08/07/25 19:30 08/07/25 20:00 08/07/25 20:00 Temperature Temperature Source Pulse Rate 78 79 Pulse Rate [Right Radial] Respiratory Rate 14 15 Blood Pressure 106/72 L 100/66 L Blood Pressure [Right Arm] Blood Pressure Mean 77 Blood Pressure Mean [Right Arm] Blood Pressure Source [Right Arm] Blood Pressure Position [Right Arm] 02 Sat by Pulse Oximetry 99 100 Oxygen Delivery Method Room Air 08/07/25 20:15 Temperature Temperature Source Pulse Rate 71 Pulse Rate [Right Radial] Respiratory Rate 15 Blood Pressure Blood Pressure [Right Arm] Blood Pressure Mean Blood Pressure Mean [Right Arm] Blood Pressure Source [Right Arm] Blood Pressure Position [Right Arm] 02 Sat by Pulse Oximetry 99 Oxygen Delivery Method Room Air Lab Data Lab results reviewed: Yes I reviewed the patient's lab results. Labs: Lab Results 08/07/25 18:35: WBC 9.0, RBC 4.78, Hgb 13.7, Hct 41.3, MCV 86.4, MCH 28.7, MCHC 33.2, RDW 14.6, Plt Count 248, MPV 9.9, Neut % (Auto) 66.8, Lymph % (Auto) 25.0, [place] % (Auto) 6.1, Eos % (Auto) 1.4, Baso % (Auto) 0.6, Neut # (Auto) 6.0, Lymph # (Auto) 2.3, [place] # (Auto) 0.6, Eos # (Auto) 0.1, Baso # (Auto) 0.1, D-Dimer 0.93 H, Sodium 134 L, Potassium 3.9, Chloride 105, Carbon Dioxide 22, Anion Gap 10.9, BUN 18 H, Creatinine 0.90, Estimated Creat Clear 70, Estimated GFR 67, Est GFR ( Amer) 81, Glucose 88, Calcium 9.1, Total Bilirubin 0.5, AST 22, ALT 13, Alkaline Phosphatase 85, Troponin I < 0.01, Total Protein 7.2, Albumin 4.3, Globulin 2.9, Albumin/Globulin Ratio 1.5 08/07/25 18:35 08/07/25 18:35 Response Orders (Tests/Meds): ED MEDICATIONS Discontinued Medications Generic Name Dose Route Start Last Admin Trade Name Freq PRN Reason Stop Dose Admin Acetaminophen 1,000 mg 08/07/25 16:27 08/07/25 18:40 Acetaminophen 1,000mg/100ml Vial IV 08/07/25 16:28 1,000 mg ONCE ONE Administration Diphenhydramine HCl 25 mg 08/07/25 16:27 08/07/25 18:40 Diphenhydramine 50mg/Ml Vial IV 08/07/25 16:28 25 mg ONCE ONE Administration Lactated Ringer's 1,000 mls @ 999 mls/hr 08/07/25 16:30 08/07/25 20:32 Lactated Ringer's 1000 Ml Bag IV 08/07/25 17:30 Infused .Q1H1M JUANA Infusion Prochlorperazine Edisylate 10 mg 08/07/25 16:27 08/07/25 18:40 Prochlorperazine 10mg/2ml Vial IV 08/07/25 16:28 10 mg ONCE ONE Administration ORDERS Category Date Time Status CXR --portable [XR chest portable] Stat Exams 08/07/25 16:27 Completed CBC w/Auto Diff [Complete Blood Count Auto Diff] Stat Lab 08/07/25 18:35 Completed CMP [Comprehensive Metabolic Panel] Stat Lab 08/07/25 18:35 Completed D-Dimer Stat Lab 08/07/25 18:35 Completed Trop I [Troponin I] Stat Lab 08/07/25 18:35 Completed Troponin I Q3H Lab 08/07/25 19:30 Ordered Troponin I Q3H Lab 08/07/25 22:30 Ordered ECG Data Tracing #1: Attestation: I reviewed this ECG and interpreted as documented below: ECG Narrative: Ventricular rate of 86 normal sinus rhythm no acute ischemic changes noted no significant conduction abnormalities MDM Narrative Medical Decision Narrative: Well-appearing 45-year-old normal neurologic and cardiovascular exam presents today with chest pain that began 30 minutes prior to arrival already had aspirin. Will give her a migraine cocktail with Tylenol Compazine Benadryl and IV fluids she has no red flags for history of physical standpoint to suggest that she needs a CT or lumbar puncture at [facility]. Acute coronary syndrome is on the differential but remains very low likelihood will get serial troponins given the duration of symptoms in relation to the onset of her time and coming to the ED. EKG is nonischemic. Will obtain a D-dimer and utilize years criteria to rule out pulmonary embolism which is unlikely. If her workup is negative today we will refer her to cardiology for further outpatient workup from a cardiovascular standpoint. Reassessment 924 initial workup was negative D-dimer less than 1 utilizing years criteria will not further workup PE. Chest x-ray performed I personally interpreted shows no acute cardiopulmonary abnormalities. First troponin undetectably low. When it came time to draw the second troponin patient's IV was no longer drawing fluids patient ultimately stated that it was uncomfortable and she wanted us to stop trying to draw blood and she did not want to be stuck again. She understood that there is a small risk of us missing acute coronary syndrome given the duration of symptoms versus her presentation time however I do think this is very low risk given how good she looks right now. She states that she will closely follow-up with cardiology and understands the risks of not doing this test. Patient was discharged in stable and improved condition. She was resting comfortably upon my reassessment and discharged without symptoms.
--- OUTSIDE RECORDS SUMMARY | 2025-08-07 16:34 | XMS_ITS | Encounter Summary ---
Author Organization Healthcare Address [address] [place] [address] Care Team Providers Care Hospital Chaplain Name Role Phone Buster Stewart MD Primary Care Provider [phone] Encounter Details Date Type Department Care Team ([facility] st Contact Info) Description 05/01/2023 Orders Only External Location [address] [place] [address] Provider, External Social History Tobacco Use Types [...] on filedocumented in this encounter Care Teams Hospital Chaplain Relationship Specialty Start Date End Date Buster Stewart MD [address] [facility] [place] [address] PCP - General 01/30/21 documented as of this encounter
--- OUTSIDE RECORDS SUMMARY | 2025-08-07 16:34 | XMS_ITS | Clinical Summary ---
Author Organization [facility] Address [address] [place] [address] Care Team Providers Care Fagoting Machine Operator Name Role Phone Buster Stewart MD Primary Care Provider [phone] Allergies Active Allergy Reactions Criticality Noted Date [...] 2023 Sigmoidoscopy 2023 [facility]-Colorectal Cancer Screening 2023 [id number] Vaccine ( - season) 2025 06/28/2023, 06/17/2021, 05/07/2021 [facility]-Influenza Vaccine (#1) 2025 [...] Insurance [employer] MEDICA[employer] Care Teams Fagoting Machine Operator Relationship Specialty Start Date End Date Buster Stewart MD [address] [facility] [place] [address] PCP - General 01/30/21
--- OUTSIDE RECORDS SUMMARY | 2025-08-07 16:34 | XMS_ITS | Clinical Summary ---
Author Organization [employer] ([place], [place], [place], [place], [place]) Address [address] [place] [address] Care Team Providers Care Ambulance Dispatcher Name Role Phone Porter Rose MOLD BLOWER Primary Care Provider [phone] Allergies Active Allergy Reactions Criticality Noted Date [...] Lipid Panel 2023 COVID-19 VACCINE ( season) 2025 06/28/2023, 06/17/2021, 05/07/2021 Influenza Vaccine (#1) 2025 Tobacco Cessation Counseling and Screening (12+) 01/11/2026 01/11/2025 DTAP/TDAP/TD VACCINES (10 - Td or Tdap) 06/28/2031 06/28/2021, 12/22/2018, 05/08/2002, Additional history exists Pneumococcal Vaccine: 0-49 Years Aged Out 10/08/2018 No longer eligible based on patient's age to complete this topic Medical Devices Implanted Type Area Counselor Supervisor Device Identifier Shelf Expiration Date Model / Serial / Lot Cement Bone Smplx Tobra 40gm 6197-9-001 - [id number] Implanted:Qty : 2 on 10/17/2024 by Mt Vargas MD at [facility] IMPLANTS Left: Knee MARTITA:[employer] 01/16/2026 1 / / [id number] Cement Bone Smplx Tobra [facility] 6197-9-001 - [id number] Implanted:Qty : 1 on 01/23/2025 by Mt Vargas MD at [facility] IMPLANTS Right: Knee M[employer]ITA:[employer] 01/16/2026 1 / / [id number] Cement Bone Smplx Tobra [facility] 6197-9-001 - [id number] Implanted:Qty : 1 on 01/23/2025 by Mt Vargas MD at [facility] IMPLANTS Right: Knee M[employer]ITA:[employer] 03/18/2026 1 / / [id number] Pwdr Cellerate Clgn 1gm Strl Ggt-28-Blolpf - [id number] Implanted:Qty : 1 on 01/23/2025 at [facility] IMPLANTS Right: Knee [employer] 01/31/2027 [facility]-01-SA CRXP / / [id number] Imp Patella Itotal 35x7mm [id number] - [id number] Implanted:Qty : 1 on 10/17/2024 by Mt Vargas MD at [facility] TOTAL JOINT CONSTRUCT Left: Knee CONFORMIS 03/18/2025 [id number] / / [id number] Kt Itotal Id Ps Full Xe Itps-Xe-1pc - [id number] Implanted:Qty : 1 on 10/17/2024 by Mt Vargas MD at [facility] TOTAL JOINT CONSTRUCT Left: Knee CONFORMIS ITPS-XE-1 PC / / [id number] Ty Itotal Id Ps Tib Evaristo Lt [id number] - [id number] Implanted:Qty : 1 on 10/17/2024 by Mt Vargas MD at [facility] TOTAL JOINT [employer]STRU[employer] Left: Knee CONFORMIS 10/19/2025 [id number] / / [id number] Imp Itotal Id Ps Fem Evaristo Lt [id number] - [id number] Implanted:Qty : 1 on 10/17/2024 by Mt Vargas MD at [facility] TOTAL JO[employer] Left: Knee CONFORMIS 10/19/2025 [id number] / / [id number] Kt Cr Full Itotal Id 2pc Itcr-Xe-2pc - [id number] Implanted:Qty : 1 on 01/23/2025 by Mt Vargas MD at [facility] [employer] Right: Knee CONFORMIS 07/19/2026 ITCR-XE-2 PC / [id number] / Ty Cr Tib Itotal Id Right [id number] - [id number] Implanted:Qty : 1 on 01/23/2025 by Mt Vargas MD at [facility] [employer] Right: Knee CONFORMIS 01/16/2026 [id number] / [id number] / Imp Cr Fem Itotal Id Evaristo Right [id number] Implanted:Qty : 1 on 01/23/2025 by Mt Vargas MD at [facility] [employer] Right: Knee CONFORMIS 01/16/2026 [id number] / [id number] / Imp Patella Itotal 35x7mm [id number] - [id number] Implanted:Qty : 1 on 01/23/2025 by Mt Vargas MD at [facility] TOTAL JOINT CONSTRUCT Right: Knee CONFORMIS 07/19/2026 [id number] Insurance [facility] Advance Directives For more information, please contact: [phone] * Full Code (Latest Code Status on File) Date Activated Date Inactivated Comments 01/23/2025 6:11 AM 01/23/2025 3:03 PM * Full Code Date Activated Date Inactivated Comments 10/17/2024 5:23 AM 10/19/2024 4:07 PM Care Teams Ambulance Dispatcher Relationship Specialty Start Date End Date Porter Rose, PRABHA [address] [place] [address] PCP - General Nurse Practitioner 10/02/24
--- OUTSIDE RECORDS SUMMARY | 2025-08-07 16:34 | XMS_ITS | Clinical Summary ---
Author Organization [employer] Address [address] [place] [address] Care Team Providers Care Mottler Operator Name Role Phone Physician, No Primary Care Primary Care Provider Unavailable Miky Bateman MD Unavailable [phone] Allergies No known active allergies Medications DULoxetine [...] Used Date Smoking Tobacco: Former Cigarettes 1.5 19.9 2 006 - 1990 Passive Smoke Exposure: Past Smokeless Tobacco: Never Tobacco Cessation:Counseling Given: Not Answered Alcohol Use Standard Drinks/Week Comments Not Currently 0 (1 standard drink = 0.6 oz pur e alcohol) [facility] [employer] Answer Date Recorded In the past 12 months has e [employer], gas, oil, or water company threatened to [...] care, and heating? 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 [email or web address]
--- OUTSIDE RECORDS SUMMARY | 2025-08-07 16:34 | XMS_ITS | Encounter Summary ---
Author Organization [email or web address] ([place], [place], [place], [place], [place]) Address [address] [place] [address] Care Team Providers Care Mailing Machine Assistant Name Role Phone Porter Rose APRN Primary Care Provider [phone] Encounter Details Date Type Department Care Team (Late st Contact Info) Description 10/10/2024 Surgery Prep [facility] Surgery Department [address] [place] [address] Mt Vargas MD [address] [facility] 2nd [place] [address] Social History Tobacco Use Types Packs/Day Years [...] on filedocumented in this encounter Care Teams Mailing Machine Assistant Relationship Specialty Start Date End Date Porter Rose APRN [address] [place] [address] [id number] PCP - General Nurse Practitioner 10/02/24 documented as of this encounter
--- OUTSIDE RECORDS SUMMARY | 2025-08-07 16:34 | XMS_ITS | Referral Summary ---
Author Organization [employer] ([place], [place], [place], [place], [place]) Address [address] [place] [address] Care Team Providers Care Plant Engineering Manager Name Role Phone Porter Rose WOOD HEEL FLAP INSERTER Primary Care Provider [phone] Allergies Active Allergy Reactions Criticality Noted Date [...] on file Medical Devices Implanted Type Area Interlocking And Signal Mechanic Device Identifier Shelf Expiration Date Model / Serial / Lot Cement Bone Smplx Tobra [facility] 6197-9-001 - [id number] Implanted:Qty : 2 on 10/17/2024 by Mt Vargas MD at [facility] IMPLANTS Left: Knee [employer]ITA:[employer] 01/16/2026 [id number] / / [id number] Cement Bone Smplx Tobra [facility] 6197-9-001 - [id number] Implanted:Qty : 1 on 01/23/2025 by Mt Vargas MD at [facility] IMPLANTS Right: Knee [employer]ITA:[employer] 01/16/20269700 1 / / [id number] Cement Bone Smplx Tobra [facility] 6197-9-001 - [id number] Implanted:Qty : 1 on 01/23/2025 by Mt Vargsa MD at [facility] IMPLANTS Right: Knee [employer]ITA:[employer] 03/18/202600 1 / / [id number] Pwdr Cellerate Clgn 1gm Strl Hmo-54-Jiyitb - [id number] Implanted:Qty : 1 on 01/23/2025 at [facility] IMPLANTS Right: Knee [employer] 01/31/2027 [facility]-01-SA CRXP / / [id number] Imp Patella Itotal 35x7mm [id number] - [id number] Implanted:Qty : 1 on 10/17/2024 by Mt Vargas MD at [facility] TOTAL [employer] Left: Knee CONFORMIS 03/18/2025 [id number] / / [id number] Kt Itotal Id Ps Full Xe Itps-Xe-1pc - [id number] Implanted:Qty : 1 on 10/17/2024 by Mt Vargas MD at [facility] TOTAL JO[employer]STRU[employer] Left: Knee CONFORMIS ITPS-XE-1 PC / / [id number] Ty Itotal Id Ps Tib Evaristo Lt [id number] - [id number] Implanted:Qty : 1 on 10/17/2024 by Mt Vargas MD at [facility] TOTAL [employer] Left: Knee CONFORMIS 10/19/2025 [id number] / / [id number] Imp Itotal Id Ps Fem Evaristo Lt [id number] - [id number] Implanted:Qty : 1 on 10/17/2024 by Mt Vargas MD at [facility] TOTAL [employer] Left: Knee CONFORMIS 10/19/2025 [id number] / / [id number] Kt Cr Full Itotal Id 2pc Itcr-Xe-2pc - [id number] Implanted:Qty : 1 on 01/23/2025 by Mt Vargas MD at [facility] [employer] Right: Knee CONFORMIS 07/19/2026 ITCR-XE-2 PC / [id number] / Ty Cr Tib Itotal Id Right [id number] - [id number] Implanted:Qty : 1 on 01/23/2025 by Mt Vargas MD at [facility] [employer] Right: Knee CONFORMIS 01/16/2026 [id number] / [id number] / Imp Cr Fem Itotal Id Evaristo Right [id number] - [id number] Implanted:Qty : 1 on 01/23/2025 by Mt Vargas MD at [facility] [employer] Right: Knee CONFORMIS 01/16/2026 [id number] / [id number] / Imp Patella Itotal 35x7mm [id number] - [id number] Implanted:Qty : 1 on 01/23/2025 by Mt Vargas MD at [facility] [employer] Right: Knee CONFORMIS 07/19/2026 [id number] Insurance [facility] [facility] Advance Directives For more information, please contact: [phone] * Full Code (Latest Code Status on File) Date Activated Date Inactivated Comments 01/23/2025 6:11 AM 01/23/2025 3:03 PM * Full Code Date Activated Date Inactivated Comments 10/17/2024 5:23 AM 10/19/2024 4:07 PM Care Teams Plant Engineering Manager Relationship Specialty Start Date End Date Porter Rose APRN [address] [place] [address] PCP - General Nurse Practitioner 10/02/24
--- OUTSIDE RECORDS SUMMARY | 2025-08-07 16:34 | XMS_ITS | Patient Health Record ---
Author Organization [facility] Address [address] [facility] [place] [address] Care Team Providers Care Barrel Lathe Operator Name Role Phone Shea Cobb Primary Care [...] Problem Status W/U Status Risk Notes Problem Information temporarily unavailable Uncomplicated alcohol dependence (F10.20) Active confirmed Problem Information temporarily unavailable Uncomplicated opioid dependence (F11.20) Active confirmed Plan Of Treatment No Information Insurance Providers Payer Name Payer Address Payer Phone Subscriber Number Group Number Insured Name Patient Relationship to Insured Coverage Start Date Coverage End Date [employer] [address] [place], [place] [id number] [phone] [id number] Mayra Miranda Self - patient is the insured 2 Medical (General) History Medical History History ICD Code hepatitis C seizures myocardial infarction hypertension GERD depression BLE edema Gastrointestinal CA Suicidal ideations Surgical History Surgery Date(Month/Year) section 1995, 2006 hysterectomy 2008 tonsillectomy 2010 cholecystectomy 1998 Hospitalization History Reason Date(Month/Year) childbirth
[2025-08-07] MEDS: LACTATED RINGERS 1000ML 1,000 ML 999 ML IV (18:39)
[2025-08-07] MEDS: PROCHLORPERAZINE 10MG/2ML VIAL 10 MG IV (18:40)
[2025-08-07] MEDS: ACETAMINOPHEN 1,000MG/100ML VIAL 1000 MG IV (18:40)
[2025-08-07 18:51] LABS: Hematocrit 41.3 % (37.0-47.0); Hemoglobin 13.7 g/dL (12.2-16.2); Immature Granulocytes % 0.1 %; Mean Corpuscular HGB Conc 33.2 g/dL (31.8-35.4); Mean Corpuscular Hemoglobin 28.7 pg (27.0-31.2); Mean Corpuscular Volume 86.4 fl (81-99); Nucleated Red Blood Cells % 0 %; Platelet Count 248 K/mm3 (142-424); Red Blood Count 4.78 M/mm3 (4.20-5.40); Red Cell Distribution Width-SD 46.1 fL; White Blood Count 9.0 K/mm3 (4.8-10.8)
[2025-08-07 19:09] LABS: Alanine Aminotransferase 13 U/L (12-78); Albumin Level 4.3 g/dl (3.5-5.0); Albumin/Globulin Ratio 1.5 (1.1-1.8); Alkaline Phosphatase 85 U/L (38-126); Anion Gap 10.9 mEq/L (5-15); Aspartate Amino Transferase 22 U/L (14-36); Bilirubin,Total 0.5 mg/dl (0.2-1.3); Blood Urea Nitrogen 18 mg/dl (7-17); Calcium 9.1 mg/dl (8.4-10.2); Carbon Dioxide 22 mmol/L (22.0-30.0); Chloride 105 mmol/L (98-107); Creatinine Clearance Estimated 70 mL/min (50-200); Creatinine,Serum 0.90 mg/dl (0.52-1.04); Estimated Glomerular Filt Rate 67 ml/min (>60); GFR (African American) 81 ML/MIN (>60); Globulin 2.9 g/dL (1.3-3.2); Glucose 88 mg/dl (74-100); Potassium 3.9 mmoL/L (3.5-5.1); Sodium 134 mmol/L (136-145); Total Protein,Serum 7.2 g/dl (6.3-8.2)
[2025-08-07 19:14] LABS: D-Dimer 0.93 ug/mL (0.0-0.5)
[2025-08-07 19:22] LABS: Troponin I < 0.01 ng/ml (0.00-0.034)
== END 2025-08-07 21:36 | disposition home or self-care (01) ==
PROVIDERS: Emergency Provider Student in an Organized Health Care Education/Training Program; PCP Nurse Practitioner Family
DX: R07.9 Chest pain, unspecified (principal); R51.9 Headache, unspecified; E87.1 Hypo-osmolality and hyponatremia; F17.210 Nicotine dependence, cigarettes, uncomplicated
CPT/HCPCS: 71045; 80053; 84484; 85025; 85378; 93005; 96361; 96374; 96375; 99285; J0131; J0780; J1200; J7120

== ENCOUNTER 2025-09-05 10:51 | Emergency (ER) | payer OTHER, SELFPAY ==
--- NOTE | 2025-09-05 10:56 | PC.NURSE ---
Registration notified us that patient was leaving without coming back to be triaged. Nursing staff did not have any interaction with patient.
--- OUTSIDE RECORDS SUMMARY | 2025-09-05 12:14 | XMS_ITS | Encounter Summary ---
Author Organization Healthcare Address [address] [place] [address] Care Team Providers Care Magnetometer Operator Name Role Phone Buster Stewart MD Primary Care Provider [phone] Encounter Details Date Type Department Care Team ([facility] st Contact Info) Description 05/01/2023 Orders Only External Location [address] [place] [address] Provider, External Social History Tobacco Use Types [...] on filedocumented in this encounter Care Teams Magnetometer Operator Relationship Specialty Start Date End Date Buster Stewart MD [address] [facility] [place] [address] PCP - General 01/30/21 documented as of this encounter
--- OUTSIDE RECORDS SUMMARY | 2025-09-05 12:14 | XMS_ITS | Clinical Summary ---
Author Organization [facility] Address [address] [place] [address] Care Team Providers Care Market Development Trainer Name Role Phone Buster Stewart MD Primary Care Provider [phone] Allergies Active Allergy Reactions Criticality Noted Date [...] 2023 Sigmoidoscopy 2023 [facility]-Colorectal Cancer Screening 2023 [id number]-49 Vaccine ( season) 2025 06/28/2023, 06/17/2021, 05/07/2021 [facility]-Influenza Vaccine [...] Vaccines Completed 020, 12/22/2018, 01/20/2018 HPV Vaccines (No Doses Required) Completed [facility]-HIB Vaccines Aged Out No longer e ligible based on patient's age to complete this topic [facility]-Rotavirus Vaccines Aged Out No lo nger eligible based on patient's age to complete this topic Insurance AETNA [facility] MEDICAID Care Teams Market Development Trainer Relationship Specialty Start Date End Date Buster Stewart MD [address] [place] [address] PCP - General 01/30/21
--- OUTSIDE RECORDS SUMMARY | 2025-09-05 12:14 | XMS_ITS | Clinical Summary ---
Author Organization [facility] Address [address] [place] [address] Care Team Providers Care Nurse Midwife/Clinical Instructor Name Role Phone Physician, No Primary Care Primary Care Provider Unavailable Miky Bateman MD Unavailable [phone] Allergies No known active allergies Medications DULoxetine [...] Used Date Smoking Tobacco: Former Cigarettes 1.5 20 2 006 - 1990 Passive Smoke Exposure: Past Smokeless Tobacco: Never Tobacco Cessation:Counseling Given: Not Answered Alcohol Use Standard Drinks/Week Comments Not Currently 0 (1 standard drink = 0.6 oz pur e alcohol) [facility] Fuel ([email or web address])ities Answer Date Recorded In the past 12 months has e electric, gas, oil, or water company threatened to [...] care, and heating? 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 [id number].[facility]
--- OUTSIDE RECORDS SUMMARY | 2025-09-05 12:15 | XMS_ITS | Encounter Summary ---
Author Organization [employer] ([place], [place], [place], [place], [place]) Address [address] [place] [address] Care Team Providers Care Marketing Manager Health Communications Name Role Phone Porter Rose APRN Primary Care Provider [phone] Encounter Details Date Type Department Care Team (Late st Contact Info) Description 10/10/2024 Surgery Prep [facility] Surgery Department [address] [place] [address] Mt Vargas MD [address] [facility] 2nd [place] [address] Social History Tobacco Use Types Packs/Day Years [...] on filedocumented in this encounter Care Teams Marketing Manager Health Communications Relationship Specialty Start Date End Date Porter Rose APRN [address] [place] [address] [id number] PCP - General Nurse Practitioner 10/02/24 documented as of this encounter
--- OUTSIDE RECORDS SUMMARY | 2025-09-05 12:15 | XMS_ITS | Clinical Summary ---
Author Organization [employer] ([place], [place], [place], [place], [place]) Address [address] [place] [address] Care Team Providers Care Awning Hanger Helper Name Role Phone Porter Rose PATTERN DEVELOPER Primary Care Provider Allergies Active Allergy Reactions [...] this topic Medical Devices Implanted Type Area Concession Cashier Device Identifier Shelf Expiration Date Model / Serial / Lot Cement Bone Smplx Tobra 40gm 6197-9-001 - [id number] Implanted:Qty : 2 on 10/17/2024 by Mt Vargas MD at [facility] IMPLANTS Left: Knee [employer]ITA:[employer] 01/16/2026 1 / / [id number] Cement Bone Smplx Tobra [facility] 6197-9-001 - [id number] Implanted:Qty : 1 on 01/23/2025 by Mt Vargas MD at [facility] IMPLANTS Right: Knee [employer]ITA:[employer] 01/16/2026 1 / / [id number] Cement Bone Smplx Tobra [facility] 6197-9-001 - [id number] Implanted:Qty : 1 on 01/23/2025 by Mt Vargas MD at [facility] IMPLANTS Right: Knee [employer]ITA:[employer] 03/18/2026 1 / / [id number] Pwdr Cellerate Clgn 1gm Strl Foa-76-Bkjyrb - [id number] Implanted:Qty : 1 on 01/23/2025 at [facility] IMPLANTS Right: Knee [employer] 01/31/2027 [facility]-01-SA CRXP / / [id number] Imp Patella Itotal 35x7mm [id number] - [id number] Implanted:Qty : 1 on 10/17/2024 by Mt Vargas MD at [facility] TOTAL JOINT CONSTRUCT Left: Knee CONFORMIS 03/18/2025 [id number] / / [id number] Kt Itotal Id Ps Full Xe Itps-Xe-1pc - [id number] Implanted:Qty : 1 on 10/17/2024 by Mt Vargas MD at [facility] TOTAL JOINT CONSTRUCT Left: Knee CONFORMIS ITPS-XE-1 PC / / [id number] Ty Itotal Id Ps Tib Evaristo Lt [id number] - [id number] Implanted:Qty : 1 on 10/17/2024 by Mt Vargas MD at [facility] TOTAL JO[employer] Left: Knee CONFORMIS 10/19/2025 [id number] / / [id number] Imp Itotal Id Ps Fem Evaristo Lt [id number] - [id number] Implanted:Qty : 1 on 10/17/2024 by Mt Vargas MD at [facility] TOTAL JO[employer] Left: Knee CONFORMIS 10/19/2025 [id number] / / [id number] Kt Cr Full Itotal Id 2pc Itcr-Xe-2pc - [id number] Implanted:Qty : 1 on 01/23/2025 by Mt Vargas MD at [facility] [employer] Right: Knee CONFORMIS 07/19/2026 ITCR-XE-2 PC / [id number] / Ty Cr Tib Itotal Id Right [id number] - [id number] Implanted:Qty : 1 on 01/23/2025 by Mt Vargas MD at [facility] [employer] Right: Knee CONFORMIS 01/16/2026 [id number] / [id number] / Imp Cr Fem Itotal Id Evaristo Right [id number] - [id number] Implanted:Qty : 1 on 01/23/2025 by Mt Vargas MD at [facility] [employer] Right: Knee CONFORMIS 01/16/2026 [id number] / [id number] / Imp Patella Itotal 35x7mm [id number] - [id number] Implanted:Qty : 1 on 01/23/2025 by Mt Vargas MD at [facility] TOTAL JOINT CONSTRU[employer] Right: Knee CONFORMIS 07/19/2026 [id number] [facility] Advance Directives For more information, please contact: [phone] * Full Code (Latest Code Status on File) Date Activated Date Inactivated Comments 01/23/2025 6:11 AM 01/23/2025 3:03 PM * Full Code Date Activated Date Inactivated Comments 10/17/2024 5:23 AM 10/19/2024 4:07 PM Care Teams Awning Hanger Helper Relationship Specialty Start Date End Date Porter Rose, PRABHA [address] [place] [address] PCP - General Nurse Practitioner 10/02/24
--- OUTSIDE RECORDS SUMMARY | 2025-09-05 12:15 | XMS_ITS | Patient Health Record ---
Author Organization [facility] Address [address] [facility] [place] [address] Care Team Providers Care Sales Advisory Manager Name Role Phone hSea Cobb Primary Care Provider Allergies No Known [...] W/U Status Risk Notes Problem Alcohol dependence (51963534) Uncomplicated alcohol dependence (F10.20) Active confirmed Problem Opioid dependence (88068627) Uncomplicated opioid dependence (F11.20) Active confirmed Plan Of Treatment No Information Insurance Providers Payer Name Payer Address Payer Phone Subscriber Number Group Number Insured Name Patient Relationship to Insured Coverage Start Date Coverage End Date AETNA [facility] [address] [place], [place] [id number] [phone] [id number] Mayra Miranda Self - patient is the insured 2 Medical (General) History Medical History History ICD Code hepatitis C seizures myocardial infarction hypertension GERD depression BLE edema Gastrointestinal CA Suicidal ideations Surgical History Surgery Date(Month/Year) section 1995, 2005 hysterectomy 2007 tonsillectomy 2010 cholecystectomy 1998 Hospitalization History Reason Date(Month/Year) childbirth
--- OUTSIDE RECORDS SUMMARY | 2025-09-05 12:15 | XMS_ITS | Referral Summary ---
Author Organization [employer] ([place], [place], [place], [place], [place]) Address [address] [place] [address] Care Team Providers Care Early Childhood Associate Name Role Phone Porter Rose CONCRETE MIXING PLANT LABORER Primary Care Provider [phone] Allergies Active Allergy Reactions Criticality Noted Date [...] on file Medical Devices Implanted Type Area Domestic Housekeeper Device Identifier Shelf Expiration Date Model / Serial / Lot Cement Bone Smplx Tobra [facility] 6197-9-001 - [id number] Implanted:Qty : 2 on 10/17/2024 by Mt Vargas MD at [facility] IMPLANTS Left: Knee [employer] 01/16/2026 [id number] / / [id number] Cement Bone Smplx Tobra [facility] 6197-9-001 - [id number] Implanted:Qty : 1 on 01/23/2025 by Mt Vargas MD at [facility] IMPLANTS Right: Knee [employer]ITA:[employer] 01/16/20269700 1 / / [id number] Cement Bone Smplx Tobra [facility] 6197-9-001 - [id number] Implanted:Qty : 1 on 01/23/2025 by Mt Vargas MD at [facility] IMPLANTS Right: Knee [employer] 03/18/202600 1 / / [id number] Pwdr Cellerate Clgn 1gm Strl Ure-98-Opvnqm - [id number] Implanted:Qty : 1 on 01/23/2025 at [facility] IMPLANTS Right: Knee [employer] 01/31/2027 WCI-01-SA CRXP / / [id number] Imp Patella Itotal 35x7mm [id number] - [id number] Implanted:Qty : 1 on 10/17/2024 by Mt Vargas MD at [facility] TOTAL [employer] Left: Knee CONFORMIS 03/18/2025 [id number] / / [id number] Kt Itotal Id Ps Full Xe Itps-Xe-1pc - [id number] Implanted:Qty : 1 on 10/17/2024 by tM Vargas MD at [facility] TOTAL JO[employer] Left: Knee CONFORMIS ITPS-XE-1 PC / / [id number] Ty Itotal Id Ps Tib Evaristo Lt [id number] - [id number] Implanted:Qty : 1 on 10/17/2024 by Mt Vargas MD at [facility] TOTAL [employer] Left: Knee CONFORMIS 10/19/2025 [id number] / / [id number] Imp Itotal Id Ps Fem Evaristo Lt [id number] - [id number] Implanted:Qty : 1 on 10/17/2024 by Mt Vargas MD at [facility] TOTAL [employer] Left: Knee CONFORMIS 10/19/2025 [id number] / / [id number] Kt Cr Full Itotal Id 2pc Itcr-Xe-2pc - [id number] Implanted:Qty : 1 on 01/23/2025 by Mt Vargas MD at [facility] [employer] Right: Knee CONFORMIS 07/19/2026 ITCR-XE-2 PC / [id number] / Ty Cr Tib Itotal Id Right [id number] - [id number] Implanted:Qty : 1 on 01/23/2025 by Mt Vargas MD at [facility] [employer] Right: Knee CONFORMIS 01/16/2026 [id number] / [id number] / Imp Cr Fem Itotal Id Evaristo Right [id number] - [id number] Implanted:Qty : 1 on 01/23/2025 by Mt Vagras MD at [facility] [employer] Right: Knee CONFORMIS 01/16/2026 [id number] / [id number] / Imp Patella Itotal 35x7mm [id number] - [id number] Implanted:Qty : 1 on 01/23/2025 by Mt Vargas MD at [facility] [employer] Right: Knee CONFORMIS 07/19/2026 [id number] Insurance AETNA [facility] Advance Directives For more information, please contact: [phone] * Full Code (Latest Code Status on File) Date Activated Date Inactivated Comments 01/23/2025 6:11 AM 01/23/2025 3:03 PM * Full Code Date Activated Date Inactivated Comments 10/17/2024 5:23 AM 10/19/2024 4:07 PM Care Teams Early Childhood Associate Relationship Specialty Start Date End Date Porter Rose APRN [address] [place] [address] PCP - General Nurse Practitioner 10/02/24
== END 2025-09-05 11:00 | disposition left against medical advice (07) ==
LOC: ER 10:55
PROVIDERS: Emergency Provider Student in an Organized Health Care Education/Training Program; PCP Nurse Practitioner Family
DX: Z53.21 Procedure and treatment not carried out due to patient leaving prior to being seen by health care provider (principal)
CPT/HCPCS: 99211